=== PATIENT | female | born 2000 | race Caucasian/White ===

== ENCOUNTER 2024-02-08 11:50 | Emergency (ER) | payer OTHER, SELFPAY ==
[2024-02-08 12:23] VITALS: BP 127/82; PULSE 96; TEMP 36.9; O2SAT 100; BMI 22.0
[2024-02-08 12:58] LABS: Bilirubin Urine NEGATIVE (NEGATIVE); Blood Urine LARGE (NEGATIVE); Clarity Urine CLEAR (CLEAR); Color Urine LT. YELLOW (YELLOW); Glucose Urine UA NEGATIVE (NEGATIVE); Ketones Urine NEGATIVE (NEGATIVE); Leukocyte Esterase Urine TRACE (NEGATIVE); Nitrite Urine NEGATIVE (NEGATIVE); Protein Urine NEGATIVE (NEG/TRACE); Specific Gravity Urine <=1.005 (1.005-1.025); Urine Microscopic Indicated YES; Urobilinogen Urine 0.2 EU/dL (0.2-1.0)
[2024-02-08 12:59] LABS: HCG Qualitative Urine* NEGATIVE (NEGATIVE); Internal Control Within Normal Limits
[2024-02-08 13:09] LABS: Bacteria Urine TRACE #/HPF (NONE SEEN); Cast Seen? NONE SEEN #/LPF (NONE SEEN); Crystals Seen? None Seen #/HPF (None Seen); Mucus Urine TRACE (NONE SEEN); Squamous Epithelial Cell Urine MODERATE #/LPF (NONE/RARE); Urine Culture Indicated NO
--- NOTE | 2024-02-08 15:06 | ED_ITS ---
HPI HPI - General Adult General Chief complaint: Abdominal Pain Stated complaint: ABDOMINAL PAIN Time Seen by Provider: 02/08/24 14:26 Source: patient Mode of arrival: ambulance Limitations: no limitations History of Present Illness HPI narrative: Patient is a 24-year-old female who presents to the emergency department for the evaluation of pelvic cramping, heavy vaginal bleeding and nausea. She states her vaginal bleeding began yesterday, it got significantly heavier with passage of clots today. She has saturated 3 pads. She denies fevers, vomiting. She is not concerned for . No medications taken prior to arrival. Patient's mother is at bedside and states that the patient cannot receive opiates for pain Related Data Previous Rx's ?Medication ?Instructions ?Recorded ketorolac 10 mg tablet 10 mg PO TID PRN pain #10 tabs 02/08/24 ondansetron 4 mg disintegrating 4 mg PO Q6H PRN nausea and 02/08/24 tablet vomiting #12 tabs Allergies Allergy/AdvReac Type Severity Reaction Status Date / Time No Known Drug Allergies Allergy Verified 02/08/24 12:23 Opioid HPI Opioid Management Most Recent Opioid Data: Last ED Pain Assessment 02/08/24 15:20 Review of Systems ROS Constitutional Denies: fever or chills Ears, nose, mouth, and throat Denies: throat pain or nasal congestion Cardiovascular Denies: chest pain Respiratory Denies: shortness of breath or cough Gastrointestinal Reports: abdominal pain and nausea; Denies: vomiting or diarrhea Genitourinary Reports: pelvic pain and vaginal bleeding Musculoskeletal Denies: back pain Integumentary/Breast Denies: rash Neurological Denies: headache Hematologic/Lymphatic Denies: easy bruising or easy bleeding Exam Narrative Exam Narrative: Gen.: Awake, alert, in no distress Head: Normocephalic, atraumatic ENT: Moist mucous membranes Respiratory: No respiratory distress Gastrointestinal: Abdomen is soft, nondistended and Mildly tender to palpation in the pelvis with no guarding or rebound Extremities: Moves extremities equally Psych: Normal mood and affect Neuro: No focal neuro deficit Skin: Warm, dry, intact Constitutional Vital Signs, click to edit/add: Last Vital Signs Temp 98.4 F 02/08/24 12:23 Pulse 96 H 02/08/24 12:23 Resp 16 02/08/24 12:23 BP 127/82 02/08/24 12:23 Pulse Ox 100 06/09/24 12:23 O2 Del Method Room Air 02/08/24 12:23 Course Vital Signs Vital signs: Vital Signs Temperature 98.4 F 02/08/24 12:23 Pulse Rate 96 H 02/08/24 12:23 Respiratory Rate 16 02/08/24 12:23 Blood Pressure 127/82 02/08/24 12:23 Pulse Oximetry 100 02/08/24 12:23 Oxygen Delivery Method Room Air 02/08/24 12:23 Temperature 98.4 F 02/08/24 12:23 Pulse Rate 96 H 02/08/24 12:23 Respiratory Rate 16 02/08/24 12:23 Blood Pressure 127/82 02/08/24 12:23 Pulse Oximetry 100 02/08/24 12:23 Oxygen Delivery Method Room Air 02/08/24 12:23 Medical Decision Making MDM Narrative Medical decision making narrative: Patient was stable vital signs, hemoglobin 15.1. She is not and has no evidence of UTI. Patient treated for dysfunctional uterine bleeding with NSAIDs and Zofran for home, she was given an order for an ultrasound that can be done tomorrow with results to her technical photographer. She was strongly encouraged to follow-up with gynecology and return to the ER if symptoms change or worsen. Medical Records Medical records reviewed: Yes I reviewed the patient's medical records Lab Data Lab results reviewed: Yes I reviewed the patient's lab results Labs: Lab Results 02/08/24 02/08/24 Range/Units 12:40 14:57 WBC 8.3 (4.0-11.0) 10^3/uL RBC 5.01 (4.20-5.40) 10^6/uL Hgb 15.1 (12.0-16.0) g/dL Hct 44.6 (36.0-48.0) % MCV 89.0 (81.0-99.0) fL MCH 30.1 (26.7-34.0) pg MCHC 33.9 (29.9-35.2) g/dL RDW 13.1 (11.0-15.0) % Plt Count 318 (150-450) 10^3/uL MPV 11.2 (9.5-13.5) fL Neut % (Auto) 65.7 (43.0-75.0) % Lymph % (Auto) 27.2 (20.5-60.0) % Haywood % (Auto) 5.1 (1.7-12.0) % Eos % (Auto) 1.2 (0.9-7.0) % Baso % (Auto) 0.6 (0.2-2.0) % Neut # (Auto) 5.4 (1.4-6.5) 10^3/uL Lymph # (Auto) 2.3 (1.2-3.8) 10^3/uL Haywood # (Auto) 0.4 (0.3-0.8) 10^3/uL Eos # (Auto) 0.1 (0.0-0.7) 10^3/uL Baso # (Auto) 0.1 (0.0-0.1) 10^3/uL Abs Immat Gran (auto) 0.02 (0.00-0.03) 10^3/uL Imm/Tot Granulo (auto) 0.2 (0.0-0.5) % PT 10.3 (9.0-11.6) sec INR 0.97 Sodium 139 (136-145) mmol/L Potassium 4.2 (3.5-5.1) mmol/L Chloride 103 (98-107) mmol/L Carbon Dioxide 26.2 (21.0-32.0) mmol/L Anion Gap 14.0 BUN 21.0 H (7.0-18.0) mg/dL Creatinine 0.91 (0.55-1.02) mg/dL Est GFR ( Amer) >60 (>=60) Est GFR (Non-Af Amer) >60 (>=60) BUN/Creatinine Ratio 23.1 Glucose 100 (74-106) mg/dL Calcium 9.8 (8.5-10.1) mg/dL Urine Color Lt. yellow (YELLOW) Urine Clarity Clear (CLEAR) Urine pH 6.0 (5.0-9.0) Ur Specific Gillett <=1.005 A (1.005-1.025) Urine Protein Negative (NEG/TRACE) mg/dL Urine Glucose (UA) Negative (NEGATIVE) mg/dL Urine Ketones Negative (NEGATIVE) mg/dL Urine Occult Blood Large A (NEGATIVE) Urine Nitrite Negative (NEGATIVE) Urine Bilirubin Negative (NEGATIVE) Urine Urobilinogen 0.2 (0.2-1.0) EU/dL Ur Leukocyte Esterase Trace A (NEGATIVE) Urine RBC 2-5 A (0-2) #/HPF Urine WBC 2-5 A (NONE SEEN) #/HPF Ur Squamous Epith Cells Moderate A (NONE/RARE) #/LPF Urine Crystals None seen (None Seen) #/HPF Urine Bacteria Trace A (NONE SEEN) #/HPF Urine Casts None seen (NONE SEEN) #/LPF Urine Mucus Trace A (NONE SEEN) Ur Culture Indicated? No Urine HCG, Qual Negative (NEGATIVE) Discharge Plan Discharge Stand Alone Forms: Portal Instructions Chief Complaint: Abdominal Pain Clinical Impression: DUB (dysfunctional uterine bleeding) Patient Disposition: Home, Self-Care Time of Disposition Decision: 15:47 Condition: Good Prescriptions / Home Meds: New ketorolac 10 mg tablet 10 mg PO TID PRN (Reason: pain) Qty: 10 0RF ondansetron 4 mg tablet,disintegrating 4 mg PO Q6H PRN (Reason: nausea and vomiting) Qty: 12 0RF Print Language: Wolof Instructions: Abnormal (Dysfunctional) Uterine Bleeding (ED) Additional Instructions: Call Centralized scheduling tomorrow at [phone] ext [phone] or ext [phone] to schedule your ultrasound tomorrow Referrals: Mike Mendoza DO [Physician] - As soon as possible Kuldeep Mederos MD [Primary Care Provider] - 1 week
[2024-02-08 15:31] LABS: Basophils Absolute Auto 0.1 10^3/uL (0.0-0.1); Basophils Percent Auto 0.6 % (0.2-2.0); Eosinophils Absolute Auto 0.1 10^3/uL (0.0-0.7); Eosinophils Percent Auto 1.2 % (0.9-7.0); Hematocrit 44.6 % (36.0-48.0); Hemoglobin 15.1 g/dL (12.0-16.0); Immature Granulocytes Abs Auto 0.02 10^3/uL (0.00-0.03); Immature Granulocytes Pct Auto 0.2 % (0.0-0.5); Lymphocytes Absolute Auto 2.3 10^3/uL (1.2-3.8); Lymphocytes Percent Auto 27.2 % (20.5-60.0); Mean Corpuscular HGB Conc 33.9 g/dL (29.9-35.2); Mean Corpuscular Hemoglobin 30.1 pg (26.7-34.0); Mean Platelet Volume 11.2 fL (9.5-13.5); Monocytes Absolute Auto 0.4 10^3/uL (0.3-0.8); Monocytes Percent Auto 5.1 % (1.7-12.0); Neutrophils Absolute Auto 5.4 10^3/uL (1.4-6.5); Neutrophils Percent Auto 65.7 % (43.0-75.0); Platelet Count 318 10^3/uL (150-450); Red Blood Count 5.01 10^6/uL (4.20-5.40); Red Cell Distribution Width 13.1 % (11.0-15.0); White Blood Count 8.3 10^3/uL (4.0-11.0)
[2024-02-08] MEDS: ONDANSETRON 4 MG RAPDIS TABLET SL (15:35)
[2024-02-08] MEDS: KETOROLAC TROMETHAMINE 60 MG/2 ML VIAL IM (15:35)
[2024-02-08 15:36] LABS: BUN Creatinine Ratio 23.1; Calcium 9.8 mg/dL (8.5-10.1); Carbon Dioxide 26.2 mmol/L (21.0-32.0); Chloride 103 mmol/L (98-107); Estimated GFR (African America >60 (>=60); Estimated GFR (Non-African Ame >60 (>=60); Glucose 100 mg/dL (74-106); Potassium 4.2 mmol/L (3.5-5.1); Sodium 139 mmol/L (136-145)
[2024-02-08 15:41] LABS: INR 0.97; Prothrombin Time 10.3 sec (9.0-11.6)
[2024-02-08 15:50] LABS: HCG Qualitative NEGATIVE (NEGATIVE)
[2024-02-08 16:03] VITALS: BP 119/74; PULSE 84; O2SAT 99
== END 2024-02-08 16:08 | disposition home or self-care (01) ==
PROVIDERS: Physician Assistant; Emergency Provider Emergency Medicine; PCP Family Medicine
DX: N93.8 Other specified abnormal uterine and vaginal bleeding (principal)
CPT/HCPCS: 36415; 80048; 81001; 84703; 85025; 85610; 96372; 99284

== ENCOUNTER 2024-07-09 09:07 | Outpatient (OUT) | payer OTHER, SELFPAY ==
--- NOTE | 2024-07-09 | US_ITS ---
[address] [address] Patient Name: ALFREDO APPLE MRN: [id number] date: 2000 Sex: F Assigned Patient Location: [facility] Current Patient Location: [facility] Accession/Order Number: [id number] Exam Date: 07/09/2024 09:08 Report Date: 07/09/2024 10:31 At the request of: AB DYER Procedure: US OB transvaginal EXAMINATION: US OB transvaginal HISTORY: MISSED MENSES COMPARISON: No relevant comparison available. FINDINGS: GESTATIONAL SAC: Present and normal appearing. YOLK SAC: Present and normal appearing. POLE: Present and normal appearing. CARDIAC: Present. UTERUS: Normal size and appearance. OVARIES: Right: Normal. Left: Normal. CERVIX: 4.7 cm in length and closed. CUL-DE-SAC: Normal. OTHER: None. AGE BY LMP: 9 weeks 2 days [place] BY LMP: 02/09/2025 AGE BY US CRL: 9 weeks 0 days [place] BY US CRL: 02/11/2025 US/US OB transvaginal IMPRESSION: 1. Single live intrauterine . Electronically authenticated by: CORNELL BONDS Date: 07/09/2024 10:31
--- OUTSIDE RECORDS SUMMARY | 2024-07-09 09:29 | XMS_ITS | CCD ---
Author Organization [facility] Care Team Providers Care Infrastructure Design Engineer Name Role Phone YAHAIRA ., DR AVILA Consulting Unavailabl e NADERECarola, DR LUCRETIA Schmitz Primary Care Unavailable GOMEZ ., DR BERGER Attending Unavailable GOMEZ ., DR BERGER Admitting Unavailable GOMEZ ., DR BERGER Consulting Unavailable KARASIK ., DR AVILA Procedure Practitioner Jenna vailable GOMEZ ., DR BERGER Consulting Unavailable NADERER, DR LUCRETIA Schmitz Primary Care Unavailable GOMEZ ., DR BERGER Attending Unavailable GOMEZ ., DR BERGER Admitting Unavailable ZIEBER, DR CORNELL Srivastava Consulting Unavailable REQUEST, DR NONE LISTED Primary Care Unavaila ble GOMEZ ., DR BERGER Attending Unavailable GOMEZ ., DR BERGER Admitting Unavailable KARASIK ., DR AVILA Consulting Unavailabl e NADERER, DR LUCRETIA Schmitz Primary Care Unavailable KARASIK ., DR AVILA Attending Unavailabl e KARASIK ., DR AVILA Admitting Unavailabl e ZIKRISSY, DR CORNELL Srivastava Consulting Unavailable KARASIK ., DR AVILA Consulting Unavailabl e NADERECarola, DR LUCRETIA Schmitz Primary Care Unavailable KARASIK ., DR AVILA Attending Unavailabl e KARASIK ., DR AVILA Admitting Unavailabl e KARASIK ., DR AVILA Consulting Unavailabl e NADERECarola, DR LUCRETIA Schmitz Primary Care Unavailable KARASIK ., DR AVILA Attending Unavailabl e KARASIK ., DR AVILA Admitting Unavailabl e ZIEBYASMANY, DR CORNELL Srivastava Consulting Unavailable REQUEST, DR NONE LISTED Consulting Unavaila ble KARASIK ., DR AVILA Consulting Unavailabl e SONDRAERECarola, DR LUCRETIA Schmitz Primary Care Unavailable KARASIK ., DR AVILA Attending Unavailabl e KARASIK ., DR AVILA Admitting Unavailabl e WEST, DR TANYA Clarke Consulting Unavailable REQUEST, DR FERRIS LISTED Primary Care Unavaila ble GOMEZ ., DR BERGER Attending Unavailable GOMEZ ., DR BERGER Admitting Unavailable GOMEZ ., DR BERGER Consulting Unavailable KARASIK ., DR AVILA Consulting Unavailabl e LINDA, DR FERRIS LISTED Primary Care Unavaila ble KARASIK ., DR AVILA Attending Unavailabl e KARASIK ., DR AVILA Admitting Unavailabl e KARASIK ., DR AVILA Consulting Unavailabl e NADAMARILYS, DR ULCRETIA Schmitz Primary Care Unavailable KARASIK ., DR AVILA Attending Unavailabl e KARASIK ., DR AVILA Admitting Unavailabl e Sandra, Monica Unavailable AB DYER Attending Unavailable Allergies Allergy Classification Reported Allergen(s) Allergy Type Date of Onset Reaction(s) Facility (1 source) Adhesive bandage Drug allergy (disorder) 3 [facility] Rep[facility] (1 source) Amoxicillin Drug Allergy diarrhea, vomiting [employer] Other Medications Current Medications Medication Drug Class(es) Dates Sig (Normalized) Sig (Original) escitalopram 5 mg oral tablet (1 source) Serotonin Reuptake Inhibitor take 1 tablet by mouth once daily Escitalopram Oxalate 5 MG TAKE 1 TABLET BY MOUTH EVERY DAY Oral for 30 Days Active methylPREDNISolone 4 mg oral tablet (1 source) Corticosteroid Start: 05-30-2023 Medrol 4 MG as directed Orally As Directed for 6 days May, Active naltrexone 380 mg injection (2 sources) Opioid Antagonist Vivitrol 380 M G Intramuscular for 28 Days Active take 1 tablet by mouth once roya y Naltrexone HCl 50 MG TAKE 1 TABLET BY MOUTH EVERY DAY Oral for 30 Days Active norethindrone 0.35 mg oral tablet (1 source) Incassia 0.35 MG Oral for 28 Days Active pramipexole dihydrochloride 0.5 mg oral tablet (1 source) Nonergot Dopamine Agonist take 1-3 tablets by mouth at bedtime as needed Pramipexole Dihydrochloride 0.5 MG TAKE 1 TO 3 TABLETS AT BEDTIME NEEDED Oral for 7 Days Active QUEtiapine 25 mg oral tablet (1 source) Atypical Antipsychotic take 1-2 tablets by mouth at bedtime as needed for sleep QUEtiapine Fumarate 25 MG TAKE 1 TO 2 TABLETS AT BEDTIME NEEDED FOR SLEEP Oral for 10 Days Active tiZANidine 4 mg oral tablet (1 source) Central alpha-2 Adrenergic Agonist tiZANidine HCl 4 MG Oral for 7 Days Active Problems Active Problems Problem Classification Problem Date Documented Date Episodic/Chronic Asthma (1 source) Unspecified asthma with (acute) exacerbation Chronic Immunizations and screening for infectious disease (1 source) Encounter for screening for human papillomavirus (HPV); Translations: [ENC SCREENING HUMAN PAPILLOMAVIRUS] Onset: 11-06-2022 Episodic Mycoses (1 source) Tinea unguium Episodic Other screening for suspected conditions (not mental disorders or infectious disease) (8 sources) Encounter for screening for malignant neoplasm of cervix; Translations: [Encounter for screening for Streptococcus B] Onset: 01-23-2022 Episodic Other upper respiratory infections (2 sources) Acute pharyngitis, unspecified Episodic Substance-related disorders (1 source) Nicotine dependence, cigarettes, uncomplicated; Translations: [NICOTINE DEPEND CIGARETTES UNCOMP] Onset: 02-28-2022 Chronic Unclassified (1 source) CONTACT W/AND (SUSP) EXPOS COVID-19; Translations: [CONTACT W/AND (SUSP) EXPOS COVID-19] Onset: 02-28-2022 Viral infection (1 source) Herpesviral infection of urogenital system, unspecified; Translations: [HERPESVIRAL INF UROGENITAL SYS UNS] Onset: 02-28-2022 Chronic Past or Other Problems Problem Classification Problem Date Documented Date Episodic/Chronic Abdominal pain (1 source) Unspecified abdominal pain; Translations: [UNSPECIFIED ABDOMINAL PAIN] Onset: 01-23-2022 Episodic Diabetes mellitus without complication (4 sources) Other abnormal glucose; Translations: [OTHER ABNORMAL GLUCOSE] Onset: 12-07-2021 Episodic Other complications of ; puerperium affecting management of mother (3 sources) Streptococcus B carrier state complicating childbirth; Translations: [STREP B HAYES STATE COMP CHILDBIRTH] Onset: 02-17-2022 Episodic Other complications of ; puerperium affecting management of mother (1 source) Other infections with a predominantly sexual mode of transmission complicating childbirth; Translations: [OTH INF SEXL TRNSMS COMP CHILDBIRTH] Onset: 02-28-2022 Episodic Other complications of ; puerperium affecting management of mother (1 source) Smoking (tobacco) complicating childbirth; Translations: [SMOKING TOBACCO COMP CHILDBIRTH] Onset: 02-28-2022 Episodic Other complications of ; puerperium affecting management of mother (1 source) Diseases of the respiratory system complicating childbirth; Translations: [DISEASES RESP SYS COMP CHILDBIRTH] Onset: 02-28-2022 Episodic Other complications of ; puerperium affecting management of mother (4 sources) Maternal care for other (suspected) abnormality and damage, not applicable or unspecified; Translations: [MAT CARE OTH ABN DAMGE NA/UNS] Onset: 01-09-2022 Episodic Other complications of (3 sources) Supervision of high risk , unspecified, unspecified trimester; Translations: [SUP HIGH RISK UNS UNS TRI] Onset: 02-06-2022 Episodic Other complications of (1 source) Supervision of high risk , unspecified, third trimester; Translations: [SUP HIGH RISK UNS 3RD TRI] Onset: 02-09-2022 Episodic Other complications of (4 sources) Other specified related conditions, third trimester; Translations: [OTH SPEC PREG RELATED COND 3RD TRI] Onset: 01-17-2022 Episodic Other complications of (4 sources) Supervision of with other poor reproductive or obstetric history, third trimester; Translations: [SUP PG OTH POOR REPROD/OB HX 3RD TM] Onset: 12-17-2021 Episodic Other and delivery including normal (9 sources) Encounter for routine follow-up; Translations: [Single live ] Onset: 11-26-2021 Episodic Residual codes; unclassified (1 source) 39 weeks gestation of ; Translations: [39 WEEKS GESTATION OF ] Onset: 02-28-2022 Episodic Residual codes; unclassified (1 source) Personal history of other specified conditions; Translations: [PERSONAL HISTORY OTH SPEC CONDITION] Onset: 02-28-2022 Episodic Residual codes; unclassified (1 source) 35 weeks gestation of ; Translations: [35 WEEKS GESTATION OF ] Onset: 02-09-2022 Episodic Residual codes; unclassified (1 source) 34 weeks gestation of ; Translations: [34 WEEKS GESTATION OF ] Onset: 2022 Episodic Residual codes; unclassified (1 source) 30 weeks gestation of ; Translations: [30 WEEKS GESTATION OF ] Onset: 04-20-2022 Episodic Residual codes; unclassified (1 source) 24 weeks gestation of ; Translations: [24 WEEKS GESTATION OF ] Onset: 11-29-2021 Episodic Substance-related disorders (2 sources) Drug use complicating childbirth; Translations: [Cannabis use, unspecified, uncomplicated] Onset: 02-28-2022 Episodic Results Test Name Value Interpretation Reference Range Facility Quick Strepon 05-30-2023 S. pyogenes Org specific cx Ql (Throat) Negative [facility] Other Quick Strep [facility] Other PAP ACOG PANEL 2: 21 to 29on 11-08-2022 . . Normal [facility] Comment on above: Result Comment: Perf ormed at: [facility] Performed By: #### [id number] #### [facility] [address] [place] [address] Dr. Meryl Damon Age Gdln ACOG Testing [facility] Comment on above: Performed By: #### [id number] #### [facility] [address] [place] [address] Dr. Meryl Damon DIAGNOSIS: Comment [facility] Comment on above: Result Comment: NEGA TIVE FOR INTRAEPITHELIAL LESION OR MALIGNANCY. Performed at: [facility] Performed By: #### [id number] #### [facility] [address] [place] [address] Dr. Meryl Damon Methodology: Comment [facility] Comment on above: Result Comment: This liquid based ThinPrep(R) pap test was screened with the use of an image guided system. Performed at: [facility] Performed By: #### [id number] #### [facility] [address] [place] [address] Dr. Meryl Damon Note: Comment [facility] Comment on above: Result Comment: The Pap smear is a screening test designed to aid in the detection of premalignant and malignant conditions of the uterine cervix. It is not a diagnostic procedure and should not be used as the sole means of detecting cervical cancer. Both false-positive and false-negative reports do occur. . Performed at: [facility] Performed By: #### [id number] #### [facility] [address] [place] [address] Dr. Meryl Damon Performed by: Comment Normal [facility] Comment on above: Result Comment: Luz Valverde [employer] Maker (ASCP) Performed at: [facility] Performed By: #### [id number] #### [facility] [address] [place] [address] Dr. Meryl Damon Reflex Criteria: Comment Normal [facility] Comment on above: Result Comment: The HPV DNA reflex criteria were not met with this specimen result therefore, no HPV testing was performed. . Performed at: [facility] Performed By: #### [id number] #### [facility] [address] [place] [address] Dr. Meryl Damon Specimen adequacy: Comment Normal [facility] Comment on above: Result Comment: Sati sfactory for evaluation. Endocervical and/or squamous metaplastic cells (endocervical component) are present. Areas of partially obscuring inflammatory exudate are present. Performed at: [facility] Performed By: #### [id number] #### [facility] [address] [place] [address] Dr. Meryl Damon CBC AUTO DIFFon 02-19-2022 BASO # 0.1 103/ul Normal 0.0-0.1 [facility] Comment on above: Performed By: #### C BC #### [facility] [address] [place] [address] Dr. Meryl Damon Basophils/100 WBC (Bld) 0.3 % Normal 0.2-2.0 [facility] Comment on above: Performed By: #### C BC #### [facility] [address] [place] [address] Dr. Meryl Damon EO # 0.1 103/ul Normal 0.0-0.7 [facility] Comment on above: Performed By: #### C BC #### [facility] [address] [place] [address] Dr. Meryl Damon Eosinophils/100 WBC (Bld) 0.7 % Critically low 0.9-7.0 [facility] Comment on above: Performed By: #### C BC #### [facility] [address] [place] [address] Dr. Meryl Damon Erythrocyte distribution width (RBC) [Ratio] 14.1 % Normal 11.0-15.0 [facility] Comment on above: Performed By: #### C BC #### [facility] [address] [place] [address] Dr. Meryl Damon Hematocrit (Bld) [Volume fraction] 31.1 % Critically low 36.0-48.0 [facility] Comment on above: Performed By: #### C BC #### [facility] [address] [place] [address] Dr. Meryl Damon Hemoglobin (Bld) [Mass/Vol] 10.1 g/dL Critically low 12.0-16.0 [facility] Comment on above: Performed By: #### C BC #### [facility] [address] [place] [address] Dr. Meryl Damon IG # 0.09 10e3/ul Critically high 0.00-0.03 [facility] Comment on above: Performed By: #### C BC #### [facility] [address] [place] [address] Dr. Meryl Damon IG % 0.5 % Normal 0.0-0.5 [facility] Comment on above: Performed By: #### C BC #### [facility] [address] [place] [address] Dr. Meryl Damon LYMPH # 1.9 103/ul Normal 1.2-3.8 [facility] Comment on above: Performed By: #### C BC #### [facility] [address] [place] [address] Dr. Meryl Damon Lymphocytes/100 WBC (Bld) 11.5 % Critically low 20.5-60.0 [facility] Comment on above: Performed By: #### C BC #### [facility] [address] [place] [address] Dr. Meryl Damon MANUAL DIFF REQ NO Normal [facility] Comment on above: Performed By: #### C BC #### [facility] [address] [place] [address] Dr. Meryl Damon MCH (RBC) [Entitic mass] 28.8 pg Normal 26.7-34.0 [facility] Comment on above: Performed By: #### C BC #### [facility] [address] [address] [address] Meryl Damon MCHC (RBC) [Mass/Vol] 32.5 g/dL Normal 29.9-35.2 [facility] Comment on above: Performed By: #### C BC #### [facility] [address] [place] [address] Dr. Meryl Damon MCV (RBC) [Entitic vol] 88.6 fL Normal 81.0-99.0 [facility] Comment on above: Performed By: #### C BC #### [facility] [address] [place] [address] Dr. Meryl Damon MONO # 1.8 103/ul Critically high 0.3-0.[address] [facility] Comment on above: Performed By: #### C BC #### [facility] [address] [place] [address] Dr. Meryl Damon Monocytes/100 WBC (Bld) 11.2 % Normal 1.7-12.0 [facility] Comment on above: Performed By: #### C BC #### [facility] [address] [place] [address] Dr. Meryl Damon NEUT # 12.4 103/ul Critically high 1.4-6.5 [facility] Comment on above: Performed By: #### C BC #### [facility] [address] [place] [address] Dr. Meryl Damon Neutrophils/100 WBC (Bld) 75.8 % Critically high 43.0-75.0 [facility] Comment on above: Performed By: #### C BC #### [facility] [address] [place] [address] Dr. Meryl Damon Platelet mean volume (Bld) [Entitic vol] 11.5 fL Normal 9.5-13.5 [facility] Comment on above: Performed By: #### C BC #### [facility] [address] [place] [address] Dr. Meryl Damon PLT 186 103/ul Normal 150-450 [facility] Comment on above: Performed By: #### C BC #### [facility] [address] [place] [address] Dr. Meryl Damon RBC 3.51 106/ul Critically low 4.20-5.[address] [facility] Comment on above: Performed By: #### C BC #### [facility] [address] [address] [address] Meryl Damon WBC 16.4 103/ul Critically high 4.0-11.0 [facility] Comment on above: Performed By: #### C BC #### [facility] [address] [place] [address] Dr. Meryl Damon CBC AUTO DIFFon 02-17-2022 BASO # 0.0 103/ul Normal 0.0-0.1 [facility] Comment on above: Performed By: #### C BC #### [facility] [address] [place] [address] Dr. Meryl Damon Basophils/100 WBC (Bld) 0.1 % Critically low 0.2-2.0 [facility] Comment on above: Performed By: #### C BC #### [facility] [address] [place] [address] Dr. Meryl Dmaon EO # 0.1 103/ul Normal 0.0-0.7 [facility] Comment on above: Performed By: #### C BC #### [facility] [address] [place] [address] Dr. Meryl Damon Eosinophils/100 WBC (Bld) 0.6 % Critically low 0.9-7.0 [facility] Comment on above: Performed By: #### C BC #### [facility] [address] [place] [address] Dr. Meryl Damon Erythrocyte distribution width (RBC) [Ratio] 13.9 % Normal 11.0-15.0 [facility] Comment on above: Performed By: #### C BC #### [facility] [address] [place] [address] Dr. Meryl Damon Hematocrit (Bld) [Volume fraction] 35.2 % Critically low 36.0-48.0 [facility] Comment on above: Performed By: #### C BC #### [facility] [address] [place] [address] Dr. Meryl Damon Hemoglobin (Bld) [Mass/Vol] 11.8 g/dL Critically low 12.0-16.0 [facility] Comment on above: Performed By: #### C BC #### [facility] [address] [place] [address] Dr. Meryl Damon IG # 0.08 10e3/ul Critically high 0.00-0.03 [facility] Comment on above: Performed By: #### C BC #### [facility] [address] [place] [address] Dr. Meryl Damon IG % 0.6 % Critically high 0.0-0.[address] [facility] Comment on above: Performed By: #### C BC #### [facility] [address] [place] [address] Dr. Meryl Damon LYMPH # 1.7 103/ul Normal 1.2-3.8 [facility] Comment on above: Performed By: #### C BC #### [facility] [address] [place] [address] Dr. Meryl Damon Lymphocytes/100 WBC (Bld) 12.8 % Critically low 20.5-60.0 [facility] Comment on above: Performed By: #### C BC #### [facility] [address] [place] [address] Dr. Meryl Damon MANUAL DIFF REQ NO Normal [facility] Comment on above: Performed By: #### C BC #### [facility] [address] [place] [address] Dr. Meryl Damon MCH (RBC) [Entitic mass] 29.4 pg Normal 26.7-34.0 [facility] Comment on above: Performed By: #### C BC #### [facility] [address] [place] [address] Dr. Meryl Damon MCHC (RBC) [Mass/Vol] 33.5 g/dL Normal 29.9-35.2 [facility] Comment on above: Performed By: #### C BC #### [facility] [address] [place] [address] Dr. Meryl Damon MCV (RBC) [Entitic vol] 87.6 fL Normal 81.0-99.0 [facility] Comment on above: Performed By: #### C BC #### [facility] [address] [address] [address] Meryl Damon MONO # 1.1 103/ul Critically high 0.3-0.[address] [facility] Comment on above: Performed By: #### C BC #### [facility] [address] [place] [address] Dr. Meryl Damon Monocytes/100 WBC (Bld) 7.8 % Normal 1.7-12.0 [facility] Comment on above: Performed By: #### C BC #### [facility] [address] [place] [address] Dr. Meryl Damon NEUT # 10.4 103/ul Critically high 1.4-6.5 [facility] Comment on above: Performed By: #### C BC #### [facility] [address] [place] [address] Dr. Meryl Damon Neutrophils/100 WBC (Bld) 78.1 % Critically high 43.0-75.0 [facility] Comment on above: Performed By: #### C BC #### [facility] [address] [place] [address] Dr. Meryl Damon Platelet mean volume (Bld) [Entitic vol] 11.5 fL Normal 9.5-13.5 [facility] Comment on above: Performed By: #### C BC #### [facility] [address] [place] [address] Dr. Meryl Damon PLT 265 103/ul Normal 150-450 [facility] Comment on above: Performed By: #### C BC #### [facility] [address] [place] [address] Dr. Meryl Damon RBC 4.02 106/ul Critically low 4.20-5.[address] [facility] Comment on above: Performed By: #### C BC #### [facility] [address] [place] [address] Dr. Meryl Damon WBC 13.4 103/ul Critically high 4.0-11.0 [facility] Comment on above: Performed By: #### C BC #### [facility] [address] [place] [address] Dr. Meryl Damon Covid-19 PCR ([facility])on 01-30 SARS-CoV-2 (COVID-19) RNA [place]+probe Ql (Unsp spec) Not detected Normal NOT DETECTED [facility] Comment on above: Result Comment: When diagnostic testing is negative, the possibility of a false negative should be considered in the context of a patient's recent exposures and the presence of clinical signs and symptoms consistent with SARS-CoV-2. This test is not yet approved or cleared by the [place] FDA. When there are no FDA-approved or cleared tests available, and other criteria are met, FDA can make tests available under an emergency access mechanism called an Emergency Use Authorization (EUA). The EUA for this test is supported by the [employer] of Health and Human Service's declaration that circumstances exist to justify the emergency use of in vitro diagnostics for the detection and/or diagnosis of the virus that causes COVID-19. This EUA will remain in effect for the duration of the COVID-19 declaration justifying emergency of IVDs, unless it is terminated or revoked by the FDA (after which the test may no longer be used). Performed By: #### C VDTBH #### [facility] [address] [place] [address] Dr. Meryl Damon DRUG SCREEN RAPID (URINE)on 02-17-2022 AMP Negative Normal NEGATIVE [facility] Comment on above: Performed By: #### D RUGRPD #### [facility] [address] [place] [address] Dr. Meryl Damon BAR Negative Normal NEGATIVE [facility] Comment on above: Performed By: #### D RUGRPD #### [facility] [address] [place] [address] Dr. Meryl Damon BUP Negative Normal NEGATIVE [facility] Comment on above: Performed By: #### D RUGRPD #### [facility] [address] [place] [address] Dr. Meryl Damon BZO Negative Normal NEGATIVE [facility] Comment on above: Performed By: #### D RUGRPD #### [facility] [address] [place] [address] Dr. Meryl Damon EDGAR Negative Normal NEGATIVE [facility] Comment on above: Performed By: #### D RUGRPD #### [facility] [address] [address] [place] [address] Dr. Meryl Damon CUT-OFFS SEE BELOW Normal [facility] Comment on above: Result Comment: AMP (Amphetamine): 500ng/mL, BAR (Barbituates): 200 ng/mL, BZO (Benzodiazepines): 150 ng/mL, BUP (Buprenorphine): 10 ng/mL, EDGAR (Cocaine): 150 ng/mL, mAMP (Methamphetamine): 500 ng/mL, MTD (Methadone): 200 ng/mL, OPI (Opiates): 100 ng/mL, OXY (Oxycodone): 100 ng/mL, PCP (Phencyclidine): 25 ng/mL, PPX (Propoxyphene): 300 ng/mL, THC (Cannabinoids): 50 ng/mL, TCA (Trycyclic Antidepressants): 300 ng/mL Performed By: #### D RUGRPD #### [facility] [address] [place] [address] Dr. Meryl Damon DRUG CUT HEADER DRUG CLASS TEST SYSTEM CUT-OFF CONCENTRATIONS ARE FOLLOWS: Normal [facility] Comment on above: Performed By: #### D RUGRPD #### [facility] [address] [place] [address] Dr. Meryl Damon mAMP Negative Normal NEGATIVE [facility] Comment on above: Performed By: #### D RUGRPD #### [facility] [address] [place] [address] Dr. Meryl Damon MTD Negative Normal NEGATIVE [facility] Comment on above: Performed By: #### D RUGRPD #### [facility] [address] [place] [address] Dr. Meryl Damon OPI Negative Normal NEGATIVE [facility] Comment on above: Performed By: #### D RUGRPD #### [facility] [address] [address] [address] Meryl Damon OXY Negative Normal NEGATIVE [facility] Comment on above: Performed By: #### D RUGRPD #### [facility] [address] [place] [address] Dr. Meryl Damon PCP Negative Normal NEGATIVE [facility] Comment on above: Performed By: #### D RUGRPD #### [facility] [address] [place] [address] Dr. Meryl Damon PPX Negative Normal NEGATIVE [facility] Comment on above: Performed By: #### D RUGRPD #### [facility] [address] [place] [address] Dr. Meryl Damon TCA Negative Normal NEGATIVE [facility] Comment on above: Performed By: #### D RUGRPD #### [facility] [address] [place] [address] Dr. Meryl Damon THC Positive Abnormal NEGATIVE [facility] Comment on above: Performed By: #### D RUGRPD #### [facility] [address] [place] [address] Dr. Meryl Damon TYPE AND SCREENon 02-17-2022 TYPE AND SCREEN Negative Normal [facility] Comment on above: Performed By: #### G LU1HR #### [facility] [address] [place] [address] Dr. Meryl Damon US PREG GROWTHon 02-06-2022 US PREG GROWTH EXAMINATION: US PREG GROWTH HISTORY: High risk COMPARISON: No relevant comparison available. FINDINGS: Heart Rate: 144.0 bpm Amniotic Fluid Volume: 16.5 cm Number: 1.0 Position: CEPHALIC Maximum Vertical Pocket: 2.9 cm cm 5.0 cm cm 4.6 cm cm 4.0 cm cm BIOMETRY: BPD: 8.8 cm cm; 35 weeks 4 days; 12% HC: 31.9 cmcm; 35 weeks 6 days less than 3% AC: 32.3 cm cm; 36 weeks 1 days, 19% FL: 6.9 cm cm; 35 weeks 4 days; 5.6 % % EFW: 2802.7 grams, 6 lbs. 3 oz., 50% FL/AC: 21.5 FL/BPD: 78.8 HC/AC: 1.0 GESTATIONAL AGE: Age by EDC: 38 weeks 0 days YUDELKA by EDC: 02/20/2022 Age by US: 35 weeks 6 days YUDELKA by US: 03/07/2022 IMPRESSION: Head circumference less than the 3rd percentile, otherwise normal interval growth Electronically authenticated by: TANYA SHEIKH Date: 2022-02-06 16:11 Normal [facility] GROUP B STREP CULTUREon 12-31 S. agalactiae Ag Ql (Unsp spec) Culture Observations: unable to isolate beta- possible Group B Normal [facility] Comment on above: Performed By: #### G LU1HR #### [facility] [address] [place] [address] Dr. Meryl Damon CULTURE URINEon 01-17-2022 CULTURE URINE Culture Observations : MODERATE GROWTH OF MIXED GENITAL SENA. NO POTENTIAL PATHOGENS SEEN. Normal [facility] Comment on above: Performed By: #### G LU1HR #### [facility] [address] [place] [address] Dr. Meryl Damon UA (CLEAN/CATCH) RESTAURANT HOST/HOSTESS/MICRO I F IND.on 01-17-2022 Bilirubin Ql (U) Negative Normal NEGATIVE [facility] Comment on above: Performed By: #### U MICRO, UACSIND #### [facility] [address] [place] [address] Dr. Meryl Damon Clarity (U) CLEAR Normal CLEAR [facility] Comment on above: Performed By: #### U MICRO, UACSIND #### [facility] [address] [place] [address] Dr. Meryl Damon Color (U) LT. YELLOW Normal YELLOW [facility] Comment on above: Performed By: #### U MICRO, UACSIND #### [facility] [address] [place] [address] Dr. Meryl Damon Glucose Ql (U) Negative Normal NEGATIVE [facility] Comment on above: Performed By: #### U MICRO, UACSIND #### [facility] [address] [address] [address] Meryl Damon Hemoglobin Ql (U) SMALL Abnormal NEGATIVE [facility] Comment on above: Performed By: #### U MICRO, UACSIND #### [facility] [address] [address] [address] Meryl Damon Ketones Ql (U) Negative Normal NEGATIVE [facility] Comment on above: Performed By: #### U MICRO, UACSIND #### [facility] [address] [address] [address] Meryl Damon LEUKOCYTES LARGE Abnormal NEGATIVE [facility] Comment on above: Performed By: #### U MICRO, UACSIND #### [facility] [address] [address] [address] Meryl Damon Nitrite Ql (U) Negative Normal NEGATIVE [facility] Comment on above: Performed By: #### U MICRO, UACSIND #### [facility] [address] [address] [address] Meryl Damon pH (U) 8.0 [pH] Normal 5-9 [facility] Comment on above: Performed By: #### U MICRO, UACSIND #### [facility] [address] [address] [address] Meryl Damon SPEC GRAVITY 1.010 Normal 1.005-<=1.[address] [facility] Comment on above: Performed By: #### U MICRO, UACSIND #### [facility] [address] [address] [address] Meryl Damon UA PROTEIN Negative Normal NEGATIVE/ TRACE [facility] Comment on above: Performed By: #### U MICRO, UACSIND #### [facility] [address] [address] [address] Meryl Damon UR MICRO IND INDICATED Normal [facility] Comment on above: Performed By: #### U MICRO, UACSIND #### [facility] [address] [address] [address] Meryl Damon Urobilinogen Qn (U) 0.2 {Yovanny'U}/dL Normal 0.2 - 1.0 [facility] Comment on above: Performed By: #### U MICRO, UACSIND #### [facility] [address] [address] [address] Meryl Damon URINE MICROSCOPIC ONLYon BACTERIA TRACE Abnormal NONE SEEN [facility] Comment on above: Performed By: #### U MICRO, UACSIND #### [facility] [address] [address] [address] Meryl Damon Bacteria identified Cx Nom (U) INDICATED Normal [facility] Comment on above: Performed By: #### U MICRO, UACSIND #### [facility] [address] [place] [address] Dr. Meryl Damon CAST NONE SEEN Normal NONE SEEN [facility] Comment on above: Performed By: #### U MICRO, UACSIND #### [facility] [address] [place] [address] Dr. Meryl Damon Crystals LM Nom (Urine sed) NONE SEEN Normal NONE SEEN [facility] Comment on above: Performed By: #### U MICRO, UACSIND #### [facility] [address] [place] [address] Dr. Meryl Damon Epithelial cells LM Ql (Urine sed) MANY Abnormal NONE SEEN /RARE [facility] Comment on above: Performed By: #### U MICRO, UACSIND #### [facility] [address] [place] [address] Dr. Meryl Damon MUCOUS TRACE Abnormal NONE SEEN [facility] Comment on above: Performed By: #### U MICRO, UACSIND #### [facility] [address] [place] [address] Dr. Meryl Damon RBC 5-10 Abnormal 0-2 [facility] Comment on above: Performed By: #### U MICRO, UACSIND #### [facility] [address] [place] [address] Dr. Meryl Damon WBC 20-50 Abnormal NONE SEEN [facility] Comment on above: Performed By: #### U MICRO, UACSIND #### [facility] [address] [address] [address] Meryl Damon US KIDNEYSon 01-17-2022 US KIDNEYS EXAMINATION: US KIDNEYS HISTORY: Abdominal pain in , left flank pain, 35 weeks COMPARISON: No relevant comparison available. TECHNIQUE: Ultrasound examination was performed of the kidneys and urinary bladder. FINDINGS: RIGHT KIDNEY: Hydronephrosis with dilated renal pelvis, 3.0 cm in width. Kidney: 12.3 x 5.8 x 3.6 cm LEFT KIDNEY: Mild pelvocaliectasis without significant dilation of renal pelvis. Kidney: 12.7 x 6.0 x 7.4 cm BLADDER: No visible wall thickening, mass, or calculi. URETERAL JETS: Not seen, but limited evaluation due to artifact from position of the head. IMPRESSION: 1. Moderate marked right hydronephrosis; secondary to versus ureteral obstruction. 2. Mild left hydronephrosis. Electronically authenticated by: CORNELL BONDS Date: 2022-01-17 14:20 Normal [facility] US PREG REEVAL ABNon 022 US PREG REEVAL ABN EXAMINATION: US PREG REEVAL ABN HISTORY: condition affecting obstetrical care of mother ; echogenic focus of heart COMPARISON: Ultrasound growth 1422, ultrasound. See anatomy to 722 FINDINGS: Presentation: Cephalic Heart rate: 149 bpm Anatomy: Echogenic focus within the left ventricle of heart. Gestational age: 34 weeks, 0 days YUDELKA: 02/20/2022 IMPRESSION: 1. Single live intrauterine . 2. Persistent echogenic focus within the left ventricle of the heart. Electronically authenticated by: CORNELL BONDS Date: 2022-01-09 09:14 Normal [facility] US PREG GROWTHon 12-17-2021 US PREG GROWTH EXAMINATION: US PREG GROWTH HISTORY: High risk COMPARISON: Ultrasound anatomy to 722 FINDINGS: Heart Rate: 145.9 bpm Number: 1.0 Position: CEPHALIC Amniotic Fluid Volume: 14.5 cm Maximum Vertical Pocket: 4.9 cm BIOMETRY: BPD: 7.6 cm cm; 30 weeks 4 days; 33% HC: 28.6 cmcm; 31 weeks 3 days; 34% AC: 26.5 cm cm; 30 weeks 4 days; 42% FL: 5.4 cm cm; 28 weeks 5 days; <3% EFW: 1504.4 grams; 19% FL/AC: 20.5 FL/BPD: 71.1 HC/AC: 1.1 GESTATIONAL AGE: Age by EDC: 30 weeks 5 days YUDELKA by EDC: 02/20/2022 Age by US: 30 weeks, 2 days YUDELKA by US: 02/23/2022 IMPRESSION: 1. Single live intrauterine with growth detailed above. 2. Femur length is less than 3rd percentile. Electronically authenticated by: CORNELL BONDS Date: 2021-12-17 10:10 Normal [facility] GTT 3 HR PREGon 12-07-2021 Glucose [Mass/Vol] 85 mg/dL Normal 74-106 [facility] Comment on above: Performed By: #### G TT3P #### [facility] [address] [place] [address] Dr. Meryl Damon Glucose [Mass/Vol] 123 mg/dL Normal [facility] Comment on above: Performed By: #### G TT3P #### [facility] [address] [place] [address] Dr. Meryl Damon Glucose [Mass/Vol] 84 mg/dL Normal [facility] Comment on above: Performed By: #### G TT3P #### [facility] [address] [place] [address] Dr. Meryl Damon GLUCOSE - 1HRon 11-26-2021 Glucose [Mass/Vol] 146 mg/dL Critically high 74-106 [facility] Comment on above: Performed By: #### G LU1HR #### [facility] [address] [place] [address] Dr. Meryl Damon HEMOGRAM AND PLATELon 2021 Hematocrit (Bld) [Volume fraction] 38.3 % Normal 36.0-48.0 [facility] Comment on above: Performed By: #### G LU1HR #### [facility] [address] [place] [address] Dr. Meryl Damon Hemoglobin (Bld) [Mass/Vol] 12.6 g/dL Normal 12.0-16.0 [facility] Comment on above: Performed By: #### G LU1HR #### [facility] [address] [address] [address] Meryl Damon MCH (RBC) [Entitic mass] 30.9 pg Normal 26.7-34.0 [facility] Comment on above: Performed By: #### G LU1HR #### [facility] [address] [address] [address] Meryl Damon MCHC (RBC) [Mass/Vol] 32.9 g/dL Normal 29.9-35.2 [facility] Comment on above: Performed By: #### G LU1HR #### [facility] [address] [address] [address] Meryl Damon MCV (RBC) [Entitic vol] 93.9 fL Normal 81.0-99.0 [facility] Comment on above: Performed By: #### G LU1HR #### [facility] [address] [place] [address] Dr. Meryl Damon PLT 225 103/ul Normal 150-450 [facility] Comment on above: Performed By: #### G LU1HR #### [facility] [address] [address] [address] Meryl Damon RBC 4.08 106/ul Critically low 4.20-5.[address] [facility] Comment on above: Performed By: #### G LU1HR #### [facility] [address] [place] [address] Dr. Meryl Damon WBC 8.5 103/ul Normal 4.0-11.0 [facility] Comment on above: Performed By: #### G LU1HR #### [facility] [address] [place] [address] Dr. Meryl Damon Vital Signs Date Time Vital Sign Value Performing Clinician Facility 05-30-2023 15:30-0400 Body height 170.18 cm Monica Flores Other [facility] Other 05-30-2023 15:30-0400 Body mass index (BMI) [Ratio] 21.3 kg/m2 Monica Flores Other [facility] Other 05-30-2023 15:30-0400 Body temperature 98.9 [degF] Monica Owensmond Other [facility] Other 05-30-2023 15:30-0400 Body weight 61.69 kg Monica Sandra Other [facility] Other 05-30-2023 15:30-0400 Diastolic blood pressure 63 mm[Hg] Monica Sandra Other [facility] Other 05-30-2023 15:30-0400 Respiratory rate 18 /min Monica Sandra Other [facility] Other 05-30-2023 15:30-0400 SaO2% (BldA) [Mass fraction] 97 % Monica Sandra Other [facility] Other 05-30-2023 15:30-0400 Systolic blood pressure 118 mm[Hg] Monica Sandra Other [facility] Other Encounters Encounter Date Encounter Type Care Provider Facility Start: 02-04-2024 End: 02-04-2024 ambulatory AB DYER Not Available Start: 05-30-2023 End: 05-30-2023 ambulatory Monica Flores Other [facility] Other Start: 05-30-2023 Office outpatient ne w 20 minutes Monica Flores [facility] Start: 11-05-2022 End: 11-05-[address] MARGARITA SYED . Facility: Start: 02-22-2022 End: 02-22-[address] FERRIS LISTED REQUEST Facility:[facility] Start: 02-17-2022 End: 02-20-2022 Evaluation and management of inpatient DR MARGARITA SYED . Facility:[facility] Start: 02-06-2022 End: 02-07-[address] TANYA SHEIKH Facility:[facility] Start: 01-23-2022 End: 01-23-[address] MARGARITA SYED . Facility:[facility] Start: 01-17-2022 End: 01-17-[address] AB DYER . Facility:[facility] Start: 01-09-2022 End: 01-10-[address] MARGARITA SYED . Facility:[facility] Start: 12-17-2021 End: 12-18-[address] MARGARITA SYED . Facility:[facility] Start: 12-07-2021 End: 12-08-[address] MARGARITA SYED . Facility:[facility] Start: 11-26-2021 End: 11-27-[address] MARGARITA SYED . Facility:[facility] Procedures Date Procedure Procedure Detail Performing Clinician Start: 02-18-2022 Delivery of Products of Conception, External Approach DR MARGARITA SYED . Start: 02-18-2022 Drainage of Amniotic Fluid, Therapeutic from Products of Conception, Via Natural or Artificial Opening DR MARGARITA SYED . Start: 02-17-2022 Introduction of Othe r Hormone into Peripheral Vein, Percutaneous Approach DR MARGARITA SYED . Payers Date Payer Category Payer Unknown [id number] 2.16.84 [id number] 2000 Unknown [id number] 2.16.84 [id number] 2000 Unknown [id number] 2.16.84 [id number] 2000 Unknown [id number] 2.16.84 [id number] 2000 Unknown [id number] 2.16.84 [id number] 2000 Unknown [id number] 2.16.84 [id number] 2000 Unknown [id number] 2.16.84 [id number] 2000 Unknown [id number] 2.16.84 [id number] 2000 Unknown [id number] 2.16.84 [id number] 2000 Unknown [id number] 2.16.84 [id number] 2000 Unknown [id number] 2.16.84 [id number] 1959 Unknown [id number] 1959 Unknown [id number] Social History Date Type Detail Facility Unknown if ever smoked [facility] Other Sex Assigned At Sex Assigned At Bir th [facility] Other Evaluation note 05-30-2023 Note Date & Type Note Facility 05-30-2023 Evaluation note Encounter Date Diagnosis Assessment Notes May, Sore throat (ICD-10 - J02.9) May, Viral pharyngitis (ICD-10 - J02.9) May, Mild asthma with exacerbation, unspecified whether persistent (ICD-10 - J45.901) Drink plenty fluids, get plenty of rest. Take the Medrol Dosepak as prescribed until gone for wheezing and sore throat. Use your albuterol inhaler as prescribed as needed for cough, shortness of breath, wheezing. Take Tylenol or Motrin as needed for aches pains or fevers. Use Lotrimin cream to your nails twice a day until you can contact your doctor for stronger fungal medication for your nails. Try to keep your nails dry. May, Nail fungal infection (ICD-10 - B35.1) Onychomycosis home care material was printed [facility] Other History general Narrative - Reported Note Date & Type Note Facility History general Narrative - Reported Type Medical History Drug abuse Medical History Depression Medical History Anxiety Surgical History tonsillectomy Surgical History PE tubes [facility] Other Summary Purpose Family History No Family History Records FoundNo Family History Records Found Advance Directives No Advanced Directives Records FoundNo Advanced Directives Records Found Additional Source Comments INFORMATION SOURCE (unrecogn ized section and content) DATE CREATED AUTHOR 11/11/2022 [facility] DATE CREATED AUTHOR AUTHOR'S MARITA STOREY 02/05/[address] [facility] EPIC REASON FOR VISIT (unrecogniz ed section and content) sore throat, bilat ear pain FOR RECORDS PERTAINING TO PATIENTS WHO ARE OR HAVE BEEN ENROLLED IN A CHEMICAL DEPENDENCY/SUBSTANCEABUSE PROGRAM, SOME INFORMATION MAY BE OMITTED. This clinical summary was aggregated from multiple sources. Caution should be exercised in using it in the provision of clinical care. This summary normalizes information from multiple sources, and as a consequence, information in this document may materially change the coding, format and clinical context of patient data. In addition, data may be omitted in some cases. CLINICAL DECISIONS SHOULD BE BASED ON THE PRIMARY CLINICAL RECORDS. [facility]. provides no warranty or guarantee of the accuracy or completeness of information in this document.
== END 2024-07-09 09:08 | disposition home or self-care (01) ==
LOC: NOMS 09:07
PROVIDERS: PCP Family Medicine; Visit Provider Obstetrics & Gynecology
DX: Z34.91 Encounter for supervision of normal pregnancy, unspecified, first trimester (principal); Z3A.09 9 weeks gestation of pregnancy; N92.6 Irregular menstruation, unspecified
CPT/HCPCS: 76817

== ENCOUNTER 2024-07-27 11:49 | Outpatient (OUT) | payer OTHER, SELFPAY ==
[2024-07-27 12:26] LABS: Estimated Average Glucose 100 mg/dL; Glycohemoglobin A1C 5.1 % (4.5-6.2)
[2024-07-27 12:29] LABS: Basophils Absolute Auto 0.1 10^3/uL (0.0-0.1); Basophils Percent Auto 0.6 % (0.2-2.0); Eosinophils Absolute Auto 0.3 10^3/uL (0.0-0.7); Eosinophils Percent Auto 2.7 % (0.9-7.0); Hematocrit 38.4 % (36.0-48.0); Hemoglobin 13.4 g/dL (12.0-16.0); Immature Granulocytes Abs Auto 0.04 10^3/uL (0.00-0.03); Immature Granulocytes Pct Auto 0.4 % (0.0-0.5); Lymphocytes Absolute Auto 2.2 10^3/uL (1.2-3.8); Lymphocytes Percent Auto 19.4 % (20.5-60.0); Mean Corpuscular HGB Conc 34.9 g/dL (29.9-35.2); Mean Corpuscular Hemoglobin 30.7 pg (26.7-34.0); Mean Corpuscular Volume 88.1 fL (81.0-99.0); Mean Platelet Volume 10.6 fL (9.5-13.5); Monocytes Absolute Auto 0.7 10^3/uL (0.3-0.8); Monocytes Percent Auto 6.3 % (1.7-12.0); Neutrophils Percent Auto 70.6 % (43.0-75.0); Platelet Count 313 10^3/uL (150-450); Red Blood Count 4.36 10^6/uL (4.20-5.40); Red Cell Distribution Width 12.3 % (11.0-15.0); White Blood Count 11.3 10^3/uL (4.0-11.0)
[2024-07-27 12:40] LABS: Cannabinoid Screen Urine POSITIVE (NEGATIVE); Cocaine Screen Urine NEGATIVE (NEGATIVE); Methamphetamines Screen Urine NEGATIVE (NEGATIVE); Opiate Screen Urine NEGATIVE (NEGATIVE); Phencyclidine Screen Urine NEGATIVE (NEGATIVE)
[2024-07-27 12:41] LABS: Amphetamine Screen Urine NEGATIVE (NEGATIVE); Barbiturates Screen Urine NEGATIVE (NEGATIVE); Benzodiazepines Screen Urine NEGATIVE (NEGATIVE); Buprenorphine Screen Urine NEGATIVE (NEGATIVE); Methadone Screen Urine NEGATIVE (NEGATIVE); Oxycodone Screen Urine NEGATIVE (NEGATIVE); Tricyclic Antidepressant Urine NEGATIVE (NEGATIVE)
[2024-07-27 12:55] LABS: BOX Test Reference Lab UNITY; BOX Test Sent Out Y
[2024-07-28 06:10] LABS: HBsAg Screen Negative (Negative)
[2024-07-28 08:13] LABS: HCV Ab Non Reactive (Non Reactive); HIV Ab/p24 Ag Screen Non Reactive (Non Reactive); Rubella Antibodies, IgG 3.54 index (Immune >0.99)
[2024-07-28 13:11] LABS: Rapid Plasma Reagin, Quant Non Reactive titer (NonRea<1:1)
[2024-07-30 22:06] LABS: Cannabinoid Positive (.); Carboxy THC Conf, MS, UR >750 ng/mL (Cutoff=10)
== END 2024-07-27 11:50 | disposition home or self-care (01) ==
LOC: LAB 11:50
PROVIDERS: PCP Family Medicine; Visit Provider Obstetrics & Gynecology
DX: Z34.01 Encounter for supervision of normal first pregnancy, first trimester (principal); Z36.0 Encounter for antenatal screening for chromosomal anomalies; N92.6 Irregular menstruation, unspecified
CPT/HCPCS: 36415; 80307; 80349; 83036; 85025; 86592; 86762; 86803; 86850; 86900; 86901; 87086; 87340; 87389

== ENCOUNTER 2024-08-30 18:36 | Outpatient (REF) | payer OTHER, SELFPAY ==
--- OUTSIDE RECORDS SUMMARY | 2024-08-30 18:48 | XMS_ITS | CCD ---
Author Organization [facility] Care Team Providers Care Box Sorter Name Role Phone KAYK ., DR AVILA Consulting Unavailabl e NADERER, DR LUCRETIA Schmitz Primary Care Unavailable REJI ., DR BERGER Attending Unavailable REJI ., DR BERGER Admitting Unavailable REJI ., DR BERGER Consulting Unavailable KARASIK ., DR AVILA Procedure Practitioner Jenna vailable REJI ., DR BERGER Consulting Unavailable NADERER, DR LUCRETIA Schmitz Primary Care Unavailable REJI ., DR BERGER Attending Unavailable REJI ., DR BERGER Admitting Unavailable ZIEBER, DR CORNELL Srivastava Consulting Unavailable REQUEST, DR NONE LISTED Primary Care Unavaila ble REJI ., DR BERGER Attending Unavailable REJI ., DR BERGER Admitting Unavailable KARASIK ., DR AVILA Consulting Unavailabl e NADERER, DR LUCRETIA Schmitz Primary Care Unavailable KARASIK ., DR AVILA Attending Unavailabl e KARASIK ., DR AVILA Admitting Unavailabl e ZIEBER, DR CORNELL Srivastava Consulting Unavailable KARASIK ., DR AVILA Consulting Unavailabl e NADERECarola, DR LUCRETIA Schmitz Primary Care Unavailable KARASIK ., DR AVILA Attending Unavailabl e KARASIK ., DR AVILA Admitting Unavailabl e KARASIK ., DR AVILA Consulting Unavailabl e NADERECarola, DR LUCRETIA Schmitz Primary Care Unavailable KARASIK ., DR AVILA Attending Unavailabl e KARASIK ., DR AVILA Admitting Unavailabl e ZIEBER, DR CORNELL Srivastava Consulting Unavailable REQUEST, DR NONE LISTED Consulting Unavaila ble KARASIK ., DR AVILA Consulting Unavailabl e NADERECarola, DR LUCRETIA Schmitz Primary Care Unavailable KARASIK ., DR AVILA Attending Unavailabl e KARASIK ., DR AVILA Admitting Unavailabl e WEST, DR TANYA Clarke Consulting Unavailable REQUEST, DR FERRIS LISTED Primary Care Unavaila ble REJI ., DR BERGER Attending Unavailable REJI ., DR BERGER Admitting Unavailable REJI ., DR BERGER Consulting Unavailable KARASIK ., DR AVILA Consulting Unavailvicente MCKEON, DR FERRIS LISTED Primary Care Unavaila ble KARASIK ., DR AVILA Attending Unavailabl e KARASIK ., DR AVILA Admitting Unavailabl e KARASIK ., DR AVILA Consulting Unavailabl e NADERER, DR LUCRETIA Schmitz Primary Care Unavailable KARASIK ., DR AVILA Attending Unavailabl e KARASIK ., DR AVILA Admitting Unavailabl e Sandra, Monica Unavailable Gatito LLANOS, Kuldeep Hernandez Primary Care Provider [phone] AB MENDOZA Attending Unavailable AB MENDOZA Attending Unavailable Allergies Allergy Classification Reported Allergen(s) Allergy Type Date of Onset Reaction(s) Facility (1 source) Adhesive bandage Drug allergy (disorder) 3 [facility] (1 source) Amoxicillin Drug Allergy diarrhea, vomiting [employer] Other Medications Current Medications Medication Drug Class(es) Dates Sig (Normalized) Sig (Original) [id number] 200 actuat albuterol 0.09 mg/actuat metered dose inhaler (5 sources) beta2-Adrenergic Agonist take 2 puff(s) by inhalation every six hours albuterol HFA 90 mcg/act inhaler Inhale 2 puffs every 6 (six) hours if needed Active escitalopram 5 mg oral tablet (6 sources) Serotonin Reuptake Inhibitor Start: 10-22-2023 take 1 tablet by mouth once daily escitalopram (Lexapro) 5 MG tablet Take 5 mg by mouth Daily 10/22/2023 Active take 1 tablet by mouth once roya y Escitalopram Oxalate 5 MG TAKE 1 TABLET BY MOUTH EVERY DAY Oral for 30 Days Active ferrous sulfate (5 sources) Ferrous Sulfate (IRON PO) Take by mouth Active methylPREDNISolone 4 mg oral tablet (1 [...] EVERY DAY Oral for 30 Days Active ondansetron 4 mg disintegrating oral tablet (7 sources) Serotonin-3 Receptor Antagonist Start: 07-09-2024 End: 08-27-2024 take 1 tablet by mouth every six hours for nausea ondansetron ODT (Zofran-ODT) 4 MG disintegrating tablet Indications: Nausea and vomiting in Take 1 tablet (4 mg) by mouth every 6 (six) hours if needed for nausea or vomiting 30 tablet 2 07/28/2024 08/27/2024 Active pramipexole dihydrochloride 0.5 mg oral tablet [...] 4 MG Oral for 7 Days Active Completed/Discontinued Medications Medication Drug Class(es) Dates Sig (Normalized) Sig (Original) Ethinyl Estradiol / Ferrous fumarate / Norethindrone (5 sources) Estrogen Start: 02-04-2024 End: 07-28-2024 norethindrone-ethiny l estradiol (09/20) 1-20 MG-MCG tablet Indications: General counseling and advice on contraceptive management Take 1 tablet by mouth Daily 28 tablet 02/04/2024 07/28/2024 Discontinued (Ineffective) Start: 02-04-2024 End: 02-03-2025 norethindrone-ethinyl estrad iol (09/20) 1-20 MG-MCG tablet Indications: General counseling and advice on contraceptive management Take 1 tablet by mouth Daily 28 tablet 02/04/2024 02/03/2025 Active norethindrone 0.35 mg oral tablet (6 sources) End: 07-28-2024 take 1 tablet by mouth once daily Incassia 0.35 MG tablet Take 1 tablet by mouth Daily 07/28/2024 Discontinued (Ineffective) Problems Active Problems Problem Classification Problem Date Documented Date Episodic/Chronic Asthma (1 source) Unspecified asthma with (acute) exacerbation Chronic Immunizations and screening for infectious disease (3 sources) Encounter for screening for human papillomavirus (HPV); Translations: [Exposure to sexually transmissible disorder] Onset: 11-06-2022 08-30-2024 Episodic Menstrual disorders (1 source) Missed period; Translations: [Irregular menstruation, unspecified] 07-09-2024 Chronic Mycoses (1 source) Tinea unguium Episodic Other complications of (3 sources) Vomiting of , unspecified; Translations: [Unspecified vomiting of , unspecified as to episode of care or not applicable] 07-09-2024 Episodic Other and delivery including normal (15 sources) Encounter for routine follow-up; Translations: [Single live ] Onset: 11-26-2021 Episodic Other screening for suspected conditions (not mental disorders or infectious disease) (12 sources) Encounter for screening for malignant neoplasm of cervix; Translations: [Encounter for screening for Streptococcus B] Onset: 01-23-2022 Episodic Other upper respiratory infections (2 sources) Acute pharyngitis, unspecified Episodic Residual codes; unclassified (2 sources) Gestation period, 12 weeks; Translations: [12 weeks gestation of ] 07-28-2024 Episodic Residual codes; unclassified (2 sources) Gestation period, 16 weeks; Translations: [16 weeks gestation of ] 08-30-2024 Episodic Substance-related disorders (1 source) Nicotine dependence, [...] REPROD/OB HX 3RD TM] Onset: 12-17-2021 Episodic Residual codes; unclassified (1 source) 39 [...] Translations: [30 WEEKS GESTATION OF ] Onset: 12-19-2021 Episodic Residual codes; unclassified (1 source) 24 weeks gestation of ; Translations: [24 WEEKS GESTATION OF ] Onset: 11-29-2021 Episodic Substance-related disorders (2 sources) Drug use complicating childbirth; Translations: [Cannabis use, unspecified, uncomplicated] Onset: 02-28-2022 Episodic Results Test Name Value Interpretation Reference Range Facility Urinalysis macro (dipstick) panel (U)on 08-30-2024 Bilirubin, UA Negative Negative - 4(70) +++ mg/dL [facility] Blood, UA Negative Negative - 50 Eric/mcL [facility] Clarity, UA Clear [facility] re Color, UA Yellow [facility] Glucose, UA Negative Negative - 1999(110) ++++ mg/dL [facility] Interpretation and review of laboratory results Abnormal [facility] Ketones, UA Negative Negative - 160(16) ++++ mg/dL [facility] Leukocytes, UA Moderate Negative - 500+++ Miley/mcL [facility] Nitrite, UA Negative Negative - Positive [facility] pH, UA 7 5 - 9 [facility] e Protein, UA Negative Negative - 1999(20) ++++ mg/dL [facility] Spec Grav, UA 1.02 1 - 1.03 [facility] Urobilinogen, UA 0.2 0.2 - 12 mg/dL [facility] Urinalysis macro (dipstick) panel (U)on 07-28-2024 Bilirubin, UA Negative Negative - 4(70) +++ mg/dL [facility] Blood, UA Negative Negative - 50 Eric/mcL [facility] Clarity, UA Cloudy [facility] Color, UA Yellow [facility] Glucose, UA Negative Negative - 1999(110) ++++ mg/dL [facility] Interpretation and review of laboratory results Abnormal [facility] Ketones, UA Negative Negative - 160(16) ++++ mg/dL [facility] Leukocytes, UA Positive Negative - 500+++ Miley/mcL [facility] Comment on above: small Nitrite, UA Negative Negative - Positive [facility] pH, UA 7 5 - 9 [facility] Health[facility] e Protein, UA Positive Negative - 2000(20) ++++ mg/dL [facility] Comment on above: 30 mg Spec Grav, UA 1.025 1 - 1.03 [facility] Urobilinogen, UA 1.0 0.2 - 12 mg/dL [facility] ALL CBC WITH AUTO DIFFon BASOPHILS ABSOLUTE AUTO 0.1 [facility] Basophils/100 WBC (Bld) 0.6 % 0.2 - 2.0 % [facility] Eosinophils/100 WBC (Bld) 2.7 % 0.9 - 7.0 % [facility] Erythrocyte distribution width (RBC) [Ratio] 12.3 % 11.0 - 15.0 % [facility] Hematocrit (Bld) [Volume fraction] 38.4 % 36.0 - 48.0 % [facility] Hem[facility] (Bld) [Mass/Vol] 13.4 g/dL 12.0 - 16.0 g/dL [facility] IMMATURE GRANULOCYTES ABS AUTO 0.04 High [facility] Immature granulocytes/100 WBC (Bld) 0.4 % 0.0 - 0.5 % [facility] Interpretation and review of laboratory results Abnormal [facility] LYMPHOCYTES ABSOLUTE AUTO 2.2 [facility] Lymphocytes/100 WBC (Bld) 19.4 % Low 20.5 - 60.0 % [facility] MCH (RBC) [Entitic mass] 30.7 pg 26.7 - 34.0 pg [facility] MCHC (RBC) [Mass/Vol] 34.9 g/dL 29.9 - 35.2 g/dL [facility] MCV (RBC) [Entitic vol] 88.1 fL 81.0 - 99.0 fL [facility] MONOCYTES ABSOLUTE AUTO 0.7 [facility] Monocytes/100 WBC (Bld) 6.3 % 1.7 - 12.0 % [facility] NEUTROPHILS ABSOLUTE AUTO 8 High [facility] Neutrophils/100 WBC (Bld) 70.6 % 43.0 - 75.0 % [facility] Platelet mean volume (Bld) [Entitic vol] 10.6 fL 9.5 - 13.5 fL [facility] EO # 0.3 [facility] PLT 313 [facility] RBC 4.36 [facility] WBC 11.3 High [facility] ALL TYPE AND SCREENon 2023 ABO and Rh group Nom (Bld) Blood group A Rh(D) positive [facility] BOX TESTon 07-27-2024 BOX TEST SENT OUT Y [facility] BOX1 [facility]ITY [facility] BOX2 07/27/24 [facility] MLR HEMOGLOBIN A1Con 024 Glucose [Mass/Vol] 100 mg/dL [facility] HbA1c (Bld) [Mass fraction] 5.1 % 4.5 - 6.2 % [facility] Comment on above: ADA RECOMMENDED LIMI T 4.0 - 6.0 ADA THERAPEUTIC TARGET < 7.0 ACTION SUGGESTED > 7.0 [facility] DRUG SCREEN RAPID (URINE )on 07-27-2024 AMPHETAMINE SCREEN URINE Negative NEGATIVE [facility] Healthcare BARBITURATES SCREEN URINE Negative NEGATIVE [facility] BENZODIAZEPINES SCREEN URINE Negative NEGATIVE [facility] BUPRENORPHINE SCREEN URINE Negative NEGATIVE [facility] Comment on above: DRUG CLASS TEST SYST EM CUT-OFF CONCENTRATIONS ARE FOLLOWS: AMP (Amphetamine): 500 ng/mL BAR (Barbiturates): 200 ng/mL BZO (Benzodiazepines): 150 ng/mL BUP (Buprenorphine): 10 ng/mL EDGAR (Cocaine): 150 ng/mL mAMP (Methamphetamine): 500 ng/mL MTD (Methadone): 200 ng/mL OPI (Opiates): 100 ng/mL OXY (Oxycodone): 100 ng/mL PCP (Phencyclidine): 25 ng/mL THC (Cannabinoids): 50 ng/mL TCA (Trycyclic Antidepressants): 300 ng/mL CANNABINOID SCREEN URINE Positive Abnormal NEGATIVE [facility] COCAINE SCREEN URINE Negative NEGATIVE [facility] Interpretation and review of laboratory results Abnormal [facility] METHADONE SCREEN URINE Negative NEGATIVE [facility] METHAMPHETAMINES SCREEN URINE Negative NEGATIVE [facility] OPIATE SCREEN URINE Negative NEGATIVE [facility] OXYCODONE SCREEN URINE Negative NEGATIVE [facility] PHENCYCLIDINE SCREEN URINE Negative NEGATIVE [facility] TRICYCLIC ANTIDEPRESSANT URINE Negative NEGATIVE [facility] HCG ( test) Ql (U)o n 07-09-2024 Interpretation and review of laboratory results Abnormal [facility] Preg Test, Ur Positive Negative [facility] Urinalysis macro (dipstick) panel (U)on 07-09-2024 Bilirubin, UA Negative Negative - 4(70) +++ mg/dL [facility] Blood, UA Negative Negative - 50 Eric/mcL [facility] Clarity, UA Clear [facility] re Color, UA Yellow [facility] e Glucose, UA Negative Negative - 1999(110) ++++ mg/dL [facility] Interpretation and review of laboratory results Normal [facility] Ketones, UA Negative Negative - 160(16) ++++ mg/dL [facility] Leukocytes, UA Negative Negative - 500+++ Miley/mcL [facility] Nitrite, UA Negative Negative - Positive [facility] pH, UA 5.5 5 - 9 [facility] e Protein, UA Negative Negative - 1999(20) ++++ mg/dL [facility] Spec Grav, UA 1.02 1 - 1.03 [facility] Urobilinogen, UA 1.0 0.2 - 12 mg/dL [facility] Strepon 05-30-2023 S. pyogenes Org specific cx Ql (Throat) Negative [employer] Other Quick Strep [facility] Other PAP ACOG PANEL 2: 21 to on 11-08-2022 . . Normal [facility] Comment on above: Result Comment: Perf ormed at: [facility] Performed By: #### [id number] #### [facility] [address] [place] [address] Dr. Meryl Damon Age Gdln ACOG Testing Normal [facility] Comment on above: Performed By: #### [id number] #### [facility] [address] [address] [address] Meryl Damon DIAGNOSIS: Comment [facility] Comment on above: Result Comment: NEGA TIVE FOR INTRAEPITHELIAL LESION OR MALIGNANCY. Performed at: [facility] Performed By: #### [id number] #### [facility] [address] [place] [address] Dr. Meryl Damon Methodology: Comment Normal [facility] Comment on above: Result Comment: This liquid based ThinPrep(R) pap test was screened with the use of an image guided system. Performed at: [facility] Performed By: #### [id number] #### [facility] [address] [place] [address] Dr. Meryl Damon Note: Comment Normal [facility] Comment on above: Result Comment: The Pap smear is a screening test designed to aid in the detection of premalignant and malignant conditions of the uterine cervix. It is not a diagnostic procedure and should not be used as the sole means of detecting cervical cancer. Both false-positive and false-negative reports do occur. . Performed at: [facility] Performed By: #### [id number] #### [facility] [address] [place] [address] Dr. Meryl Damon Performed by: Comment Normal [facility] Comment on above: Result Comment: Luz Valverde Pasting Inspector (ASCP) Performed at: [facility] Performed By: #### [id number] #### [facility] [address] [place] [address] Dr. Meryl Damon Reflex Criteria: Comment Normal [facility] Comment on above: Result Comment: The HPV DNA reflex criteria were not met with this specimen result therefore, no HPV testing was performed. . Performed at: [facility] Performed By: #### [id number] #### [facility] [address] [address] [address] Meryl Damon Specimen adequacy: Comment Normal [facility] Comment on above: Result Comment: Sati sfactory for evaluation. Endocervical and/or squamous metaplastic cells (endocervical component) are present. Areas of partially obscuring inflammatory exudate are present. Performed at: [facility] Performed By: #### [id number] #### [facility] [address] [address] [address] Meryl Damon CBC AUTO DIFFon 02-19-2022 BASO # 0.1 103/ul Normal 0.0-0.1 [facility] Comment on above: Performed By: #### C BC #### [facility] [address] [address] [address] Meryl Damon Basophils/100 WBC (Bld) 0.3 % Normal 0.2-2.0 [facility] Comment on above: Performed By: #### C BC #### [facility] [address] [address] [address] Meryl Damon EO # 0.1 103/ul Normal 0.0-0.7 [facility] Comment on above: Performed By: #### C BC #### [facility] [address] [place] [address] Dr. Meryl Damon Eosinophils/100 WBC (Bld) 0.7 % Critically low 0.9-7.0 [facility] Comment on above: Performed By: #### C BC #### [facility] [address] [place] [address] Dr. Meryl aDmon Erythrocyte distribution width (RBC) [Ratio] 14.1 % Normal 11.0-15.0 [facility] Comment on above: Performed By: #### C BC #### [facility] [address] [place] [address] Dr. Meryl Damon Hematocrit (Bld) [Volume fraction] 31.1 % Critically low 36.0-48.0 [facility] Comment on above: Performed By: #### C BC #### [facility] [address] [place] [address] Dr. Meryl Damon Hemoglobin (Bld) [Mass/Vol] 10.1 g/dL Critically low 12.0-16.0 [facility] Comment on above: Performed By: #### C BC #### [facility] [address] [place] [address] Dr. Meryl Damon IG # 0.09 10e3/ul Critically high 0.00-0.03 [facility] Comment on above: Performed By: #### C BC #### [facility] [address] [place] [address] Dr. Meryl Damon IG % 0.5 % Normal 0.0-0.5 [facility] Comment on above: Performed By: #### C BC #### [facility] [address] [place] [address] Dr. Meryl Damon LYMPH # 1.9 103/ul Normal 1.2-3.8 [facility] Comment on above: Performed By: #### C BC #### [facility] [address] [place] [address] Dr. Meryl Damon Lymphocytes/100 WBC (Bld) 11.5 % Critically low 20.5-60.0 [facility] Comment on above: Performed By: #### C BC #### [facility] [address] [place] [address] Dr. Meryl Damon MANUAL DIFF REQ NO Normal [facility] Comment on above: Performed By: #### C BC #### [facility] [address] [place] [address] Dr. Meryl Damon MCH (RBC) [Entitic mass] 28.8 pg Normal 26.7-34.0 [facility] Comment on above: Performed By: #### C BC #### [facility] [address] [place] [address] Dr. Meryl Damon MCHC (RBC) [Mass/Vol] 32.5 g/dL Normal 29.9-35.2 [facility] Comment on above: Performed By: #### C BC #### [facility] [address] [place] [address] Dr. Meryl Damon MCV (RBC) [Entitic vol] 88.6 fL Normal 81.0-99.0 [facility] Comment on above: Performed By: #### C BC #### [facility] [address] [place] [address] Dr. Meryl Damon MONO # 1.8 103/ul Critically high 0.3-0.8 [facility] Comment on above: Performed By: #### C BC #### [facility] [address] [place] [address] Dr. Meryl Damon Monocytes/100 WBC (Bld) 11.2 % Normal 1.7-12.0 [facility] Comment on above: Performed By: #### C BC #### [facility] [address] [place] [address] Dr. Meryl Damon NEUT # 12.4 103/ul Critically high 1.4-6.5 [facility] Comment on above: Performed By: #### C BC #### [facility] [address] [place] [address] Dr. Meryl Damon Neutrophils/100 WBC (Bld) 75.8 % Critically high 43.0-75.0 [facility] Comment on above: Performed By: #### C BC #### [facility] [address] [place] [address] Dr. Meryl Damon Platelet mean volume (Bld) [Entitic vol] 11.5 fL Normal 9.5-13.5 [facility] Comment on above: Performed By: #### C BC #### [facility] [address] [place] [address] Dr. Meryl Damon PLT 186 103/ul Normal 150-450 [facility] Comment on above: Performed By: #### C BC #### [facility] [address] [place] [address] Dr. Meryl Damon RBC 3.51 106/ul Critically low 4.20-5.40 [facility] Comment on above: Performed By: #### C BC #### [facility] [address] [place] [address] Dr. Meryl Damon WBC 16.4 103/ul Critically high 4.0-11.0 [facility] Comment on above: Performed By: #### C BC #### [facility] [address] [place] [address] Dr. Meryl Damon CBC AUTO DIFFon 02-17-2022 BASO # 0.0 103/ul Normal 0.0-0.1 [facility] Comment on above: Performed By: #### C BC #### [facility] [address] [place] [address] Dr. Meryl Damon Basophils/100 WBC (Bld) 0.1 % Critically low 0.2-2.0 [facility] Comment on above: Performed By: #### C BC #### [facility] [address] [place] [address] Dr. Meryl Damon EO # 0.1 103/ul Normal 0.0-0.7 [facility] Comment on above: Performed By: #### C BC #### [facility] [address] [place] [address] Dr. Meryl Damon Eosinophils/100 WBC (Bld) 0.6 % Critically low 0.9-7.0 [facility] Comment on above: Performed By: #### C BC #### [facility] [address] [place] [address] Dr. Meryl Damon Erythrocyte distribution width (RBC) [Ratio] 13.9 % Normal 11.0-15.0 [facility] Comment on above: Performed By: #### C BC #### [facility] [address] [place] [address] Dr. Meryl Damon Hematocrit (Bld) [Volume fraction] 35.2 % Critically low 36.0-48.0 [facility] Comment on above: Performed By: #### C BC #### [facility] [address] [place] [address] Dr. Meryl Damon Hemoglobin (Bld) [Mass/Vol] 11.8 g/dL Critically low 12.0-16.0 [facility] Comment on above: Performed By: #### C BC #### [facility] [address] [place] [address] Dr. Meryl Damon IG # 0.08 10e3/ul Critically high 0.00-0.03 [facility] Comment on above: Performed By: #### C BC #### [facility] [address] [place] [address] Dr. Meryl Damon IG % 0.6 % Critically high 0.0-0.5 [facility] Comment on above: Performed By: #### C BC #### [facility] [address] [place] [address] Dr. Meryl Damon LYMPH # 1.7 103/ul Normal 1.2-3.8 [facility] Comment on above: Performed By: #### C BC #### [facility] [address] [place] [address] Dr. Meryl Damon Lymphocytes/100 WBC (Bld) 12.8 % Critically low 20.5-60.0 [facility] Comment on above: Performed By: #### C BC #### [facility] [facility] [address] [place] [address] Dr. Meryl Damon MANUAL DIFF REQ NO Normal [facility] Comment on above: Performed By: #### C BC #### [facility] [address] [place] [address] Dr. Meryl Damon MCH (RBC) [Entitic mass] 29.4 pg Normal 26.7-34.0 [facility] Comment on above: Performed By: #### C BC #### [facility] [address] [place] [address] Dr. Meryl Damon MCHC (RBC) [Mass/Vol] 33.5 g/dL Normal 29.9-35.2 [facility] Comment on above: Performed By: #### C BC #### [facility] [address] [place] [address] Dr. Meryl Damon MCV (RBC) [Entitic vol] 87.6 fL Normal 81.0-99.0 [facility] Comment on above: Performed By: #### C BC #### [facility] [address] [place] [address] Dr. Meryl Damon MONO # 1.1 103/ul Critically high 0.3-0.8 [facility] Comment on above: Performed By: #### C BC #### [facility] [address] [place] [address] Dr. Meryl Damon Monocytes/100 WBC (Bld) 7.8 % Normal 1.7-12.0 [facility] Comment on above: Performed By: #### C BC #### [facility] [address] [place] [address] Dr. Meryl Damon NEUT # 10.4 103/ul Critically high 1.4-6.5 [facility] Comment on above: Performed By: #### C BC #### [facility] [address] [place] [address] Dr. Meryl Damon Neutrophils/100 WBC (Bld) 78.1 % Critically high 43.0-75.0 [facility] Comment on above: Performed By: #### C BC #### [facility] [address] [place] [address] Dr. Meryl Damon Platelet mean volume (Bld) [Entitic vol] 11.5 fL Normal 9.5-13.5 [facility] Comment on above: Performed By: #### C BC #### [facility] [address] [place] [address] Dr. Meryl Damon PLT 265 103/ul Normal 150-450 [facility] Comment on above: Performed By: #### C BC #### [facility] [address] [place] [address] Dr. Meryl Damon RBC 4.02 106/ul Critically low 4.20-5.40 [facility] Comment on above: Performed By: #### C BC #### [facility] [address] [place] [address] Dr. Meryl Damon WBC 13.4 103/ul Critically high 4.0-11.0 [facility] Comment on above: Performed By: #### C BC #### [facility] [address] [place] [address] Dr. Meryl Damon Covid-19 PCR ([facility]on 01-30 SARS-CoV-2 (COVID-19) RNA MADISON+probe Ql (Unsp spec) Not detected Normal NOT DETECTED [facility] Comment on above: Result Comment: When [...] for this test is supported by the Workers Compensation Claims Specialist of Health and Human Service's declaration that [...] used). Performed By: #### C VDTBH #### [facility] [address] [place] [address] Dr. Meryl Damon DRUG SCREEN RAPID (URINE)on 02-17-2022 AMP Negative Normal NEGATIVE [facility] Comment on above: Performed By: #### D RUGRPD #### [facility] [address] [place] [address] Dr. Meryl Damon BAR Negative Normal NEGATIVE [facility] Comment on above: Performed By: #### D RUGRPD #### [facility] [address] [place] [address] Dr. Meryl Damon BUP Negative Normal NEGATIVE [facility] Comment on above: Performed By: #### D RUGRPD #### [facility] [address] [place] [address] Dr. Meryl Damon BZO Negative Normal NEGATIVE [facility] Comment on above: Performed By: #### D RUGRPD #### [facility] [address] [place] [address] Dr. Meryl Damon EDGAR Negative Normal NEGATIVE [facility] Comment on above: Performed By: #### D RUGRPD #### [facility] [address] [place] [address] Dr. Meryl Damon CUT-OFFS SEE BELOW Normal [facility] Comment on above: Result Comment: AMP (Amphetamine): 500ng/mL, BAR (Barbituates): 200 ng/mL, BZO (Benzodiazepines): 150 ng/mL, BUP (Buprenorphine): 10 ng/mL, EDGAR (Cocaine): 150 ng/mL, mAMP (Methamphetamine): 500 ng/mL, MTD (Methadone): 200 ng/mL, OPI (Opiates): 100 ng/mL, OXY (Oxycodone): 100 ng/mL, PCP (Phencyclidine): 25 ng/mL, PPX (Propoxyphene): 300 ng/mL, THC (Cannabinoids): 50 ng/mL, TCA (Trycyclic Antidepressants): 300 ng/mL Performed By: #### D RUGRPD #### [facility] [address] [place] [address] Dr. Meryl Damon DRUG CUT HEADER DRUG CLASS TEST SYSTEM CUT-OFF CONCENTRATIONS ARE FOLLOWS: Normal [facility] Comment on above: Performed By: #### D RUGRPD #### [facility] [address] [place] [address] Dr. Meryl Damon mAMP Negative Normal NEGATIVE [facility] Comment on above: Performed By: #### D RUGRPD #### [facility] [address] [place] [address] Dr. Meryl Damon MTD Negative Normal NEGATIVE [facility] Comment on above: Performed By: #### D RUGRPD #### [facility] [address] [place] [address] Dr. Meryl Damon OPI Negative Normal NEGATIVE [facility] Comment on above: Performed By: #### D RUGRPD #### [facility] [address] [place] [address] Dr. Meryl Damon OXY Negative Normal NEGATIVE [facility] Comment on above: Performed By: #### D RUGRPD #### [facility] [address] [place] [address] Dr. Meryl Damon PCP Negative Normal NEGATIVE [facility] Comment on above: Performed By: #### D RUGRPD #### [facility] [address] [place] [address] Dr. Meryl Damon PPX Negative Normal NEGATIVE [facility] Comment on above: Performed By: #### D RUGRPD #### [facility] [address] [place] [address] Dr. Meryl Damon TCA Negative Normal NEGATIVE [facility] Comment on above: Performed By: #### D RUGRPD #### [facility] [address] [place] [address] Dr. Meryl Damon THC Positive Abnormal NEGATIVE [facility] Comment on above: Performed By: #### D RUGRPD #### [facility] [address] [place] [address] Dr. Meryl Damon TYPE AND SCREENon 02-17-2022 TYPE AND SCREEN Negative Normal [facility] Comment on above: Performed By: #### G LU1HR #### [facility] [address] [place] [address] Dr. Meryl Damon US PREG GROWTHon 02-06-2022 [...] TANYA SHEIKH Date: 2022-02-06 16:11 Normal [facility] GROUP B STREP CULTUREon 12-31 S. agalactiae Ag Ql (Unsp spec) Culture Observations: unable to isolate beta- possible Group B Normal [facility] Comment on above: Performed By: #### G LU1HR #### [facility] [address] [place] [address] Dr. Meryl Damon CULTURE URINEon 01-17-2022 CULTURE URINE Culture Observations: MODERATE GROWTH OF MIXED GENITAL SENA. NO POTENTIAL PATHOGENS SEEN. Normal [facility] Comment on above: Performed By: #### G LU1HR #### [facility] [address] [address] [address] Meryl Damon UA (CLEAN/CATCH) PERFORATOR/MICRO I F IND.on 01-17-2022 Bilirubin Ql (U) Negative Normal NEGATIVE [facility] Comment on above: Performed By: #### U MICRO, UACSIND #### [facility] [address] [address] [address] Meryl Damon Clarity (U) CLEAR Normal CLEAR [facility] Comment on above: Performed By: #### U MICRO, UACSIND #### [facility] [address] [address] [address] Meryl Damon Color (U) LT. YELLOW Normal YELLOW [facility] Comment on above: Performed By: #### U MICRO, UACSIND #### [facility] [address] [place] [address] Dr. Meryl Damon Glucose Ql (U) Negative Normal NEGATIVE [facility] Comment on above: Performed By: #### U MICRO, UACSIND #### [facility] [address] [place] [address] Dr. Meryl Damon Hemoglobin Ql (U) SMALL Abnormal NEGATIVE [facility] Comment on above: Performed By: #### U MICRO, UACSIND #### [facility] [address] [place] [address] Dr. Meryl Damon Ketones Ql (U) Negative Normal NEGATIVE [facility] Comment on above: Performed By: #### U MICRO, UACSIND #### [facility] [address] [place] [address] Dr. Meryl Damon LEUKOCYTES LARGE Abnormal NEGATIVE [facility] Comment on above: Performed By: #### U MICRO, UACSIND #### [facility] [address] [place] [address] Dr. Meryl Damon Nitrite Ql (U) Negative Normal NEGATIVE [facility] Comment on above: Performed By: #### U MICRO, UACSIND #### [facility] [address] [place] [address] Dr. Meryl Damon pH (U) 8.0 [pH] Normal 5-9 [facility] Comment on above: Performed By: #### U MICRO, UACSIND #### [facility] [address] [place] [address] Dr. Meryl Damon SPEC GRAVITY 1.010 Normal 1.005-<=1.025 [facility] Comment on above: Performed By: #### U MICRO, UACSIND #### [facility] [address] [place] [address] Dr. Meryl Damon UA PROTEIN Negative Normal NEGATIVE/ TRACE [facility] Comment on above: Performed By: #### U MICRO, UACSIND #### [facility] [address] [place] [address] Dr. Meryl Damon UR MICRO IND INDICATED Normal [facility] Comment on above: Performed By: #### U MICRO, UACSIND #### [facility] [address] [place] [address] Dr. Meryl Damon Urobilinogen Qn (U) 0.2 {Yovanny'U}/dL Normal 0.2 - 1. 0 [facility] Comment on above: Performed By: #### U MICRO, UACSIND #### [facility] [address] [place] [address] Dr. Meryl Damon URINE MICROSCOPIC ONLYon BACTERIA TRACE Abnormal NONE SEEN [facility] Comment on above: Performed By: #### U MICRO, UACSIND #### [facility] [address] [place] [address] Dr. Meryl Damon Bacteria identified Cx Nom (U) INDICATED Normal [facility] Comment on above: Performed By: #### U MICRO, UACSIND #### [facility] [address] [place] [address] Dr. Meryl Damon CAST NONE SEEN Normal NONE SEEN [facility] Comment on above: Performed By: #### U MICRO, UACSIND #### [facility] [address] [place] [address] Dr. Meryl Damon Crystals LM Nom (Urine sed) NONE SEEN Normal NONE SEEN [facility] Comment on above: Performed By: #### U MICRO, UACSIND #### [facility] [address] [address] [address] Meryl Damon Epithelial cells LM Ql (Urine sed) MANY Abnormal NONE SEEN /RARE [facility] Comment on above: Performed By: #### U MICRO, UACSIND #### [facility] [address] [address] [address] Meryl Damon MUCOUS TRACE Abnormal NONE SEEN [facility] Comment on above: Performed By: #### U MICRO, UACSIND #### [facility] [address] [address] [address] Meryl Damon RBC 5-10 Abnormal 0-2 [facility] Comment on above: Performed By: #### U MICRO, UACSIND #### [facility] [address] [address] [address] Meryl Damon WBC 20-50 Abnormal NONE SEEN [facility] Comment on above: Performed By: #### U MICRO, UACSIND #### [facility] [address] [address] [address] Meryl Damon US KIDNEYSon 01-17-2022 US [...] CORNELL BONDS Date: 2022-01-17 14:20 Normal [facility] US PREG REEVAL ABNon 022 US PREG REEVAL ABN EXAMINATION: US PREG REEVAL ABN HISTORY: condition affecting obstetrical care of mother ; echogenic focus of heart COMPARISON: Ultrasound growth 1422, ultrasound. See anatomy to 72 FINDINGS: Presentation: Cephalic Heart rate: 149 bpm Anatomy: Echogenic focus within the left ventricle of heart. Gestational age: 34 weeks, 0 days YUDELKA: 02/20/2022 IMPRESSION: 1. Single live intrauterine . 2. Persistent echogenic focus within the left ventricle of the heart. Electronically authenticated by: CORNELL BONDS Date: 2022-01-09 09:14 Normal [facility] US PREG GROWTHon 12-17-2021 US PREG GROWTH EXAMINATION: US PREG GROWTH HISTORY: High risk COMPARISON: Ultrasound anatomy to 72 FINDINGS: Heart Rate: 145.9 bpm Number: 1.0 [...] CORNELL BONDS Date: 2021-12-17 10:10 Normal [facility] GTT 3 HR PREGon 12-07-2021 Glucose [Mass/Vol] 85 mg/dL Normal 74-106 [facility] Comment on above: Performed By: #### G TT3P #### [facility] [address] [address] [address] Meryl Damon Glucose [Mass/Vol] 123 mg/dL Normal [facility] Comment on above: Performed By: #### G TT3P #### [facility] [address] [address] [address] Meryl Damon Glucose [Mass/Vol] 84 mg/dL Normal [facility] Comment on above: Performed By: #### G TT3P #### [facility] [address] [place] [address] Dr. Meryl Damon GLUCOSE - 1HRon 11-26-2021 Glucose [Mass/Vol] 146 mg/dL Critically high 74-106 [facility] Comment on above: Performed By: #### G LU1HR #### [facility] [address] [place] [address] Dr. Meryl Damon HEMOGRAM AND PLATELon 2021 Hematocrit (Bld) [Volume fraction] 38.3 % Normal 36.0-48.0 [facility] Comment on above: Performed By: #### G LU1HR #### [facility] [address] [place] [address] Dr. Meryl Damon Hemoglobin (Bld) [Mass/Vol] 12.6 g/dL Normal 12.0-16.0 [facility] Comment on above: Performed By: #### G LU1HR #### [facility] [address] [place] [address] Dr. Meryl Damon MCH (RBC) [Entitic mass] 30.9 pg Normal 26.7-34.0 [facility] Comment on above: Performed By: #### G LU1HR #### [facility] [address] [place] [address] Dr. Meryl Damon MCHC (RBC) [Mass/Vol] 32.9 g/dL Normal 29.9-35.2 [facility] Comment on above: Performed By: #### G LU1HR #### [facility] [address] [place] [address] Dr. Meryl Damon MCV (RBC) [Entitic vol] 93.9 fL Normal 81.0-99.0 [facility] Comment on above: Performed By: #### G LU1HR #### [facility] [address] [place] [address] Dr. Meryl Damon PLT 225 103/ul Normal 150-450 [facility] Comment on above: Performed By: #### G LU1HR #### [facility] [address] [place], [place] [address] Dr. Meryl Damon RBC 4.08 106/ul Critically low 4.20-5.40 [facility] Comment on above: Performed By: #### G LU1HR #### [facility] [address] [place], [place] [address] Dr. Meryl Damon WBC 8.5 103/ul Normal 4.0-11.0 [facility] Comment on above: Performed By: #### G LU1HR #### [facility] [address] [place], [place] [address] Dr. Meryl Damon Vital Signs Date Time Vital Sign Value Performing Clinician Facility 08-30-2024 12:17-0500 Body mass index (BMI) [Ratio] 23.72 kg/m2 Mariya WHIPPLE Work Phone: [facility] 08-30-2024 12:17-0500 Body weight 70.76 kg Mariya WHIPPLE Work Phone: [facility] 08-30-2024 12:17-0500 Diastolic blood pressure 62 mm[Hg] Mariya WHIPPLE Work Phone: [facility] 08-30-2024 12:17-0500 Systolic blood pressure 108 mm[Hg] Mariya WHIPPLE Work Phone: [facility] 07-28-2024 14:35-0500 Body mass index (BMI) [Ratio] 23.11 kg/m2 Ab Reji DO Work Phone: [facility] 07-28-2024 14:35-0500 Body weight 68.95 kg Ab Reji DO Work Phone: [facility] 07-28-2024 14:35-0500 Diastolic blood pressure 70 mm[Hg] Ab Reji DO Work Phone: [facility] 07-28-2024 14:35-0500 Systolic blood pressure 116 mm[Hg] Ab Reji DO Work Phone: [facility] 05-30-2023 15:30-0400 Body height 170.18 cm Monica Flores Other [employer] Other 05-30-2023 15:30-0400 Body mass index (BMI) [Ratio] 21.3 kg/m2 Monica Flores Other [employer] Other 05-30-2023 15:30-0400 Body temperature 98.9 [degF] Monica Flores Other [employer] Other 05-30-2023 15:30-0400 Body weight 61.69 kg Monica Flores Other [employer] Other 05-30-2023 15:30-0400 Diastolic blood pressure 63 mm[Hg] Monica Flores Other [employer] Other 05-30-2023 15:30-0400 Respiratory rate 18 /min Monica Flores Other [employer] Other 05-30-2023 15:30-0400 SaO2% (BldA) [Mass fraction] 97 % Monica Flores Other [employer] Other 05-30-2023 15:30-0400 Systolic blood pressure 118 mm[Hg] Monica Owensmond Other [employer] Other Encounters Encounter Date Encounter Type Care Provider Facility Start: 08-30-2024 End: 08-30-2024 Bamboo flowsheet Mariya WHIPPLE Work Phone: [facility] Start: 08-30-2024 End: 08-30-2024 Bamboo flowsheet Mariya WHIPPLE Work Phone: [facility] Start: 08-30-2024 End: 08-30-2024 Patient encounter procedure Mariya WHIPPLE Work Phone: [facility] Start: 08-30-2024 End: 08-30-2024 Periodic preventive med est patient 18-39 yrs Mariya Sy PA Work Phone: [facility] Comment on above: Well woman exam with routine gynecological exam; Second trimester ; 16 weeks gestation of ; Exposure to STD; Need for maternal serum alpha-protein (MSAFP) screening; Screening, , for anatomic survey Start: 07-28-2024 End: 07-28-2024 Office outpatient visit 15 minutes Ab Reji DO Work Phone: [facility] Comment on above: First trimester preg janiya; 12 weeks gestation of ; Nausea and vomiting in Start: 07-28-2024 End: 07-28-2024 ambulatory AB REJI Not Available Start: 07-28-2024 End: 07-28-2024 Bamboo flowsheet Ba Reji DO Work Phone: [facility] Start: 07-28-2024 End: 07-28-2024 Bamboo flowsheet Ab Reji DO Work Phone: [facility] Start: 07-27-2024 End: 07-27-2024 Clinisync Result Encounter Ab Reji DO Work Phone: [facility] External Department Unsolicited Start: 07-27-2024 End: 07-27-2024 Clinisync Result Encounter Ab Reji DO Work Phone: [facility] External Department Unsolicited Start: 07-09-2024 End: 07-09-2024 ambulatory AB REJI Not Available Start: 07-09-2024 End: 07-09-2024 Office outpatient visit 5 minutes [facility] Reji Nurse [facility] Comment on above: GA: 9w2d Start: 02-04-2024 End: 02-04-2024 ambulatory AB REJI Not Available Start: 05-30-2023 End: 05-30-2023 ambulatory Monica Flores Other [employer] Other Start: 05-30-2023 Office outpatient ne w 20 minutes Monica Flores [facility] Start: 11-05-2022 End: 11-05-[address] MARGARITA SYED . Facility:[facility] Start: 02-22-2022 End: 02-22-[address] FERRIS LISTED REQUEST Facility:[facility] Start: 02-17-2022 End: 02-20-2022 Evaluation and management of inpatient DR MARGARITA SYED . Facility:[facility] Start: 02-06-2022 End: 02-07-[address] TANYA SHEIKH Facility:[facility] Start: 01-23-2022 End: 01-23-[address] MARGARITA SYED . Facility:[facility] Start: 01-17-2022 End: 01-17-[address] AB MENDOZA . Facility:[facility] Start: 01-09-2022 End: 01-10-[address] MARGARITA SYED . Facility:[facility] Start: 12-17-2021 End: 12-18-[address] MARGARITA SYED . Facility:[facility] Start: 12-07-2021 End: 12-08-[address] MARGARITA SYED . Facility:[facility] Start: 11-26-2021 End: 11-27-[address] MARGARITA SYED . Facility: Procedures Date Procedure Procedure Detail Performing Clinician Start: 08-30-2024 Urnls dip stick/tabl et rgnt non-auto w/o micrscp Mariya WHIPPLE Work Phone: Start: 07-28-2024 Urnls dip stick/tabl et rgnt non-auto w/o micrscp Ab Reji DO Work Phone: Start: 07-27-2024 Antibody screen Ab F azio DO Work Phone: Start: 07-27-2024 ALL CBC WITH AUTO DIFF Ab Reji DO Work Phone: Start: 07-27-2024 ALL TYPE AND SCREEN Cor ey Reji DO Work Phone: Start: 07-27-2024 BOX TEST Ab Fazi o DO Work Phone: Start: 07-27-2024 MLR HEMOGLOBIN A1C Core y Reji DO Work Phone: Start: 07-27-2024 [facility] DRUG SCREEN RAPI D (URINE) Ab Mendoza DO Work Phone: Start: 07-09-2024 End: 07-09-2024 Urnls dip stick/tablet rgnt non-auto w/o micrscp Ab Mendoza DO Work Phone: Start: 02-18-2022 Delivery of Products of Conception, External Approach DR MARGARITA SYED . Start: 02-18-2022 Drainage of Amniotic Fluid, Therapeutic from Products of Conception, Via Natural or Artificial Opening DR MARGARITA SYED . Start: 02-17-2022 Introduction of Othe r Hormone into Peripheral Vein, Percutaneous Approach DR MARGARITA SYED . Plan of Treatment Date Care Activity Detail Author Start: 09-27-2024 End: 09-27-2024 Patient encounter procedure 09/27/2024 2:00 PM EST Routine [facility] [address] [facility] [facility] [place] [id number] Ab Mendoza, DO [address], [place] [id number] [facility] Start: 09-27-2024 End: 09-27-2024 Professional / ancillary services management 09/27/2024 1:00 PM EST Ancillary Procedure [facility] [address] [place] [phone] [facility] Start: 08-30-2024 End: 09-30-2024 Alpha fetoprotein, maternal Alpha fetoprotein, maternal Lab Routine Need for maternal serum alpha-protein (MSAFP) screening Expected: 08/30/2024 (Approximate), Expires: 09/30/2024 [facility] Comment on above: Expected: 08/30/2024 (Approximate), Expires: 09/30/2024 Start: 08-30-2024 End: 08-30-2025 US for US OB ANATOMY SINGLE W US OB CERVICAL LENGTH Imaging Routine Screening, , for anatomic survey Expected: 08/30/2024 (Approximate), Expires: 08/30/2025 [facility] Comment on above: Expected: 08/30/2024 (Approximate), Expires: 08/30/2025 Start: 08-30-2024 End: 08-30-2024 Patient encounter procedure 08/30/2024 11:20 AM EST Routine [facility] [address] [place] [id number] Mariya Sy PA [address] [place] [address] [facility] Start: 07-28-2024 End: 07-28-2024 Patient encounter procedure [facility] Comment on above: Arrived Start: 07-09-2024 End: 07-09-2025 ABO/Rh ABO/Rh Lab Routine Missed menses , unspecified gestational age Expected: 07/09/2024 (Approximate), Expires: 07/09/2025 [facility] Comment on above: Expected: 07/09/2024 (Approximate), Expires: 07/09/2025 Start: 07-09-2024 End: 07-09-2025 Blood type and Indirect antibody screen panel - Blood Type and screen Lab Routine Missed menses , unspecified gestational age Expected: 07/09/2024 (Approximate), Expires: 07/09/2025 [facility] Work Phone: Comment on above: Expected: 07/09/2024 (Approximate), Expires: 07/09/2025 Start: 07-09-2024 End: 07-09-2025 Drugs of abuse panel - Urine by Screen method Rapid drug screen, urine Lab Routine , unspecified gestational age Encounter for supervision of normal first in first trimester Expected: 07/09/2024 (Approximate), Expires: 07/09/2025 [facility] Comment on above: Expected: 07/09/2024 (Approximate), Expires: 07/09/2025 Start: 07-09-2024 End: 07-09-2025 US Pelvis transvaginal US OB transvaginal Imaging Routine Missed menses Expected: 07/09/2024 (Approximate), Expires: 07/09/2025 [facility] Comment on above: Expected: 07/09/2024 (Approximate), Expires: 07/09/2025 Bacteria identified in Urine by Culture Urine culture Microbiology Routine Missed menses Ordered: 07/09/2024 [facility] Comment on above: Ordered: 07/09/2024 CBC W Auto Different ial panel - Blood CBC and differential Lab Routine Missed menses , unspecified gestational age Ordered: 07/09/2024 [facility] Comment on above: Ordered: 07/09/2024 CHLAMYDIA TRACHOMATI S (GENITO/STI) CHLAMYDIA TRACHOMATIS (GENITO/STI) Lab Routine Exposure to STD Ordered: 08/30/2024 [facility] Comment on above: Ordered: 08/30/2024 Cytology Cervical or vaginal smear or scraping study Pap Smear Pathology and Cytology Routine Well woman exam with routine gynecological exam Ordered: 08/30/2024 [facility] Comment on above: Ordered: 08/30/2024 Hemoglobin A1c/Hemoglobin.total in Blood Hemoglobin A1c Lab Routine Missed menses , unspecified gestational age Ordered: 07/09/2024 [facility] Comment on above: Ordered: 07/09/2024 Hepatitis B virus surface Ag [Presence] in Serum or Plasma by Immunoassay Hepatitis B surface antigen Lab Routine Missed menses , unspecified gestational age Ordered: 07/09/2024 [facility] Comment on above: Ordered: 07/09/2024 Hepatitis C virus Ab [Presence] in Serum or Plasma by Immunoassay Hepatitis C antibody Lab Routine Missed menses , unspecified gestational age Ordered: 07/09/2024 [facility] Comment on above: Ordered: 07/09/2024 HIV-1/HIV-2 antigen/antibody combination immunoassay HIV-1 and HIV-2 antibodies Lab Routine Missed menses , unspecified gestational age Ordered: 07/09/2024 [facility] Comment on above: Ordered: 07/09/2024 Neisseria gonorrhoea e DNA [Presence] in Unspecified specimen by MADISON with probe detection Neisseria gonorrhea DNA probe, direct Lab Routine Exposure to STD Ordered: 08/30/2024 [facility] Comment on above: Ordered: 08/30/2024 Reagin Ab [Presence] in Serum by RPR RPR Lab Routine Missed menses , unspecified gestational age Ordered: 07/09/2024 [facility] Comment on above: Ordered: 07/09/2024 Rubella antibody, IgG Rubella an tibody, IgG Lab Routine Missed menses , unspecified gestational age Ordered: 07/09/2024 [facility] Comment on above: Ordered: 07/09/2024 SURESWAB(R) ADVANCED VAGINITIS PLUS, TMA SURESWAB(R) ADVANCED VAGINITIS PLUS, TMA Pathology and Cytology Routine Exposure to STD Ordered: 08/30/2024 [facility] Work Phone: Comment on above: Ordered: 08/30/2024 Payers Date Payer Category Payer Private Health Insurance [facility]ICA[facility] [id number] 2000 Unknown [id number]. 59 2000 Unknown [id number] [id number]. 593 2000 Unknown [id number] 2.16.840.1.240490.3.579.2. 59 2000 Unknown [id number] 2.16.840.1.889103.3.579.2. 59 2000 Unknown [id number] 2.16.840.1.076319.3.579.2. 59 2000 Unknown [id number] 2.16.840.1.379210.3.579.2. 593 2000 Unknown [id number] 2.16.840.1.792677.3.579.2. 59 2000 Unknown [id number] 2.16.840.1.462868.3.579.2. 593 2000 Unknown [id number] 2.16.840.1.740059.3.579.2. 593 2000 Unknown [id number] 2.16.840.1.666447.3.579.2. 593 2000 Unknown [id number] 2.16.840.1.351936.3.579.2. 1259 2000 Unknown [id number] 2.16.840.1.654434.3.579.2. 9 2000 Unknown [id number] 2.16.840.1.612615.3.579.2. 1259 1959 Unknown [id number] 1959 Unknown [id number] Social History Date Type Detail Facility Unknown if ever smoked [facility] Other Start: 02-04-2024 Sex Assigned At N [facility] Other Start: 02-04-2024 Tobacco smoking stat [facility] Smokes tobacco daily [facility] History of tobacco use Cigarette Smoker [facility] Start: 02-04-2024 Cigarettes smoked current (pack per day) - Reported 1.5 [facility] Start: 05-19-2024 [facility] Start: 2000 Sex assigned at Not on file [facility] History of Present illness Narrative 08-30-2024 SARABJIT Toussaint - 08/30/2024 11:20 AM EST Note Date & Type Note Facility 08-30-2024 History of Presen t illness Narrative Reason for Appointment: Patient ID: Elida Prakash is a 24 y.o. female who presents for Routine Visit Patient presents today for Annual Exam., STD Check., and Return OB appointment. MEDICATIONS Current Outpatient Medications Medication Instructions albuterol HFA 90 mcg/act inhaler 2 puffs, Inhalation, Every 6 hours PRN escitalopram (LEXAPRO) 5 mg, Daily Ferrous Sulfate (IRON PO) Oral ALLERGIES No Known Allergies PROBLEMS Active Ambulatory Problems Diagnosis Date Noted No Active Ambulatory Problems Resolved Ambulatory Problems Diagnosis Date Noted No Resolved Ambulatory Problems Past Medical History: Diagnosis Date Asthma ([facility]) 2005 HISTORY PAST MEDICAL HISTORY SOCIAL HISTORY Past Medical History: Diagnosis Date Asthma ([facility]) 2004 Social History Tobacco Use Smoking status: Every Day Current packs/day: 1.50 Average packs/day: 1.5 packs/day for 10.0 years (15.0 ttl pk-yrs) Types: Cigarettes Smokeless tobacco: Not on file Substance Use Topics Alcohol use: Not on file Drug use: Not on file FAMILY HISTORY No family history on file. SURGICAL HISTORY No past surgical history on file. REVIEW OF SYSTEMS Review of Systems: Review of Systems Constitutional: Negative. HENT: Negative. Eyes: Negative. Respiratory: Negative. Cardiovascular: Negative. Gastrointestinal: Negative. Genitourinary: Negative. Musculoskeletal: Negative. Skin: Negative. Neurological: Negative. All other systems reviewed and are negative. Hematological: Negative. Endocrine: Negative. Allergic/Immunologic: Negative. OBJECTIVE Objective: Physical Exam Constitutional: Appearance: Normal appearance. She is well-developed. Genitourinary: Vulva normal. Right Adnexa: not tender and no mass present. Left Adnexa: not tender and no mass present. No cervical discharge. Breasts: Breasts are soft. Right: Normal. Left: Normal. HENT: Head: Normocephalic. Nose: Nose normal. Mouth/Throat: Mouth: Mucous membranes are moist. Cardiovascular: Rate and Rhythm: Normal rate and regular rhythm. Pulmonary: Effort: Pulmonary effort is normal. Breath sounds: Normal breath sounds. Abdominal: General: Bowel sounds are normal. There is no distension. Palpations: Abdomen is soft. Tenderness: There is no abdominal tenderness. There is no guarding or rebound. Musculoskeletal: General: No swelling. Normal range of motion. Cervical back: Normal range of motion. Right lower leg: No edema. Left lower leg: No edema. Neurological: General: No focal deficit present. Mental Status: She is alert and oriented to person, place, and time. Skin: General: Skin is warm and dry. Psychiatric: Mood and Affect: Mood normal. Behavior: Behavior normal. Vitals and nursing note reviewed. Exam conducted with a refrigeration engine operator present. Vitals: Estimated body mass index is 23.11 kg/m as calculated from the following: Height as of 02/04/24: 5' 8 . Weight as of 07/28/24: 152 lb. BP: Patient's last menstrual period was 05/05/2024. ASSESSMENT & PLAN ICD-10-CM 1. Well woman exam with routine gynecological exam Z01.419 Pap Smear 2. Second trimester Z34.92 POCT urinalysis dipstick manually resulted 3. 16 weeks gestation of Z3A.16 4. Exposure to STD Z20.2 SURESWAB(R) ADVANCED VAGINITIS PLUS, TMA CHLAMYDIA TRACHOMATIS (GENITO/STI) Neisseria gonorrhea DNA probe, direct 5. Need for maternal serum alpha-protein (MSAFP) screening Z36.1 Alpha fetoprotein, maternal Alpha fetoprotein, maternal 6. Screening, , for anatomic survey Z36.89 US OB ANATOMY SINGLE W US OB CERVICAL LENGTH Return OB/Annual Exam: Patient presents today for a annual exam/routine obstetrics appointment. Patient is currently 16w5d . Patient states she is doing well but has complaints of nausea in the morning. Pap and cultures was obtained without difficulty and patient was given orders for anatomy scan and msAFP to be obtained. Orders Placed This Encounter Procedures US OB ANATOMY SINGLE W US OB CERVICAL LENGTH CHLAMYDIA TRACHOMATIS (GENITO/STI) Neisseria gonorrhea DNA probe, direct Alpha fetoprotein, maternal POCT urinalysis dipstick manually resulted Follow Up: Patient is to schedule annual exam for next year and return to office in 4 weeks for OB appointment. Documented by Perla Bundy MA on behalf of: SARABJIT Toussaint documented in this encounter [facility] History of Present illness Narrative 07-28-2024 Margaret Ho LPN - 07/28/2024 2:20 PM EST Note Date & Type Note Facility 07-28-2024 History of Presen t illness Narrative Reason for Appointment: Patient ID: Elida Prakash is a 24 y.o. female who presents for Routine Visit Patient presents today for Return OB appointment.. MEDICATIONS Current Outpatient Medications Medication Instructions albuterol HFA 90 mcg/act inhaler 2 puffs, Inhalation, Every 6 hours PRN escitalopram (LEXAPRO) 5 mg, Daily Ferrous Sulfate (IRON PO) Oral ondansetron ODT (ZOFRAN-ODT) 4 mg, Oral, Every 6 hours PRN ALLERGIES No Known Allergies PROBLEMS Active Ambulatory Problems Diagnosis Date Noted No Active Ambulatory Problems Resolved Ambulatory Problems Diagnosis Date Noted No Resolved Ambulatory Problems Past Medical History: Diagnosis Date Asthma ([facility]) 2004 HISTORY PAST MEDICAL HISTORY SOCIAL HISTORY Past Medical History: Diagnosis Date Asthma ([facility]) 2004 Social History Tobacco Use Smoking status: Every Day Current packs/day: 1.50 Average packs/day: 1.5 packs/day for 10.0 years (15.0 ttl pk-yrs) Types: Cigarettes Smokeless tobacco: Not on file Substance Use Topics Alcohol use: Not on file Drug use: Not on file FAMILY HISTORY No family history on file. SURGICAL HISTORY History reviewed. No pertinent surgical history. REVIEW OF SYSTEMS Review of Systems: Review of Systems Constitutional: Negative. HENT: Negative. Eyes: Negative. Respiratory: Negative. Cardiovascular: Negative. Gastrointestinal: Negative. Genitourinary: Negative. Musculoskeletal: Negative. Skin: Negative. Neurological: Negative. All other systems reviewed and are negative. Hematological: Negative. Endocrine: Negative. Allergic/Immunologic: Negative. OBJECTIVE Objective: Physical Exam Constitutional: Appearance: Normal appearance. She is well-developed. Cardiovascular: Rate and Rhythm: Normal rate and regular rhythm. Pulmonary: Effort: Pulmonary effort is normal. Breath sounds: Normal breath sounds. Abdominal: General: Bowel sounds are normal. There is no distension. Palpations: Abdomen is soft. Tenderness: There is no abdominal tenderness. There is no guarding or rebound. Musculoskeletal: General: No swelling. Normal range of motion. Right lower leg: No edema. Left lower leg: No edema. Neurological: Mental Status: She is alert and oriented to person, place, and time. Skin: General: Skin is warm and dry. Psychiatric: Mood and Affect: Mood normal. Behavior: Behavior normal. Vitals and nursing note reviewed. Exam conducted with a refrigeration engine operator present. Vitals: Estimated body mass index is 23.11 kg/m as calculated from the following: Height as of 02/04/24: 5' 8 . Weight as of this encounter: 152 lb. BP: 116/70 Patient's last menstrual period was 05/05/2024. ASSESSMENT & PLAN ICD-10-CM 1. First trimester Z34.91 POCT urinalysis dipstick manually resulted 2. 12 weeks gestation of Z3A.12 New OB: Patient presents today for 1st time obstetrics appointment with provider. Patient is currently 12w0d . Patients history has been reviewed in great detail including any potential risks. Patient stated she currently has no complaints. Expectations throughout regarding labs, ultrasounds, and appointments have been discussed with the patient in detail. It was reiterated that the patient is to drink 6-8 glasses of water a day, eat 6 small meals a day, do not consume raw or undercooked meat, and [facility]. Patient has been consulted regarding any further do's and don'ts of . Patient voiced understanding and all questions and concerns were answered. Pt has nausea all day- refill for zofran faxed to pharmacy. Orders Placed This Encounter Procedures POCT urinalysis dipstick manually resulted Follow Up: Patient is to return in 4 weeks for routine OB appointment. Documented by Margaret Ho LPN on behalf of: Ab Mendoza DO documented in this encounter [facility] History of Present illness Narrative 07-09-2024 Radha Hernandez LPN - 07/09/2024 9:30 AM EST Note Date & Type Note Facility 07-09-2024 History of Presen t illness Narrative Reason for Appointment: Patient ID: Elida Prakash is a 24 y.o. female who presents for Routine Visit Patient presents today for a Nurse OB Intake appointment. Patient is 9w2d with a Estimated Date of Delivery: 02/09/25 OB History Para Term AB Living 1 SAB IAB Ectopic Multiple Live Births # Outcome Date GA Lbr Jigar/2nd Weight Sex Type Anes PTL Lv 1 Current Current Medications: has a current medication list which includes the following prescription(s): incassia, norethindrone-ethinyl estradiol, and ondansetron odt. Medical History: Active Ambulatory Problems Diagnosis Date Noted No Active Ambulatory Problems Resolved Ambulatory Problems Diagnosis Date Noted No Resolved Ambulatory Problems Past Medical History: Diagnosis Date Asthma ([facility]) 2004 No family history on file. Social History Tobacco Use Smoking status: Every Day Current packs/day: 1.50 Average packs/day: 1.5 packs/day for 10.0 years (15.0 ttl pk-yrs) Types: Cigarettes Smokeless tobacco: Not on file Substance Use Topics Alcohol use: Not on file Drug use: Not on file History reviewed. No pertinent surgical history. No Known Allergies Vitals: Estimated body mass index is 22.05 kg/m as calculated from the following: Height as of 02/04/24: 5' 8 . Weight as of 02/04/24: 145 lb. BP: Patient's last menstrual period was 05/05/2024. Assessment/Plan Diagnoses and all orders for this visit: Missed menses - Type and screen; Future - ABO/Rh; Future - CBC and differential - Hemoglobin A1c - RPR - Rubella antibody, IgG - Hepatitis B surface antigen - Hepatitis C antibody - HIV-1 and HIV-2 antibodies - Urine culture - US OB transvaginal; Future - POCT , urine manually resulted - POCT urinalysis dipstick manually resulted , unspecified gestational age - Type and screen; Future - ABO/Rh; Future - CBC and differential - Hemoglobin A1c - RPR - Rubella antibody, IgG - Hepatitis B surface antigen - Hepatitis C antibody - HIV-1 and HIV-2 antibodies - Rapid drug screen, urine; Future Encounter for supervision of normal first in first trimester - Rapid drug screen, urine; Future Nausea and vomiting in - ondansetron ODT (Zofran-ODT) 4 MG disintegrating tablet; Take 1 tablet (4 mg) by mouth every 6 (six) hours if needed for nausea or vomiting Nurse Note: OB Intake: Patient presents today for first OB visit. Patients history has been reviewed in great detail including any potential risks. Patient signed consent forms and patient desires testing in both trimesters. Patient currently has no complaints and has been advised to drink 6-8 glasses of water a day, eat no raw or undercooked meat, and [facility]. Patient has also been advised to not change litter boxes and eat 6 small meals a day. Patient has been consulted regarding the do's and don'ts of . Patient was given labs and all questions and concerns were answered. Follow Up: Patient is to return in 4 weeks for routine OB appointment. Follow Up: Patient is to have labs drawn at directed and return to office for initial OB appointment with provider. Patient may call office as needed with any concerns or questions. Nurse Visit Completed by: Radha Hernandez LPN documented in this encounter [facility] Evaluation note 05-30-2023 Note Date & Type [...] B35.1) Onychomycosis home care material was printed [employer] Other Evaluation note Note Date & Type Note Facility Evaluation note Diagnosis Missed menses , unspecified gestational age Encounter for supervision of normal first in first trimester Nausea and vomiting in Unspecified vomiting of , unspecified as to episode of care documented in this encounter [facility] Evaluation note Note Date & Type Note Facility Evaluation note Diagnosis First trimester state, incidental 12 weeks gestation of Nausea and vomiting in Unspecified vomiting of , unspecified as to episode of care documented in this encounter [facility] Evaluation note Note Date & Type Note Facility Evaluation note Diagnosis Well woman exam with routine gynecological exam Routine gynecological examination Second trimester state, incidental 16 weeks gestation of Exposure to STD Need for maternal serum alpha-protein (MSAFP) screening Screening, , for anatomic survey Encounter for anatomic survey documented in this encounter [facility] History general Narrative - Reported Note Date & Type Note Facility History general Narrative - Reported Type Medical History Drug abuse Medical History Depression Medical History Anxiety Surgical History tonsillectomy Surgical History PE tubes [employer] Other Summary Purpose Family History No Family History Records FoundNo Family History Records Found Advance Directives No Advanced Directives Records FoundNo Advanced Directives Records Found Additional Source Comments INFORMATION SOURCE (unrecogn ized section and content) DATE CREATED AUTHOR 11/11/2022 [facility] DATE CREATED AUTHOR AUTHOR'S ORGANIZ ATION 07/31/2024 [facility] EPIC REASON FOR VISIT (unrecogniz ed section and content) Reason Comments Routine Visit Care Teams (unrecognized sec tion and content) Box Sorter Relationship Specialty Start Date End Date Kuldeep Mederos MD [address] [place] [address] PCP - General Family Medicine 02/04/24 Box Sorter Relationship Specialty Start Date End Date Kuldeep Mederos MD [address] [place] [address] PCP - General Family Medicine 02/04/24 Box Sorter Relationship Specialty Start Date End Date Kuldeep Mederos MD [address] [place] [address] PCP - General Family Medicine 02/04/24 Box Sorter Relationship Specialty Start Date End Date Kuldeep Mederos MD [address] [place] [address] PCP - General Family Medicine 02/04/24 Box Sorter Relationship Specialty Start Date End Date Kuldeep Mederos MD [address] [place] [address] PCP - General Family Medicine 02/04/24 Box Sorter Relationship Specialty Start Date End Date Kuldeep Mederos MD [address] [place] [id number] PCP - General Family Medicine 02/04/24 FOR RECORDS PERTAINING TO PATIENTS WHO ARE [...] BE BASED ON THE PRIMARY CLINICAL RECORDS. [facility] provides no warranty or guarantee of the accuracy or completeness of information in this document.
[2024-09-03 11:07] LABS: Age Gdln ACOG Testing Note (.); IGP, rfx Aptima HPV ASCU Note (.)
== END 2024-08-30 18:37 | disposition home or self-care (01) ==
LOC: LAB 18:36
PROVIDERS: PCP Family Medicine; Visit Provider Physician Assistant
DX: Z01.419 Encounter for gynecological examination (general) (routine) without abnormal findings (principal)
CPT/HCPCS: 88175

== ENCOUNTER 2024-09-21 14:50 | Observation (INO) | payer OTHER, SELFPAY ==
--- OUTSIDE RECORDS SUMMARY | 2024-09-21 14:56 | XMS_ITS | CCD ---
Author Organization [facility] Care Team Providers Care Billet Heater Name Role Phone KAYK ., DR AVILA [...] Gatito LLANOS, Kuldeep Hernandez Primary Care Provider [phone] AB MENDOZA Attending Unavailable AB MENDOZA Attending Unavailable MARIYA REZA Attending Unavailable Allergies Allergy Classification Reported Allergen(s) Allergy Type Date of Onset Reaction(s) Facility (1 source) Adhesive bandage Drug allergy (disorder) 3 [facility] Repository (1 source) Amoxicillin Drug Allergy diarrhea, vomiting Top100.cn Other Medications Current Medications Medication Drug Class(es) Dates Sig (Normalized) Sig (Original) [id number] 200 actuat albuterol 0.09 mg/actuat metered dose inhaler (7 sources) beta2-Adrenergic Agonist take 2 puff(s) by inhalation every six hours albuterol HFA 90 mcg/act inhaler Inhale 2 puffs every 6 (six) hours if needed Active escitalopram 5 mg oral tablet (8 sources) Serotonin Reuptake Inhibitor Start: 10-22-2023 take 1 tablet by mouth once daily escitalopram (Lexapro) 5 MG tablet Take 5 mg by mouth Daily 10/22/2023 Active take 1 tablet by mouth once roya y Escitalopram Oxalate 5 MG TAKE 1 TABLET BY MOUTH EVERY DAY Oral for 30 Days Active ferrous sulfate (7 sources) Ferrous Sulfate (IRON PO) Take by [...] Test Name Value Interpretation Reference Range Facility IGP,APTIMA HPV,AGE GDLNon AGE GDLN ACOG TESTING Note . [facility] Comment on above: TESTS RESULT FLAG UN ITS REF RANGE LAB Clinician Provided Cytology Information Source.............Cervix No. of containers..01 ThinPrep Vial Age Algo ACOG Jo Ann... FLAG LEGEND: L-Low Normal,H-High Normal,LL-Alert Low,HH-Alert High <-Panic Low,>-Panic High,A-Abnormal,AA-Critical Abnormal Performed at: 01 =G [facility] [address] [place] [address] Riddhi Goodman MD, IGP, RFX APTIMA HPV ASCU Note . [facility] Comment on above: TESTS RESULT FLAG UN ITS REF RANGE LAB DIAGNOSIS: 02 NEGATIVE FOR INTRAEPITHELIAL LESION OR MALIGNANCY. Specimen adequacy: 02 Satisfactory for evaluation. Endocervical and/or squamous metaplastic cells (endocervical component) are present. Performed by: 02 Krystal Canada, Nut Threader ([facility]) . 02 Note: Note 02 The Pap smear is a screening test designed to aid in the detection of premalignant and malignant conditions of the uterine cervix. It is not a diagnostic procedure and should not be used as the sole means of detecting cervical cancer. Both false-positive and false-negative reports do occur. Test Methodology: Note 02 This liquid based ThinPrep(R) pap test was screened with the use of an image guided system. . 02 The HPV DNA reflex criteria were not met with this specimen result therefore, no HPV testing was performed. FLAG LEGEND: L-Low Normal,H-High Normal,LL-Alert Low,HH-Alert High <-Panic Low,>-Panic High,A-Abnormal,AA-Critical Abnormal Performed at: 02 WB [facility] [address] [place] [address] Riddhi Goodman MD, Performed at: =G - [address] [id number] Patent Searcher: Riddhi Goodman MD, Phone: [phone] [facility]formed at: [facility] [id number] Patent Searcher: Riddhi Goodman MD, Phone: [phone] SPATULA-ALONE CERVIX [facility] RECURRENT VAGINITIS (HTRX)on 09-01-2024 ATOPOBIUM VAGINAE 20.876 Abnormal [facility] ATOPOBIUM VAGINAE Detected Abnormal [facility]thcare BVAB 2,3 (BACTERIAL VAGINOSIS ASSOCIATED BACTERIA 2, 3); MOBILUNCUS SPP 24.4 Abnormal [facility] Healthcare BVAB 2,3 (BACTERIAL VAGINOSIS ASSOCIATED BACTERIA 2, 3); MOBILUNCUS SPP Detected Abnormal [facility] ANGELA ALBICANS, PARAPSILOSIS, TROPICALIS 0 [facility] ANGELA ALBICANS, PARAPSILOSIS, TROPICALIS Not detected [facility] ANGELA GLABRATA 0 [facility] Hea lthcare ANGELA GLABRATA Not detected [facility] ANGELA KRUSEI 0 [facility] hcare ANGELA KRUSEI Not detected [facility] CHLAMYDIA TRACHOMATIS 0 [facility] CHLAMYDIA TRACHOMATIS Not detected [facility] ERMB, C; MEFA 16.624 Abnormal [facility] care ERMB, C; MEFA Detected Abnormal [facility] care GARDNERELLA VAGINALIS 22.69 Abnormal [facility] GARDNERELLA VAGINALIS Detected Abnormal [facility] Interpretation and review of laboratory results Abnormal [facility] MEGASPHAERA (TYPES 1, 2) 0 [facility] MEGASPHAERA (TYPES 1, 2) Not detected [facility] MYCOPLASMA GENITALIUM 0 [facility] MYCOPLASMA GENITALIUM Not detected [facility] NEISSERIA GONORRHOEAE 0 [facility] NEISSERIA GONORRHOEAE Not detected [facility] TET B, TET M 15.188 Abnormal [facility] Healthc are TET B, TET M Detected Abnormal [facility] Healthc are TRICHOMONAS VAGINALIS 0 [facility] TRICHOMONAS VAGINALIS Not detected [facility] Urinalysis macro (dipstick) panel (U)on 08-30-2024 Bilirubin, UA Negative Negative - 4(70) +++ mg/dL [facility] Blood, UA Negative Negative - 50 Eric/mcL [facility] Clarity, UA Clear [facility] Healthca re Color, UA Yellow [facility] Healthcar e Glucose, UA Negative Negative - 1999(110) ++++ mg/dL [facility] Interpretation and review of laboratory results Abnormal [facility] Ketones, UA Negative Negative - 160(16) ++++ mg/dL [facility] Leukocytes, UA Moderate Negative - 500+++ Miley/mcL [facility] Nitrite, UA Negative Negative - Positive [facility] pH, UA 7 5 - 9 [facility] Healthcar e Protein, UA Negative Negative - 1999(20) ++++ mg/dL [facility] Spec Grav, UA 1.02 1 - 1.03 [facility] Urobilinogen, UA 0.2 0.2 - 12 mg/dL [facility] Health[facility] e Urinalysis macro (dipstick) panel (U)on 07-28-2024 Bilirubin, UA Negative Negative - (70) +++ mg/dL [facility] Blood, UA Negative Negative - 50 Eric/mcL [facility] Clarity, UA Cloudy [facility] Healthut re Color, UA Yellow [facility] Healthcar e Glucose, UA Negative Negative - 1999(110) ++++ mg/dL [facility] Interpretation and review of laboratory results Abnormal [facility] Ketones, UA Negative Negative - 160(16) ++++ mg/dL [facility] Leukocytes, UA Positive Negative - 500+++ Miley/mcL [facility] Comment on above: small Nitrite, UA Negative Negative - Positive [facility] pH, UA 7 5 - 9 [facility] Healthcar e Protein, UA Positive Negative - 1999(20) ++++ mg/dL [facility] Comment on above: 30 mg Spec Grav, UA 1.025 1 - 1.03 [facility] Urobilinogen, UA 1.0 0.2 - 12 mg/dL [facility] Health[facility] e ALL CBC WITH AUTO DIFFon BASOPHILS ABSOLUTE AUTO 0.1 [facility] Basophils/100 WBC (Bld) 0.6 % 0.2 - 2.0 % [facility] Eosinophils/100 WBC (Bld) 2.7 % 0.9 - 7.0 % [facility] Erythrocyte distribution width (RBC) [Ratio] 12.3 % 11.0 - 15.0 % [facility] Hematocrit (Bld) [Volume fraction] 38.4 % 36.0 - 48.0 % [facility] Healthcar e Hemoglobin (Bld) [Mass/Vol] 13.4 g/dL 12.0 - 16.0 g/dL [facility] IMMATURE GRANULOCYTES ABS AUTO 0.04 High [facility] Immature granulocytes/100 WBC (Bld) 0.4 % 0.0 - 0.5 % [facility] Interpretation and review of laboratory results [facility] LYMPHOC[facility]TES ABSOLUTE AUTO 2.2 [facility] Lymphocytes/100 WBC (Bld) 19.4 % Low 20.5 - 60.0 % [facility] MCH (RBC) [Entitic mass] 30.7 pg 26.7 - 34.0 pg [facility] MCHC (RBC) [Mass/Vol] 34.9 g/dL 29.9 - 35.2 g/dL [facility] MCV (RBC) [Entitic vol] 88.1 fL 81.0 - 99.0 fL [facility] MONOCYTES ABSOLUTE AUTO 0.7 [facility] Monocytes/100 WBC (Bld) 6.3 % 1.7 - 12.0 % [facility] NEUTROPHILS ABSOLUTE AUTO 8 High [facility] Neutrophils/100 WBC (Bld) 70.6 % 43.0 - 75.0 % [facility] Platelet mean volume (Bld) [Entitic vol] 10.6 fL 9.5 - 13.5 fL [facility] EO # 0.3 [facility] TBH PLT 313 [facility] TB RBC 4.36 [facility] TB WBC 11.3 High [facility] Healthcar e [facility] Healthcar e ALL TYPE AND SCREENon 2023 ABO and Rh group Nom (Bld) Blood group A Rh(D) positive [facility] , [facility] Healthcar e BOX TESTon 07-27-2024 BOX TEST SENT OUT Y [facility] BOX1 UNITY [facility] BOX2 07/27/24 NOM [facility] UNITY BOX [facility] MLR HEMOGLOBIN A1Con 024 Glucose [Mass/Vol] 100 mg/dL [facility] HbA1c (Bld) [Mass fraction] 5.1 % 4.5 - 6.2 % [facility] Comment on above: ADA RECOMMENDED LIMI T 4.0 - 6.0 ADA THERAPEUTIC TARGET < 7.0 ACTION SUGGESTED > 7.0 [facility] TBH DRUG SCREEN RAPID (URINE )on 07-27-2024 AMPHETAMINE SCREEN URINE Negative NEGATIVE [facility] BARBITURATES SCREEN URINE Negative NEGATIVE [facility] BENZODIAZEPINES SCREEN URINE Negative NEGATIVE [facility] BUPRENORPHINE SCREEN URINE Negative NEGATIVE [facility] Comment on above: DRUG CLASS TEST SYST [...] ng/mL CANNABINOID SCREEN URINE Positive Abnormal NEGATIVE [facility] COCAINE SCREEN URINE Negative NEGATIVE [facility] Interpretation and review of laboratory results Abnormal [facility] METHADONE SCREEN URINE Negative NEGATIVE [facility] METHAMPHETAMINES SCREEN URINE Negative NEGATIVE [facility] OPIATE SCREEN URINE Negative NEGATIVE [facility] OXYCODONE SCREEN URINE Negative NEGATIVE [facility] PHENCYCLIDINE SCREEN URINE Negative NEGATIVE [facility] TRICYCLIC ANTIDEPRESSANT URINE Negative NEGATIVE [facility] HCG ( test) Ql (U)o n 07-09-2024 Interpretation and review of laboratory results Abnormal [facility] Preg Test, Ur Positive Negative [facility] Health[facility] e Urinalysis macro (dipstick) panel (U)on 07-09-2024 Bilirubin, UA Negative Negative - 4(70) +++ mg/dL [facility] Blood, UA Negative Negative - 50 Eric/mcL [facility] Clarity, UA Clear [facility] re Color, UA Yellow [facility] e Glucose, UA Negative Negative - 2000(110) ++++ mg/dL [facility] Interpretation and review of laboratory results Normal [facility] Ketones, UA Negative Negative - 160(16) ++++ mg/dL [facility] Leukocytes, UA Negative Negative - 500+++ Miley/mcL [facility] Nitrite, UA Negative Negative - Positive [facility] pH, UA 5.5 5 - 9 [facility] Protein, UA Negative Negative - 1999(20) ++++ mg/dL [facility] Spec Grav, UA 1.02 1 - 1.03 [facility] Urobilinogen, UA 1.0 0.2 - 12 mg/dL [facility] Quick Strepon 05-30-2023 S. pyogenes Org specific cx Ql (Throat) Negative [facility] [employer] Other Quick Strep Telesocial [facility] [employer] Other PAP ACOG PANEL 2: 21 to 29on 11-08-2022 . . Normal [facility] Comment on above: Result Comment: Perf ormed at: [facility] Performed By: #### [id number] #### [facility] [address] [place] [address] Dr. Meryl Damon Age Gdln ACOG Testing [facility] Comment on above: Performed By: #### [id number] #### [facility] [address] [place] [address] Dr. Meryl Damon DIAGNOSIS: Comment [facility] Comment on above: Result Comment: NEGA TIVE FOR INTRAEPITHELIAL LESION OR MALIGNANCY. Performed at: [facility] Performed By: #### [id number] #### [facility] [address] [place] [address] Dr. Meryl Damon Methodology: Comment [facility] Comment on above: Result Comment: This liquid based ThinPrep(R) pap test was screened with the use of an image guided system. Performed at: [facility] Performed By: #### [id number] #### [facility] [address] [place] [address] Dr. Meryl Damon Note: Comment [facility] Comment on above: Result Comment: The Pap smear is a screening test designed to aid in the detection of premalignant and malignant conditions of the uterine cervix. It is not a diagnostic procedure and should not be used as the sole means of detecting cervical cancer. Both false-positive and false-negative reports do occur. . Performed at: [facility] Performed By: #### [id number] #### [facility] [address] [place] [address] Dr. Meryl Damon Performed by: Comment Normal [facility] Comment on above: Result Comment: Luz Valverde Nut Threader (ASCP) Performed at: [facility] Performed By: #### [id number] #### [facility] [address] [address] [address] Meryl Damon Reflex Criteria: Comment Normal [facility] Comment on above: Result Comment: The HPV DNA reflex criteria were not met with this specimen result therefore, no HPV testing was performed. . Performed at: [facility] Performed By: #### [id number] #### [facility] [address] [address] [address] Meryl Damon Specimen adequacy: Comment Normal [facility] Comment on above: Result Comment: Sati sfactory for evaluation. Endocervical and/or squamous metaplastic cells (endocervical component) are present. Areas of partially obscuring inflammatory exudate are present. Performed at: [facility] Performed By: #### [id number] #### [facility] [address] [address] [address] Meryl Damon CBC AUTO DIFFon 02-19-2022 BASO # 0.1 103/ul Normal 0.0-0.1 [facility] Comment on above: Performed By: #### C BC #### [facility] [address] [place] [address] Dr. Meryl Damon Basophils/100 WBC (Bld) 0.3 % Normal 0.2-2.0 [facility] Comment on above: Performed By: #### C BC #### [facility] [address] [address] [address] Meryl Damon EO # 0.1 103/ul Normal 0.0-0.7 [facility] Comment on above: Performed By: #### C BC #### [facility] [address] [address] [address] Meryl Damon Eosinophils/100 WBC (Bld) 0.7 % Critically low 0.9-7.0 [facility] Comment on above: Performed By: #### C BC #### [facility] [address] [place] [address] Dr. Meryl Damon Erythrocyte distribution width (RBC) [Ratio] 14.1 % Normal 11.0-15.0 [facility] Comment on above: Performed By: #### C BC #### [facility] [address] [place] [address] Dr. Meryl Damon Hematocrit (Bld) [Volume fraction] 31.1 % Critically low 36.0-48.0 [facility] Comment on above: Performed By: #### C BC #### [facility] [address] [place] [address] Dr. Meryl Damon Hemoglobin (Bld) [Mass/Vol] 10.1 g/dL Critically low 12.0-16.0 [facility] Comment on above: Performed By: #### C BC #### [facility] [address] [place] [address] Dr. Meryl Damon IG # 0.09 10e3/ul Critically high 0.00-0.03 [facility] Comment on above: Performed By: #### C BC #### [facility] [address] [place] [address] Dr. Meryl Damon IG % 0.5 % Normal 0.0-0.5 [facility] Comment on above: Performed By: #### C BC #### [facility] [address] [place] [address] Dr. Meryl Damon LYMPH # 1.9 103/ul Normal 1.2-3.8 [facility] Comment on above: Performed By: #### C BC #### [facility] [address] [place] [address] Dr. Meryl Damon Lymphocytes/100 WBC (Bld) 11.5 % Critically low 20.5-60.0 [facility] Comment on above: Performed By: #### C BC #### [facility] [address] [place] [address] Dr. Meryl Damon MANUAL DIFF REQ NO Normal [facility] Comment on above: Performed By: #### C BC #### [facility] [address] [place] [address] Dr. Meryl Damon MCH (RBC) [Entitic mass] 28.8 pg Normal 26.7-34.0 [facility] Comment on above: Performed By: #### C BC #### [facility] [address] [address] [address] Meryl Damon MCHC (RBC) [Mass/Vol] 32.5 g/dL Normal 29.9-35.2 [facility] Comment on above: Performed By: #### C BC #### [facility] [address] [address] [address] Meryl Damon MCV (RBC) [Entitic vol] 88.6 fL Normal 81.0-99.0 [facility] Comment on above: Performed By: #### C BC #### [facility] [address] [place] [address] Dr. Meryl Damon MONO # 1.8 103/ul Critically high 0.3-0.8 [facility] Comment on above: Performed By: #### C BC #### [facility] [address] [place] [address] Dr. Meryl Damon Monocytes/100 WBC (Bld) 11.2 % Normal 1.7-12.0 [facility] Comment on above: Performed By: #### C BC #### [facility] [address] [place] [address] Dr. Meryl Damon NEUT # 12.4 103/ul Critically high 1.4-6.[address] [facility] Comment on above: Performed By: #### C BC #### [facility] [address] [place] [address] Dr. Meryl Damon Neutrophils/100 WBC (Bld) 75.8 % Critically high 43.0-75.0 [facility] Comment on above: Performed By: #### C BC #### [facility] [address] [place] [address] Dr. Meryl Damon Platelet mean volume (Bld) [Entitic vol] 11.5 fL Normal 9.5-13.5 [facility] Comment on above: Performed By: #### C BC #### [facility] [address] [place] [address] Dr. Meryl Damon PLT 186 103/ul Normal 150-450 [facility] Comment on above: Performed By: #### C BC #### [facility] [address] [place] [address] Dr. Meryl Damon RBC 3.51 106/ul Critically low 4.20-5.40 [facility] Comment on above: Performed By: #### C BC #### [facility] [address] [place] [address] Dr. Meryl Damon WBC 16.4 103/ul Critically high 4.0-11.0 [facility] Comment on above: Performed By: #### C BC #### [facility] [address] [place] [address] Dr. Meryl Damon CBC AUTO DIFFon 02-17-2022 BASO # 0.0 103/ul Normal 0.0-0.1 [facility] Comment on above: Performed By: #### C BC #### [facility] [address] [place] [address] Dr. Meryl Damon Basophils/100 WBC (Bld) 0.1 % Critically low 0.2-2.0 [facility] Comment on above: Performed By: #### C BC #### [facility] [address] [place] [address] Dr. Meryl Damon EO # 0.1 103/ul Normal 0.0-0.7 [facility] Comment on above: Performed By: #### C BC #### [facility] [address] [place] [address] Dr. Meryl Damon Eosinophils/100 WBC (Bld) 0.6 % Critically low 0.9-7.0 [facility] Comment on above: Performed By: #### C BC #### [facility] [address] [place] [address] Dr. Meryl Damon Erythrocyte distribution width (RBC) [Ratio] 13.9 % Normal 11.0-15.0 [facility] Comment on above: Performed By: #### C BC #### [facility] [address] [place] [address] Dr. Meryl Damon Hematocrit (Bld) [Volume fraction] 35.2 % Critically low 36.0-48.0 [facility] Comment on above: Performed By: #### C BC #### [facility] [address] [place] [address] Dr. Meryl Damon Hemoglobin (Bld) [Mass/Vol] 11.8 g/dL Critically low 12.0-16.0 [facility] Comment on above: Performed By: #### C BC #### [facility] [address] [place] [address] Dr. Meryl Damon IG # 0.08 10e3/ul Critically high 0.00-0.03 [facility] Comment on above: Performed By: #### C BC #### [facility] [address] [place] [address] Dr. Meryl Damon IG % 0.6 % Critically high 0.0-0.5 [facility] Comment on above: Performed By: #### C BC #### [facility] [address] [place] [address] Dr. Meryl Damon LYMPH # 1.7 103/ul Normal 1.2-3.8 [facility] Comment on above: Performed By: #### C BC #### [facility] [address] [place] [address] Dr. Meryl Damon Lymphocytes/100 WBC (Bld) 12.8 % Critically low 20.5-60.0 [facility] Comment on above: Performed By: #### C BC #### [facility] [address] [place] [address] Dr. Meryl Damon MANUAL DIFF REQ NO Normal [facility] Comment on above: Performed By: #### C BC #### [facility] [address] [place] [address] Dr. Meryl Damon MCH (RBC) [Entitic mass] 29.4 pg Normal 26.7-34.0 [facility] Comment on above: Performed By: #### C BC #### [facility] [address] [place] [address] Dr. Meryl Damon MCHC (RBC) [Mass/Vol] 33.5 g/dL Normal 29.9-35.2 [facility] Comment on above: Performed By: #### C BC #### [facility] [address] [address] [address] Meryl Damon MCV (RBC) [Entitic vol] 87.6 fL Normal 81.0-99.0 [facility] Comment on above: Performed By: #### C BC #### [facility] [address] [address] [address] Meryl Damon MONO # 1.1 103/ul Critically high 0.3-0.8 [facility] Comment on above: Performed By: #### C BC #### [facility] [address] [place] [address] Dr. Meryl Damon Monocytes/100 WBC (Bld) 7.8 % Normal 1.7-12.0 [facility] Comment on above: Performed By: #### C BC #### [facility] [address] [place] [address] Dr. Meryl Damon NEUT # 10.4 103/ul Critically high 1.4-6.5 [facility] Comment on above: Performed By: #### C BC #### [facility] [address] [place] [address] Dr. Meryl Damon Neutrophils/100 WBC (Bld) 78.1 % Critically high 43.0-75.0 [facility] Comment on above: Performed By: #### C BC #### [facility] [address] [address] [address] Meryl Damon Platelet mean volume (Bld) [Entitic vol] 11.5 fL Normal 9.5-13.5 [facility] Comment on above: Performed By: #### C BC #### [facility] [address] [place] [address] Dr. Meryl Damon PLT 265 103/ul Normal 150-450 [facility] Comment on above: Performed By: #### C BC #### [facility] [address] [place] [address] Dr. Meryl Damon RBC 4.02 106/ul Critically low 4.20-5.40 [facility] Comment on above: Performed By: #### C BC #### [facility] [address] [place] [address] Dr. Meryl Damon WBC 13.4 103/ul Critically high 4.0-11.0 [facility] Comment on above: Performed By: #### C BC #### [facility] [address] [place] [address] Dr. Meryl Damon Covid-19 PCR (CVDTB)on 01-30 SARS-CoV-2 (COVID-19) RNA [place]+probe Ql (Unsp spec) Not detected Normal NOT DETECTED [facility] Comment on above: Result Comment: [...] for this test is supported by the [place] of Health and Human Service's declaration that [...] used). Performed By: #### C VDTBH #### [facility] [address] [place] [address] Dr. Meryl Damon DRUG SCREEN RAPID (URINE)on 02-17-2022 AMP Negative Normal NEGATIVE [facility] Comment on above: Performed By: #### D RUGRPD #### [facility] [address] [place] [address] Dr. Meryl Damon BAR Negative Normal NEGATIVE [facility] Comment on above: Performed By: #### D RUGRPD #### [facility] [address] [place] [address] Dr. Meryl Damon BUP Negative Normal NEGATIVE [facility] Comment on above: Performed By: #### D RUGRPD #### [facility] [address] [place] [address] Dr. Meryl Damon BZO Negative Normal NEGATIVE [facility] Comment on above: Performed By: #### D RUGRPD #### [facility] [address] [place] [address] Dr. Meryl Damon EDGAR Negative Normal NEGATIVE [facility] Comment on above: Performed By: #### D RUGRPD #### [facility] [address] [place] [address] Dr. Meryl Damon CUT-OFFS SEE BELOW Normal [facility] Comment on above: Result Comment: [...] ng/mL Performed By: #### D RUGRPD #### [facility] [address] [place] [address] Dr. Meryl Damon DRUG CUT HEADER DRUG CLASS TEST SYSTEM CUT-OFF CONCENTRATIONS ARE FOLLOWS: Normal [facility] Comment on above: Performed By: #### D RUGRPD #### [facility] [address] [place] [address] Dr. Meryl Damon mAMP Negative Normal NEGATIVE [facility] Comment on above: Performed By: #### D RUGRPD #### [facility] [address] [place] [address] Dr. Meryl Damon MTD Negative Normal NEGATIVE [facility] Comment on above: Performed By: #### D RUGRPD #### [facility] [address] [address] [address] Meryl Damon OPI Negative Normal NEGATIVE [facility] Comment on above: Performed By: #### D RUGRPD #### [facility] [address] [place] [address] Dr. Meryl Damon OXY Negative Normal NEGATIVE [facility] Comment on above: Performed By: #### D RUGRPD #### [facility] [address] [address] [address] Meryl Damon PCP Negative Normal NEGATIVE [facility] Comment on above: Performed By: #### D RUGRPD #### [facility] [address] [place] [address] Dr. Meryl Damon PPX Negative Normal NEGATIVE [facility] Comment on above: Performed By: #### D RUGRPD #### [facility] [address] [place] [address] Dr. Meryl Damon TCA Negative Normal NEGATIVE [facility] Comment on above: Performed By: #### D RUGRPD #### [facility] [address] [place] [address] Dr. Meryl Damon THC Positive Abnormal NEGATIVE [facility] Comment on above: Performed By: #### D RUGRPD #### [facility] [address] [place] [address] Dr. Meryl Damon TYPE AND SCREENon 02-17-2022 TYPE AND SCREEN Negative Normal [facility] Comment on above: Performed By: #### G LU1HR #### [facility] [address] [place] [address] Dr. Meryl Damon US PREG GROWTHon 02-06-2022 [...] TANYA SHEIKH Date: 2022-02-06 16:11 Normal [facility] GROUP B STREP CULTUREon 12-31 S. agalactiae Ag Ql (Unsp spec) Culture Observations: unable to isolate beta- possible Group B Normal [facility] Comment on above: Performed By: #### G LU1HR #### [facility] [address] [place] [address] Dr. Meryl Damon CULTURE URINEon 01-17-2022 CULTURE URINE Culture Observations: MODERATE GROWTH OF MIXED GENITAL SENA. NO POTENTIAL PATHOGENS SEEN. Normal [facility] Comment on above: Performed By: #### G LU1HR #### [facility] [address] [place] [address] Dr. Meryl Damon UA (CLEAN/CATCH) SR. OPERATIONS MANAGER/MICRO I F IND.on 01-17-2022 Bilirubin Ql (U) Negative Normal NEGATIVE [facility] Comment on above: Performed By: #### U MICRO, UACSIND #### [facility] [address] [place] [address] Dr. Meryl Damon Clarity (U) CLEAR Normal CLEAR [facility] Comment on above: Performed By: #### U MICRO, UACSIND #### [facility] [address] [place] [address] Dr. Meryl Damon Color (U) LT. YELLOW Normal YELLOW [facility] Comment on above: Performed By: #### U MICRO, UACSIND #### [facility] [address] [place] [address] Dr. Meryl Damon Glucose Ql (U) Negative Normal NEGATIVE [facility] Comment on above: Performed By: #### U MICRO, UACSIND #### [facility] [address] [address] [address] Meryl Damon Hemoglobin Ql (U) SMALL Abnormal NEGATIVE [facility] Comment on above: Performed By: #### U MICRO, UACSIND #### [facility] [address] [address] [address] Meryl Damon Ketones Ql (U) Negative Normal NEGATIVE [facility] Comment on above: Performed By: #### U MICRO, UACSIND #### [facility] [address] [address] [address] Meryl Damon LEUKOCYTES LARGE Abnormal NEGATIVE [facility] Comment on above: Performed By: #### U MICRO, UACSIND #### [facility] [address] [place] [address] Dr. Meryl Damon Nitrite Ql (U) Negative Normal NEGATIVE [facility] Comment on above: Performed By: #### U MICRO, UACSIND #### [facility] [address] [place] [address] Dr. Meryl Damon pH (U) 8.0 [pH] Normal 5-9 [facility] Comment on above: Performed By: #### U MICRO, UACSIND #### [facility] [address] [place] [address] Dr. Meryl Damon SPEC GRAVITY 1.010 Normal 1.005-<=1.025 [facility] Comment on above: Performed By: #### U MICRO, UACSIND #### [facility] [address] [address] [address] Meryl Damon UA PROTEIN Negative Normal NEGATIVE/ TRACE [facility] Comment on above: Performed By: #### U MICRO, UACSIND #### [facility] [address] [place] [address] Dr. Meryl Damon UR MICRO IND INDICATED Normal [facility] Comment on above: Performed By: #### U MICRO, UACSIND #### [facility] [address] [place] [address] Dr. Meryl Damon Urobilinogen Qn (U) 0.2 {Yovanny'U}/dL Normal 0.2 - 1. 0 [facility] Comment on above: Performed By: #### U MICRO, UACSIND #### [facility] [address] [address] [address] Meryl Damon URINE MICROSCOPIC ONLYon BACTERIA TRACE Abnormal NONE SEEN [facility] Comment on above: Performed By: #### U MICRO, UACSIND #### [facility] [address] [address] [address] Meryl Damon Bacteria identified Cx Nom (U) INDICATED Normal [facility] Comment on above: Performed By: #### U MICRO, UACSIND #### [facility] [address] [place] [address] Dr. Meryl Damon CAST NONE SEEN Normal NONE SEEN [facility] Comment on above: Performed By: #### U MICRO, UACSIND #### [facility] [address] [place] [address] Dr. Meryl Damon Crystals LM Nom (Urine sed) NONE SEEN Normal NONE SEEN [facility] Comment on above: Performed By: #### U MICRO, UACSIND #### [facility] [address] [place] [address] Dr. Meryl Damon Epithelial cells LM Ql (Urine sed) MANY Abnormal NONE SEEN /RARE [facility] Comment on above: Performed By: #### U MICRO, UACSIND #### [facility] [address] [place] [address] Dr. Meryl Damon MUCOUS TRACE Abnormal NONE SEEN [facility] Comment on above: Performed By: #### U MICRO, UACSIND #### [facility] [address] [place] [address] Dr. Meryl Damon RBC 5-10 Abnormal 0-2 [facility] Comment on above: Performed By: #### U MICRO, UACSIND #### [facility] [address] [place] [address] Dr. Meryl Damon WBC 20-50 Abnormal NONE SEEN [facility] Comment on above: Performed By: #### U MICRO, UACSIND #### [facility] [address] [place], [place] [id number] Dr. Meryl Damon US KIDNEYSon 01-17-2022 US [...] by: CORNELL BONDS Date: 2022-01-17 14:20 Normal [facility] US PREG REEVAL ABNon US PREG REEVAL ABN EXAMINATION: US PREG [...] by: CORNELL BONDS Date: 2022-01-09 09:14 Normal [facility] US PREG GROWTHon 12-17-2021 US PREG GROWTH [...] by: CORNELL BONDS Date: 2021-12-17 10:10 Normal [facility] GTT 3 HR PREGon 12-07-2021 Glucose [Mass/Vol] 85 mg/dL Normal 74-106 [facility] Comment on above: Performed By: #### G TT3P #### [facility] [address] [place] [address] Dr. Meryl Damon Glucose [Mass/Vol] 123 mg/dL Normal [facility] Comment on above: Performed By: #### G TT3P #### [facility] [address] [place] [address] Dr. Meryl Damon Glucose [Mass/Vol] 84 mg/dL Normal [facility] Comment on above: Performed By: #### G TT3P #### [facility] [address] [place] [address] Dr. Meryl Damon GLUCOSE - 1HRon 11-26-2021 Glucose [Mass/Vol] 146 mg/dL Critically high 74-106 [facility] Comment on above: Performed By: #### G LU1HR #### [facility] [address] [place] [address] Dr. Meryl Damon HEMOGRAM AND PLATELon 2021 Hematocrit (Bld) [Volume fraction] 38.3 % Normal 36.0-48.0 [facility] Comment on above: Performed By: #### G LU1HR #### [facility] [address] [place] [address] Dr. Meryl Damon Hemoglobin (Bld) [Mass/Vol] 12.6 g/dL Normal 12.0-16.0 [facility] Comment on above: Performed By: #### G LU1HR #### [facility] [address] [address] [address] Meryl Damon MCH (RBC) [Entitic mass] 30.9 pg Normal 26.7-34.0 [facility] Comment on above: Performed By: #### G LU1HR #### [facility] [address] [address] [address] Meryl Damon MCHC (RBC) [Mass/Vol] 32.9 g/dL Normal 29.9-35.2 [facility] Comment on above: Performed By: #### G LU1HR #### [facility] [address] [address] [address] Meryl Damon MCV (RBC) [Entitic vol] 93.9 fL Normal 81.0-99.0 [facility] Comment on above: Performed By: #### G LU1HR #### [facility] [address] [place] [address] Dr. Meryl Damon PLT 225 103/ul Normal 150-450 [facility] Comment on above: Performed By: #### G LU1HR #### [facility] [address] [address] [address] Meryl Damon RBC 4.08 106/ul Critically low 4.20-5.40 [facility] Comment on above: Performed By: #### G LU1HR #### [facility] [address] [place] [address] Dr. Meryl Damon WBC 8.5 103/ul Normal 4.0-11.0 [facility] Comment on above: Performed By: #### G LU1HR #### [facility] [address] [place] [address] Dr. Meryl Damon Vital Signs Date Time Vital Sign Value Performing Clinician Facility 08-30-2024 12:-050 Body mass index (BMI) [Ratio] 23.72 kg/m2 Mariya WHIPPLE Work Phone: [facility] 08-30-2024 12:17-050 Body weight 70.76 kg Mariya WHIPPLE Work Phone: [facility] 08-30-2024 12:17-0500 Diastolic blood pressure 62 mm[Hg] Mariya WHIPPLE Work Phone: [facility] 08-30-2024 12:17-0500 Systolic blood pressure 108 mm[Hg] Mariya WHIPPLE Work Phone: [facility] 07-28-2024 14:35-0500 Body mass index (BMI) [Ratio] 23.11 kg/m2 Ab Reji DO Work Phone: [facility] 07-28-2024 14:35-0500 Body weight 68.95 kg Ab Reji DO Work Phone: [facility] 07-28-2024 14:35-0500 Diastolic blood pressure 70 mm[Hg] Ab Reji DO Work Phone: [facility] 07-28-2024 14:35-0500 Systolic blood pressure 116 mm[Hg] Ab Reji DO Work Phone: [facility] 05-30-2023 15:30-0400 Body height 170.18 cm Monica Flores Other [email or web address] Other 05-30-2023 15:30-0400 Body mass index (BMI) [Ratio] 21.3 kg/m2 Monica Flores Other [email or web address] Other 05-30-2023 15:30-0400 Body temperature 98.9 [degF] Monica Flores Other [email or web address] Other 05-30-2023 15:30-0400 Body weight 61.69 kg Monica Flores Other [email or web address] Other 05-30-2023 15:30-0400 Diastolic blood pressure 63 mm[Hg] Monica Flores Other [email or web address] Other 05-30-2023 15:30-0400 Respiratory rate 18 /min Monica Flores Other [email or web address] Other 05-30-2023 15:30-0400 SaO2% (BldA) [Mass fraction] 97 % Monica Flores Other [email or web address] Other 05-30-2023 15:30-0400 Systolic blood pressure 118 mm[Hg] Monica Owensmond Other [email or web address] Other Encounters Encounter Date Encounter Type Care Provider Facility Start: 08-30-2024 End: 08-30-2024 Bamboo flowsheet Mariya WHIPPLE Work Phone: [facility] Start: 08-30-2024 End: 09-03-2024 Bamboo flowsheet Mariya WHIPPLE Work Phone: [facility] Start: 08-30-2024 End: 09-03-2024 Clinisync Result Encounter Mariya WHIPPLE Work Phone: [facility] Unsolicited Start: 08-30-2024 End: 09-01-2024 External Result Encounter Mariya WHIPPLE Work Phone: [facility]solicited Start: 08-30-2024 End: 08-30-2024 ambulatory MARIYA REZA Not Available Start: 08-30-2024 End: 08-30-2024 Patient encounter procedure Mariya WHIPPLE Work Phone: [facility] Start: 08-30-2024 End: 08-30-2024 Periodic preventive med est patient 18-39 yrs Mariya WHIPPLE Work Phone: [facility] Comment on above: Well woman exam with routine gynecological exam; Second trimester ; 16 weeks gestation of ; Exposure to STD; Need for maternal serum alpha-protein (MSAFP) screening; Screening, , for anatomic survey Start: 07-28-2024 End: 07-28-2024 Office outpatient visit 15 minutes Ab Mendoza DO Work Phone: [facility] Comment on above: First trimester preg janiya; 12 weeks gestation of ; Nausea and vomiting in Start: 07-28-2024 End: 07-28-2024 ambulatory AB REJI Not Available Start: 07-28-2024 End: 07-28-2024 Bamboo flowsheet Ab Reji DO Work Phone: [facility] Start: 07-28-2024 End: 07-28-2024 Bamboo flowsheet Ab Reji DO Work Phone: [facility] Start: 07-27-2024 End: 07-27-2024 Clinisync Result Encounter Ab Reji DO Work Phone: [facility] Unsolicited Start: 07-27-2024 End: 07-27-2024 Clinisync Result Encounter Ab Reji DO Work Phone: [facility] Unsolicited Start: 07-09-2024 End: 07-09-2024 ambulatory AB REJI Not Available Start: 07-09-2024 End: 07-09-2024 Office outpatient visit 5 minutes [facility] Reji Nurse [facility] Comment on above: GA: 9w2d Start: 02-04-2024 End: 02-04-2024 ambulatory AB REJI Not Available Start: 05-30-2023 End: 05-30-2023 ambulatory Monica Flores Other [email or web address] Other Start: 05-30-2023 Office outpatient ne w 20 minutes Monica Flores [facility] Start: 11-05-2022 End: 11-05-[address] MARGARITA SYED . Facility:[facility] Start: 02-22-2022 End: 02-22-2022 ambulatory NONE LISTED REQUEST Facility:[facility] Start: 02-17-2022 End: 02-20-2022 [...] Procedure Procedure Detail Performing Clinician Start: 08-30-2024 RECURRENT VAGINITIS (HTRX) Mariya WHIPPLE Work Phone: Start: 08-30-2024 Urnls dip stick/tabl et rgnt non-auto w/o micrscp Mariya WHIPPLE Work Phone: Start: 08-30-2024 IGP,APTIMA HPV,AGE GDLN Mariya WHIPPLE Work Phone: Start: 07-28-2024 Urnls [...] [facility] DRUG SCREEN RAPI D (URINE) Ab Reji DO Work Phone: Start: 07-09-2024 End: 11-08-2024 Urnls dip stick/tablet rgnt non-auto w/o micrscp Ab Reji DO Work Phone: Start: 02-18-2022 Delivery of [...] procedure 09/27/2024 2:00 PM EST Routine [facility] [address] [place] [id number] Ab Mendoza, DO [facility] [place] [address] [facility] Start: 09-27-2024 End: 09-27-2024 Professional / ancillary services management 09/27/2024 1:00 PM EST Ancillary Procedure [facility] [address] [place] [id number] [facility] Start: 08-30-2024 End: 09-30-2024 Alpha fetoprotein, maternal Alpha fetoprotein, maternal Lab Routine Need for maternal serum alpha-protein (MSAFP) screening Expected: 08/30/2024 (Approximate), Expires: 09/30/2024 [facility] Comment on above: Expected: 08/30/2024 (Approximate), Expires: 09/30/2024 Start: 08-30-2024 End: 08-30-2025 US for US OB ANATOMY SINGLE W US OB CERVICAL LENGTH Imaging Routine Screening, , for anatomic survey Expected: 08/30/2024 (Approximate), Expires: 08/30/2025 [facility] Comment on above: Expected: 08/30/2024 (Approximate), Expires: 08/30/2025 Start: 08-30-2024 End: 08-30-2024 Patient encounter procedure 08/30/2024 11:20 AM EST Routine [facility] [address] [address] Mariya Reza PA [address] [place] [address] [facility] Start: 07-28-2024 End: 07-28-2024 Patient encounter procedure [facility] Comment on above: Arrived Start: 07-09-2024 End: 07-09-2025 ABO/Rh ABO/Rh Lab Routine Missed menses , unspecified gestational age Expected: 07/09/2024 (Approximate), Expires: 07/09/2025 [facility] Comment on above: Expected: 07/09/2024 (Approximate), Expires: 07/09/2025 Start: 07-09-2024 End: 07-09-2025 Blood type and Indirect antibody screen panel - Blood Type and screen Lab Routine Missed menses , unspecified gestational age Expected: 07/09/2024 (Approximate), Expires: 07/09/2025 [facility] Work Phone: Comment on above: Expected: 07/09/2024 (Approximate), Expires: 07/09/2025 Start: 07-09-2024 End: 07-09-2025 Drugs of abuse panel - Urine by Screen method Rapid drug screen, urine Lab Routine , unspecified gestational age Encounter for supervision of normal first in first trimester Expected: 07/09/2024 (Approximate), Expires: 07/09/2025 [facility] Comment on above: Expected: 07/09/2024 (Approximate), Expires: 07/09/2025 Start: 07-09-2024 End: 07-09-2025 US Pelvis transvaginal US OB transvaginal Imaging Routine Missed menses Expected: 07/09/2024 (Approximate), Expires: 07/09/2025 [facility] Comment on above: Expected: 07/09/2024 (Approximate), Expires: 07/09/2025 Bacteria identified in Urine by Culture Urine culture Microbiology Routine Missed menses Ordered: 07/09/2024 [facility] Comment on above: Ordered: 07/09/2024 CBC W Auto Different ial panel - Blood CBC and differential Lab Routine Missed menses , unspecified gestational age Ordered: 07/09/2024 [facility] Comment on above: Ordered: 07/09/2024 CHLAMYDIA TRACHOMATI S (GENITO/STI) CHLAMYDIA TRACHOMATIS (GENITO/STI) Lab Routine Exposure to STD Ordered: 08/30/2024 [facility] Comment on above: Ordered: 08/30/2024 Cytology Cervical or vaginal smear or scraping study Pap Smear Pathology and Cytology Routine Well woman exam with routine gynecological exam Ordered: 08/30/2024 [facility] Comment on above: Ordered: 08/30/2024 Hemoglobin A1c/Hemoglobin.total in Blood Hemoglobin A1c Lab Routine Missed menses , unspecified gestational age Ordered: 07/09/2024 [facility] Comment on above: Ordered: 07/09/2024 Hepatitis B virus surface Ag [Presence] in Serum or Plasma by Immunoassay Hepatitis B surface antigen Lab Routine Missed menses , unspecified gestational age Ordered: 07/09/2024 [facility] Comment on above: Ordered: 07/09/2024 Hepatitis C virus Ab [Presence] in Serum or Plasma by Immunoassay Hepatitis C antibody Lab Routine Missed menses , unspecified gestational age Ordered: 07/09/2024 [facility] Comment on above: Ordered: 07/09/2024 HIV-1/HIV-2 antigen/antibody combination immunoassay HIV-1 and HIV-2 antibodies Lab Routine Missed menses , unspecified gestational age Ordered: 07/09/2024 [facility] Comment on above: Ordered: 07/09/2024 Neisseria gonorrhoea e DNA [Presence] in Unspecified specimen by MADISON with probe detection Neisseria gonorrhea DNA probe, direct Lab Routine Exposure to STD Ordered: 08/30/2024 [facility] Comment on above: Ordered: 08/30/2024 Reagin Ab [Presence] in Serum by RPR RPR Lab Routine Missed menses , unspecified gestational age Ordered: 07/09/2024 [facility] Comment on above: Ordered: 07/09/2024 Rubella antibody, IgG Rubella an tibody, IgG Lab Routine Missed menses , unspecified gestational age Ordered: 07/09/2024 [facility] Comment on above: Ordered: 07/09/2024 SURESWAB(R) ADVANCED VAGINITIS PLUS, TMA SURESWAB(R) ADVANCED VAGINITIS PLUS, TMA Pathology and Cytology Routine Exposure to STD Ordered: 08/30/2024 [facility] Work Phone: Comment on above: Ordered: 08/30/2024 Payers Date Payer Category Payer Private Health Insurance [facility] MEDICA[facility] [id number] 2000 Unknown [id number]. 59 2000 Unknown [id number] 2.16.840.1.576492.3.579.2. 593 2000 Unknown [id number] 2.16.840.1.779964.3.579.2. 59 2000 Unknown [id number] 2.16.840.1.767262.3.579.2. 593 2000 Unknown [id number] 2.16.840.1.304929.3.579.2. 593 2000 Unknown [id number] 2.16.840.1.702390.3.579.2. 593 2000 Unknown [id number] 2.16.840.1.333991.3.579.2. 59 2000 Unknown [id number] 2.16.840.1.976294.3.579.2. 59 2000 Unknown [id number] 2.16.840.1.174908.3.579.2. 593 2000 Unknown [id number] 2.16.840.1.835390.3.579.2. 593 2000 Unknown [id number] 2.16.840.1.752793.3.579.2. 1259 2000 Unknown [id number] 2.16.840.1.345348.3.579.2. 1259 2000 Unknown [id number] 2.16.840.1.458506.3.579.2. 1259 2000 Unknown [id number] 2.16.840.1.250428.3.579.2. 1259 1959 Unknown [id number] 1959 Unknown [id number] Social History Date Type Detail Facility Unknown if ever smoked [facility] Other Start: 02-04-2024 Sex Assigned At N [facility] Other Start: 02-04-2024 Tobacco smoking stat [facility] Smokes tobacco daily [facility] History of tobacco use [facility]igarette Smoker [facility] Start: 02-04-2024 Cigarettes smoked current (pack per day) - Reported 1.5 [facility] Start: 05-19-2024 [facility] Start: 2000 Sex assigned at Not on file [place] [facility] History of Present illness Narrative 08-30-2024 [...] Problems Past Medical History: Diagnosis Date Asthma ([facility]) 2004 HISTORY PAST MEDICAL HISTORY SOCIAL HISTORY Past Medical History: Diagnosis Date Asthma ([facility]) 2004 Social History Tobacco Use Smoking [...] nursing note reviewed. Exam conducted with a line dancer present. Vitals: Estimated body mass index is [...] History of Present illness Narrative 07-28-2024 Margaret FawnJOSE ALFREDO farley - 07/28/2024 2:20 PM EST Note Date [...] Problems Past Medical History: Diagnosis Date Asthma ([facility]) 2005 HISTORY PAST MEDICAL HISTORY SOCIAL HISTORY Past Medical History: Diagnosis Date Asthma ([facility]) 2004 Social History Tobacco Use Smoking [...] nursing note reviewed. Exam conducted with a line dancer present. Vitals: Estimated body mass index is [...] or undercooked meat, and stay away from [facility]. Patient has been consulted regarding any further [...] Problems Past Medical History: Diagnosis Date Asthma (CMS/[facility]) 2004 No family history on file. Social [...] or undercooked meat, and [facility] Patient has also been advised to not [...] Radha Hernandez LPN documented in this encounter [facility] Healthcare Evaluation note 05-30-2023 Note Date & [...] B35.1) Onychomycosis home care material was printed [email or web address] Other Evaluation note Note Date & Type Note Facility Evaluation note Diagnosis Missed menses , unspecified gestational age Encounter for supervision of normal first in first trimester Nausea and vomiting in Unspecified vomiting of , unspecified as to episode of care documented in this encounter [facility] Healthcare Evaluation note Note Date & Type Note Facility Evaluation note Diagnosis First trimester state, incidental 12 weeks gestation of Nausea and vomiting in Unspecified vomiting of , unspecified as to episode of care documented in this encounter [facility] Healthcare Evaluation note Note Date & Type Note Facility Evaluation note Diagnosis Well woman exam with routine gynecological exam Routine gynecological examination Second trimester state, incidental 16 weeks gestation of Exposure to STD Need for maternal serum alpha-protein (MSAFP) screening Screening, , for anatomic survey Encounter for anatomic survey documented in this encounter [facility] Healthcare History general Narrative - Reported Note Date & Type Note Facility History general Narrative - Reported Type Medical History Drug abuse Medical History Depression Medical History Anxiety Surgical History tonsillectomy Surgical History PE tubes [email or web address] Other Summary Purpose Family History No Family History Records FoundNo Family History Records Found Advance Directives No Advanced Directives Records FoundNo Advanced Directives Records Found Additional Source Comments INFORMATION SOURCE (unrecogn ized section and content) DATE CREATED AUTHOR 11/11/2022 [facility] DATE CREATED AUTHOR AUTHOR'S ORGANIZ ATION 08/31/2024 [facility] EPIC REASON FOR VISIT (unrecogniz ed section and content) Reason Comments Routine Visit Care Teams (unrecognized sec tion and content) [employer] Relationship Specialty Start Date End Date Kuldeep Mederos MD [address] [place] [address] PCP - General Family Medicine 02/04/24 [employer] Relationship Specialty Start Date End Date Kuldeep Mederos MD [address] [place] [address] PCP - General Family Medicine 02/04/24 [employer] Relationship Specialty Start Date End Date Kuldeep Mederos MD [address] [place] [address] PCP - General Family Medicine 02/04/24 [employer] Relationship Specialty Start Date End Date Kuldeep Mederos MD [address] [place] [address] PCP - General Family Medicine 02/04/24 [employer] Relationship Specialty Start Date End Date Kuldeep Mederos MD [address] [place] [address] PCP - General Family Medicine 02/04/24 [employer] Relationship Specialty Start Date End Date Kuldeep Mederos MD [address] [place] [address] PCP - General Family Medicine 02/04/24 [employer] Relationship Specialty Start Date End Date Kuldeep Mederos MD [address] [place] [address] PCP - General Family Medicine 02/04/24 FOR [...] BE BASED ON THE PRIMARY CLINICAL RECORDS. [employer] [facility]. provides no warranty or guarantee of the accuracy or completeness of information in this document.
--- NOTE | 2024-09-21 15:03 | US_ITS ---
[address] [address] Patient Name: ALFREDO APPLE MRN: [id number] date: 2000 Sex: F Assigned Patient Location: [facility] Current Patient Location: [facility] Accession/Order Number: [id number] Exam Date: 09/21/2024 15:08 Report Date: 09/21/2024 15:42 At the request of: AB DYER Procedure: US OB amniotic fluid vol EXAMINATION: US OB placenta, US OB amniotic fluid vol HISTORY: fall and decreased movement COMPARISON: Ultrasound OB transvaginal 07/09/2024 FINDINGS: PLACENTA: Anterior, grade 0. No subchorionic hematoma or abruption. HEART RATE: 153 bpm AMNIOTIC FLUID:: 12.4 cm; normal range. GA: 20 weeks 0 days YUDEL[place]: 02/08/2025 US/US OB amniotic fluid vol IMPRESSION: 1. Single live intrauterine . 2. No placental abruption or subchorionic hematoma. 3. Normal amniotic fluid volume. Electronically authenticated by: CORNELL BONDS Date: 09/21/2024 15:42
--- NOTE | 2024-09-21 15:03 | US_ITS ---
[address] [address] Patient Name: ALFREDO APPLE MRN: [id number] date: 2000 Sex: F Assigned Patient Location: [facility] Current Patient Location: [facility] Accession/Order Number: [id number] Exam Date: 09/21/2024 15:08 Report Date: 09/21/2024 15:42 At the request of: AB DYER Procedure: US OB placenta EXAMINATION: US OB placenta, US OB amniotic fluid vol HISTORY: fall and decreased movement COMPARISON: Ultrasound OB transvaginal 07/09/2024 FINDINGS: PLACENTA: Anterior, grade 0. No subchorionic hematoma or abruption. HEART RATE: 153 bpm AMNIOTIC FLUID:: 12.4 cm; normal range. GA: 20 weeks 0 days YU[place]: 02/08/2025 US/US OB placenta IMPRESSION: 1. Single live intrauterine . 2. No placental abruption or subchorionic hematoma. 3. Normal amniotic fluid volume. Electronically authenticated by: CORNELL BONDS Date: 09/21/2024 15:42
--- NOTE | 2024-09-21 15:14 | PC.NURSE ---
1514: US at bedside for TIA and placental US as ordered per Dr. Mendoza. Patient noted fetqal movement this morning, but not much since then. Dr Mendoza called at office and report given and orders received. Patient and family updated on plan of care.
--- NOTE | 2024-09-21 15:29 | PC.NURSE ---
1529: TC to Dr. Mendoza's office for results of orders. To return call.
--- NOTE | 2024-09-21 15:40 | PC.NURSE ---
1540: Report given to Angelica Sy NP in office. Order received for discharge.
[2024-09-21 15:44] VITALS: BP 121/59; PULSE 87
--- NOTE | 2024-09-21 15:55 | PC.NURSE ---
1545: Denies leaking or vaginal discharge. Denies headache or injury from fall last night. Discharge orders reviewed and patient discharged home with mother and grandmother undelivered.
== END 2024-09-21 15:58 | disposition home or self-care (01) ==
LOC: FBCO 14:51 → FBC 14:54
PROVIDERS: Admitting Provider Obstetrics & Gynecology; PCP Family Medicine; Visit Provider Obstetrics & Gynecology
DX: O36.8120 Decreased fetal movements, second trimester, not applicable or unspecified (principal); Z3A.19 19 weeks gestation of pregnancy; Z91.81 History of falling
CPT/HCPCS: 76815

== ENCOUNTER 2024-10-10 10:56 | Observation (INO) | payer OTHER, SELFPAY ==
--- OUTSIDE RECORDS SUMMARY | 2024-10-10 10:59 | XMS_ITS | CCD ---
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 Name Role Phone KARLORINK ., DR AVILA Consulting Unavailabl e NADERER, [...] WEST, DR TANYA Clarke Consulting Unavailable REQUEST, NONE LISTED Primary Care Unavaila ble REJI [...] Gatito LLANOS, Kuldeep Hernandez Primary Care Provider [phone] AB MENDOZA Attending Unavailable AB MENDOZA Attending Unavailable AB MENDOZA Attending Unavailable MARIYA REZA Attending Unavailable Allergies Allergy Classification Reported Allergen(s) Allergy Type Date of Onset Reaction(s) Facility (1 source) Adhesive bandage Drug allergy (disorder) 3 [facility] Repository (1 source) Amoxicillin Drug Allergy diarrhea, vomiting [employer] Other Medications Current Medications Medication Drug Class(es) Dates Sig (Normalized) Sig (Original) [id number] 200 actuat albuterol 0.09 mg/actuat metered dose inhaler (9 sources) beta2-Adrenergic Agonist take 2 puff(s) by inhalation every six hours albuterol HFA 90 mcg/act inhaler Inhale 2 puffs every 6 (six) hours if needed Active escitalopram 5 mg oral tablet (10 sources) Serotonin Reuptake Inhibitor Start: 10-22-2023 take 1 tablet by mouth once daily escitalopram (Lexapro) 5 MG tablet Take 5 mg by mouth Daily 10/22/2023 Active take 1 tablet by mouth once roya y Escitalopram Oxalate 5 MG TAKE 1 TABLET BY MOUTH EVERY DAY Oral for 30 Days Active ferrous sulfate (9 sources) Ferrous Sulfate (IRON PO) Take by [...] 07-09-2024 Episodic Other and delivery including normal (17 sources) Encounter for routine follow-up; Translations: [Single [...] [16 weeks gestation of ] 08-30-2024 Episodic Residual codes; unclassified (2 sources) Gestation period, 20 weeks; Translations: [20 weeks gestation of ] 09-27-2024 Episodic Substance-related disorders (1 source) Nicotine dependence, [...] Test Name Value Interpretation Reference Range Facility US OB 14+ WEEKS ANATOMY SCAN on 09-27-2024 OB 14+ WEEKS ANATOMY SCAN TITLE OF EXAM: OB Ultrasound: REASON FOR EXAM: Anatomy. COMPARISON: None. TECHNIQUE: Grayscale and M-mode Doppler imaging is performed. FINDINGS: heart rate: 158 bpm BPD: 4.8 cm HC: 17.8 cm AC: 15.1 cm FL: 3.3 cm CER: 0.3 cm GA for sonogram: 20.1 wk (18.7-21.5) Hadlock Cervix length: 5.4 cm YUDELKA: 02/09/2025 Weight Estimate: Weight: 346 gm / 0 lbs, 12 oz (295-396 gm) Hadlock Normal: 380 gm (315-444 gm) Hadlock Wt%: 26% for 20.7 wks Presentation: Cephalic Lie: Longitudinal Amniotic Fluid: Subjectively normal Placental Location: Anterior, low lying Distance from Placenta edge to Cervical os: 2.8 cm Cervical Length: 5.4 cm Closed Heart Rate: 158 bpm Anatomy Observed: Lateral Ventricles: Visualized Cerebellum: Visualized Posterior Fossa: Visualized Nose Lips: Visualized Orbits: Visualized 4 Chamber heart: Visualized RVOT/LVOT: Visualized Diaphragm: Visualized Stomach: Visualized Kidneys: Visualized Abd Cord Insert: Visualized Bladder: Visualized Umbilical Arteries: Visualized 3 Vessel Cord: Visualized Spine: Visualized Extremities: Visualized There is a single living intrauterine gestation. Cephalic presentation. Amniotic fluid subjectively normal. Placental location: Anterior and low lying. No placenta previa. cardiac activity 158 bpm. Cervical length: 5.4 cm. Os closed. Anatomy survey demonstrates lateral ventricles, cerebellum, posterior fossa, nose, lips, orbits to be without gross abnormality. Four-chamber heart and ventricular outflow tracts without gross abnormality. Diaphragm, stomach, kidneys, bladder without gross abnormality. Cord insertion, umbilical arteries without definite abnormality. Three-vessel cord. Bladder normal. Spine and extremities without abnormality. IMPRESSION: Single living intrauterine gestation in cephalic presentation. Gestational age is 26 weeks 5 days based on LMP. 26 weeks 3 days based on today's ultrasound. Size equals dates. Established due date February 09, 2025 based on LMP. No significant abnormalities. Normal growth. *This report is generated using voice recognition reporting ([employer]). On occasion [employer] erroneously drops words from the report or replaces the spoken word with similar sounding words. Please call with any questions/concerns regarding this report.* Dictated and transcribed 09/27/24/dpd This report has been electronically signed and approved by the interpreting radiologist. Normal Not Available Comment on above: Order Comment: US OB ANATOMY SINGLE W US OB CERVICAL LENGTH Estimated Date of Delivery: 02/09/25 Gestational Age as of 08/30/2024: 20w5d Urinalysis macro (dipstick) panel (U)on 09-27-2024 Bilirubin, UA Negative Negative - 4(70) +++ mg/dL [facility] Blood, UA Negative Negative - 50 Eric/mcL [facility] Clarity, UA Clear [facility] Color, UA Yellow [facility] Glucose, UA Negative Negative - 1999(110) ++++ mg/dL [facility] Interpretation and review of laboratory results Abnormal [facility] Ketones, UA Negative Negative - 160(16) ++++ mg/dL [facility] Leukocytes, UA Trace Negative - 500+++ Miley/mcL [facility] Nitrite, UA Negative Negative - Positive [facility] pH, UA 7 5 - 9 [facility] Protein, UA Negative Negative - 1999(20) ++++ mg/dL [facility] Spec Grav, UA 1.02 1 - 1.03 [facility] Urobilinogen, UA 0.2 0.2 - 12 mg/dL [facility] e IGP,APTIMA HPV,AGE GDLNon AGE GDLN ACOG TESTING Note . [facility] Comment on above: TESTS RESULT FLAG UN ITS REF RANGE LAB Clinician Provided Cytology Information Source.............Cervix No. of containers..01 ThinPrep Vial Age Algo ACOG Jo Ann... FLAG LEGEND: L-Low Normal,H-High Normal,LL-Alert Low,HH-Alert High <-Panic Low,>-Panic High,A-Abnormal,AA-Critical Abnormal Performed at: 01 =G [facility] [id number] Riddhi Goodman MD, IGP, RFX APTIMA HPV ASCU Note . [facility] Comment on above: TESTS RESULT FLAG UN ITS REF RANGE LAB DIAGNOSIS: 02 NEGATIVE FOR INTRAEPITHELIAL LESION OR MALIGNANCY. Specimen adequacy: 02 Satisfactory for evaluation. Endocervical and/or squamous metaplastic cells (endocervical component) are present. Performed by: 02 Krystal Canada, Aquatic Performer (ASCP) . 02 Note: Note 02 The Pap [...] <-Panic Low,>-Panic High,A-Abnormal,AA-Critical Abnormal Performed at: [address] [id number] Riddhi Goodman MD, Performed at: = - [facility] [id number] Spooling Supervisor: Riddhi Goodman MD, Phone: [phone] Performed at: [address] [id number] Spooling Supervisor: Riddhi Goodman MD, Phone: [phone] SPATULA-ALONE CERVIX [facility] RECURRENT VAGINITIS (HTRX)on 09-01-2024 ATOPOBIUM VAGINAE 20.876 Abnormal [facility] ATOPOBIUM VAGINAE Detected Abnormal [facility] BVAB 2,3 (BACTERIAL VAGINOSIS ASSOCIATED BACTERIA 2, 3); MOBILUNCUS SPP 24.4 Abnormal [facility] BVAB 2,3 (BACTERIAL VAGINOSIS ASSOCIATED BACTERIA 2, 3); MOBILUNCUS SPP Detected Abnormal [facility] ANGELA ALBICANS, PARAPSILOSIS, TROPICALIS 0 [facility] ANGELA ALBICANS, PARAPSILOSIS, TROPICALIS Not detected [facility] ANGELA GLABRATA 0 [facility] Hea lthcare ANGELA GLABRATA Not detected [facility] ealthcare ANGELA KRUSEI 0 [facility] Healt hcare ANGELA KRUSEI Not detected [facility] Hea lthcare CHLAMYDIA TRACHOMATIS 0 [facility] CHLAMYDIA TRACHOMATIS Not detected [facility] Healthcare ERMB, C; MEFA 16.624 Abnormal [facility] care ERMB, C; MEFA Detected Abnormal [facility] care GARDNERELLA VAGINALIS 22.69 Abnormal [facility] GARDNERELLA VAGINALIS Detected Abnormal [facility] Interpretation and review of laboratory results Abnormal [facility] MEGASPHAERA (TYPES 1, 2) 0 [facility] MEGASPHAERA (TYPES 1, 2) Not detected [facility] MYCOPLASMA GENITALIUM 0 [facility] MYCOPLASMA GENITALIUM Not detected [facility] NEISSERIA GONORRHOEAE 0 [facility] NEISSERIA GONORRHOEAE Not detected [facility] TET B, TET M 15.188 Abnormal [facility] Healthc are TET B, TET M Detected Abnormal [facility] are TRICHOMONAS VAGINALIS 0 [facility] TRICHOMONAS VAGINALIS Not detected [facility] Urinalysis macro (dipstick) panel (U)on 08-30-2024 Bilirubin, UA Negative Negative - (70) +++ mg/dL [facility] Blood, UA Negative Negative - 50 Eric/mcL [facility] Clarity, UA Clear [facility] re Color, UA Yellow [facility] Healthcar e Glucose, UA Negative Negative - [...] Hospital pH, UA 7 5 - 9 [facility] Health[facility] e Protein, UA Negative Negative - 1999(20) ++++ mg/dL [facility] Spec Grav, UA 1.02 1 - 1.03 [facility] Urobilinogen, UA 0.2 0.2 - 12 mg/dL [facility] Urinalysis macro (dipstick) panel (U)on 07-28-2024 Bilirubin, UA Negative Negative - 4(70) +++ mg/dL [facility] Blood, UA Negative Negative - 50 Eric/mcL [facility] Clarity, UA Cloudy [facility] re Color, UA Yellow [facility] e Glucose, UA Negative Negative - 1999(110) [...] Hospital pH, UA 7 5 - 9 [facility] e Protein, UA Positive Negative - 1999(20) ++++ mg/dL [facility] Comment on above: 30 mg Spec Grav, UA 1.025 1 - 1.03 [facility] Urobilinogen, UA 1.0 0.2 - 12 mg/dL [facility] e ALL CBC WITH AUTO DIFFon BASOPHILS [...] fraction] 38.4 % 36.0 - 48.0 % [facility] e Hemoglobin (Bld) [Mass/Vol] 13.4 g/dL 12.0 [...] [Mass/Vol] 34.9 g/dL 29.9 - 35.2 g/dL [facility] MCV (RBC) [Entitic vol] 88.1 fL 81.0 - 99.0 fL [facility] MONOCYTES ABSOLUTE AUTO 0.7 [facility] Monocytes/100 WBC (Bld) 6.3 % 1.7 - 12.0 % [facility] NEUTROPHILS ABSOLUTE AUTO 8 High [facility] Neutrophils/100 WBC (Bld) 70.6 % 43.0 - 75.0 % [facility] Platelet mean volume (Bld) [Entitic vol] 10.6 fL 9.5 - 13.5 fL [facility] are TBH EO # 0.3 [facility] TBH PLT 313 [facility] TB RBC 4.36 [facility] TB WBC 11.3 High [facility] Healthcar e [facility] Healthcar e ALL TYPE AND SCREENon 2023 ABO and Rh group Nom (Bld) Blood group A Rh(D) positive [facility] BOX TESTon 07-27-2024 BOX TEST SENT OUT Y [facility] BOX1 [facility] Healthcar e BOX2 07/27/24 [facility] UN[facility] BOX [facility] MLR HEMOGLOBIN A1Con 024 Glucose [Mass/Vol] 100 mg/dL [facility] HbA1c (Bld) [Mass fraction] 5.1 % 4.5 - 6.2 % [facility] Comment on above: ADA RECOMMENDED LIMI T 4.0 - 6.0 ADA THERAPEUTIC TARGET < 7.0 ACTION SUGGESTED > 7.0 [facility] TBH DRUG SCREEN RAPID (URINE )on 07-27-2024 AMPHETAMINE SCREEN URINE Negative NEGATIVE [facility] BARBITURATES SCREEN URINE Negative NEGATIVE [facility] BENZODIAZEPINES SCREEN URINE Negative NEGATIVE [facility] BUPRENORPHINE SCREEN URINE Negative NEGATIVE [facility] Comment on above: DRUG CLASS TEST SYST [...] ng/mL CANNABINOID SCREEN URINE Positive Abnormal NEGATIVE [facility] COCAINE SCREEN URINE Negative NEGATIVE [facility] Interpretation and review of laboratory results Abnormal [facility] METHADONE SCREEN URINE Negative NEGATIVE [facility] METHAMPHETAMINES SCREEN URINE Negative NEGATIVE [facility] OPIATE SCREEN URINE Negative NEGATIVE [facility] OXYCODONE SCREEN URINE Negative NEGATIVE [facility] PHENCYCLIDINE SCREEN URINE Negative NEGATIVE [facility] TRICYCLIC ANTIDEPRESSANT URINE Negative NEGATIVE [facility] Healthcar e HCG ( test) Ql (U)o n 07-09-2024 Interpretation and review of laboratory results Abnormal [facility] Preg Test, Ur Positive Negative [facility] Urinalysis macro (dipstick) panel (U)on 07-09-2024 Bilirubin, UA Negative Negative - 4(70) +++ mg/dL [facility] Blood, UA Negative Negative - 50 Eric/mcL [facility] Clarity, UA Clear [facility] re Color, UA Yellow [facility] e Glucose, UA Negative Negative - 1999(110) ++++ mg/dL [facility] Interpretation and review of laboratory results Normal [facility] Ketones, UA Negative Negative - 160(16) ++++ mg/dL [facility] Leukocytes, UA Negative Negative - 500+++ Miley/mcL [facility] Nitrite, UA Negative Negative - Positive [facility] pH, UA 5.5 5 - 9 [facility] Healthcar e Protein, UA Negative Negative - 1999(20) ++++ mg/dL [facility] Spec Grav, UA 1.02 1 - 1.03 [facility] Urobilinogen, UA 1.0 0.2 - 12 mg/dL [facility] Quick Strepon 05-30-2023 S. pyogenes Org specific cx Ql (Throat) Negative [employer] Other Quick Strep [employer] Other PAP ACOG PANEL 2: 21 to 29on 11-08-2022 . . Normal [facility] Comment on above: Result Comment: Perf ormed at: [facility] Performed By: #### [id number] #### [facility] [address] [place] [address] Dr. Meryl Damon Age Gdln ACOG Testing 21-29 [facility] Comment on above: Performed By: #### [id number] #### [facility] [address] [place] [address] Dr. Meryl Damon DIAGNOSIS: Comment [facility] Comment on above: Result Comment: NEGA TIVE FOR INTRAEPITHELIAL LESION OR MALIGNANCY. Performed at: [facility] Performed By: #### [id number] #### [facility] [address] [place] [address] Dr. Meryl Damon Methodology: Comment [facility] Comment on above: Result Comment: This liquid based ThinPrep(R) pap test was screened with the use of an image guided system. Performed at: [facility] Performed By: #### [id number] #### [facility] [address] [place] [address] Dr. Meryl Damon Note: Comment [facility] Comment on above: Result Comment: The Pap smear is a screening test designed to aid in the detection of premalignant and malignant conditions of the uterine cervix. It is not a diagnostic procedure and should not be used as the sole means of detecting cervical cancer. Both false-positive and false-negative reports do occur. . Performed at: [facility] Performed By: #### [id number] #### [facility] [address] [place] [address] Dr. Meryl Damon Performed by: Comment [facility] Comment on above: Result Comment: Luz Valverde Aquatic Performer (ASCP) Performed at: [facility] Performed By: #### [id number] #### [facility] [address] [place] [address] Dr. Meryl Damon Reflex Criteria: Comment [facility] Comment on above: Result Comment: The HPV DNA reflex criteria were not met with this specimen result therefore, no HPV testing was performed. . Performed at: [facility] Performed By: #### [id number] #### [facility] [address] [place] [address] Dr. Meryl Damon Specimen adequacy: Comment Normal [facility] Comment on above: Result Comment: Sati sfactory for evaluation. Endocervical and/or squamous metaplastic cells (endocervical component) are present. Areas of partially obscuring inflammatory exudate are present. Performed at: [facility] Performed By: #### [id number] #### [facility] [address] [place] [address] Dr. Meryl Damon CBC AUTO DIFFon 02-19-2022 BASO # 0.1 103/ul Normal 0.0-0.1 [facility] Comment on above: Performed By: #### C BC #### [facility] [address] [place] [address] Dr. Meryl Damon Basophils/100 WBC (Bld) 0.3 % Normal 0.2-2.0 [facility] Comment on above: Performed By: #### C BC #### [facility] [address] [place] [address] Dr. Meryl Damon EO # 0.1 103/ul Normal 0.0-0.7 [facility] Comment on above: Performed By: #### C BC #### [facility] [address] [place] [address] Dr. Meryl Damon Eosinophils/100 WBC (Bld) 0.7 % Critically low 0.9-7.0 [facility] Comment on above: Performed By: #### C BC #### [facility] [address] [place] [address] Dr. Meryl Damon Erythrocyte distribution width (RBC) [Ratio] 14.1 % Normal 11.0-15.0 [facility] Comment on above: Performed By: #### C BC #### [facility] [address] [place] [address] Dr. Meryl Damon Hematocrit (Bld) [Volume fraction] 31.1 % Critically low 36.0-48.0 [facility] Comment on above: Performed By: #### C BC #### [facility] [address] [place] [address] Dr. Meryl Damon Hemoglobin (Bld) [Mass/Vol] 10.1 g/dL Critically low 12.0-16.0 [facility] Comment on above: Performed By: #### C BC #### [facility] [address] [place] [address] Dr. Meryl Damon IG # 0.09 10e3/ul Critically high 0.00-0.03 [facility] Comment on above: Performed By: #### C BC #### [facility] [address] [place] [address] Dr. Meryl Damon IG % 0.5 % Normal 0.0-0.5 [facility] Comment on above: Performed By: #### C BC #### [facility] [address] [place] [address] Dr. Meryl Damon LYMPH # 1.9 103/ul Normal 1.2-3.8 [facility] Comment on above: Performed By: #### C BC #### [facility] [address] [place] [address] Dr. Meryl Damon Lymphocytes/100 WBC (Bld) 11.5 % Critically low 20.5-60.0 [facility] Comment on above: Performed By: #### C BC #### [facility] [address] [place] [address] Dr. Meryl Damon MANUAL DIFF REQ NO Normal [facility] Comment on above: Performed By: #### C BC #### [facility] [address] [place] [address] Dr. Meryl Damon MCH (RBC) [Entitic mass] 28.8 pg Normal 26.7-34.0 [facility] Comment on above: Performed By: #### C BC #### [facility] [address] [place] [address] Dr. Meryl Damon MCHC (RBC) [Mass/Vol] 32.5 g/dL Normal 29.9-35.2 [facility] Comment on above: Performed By: #### C BC #### [facility] [address] [place] [address] Dr. Meryl Damon MCV (RBC) [Entitic vol] 88.6 fL Normal 81.0-99.0 [facility] Comment on above: Performed By: #### C BC #### [facility] [address] [address] [address] Meryl Damon MONO # 1.8 103/ul Critically high 0.3-0.8 [facility] Comment on above: Performed By: #### C BC #### [facility] [address] [address] [address] Meryl Damon Monocytes/100 WBC (Bld) 11.2 % Normal 1.7-12.0 [facility] Comment on above: Performed By: #### C BC #### [facility] [address] [address] [address] Meryl Damon NEUT # 12.4 103/ul Critically high 1.4-6.5 [facility] Comment on above: Performed By: #### C BC #### [facility] [address] [place] [address] Dr. Meryl Damon Neutrophils/100 WBC (Bld) 75.8 % Critically high 43.0-75.0 [facility] Comment on above: Performed By: #### C BC #### [facility] [address] [address] [address] Meryl Damon Platelet mean volume (Bld) [Entitic vol] 11.5 fL Normal 9.5-13.5 [facility] Comment on above: Performed By: #### C BC #### [facility] [address] [address] [address] Meryl Damon PLT 186 103/ul Normal 150-450 [facility] Comment on above: Performed By: #### C BC #### [facility] [address] [address] [address] Meryl Damon RBC 3.51 106/ul Critically low 4.20-5.40 [facility] Comment on above: Performed By: #### C BC #### [facility] [address] [address] [address] Meryl Damon WBC 16.4 103/ul Critically high 4.0-11.0 [facility] Comment on above: Performed By: #### C BC #### [facility] [address] [place] [address] Dr. Meryl Damon CBC AUTO DIFFon 02-17-2022 BASO # 0.0 103/ul Normal 0.0-0.1 [facility] Comment on above: Performed By: #### C BC #### [facility] [address] [place] [address] Dr. Meryl Damon Basophils/100 WBC (Bld) 0.1 % Critically low 0.2-2.0 [facility] Comment on above: Performed By: #### C BC #### [facility] [address] [place] [address] Dr. Meryl Damon EO # 0.1 103/ul Normal 0.0-0.7 [facility] Comment on above: Performed By: #### C BC #### [facility] [address] [place] [address] Dr. Meryl Damon Eosinophils/100 WBC (Bld) 0.6 % Critically low 0.9-7.0 [facility] Comment on above: Performed By: #### C BC #### [facility] [address] [place] [address] Dr. Meryl Damon Erythrocyte distribution width (RBC) [Ratio] 13.9 % Normal 11.0-15.0 [facility] Comment on above: Performed By: #### C BC #### [facility] [address] [place] [address] Dr. Meryl Damon Hematocrit (Bld) [Volume fraction] 35.2 % Critically low 36.0-48.0 [facility] Comment on above: Performed By: #### C BC #### [facility] [facility] [address] [place] [address] Dr. Meryl Damon Hemoglobin (Bld) [Mass/Vol] 11.8 g/dL Critically low 12.0-16.0 [facility] Comment on above: Performed By: #### C BC #### [facility] [address] [place] [address] Dr. Meryl Damon IG # 0.08 10e3/ul Critically high 0.00-0.03 [facility] Comment on above: Performed By: #### C BC #### [facility] [address] [address] [address] Meryl Damon IG % 0.6 % Critically high 0.0-0.5 [facility] Comment on above: Performed By: #### C BC #### [facility] [address] [place] [address] Dr. Meryl Damon LYMPH # 1.7 103/ul Normal 1.2-3.8 [facility] Comment on above: Performed By: #### C BC #### [facility] [address] [place] [address] Dr. Meryl Damon Lymphocytes/100 WBC (Bld) 12.8 % Critically low 20.5-60.0 [facility] Comment on above: Performed By: #### C BC #### [facility] [address] [place] [address] Dr. Meryl Damon MANUAL DIFF REQ NO Normal [facility] Comment on above: Performed By: #### C BC #### [facility] [address] [place] [address] Dr. Meryl Damon MCH (RBC) [Entitic mass] 29.4 pg Normal 26.7-34.0 [facility] Comment on above: Performed By: #### C BC #### [facility] [address] [place] [address] Dr. Meryl Damon MCHC (RBC) [Mass/Vol] 33.5 g/dL Normal 29.9-35.2 [facility] Comment on above: Performed By: #### C BC #### [facility] [address] [place] [address] Dr. Meryl Damon MCV (RBC) [Entitic vol] 87.6 fL Normal 81.0-99.0 [facility] Comment on above: Performed By: #### C BC #### [facility] [address] [place] [address] Dr. Meryl Damon MONO # 1.1 103/ul Critically high 0.3-0.8 [facility] Comment on above: Performed By: #### C BC #### [facility] [address] [address] [address] Meryl Damon Monocytes/100 WBC (Bld) 7.8 % Normal 1.7-12.0 [facility] Comment on above: Performed By: #### C BC #### [facility] [address] [address] [address] Meryl Damon NEUT # 10.4 103/ul Critically high 1.4-6.5 [facility] Comment on above: Performed By: #### C BC #### [facility] [address] [place] [address] Dr. Meryl Damon Neutrophils/100 WBC (Bld) 78.1 % Critically high 43.0-75.0 [facility] Comment on above: Performed By: #### C BC #### [facility] [address] [place] [address] Dr. Meryl Damon Platelet mean volume (Bld) [Entitic vol] 11.5 fL Normal 9.5-13.5 [facility] Comment on above: Performed By: #### C BC #### [facility] [address] [place] [address] Dr. Meryl Damon PLT 265 103/ul Normal 150-450 [facility] Comment on above: Performed By: #### C BC #### [facility] [address] [place] [address] Dr. Meryl Damon RBC 4.02 106/ul Critically low 4.20-5.40 [facility] Comment on above: Performed By: #### C BC #### [facility] [address] [place] [address] Dr. Meryl Damon WBC 13.4 103/ul Critically high 4.0-11.0 [facility] Comment on above: Performed By: #### C BC #### [facility] [address] [place] [address] Dr. Meryl Damon Covid-19 PCR (CVDTB)on 01-30 SARS-CoV-2 (COVID-19) RNA MADISON+probe Ql (Unsp spec) Not detected Normal NOT DETECTED [facility] Comment on above: Result Comment: When diagnostic [...] for this test is supported by the [place] of Health and Human Service's declaration that [...] used). Performed By: #### C VDTBH #### [facility] [address] [place] [address] Dr. Meryl Damon DRUG SCREEN RAPID (URINE)on 02-17-2022 AMP Negative Normal NEGATIVE [facility] Comment on above: Performed By: #### D RUGRPD #### [facility] [address] [place] [address] Dr. Meryl Damon BAR Negative Normal NEGATIVE [facility] Comment on above: Performed By: #### D RUGRPD #### [facility] [address] [place] [address] Dr. Meryl Damon BUP Negative Normal NEGATIVE [facility] Comment on above: Performed By: #### D RUGRPD #### [facility] [address] [place] [address] Dr. Meryl Damon BZO Negative Normal NEGATIVE [facility] Comment on above: Performed By: #### D RUGRPD #### [facility] [address] [place] [address] Dr. Meryl Damon EDGAR Negative Normal NEGATIVE [facility] Comment on above: Performed By: #### D RUGRPD #### [facility] [address] [place] [address] Dr. Meryl Damon CUT-OFFS SEE BELOW Normal [facility] Comment on above: Result Comment: [...] ng/mL Performed By: #### D RUGRPD #### [facility] [address] [place] [address] Dr. Meryl Damon DRUG CUT HEADER DRUG CLASS TEST SYSTEM CUT-OFF CONCENTRATIONS ARE FOLLOWS: Normal [facility] Comment on above: Performed By: #### D RUGRPD #### [facility] [address] [place] [address] Dr. Meryl Damon mAMP Negative Normal NEGATIVE [facility] Comment on above: Performed By: #### D RUGRPD #### [facility] [address] [place] [address] Dr. Meryl Damon MTD Negative Normal NEGATIVE [facility] Comment on above: Performed By: #### D RUGRPD #### [facility] [address] [place] [address] Dr. Meryl Damon OPI Negative Normal NEGATIVE [facility] Comment on above: Performed By: #### D RUGRPD #### [facility] [address] [place] [address] Dr. Meryl Damon OXY Negative Normal NEGATIVE [facility] Comment on above: Performed By: #### D RUGRPD #### [facility] [address] [place] [address] Dr. Meryl Damon PCP Negative Normal NEGATIVE [facility] Comment on above: Performed By: #### D RUGRPD #### [facility] [address] [place] [address] Dr. Meryl Damon PPX Negative Normal NEGATIVE [facility] Comment on above: Performed By: #### D RUGRPD #### [facility] [address] [address] [address] Meryl Damon TCA Negative Normal NEGATIVE [facility] Comment on above: Performed By: #### D RUGRPD #### [facility] [address] [place] [address] Dr. Meryl Damon THC Positive Abnormal NEGATIVE [facility] Comment on above: Performed By: #### D RUGRPD #### [facility] [address] [place] [address] Dr. Meryl Damon TYPE AND SCREENon 02-17-2022 TYPE AND SCREEN Negative Normal [facility] Comment on above: Performed By: #### G LU1HR #### [facility] [address] [place] [address] Dr. Meryl Damon US PREG GROWTHon 02-06-2022 [...] TANYA SHEIKH Date: 2022-02-06 16:11 Normal [facility] GROUP B STREP CULTUREon 12-31 S. agalactiae Ag Ql (Unsp spec) Culture Observations: unable to isolate beta- possible Group B Normal [facility] Comment on above: Performed By: #### G LU1HR #### [facility] [address] [place] [address] Dr. Meryl Damon CULTURE URINEon 01-17-2022 CULTURE URINE Culture Observations: MODERATE GROWTH OF MIXED GENITAL SENA. NO POTENTIAL PATHOGENS SEEN. Normal [facility] Comment on above: Performed By: #### G LU1HR #### [facility] [address] [place] [address] Dr. Meryl Damon UA (CLEAN/CATCH) STUNT DOUBLE/MICRO I F IND.on 01-17-2022 Bilirubin Ql (U) Negative Normal NEGATIVE [facility] Comment on above: Performed By: #### U MICRO, UACSIND #### [facility] [address] [place] [address] Dr. Meryl Damon Clarity (U) CLEAR Normal CLEAR [facility] Comment on above: Performed By: #### U MICRO, UACSIND #### [facility] [address] [place] [address] Dr. Meryl Damon Color (U) LT. YELLOW Normal YELLOW [facility] Comment on above: Performed By: #### U MICRO, UACSIND #### [facility] [address] [place] [address] Dr. Meryl Damon Glucose Ql (U) Negative Normal NEGATIVE [facility] Comment on above: Performed By: #### U MICRO, UACSIND #### [facility] [address] [place] [address] Dr. Meryl Damon Hemoglobin Ql (U) SMALL Abnormal NEGATIVE [facility] Comment on above: Performed By: #### U MICRO, UACSIND #### [facility] [address] [place] [address] Dr. Meryl Damon Ketones Ql (U) Negative Normal NEGATIVE [facility] Comment on above: Performed By: #### U MICRO, UACSIND #### [facility] [address] [place] [address] Dr. Meryl Damon LEUKOCYTES LARGE Abnormal NEGATIVE [facility] Comment on above: Performed By: #### U MICRO, UACSIND #### [facility] [address] [address] [address] Meryl Damon Nitrite Ql (U) Negative Normal NEGATIVE [facility] Comment on above: Performed By: #### U MICRO, UACSIND #### [facility] [address] [address] [address] Meryl Damon pH (U) 8.0 [pH] Normal 5-9 [facility] Comment on above: Performed By: #### U MICRO, UACSIND #### [facility] [address] [address] [address] Meryl Damon SPEC GRAVITY 1.010 Normal 1.005-<=1.025 [facility] Comment on above: Performed By: #### U MICRO, UACSIND #### [facility] [address] [place] [address] Dr. Meryl Damon UA PROTEIN Negative Normal NEGATIVE/ TRACE [facility] Comment on above: Performed By: #### U MICRO, UACSIND #### [facility] [address] [address] [address] Meryl Damon UR MICRO IND INDICATED Normal [facility] Comment on above: Performed By: #### U MICRO, UACSIND #### [facility] [address] [place] [address] Dr. Meryl Damon Urobilinogen Qn (U) 0.2 {Yovanny'U}/dL Normal 0.2 - 1. 0 [facility] Comment on above: Performed By: #### U MICRO, UACSIND #### [facility] [address] [address] [address] Meryl Damon URINE MICROSCOPIC ONLYon BACTERIA TRACE Abnormal NONE SEEN [facility] Comment on above: Performed By: #### U MICRO, UACSIND #### [facility] [address] [place] [address] Dr. Meryl Damon Bacteria identified Cx Nom (U) INDICATED Normal [facility] Comment on above: Performed By: #### U MICRO, UACSIND #### [facility] [address] [address] [address] Meryl Damon CAST NONE SEEN Normal NONE SEEN [facility] Comment on above: Performed By: #### U MICRO, UACSIND #### [facility] [address] [address] [address] Meryl Damon Crystals LM Nom (Urine sed) NONE SEEN Normal NONE SEEN [facility] Comment on above: Performed By: #### U MICRO, UACSIND #### [facility] [address] [place] [address] Dr. Meryl Damon Epithelial cells LM Ql (Urine sed) MANY Abnormal NONE SEEN /RARE [facility] Comment on above: Performed By: #### U MICRO, UACSIND #### [facility] [address] [place] [address] Dr. Meryl Damon MUCOUS TRACE Abnormal NONE SEEN [facility] Comment on above: Performed By: #### U MICRO, UACSIND #### [facility] [address] [place] [address] Dr. Meryl Damon RBC 5-10 Abnormal 0-2 [facility] Comment on above: Performed By: #### U MICRO, UACSIND #### [facility] [address] [place] [address] Dr. Meryl Damon WBC 20-50 Abnormal NONE SEEN [facility] Comment on above: Performed By: #### U MICRO, UACSIND #### [facility] [address] [place] [address] Dr. Meryl Damon US KIDNEYSon 01-17-2022 US [...] CORNELL BONDS Date: 2022-01-17 14:20 Normal [facility] US PREG REEVAL ABNon US PREG REEVAL [...] CORNELL BONDS Date: 2022-01-09 09:14 Normal [facility] US PREG GROWTHon 12-17-2021 US PREG GROWTH [...] by: CORNELL BONDS Date: 2021-12-17 10:10 Normal [facility] GTT 3 HR PREGon 12-07-2021 Glucose [Mass/Vol] 85 mg/dL Normal 74-106 [facility] Comment on above: Performed By: #### G TT3P #### [facility] [address] [address] [address] Meryl Damon Glucose [Mass/Vol] 123 mg/dL Normal [facility] Comment on above: Performed By: #### G TT3P #### [facility] [address] [place] [address] Dr. Meryl Damon Glucose [Mass/Vol] 84 mg/dL Normal [facility] Comment on above: Performed By: #### G TT3P #### [facility] [address] [place] [address] Dr. Meryl Damon GLUCOSE - 1HRon 11-26-2021 Glucose [Mass/Vol] 146 mg/dL Critically high 74-106 [facility] Comment on above: Performed By: #### G LU1HR #### [facility] [address] [place] [address] Dr. Meryl Damon HEMOGRAM AND PLATELon 2021 Hematocrit (Bld) [Volume fraction] 38.3 % Normal 36.0-48.0 [facility] Comment on above: Performed By: #### G LU1HR #### [facility] [address] [place] [address] Dr. Meryl Damon Hemoglobin (Bld) [Mass/Vol] 12.6 g/dL Normal 12.0-16.0 [facility] Comment on above: Performed By: #### G LU1HR #### [facility] [address] [place] [address] Dr. Meryl Damon MCH (RBC) [Entitic mass] 30.9 pg Normal 26.7-34.0 [facility] Comment on above: Performed By: #### G LU1HR #### [facility] [address] [place] [address] Dr. Meryl Damon MCHC (RBC) [Mass/Vol] 32.9 g/dL Normal 29.9-35.2 [facility] Comment on above: Performed By: #### G LU1HR #### [facility] [address] [place] [address] Dr. Meryl Damon MCV (RBC) [Entitic vol] 93.9 fL Normal 81.0-99.0 [facility] Comment on above: Performed By: #### G LU1HR #### [facility] [address] [address] [address] Meryl Damon PLT 225 103/ul Normal 150-450 [facility] Comment on above: Performed By: #### G LU1HR #### [facility] [address] [address] [address] Meryl Damon RBC 4.08 106/ul Critically low 4.20-5.40 [facility] Comment on above: Performed By: #### G LU1HR #### [facility] [address] [address] [address] Meryl Damon WBC 8.5 103/ul Normal 4.0-11.0 [facility] Comment on above: Performed By: #### G LU1HR #### [facility] [address] [address] [address] Meryl Damon Vital Signs Date Time Vital Sign Value Performing Clinician Facility 09-27-2024 14:07-0500 Body mass index (BMI) [Ratio] 24.18 kg/m2 [employer] Work Phone: [facility] 09-27-2024 14:07-0500 Body weight 72.12 kg Ab [employer] Work Phone: [facility] 09-27-2024 14:07-0500 Diastolic blood pressure 60 mm[Hg] Ab Reji DO Work Phone: [facility] 09-27-2024 14:07-0500 Systolic blood pressure 116 mm[Hg] [employer] Work Phone: [facility] 08-30-2024 12:17-0500 Body mass index (BMI) [Ratio] [...] Body height 170.18 cm Monica Flores Other [employer] Other 05-30-2023 15:30-0400 Body mass index (BMI) [Ratio] 21.3 kg/m2 Monica Flores Other [employer] Other 05-30-2023 15:30-0400 Body temperature 98.9 [degF] Monica Flores Other [employer] Other 05-30-2023 15:30-0400 Body weight 61.69 kg Monica Flores Other [employer] Other 05-30-2023 15:30-0400 Diastolic blood pressure 63 mm[Hg] Monica Flores Other [employer] Other 05-30-2023 15:30-0400 Respiratory rate 18 /min Monica Flores Other [employer] Other 05-30-2023 15:30-0400 SaO2% (BldA) [Mass fraction] 97 % Monica Flores Other [employer] Other 05-30-2023 15:30-0400 Systolic blood pressure 118 mm[Hg] Monica Flores Other [employer] Other Encounters Encounter Date Encounter Type Care Provider Facility Start: 09-27-2024 End: 09-27-2024 Office outpatient visit 15 minutes Ab Mendoza DO Work Phone: [facility] Comment on above: Second trimester pre gnancy; 20 weeks gestation of Start: 09-27-2024 End: 09-27-2024 ambulatory AB MENDOZA Not Available Start: 08-30-2024 End: 08-30-2024 Bamboo flowsheet Mariya [...] 15 minutes Ab Reji DO Work Phone: [facility] Comment [...] 05-30-2023 End: 05-30-2023 ambulatory Monica Flores Other [employer] Other Start: 05-30-2023 Office outpatient ne w 20 minutes Monica Flores [facility] Start: 11-05-2022 End: 11-05-[address] MARGARITA SYED . Facility: Start: 02-22-2022 End: 02-22-2022 ambulatory NONE LISTED [...] Date Procedure Procedure Detail Performing Clinician Start: 09-27-2024 Urnls dip stick/tabl et rgnt non-auto w/o micrscp Ab Reji DO Work Phone: Start: 08-30-2024 RECURRENT VAGINITIS (HTRX) Mraiya WHIPPLE Work Phone: Start: 08-30-2024 Urnls dip [...] Work Phone: Start: 07-27-2024 BOX TEST Ab hernandez DO Work Phone: Start: 07-27-2024 MLR HEMOGLOBIN A1C Ignacio Mendoza DO Work Phone: Start: 07-27-2024 [facility] [...] Treatment Date Care Activity Detail Author Start: 10-25-2024 End: 10-25-2024 Patient encounter procedure 10/25/2024 11:20 AM EST Routine [facility] [address] [place] [id number] Mariya Reza PA [address] [place] [address] [facility] Start: 09-27-2024 End: 09-27-2024 Patient encounter procedure 09/27/2024 2:00 PM EST Routine [facility] [address] [place] [address] Ab Mendoza, DO [address] [place] [address] [facility] Start: 09-27-2024 End: 09-27-2024 Professional / ancillary services management 09/27/2024 1:00 PM EST Ancillary Procedure [facility] [address] [place] [address] [facility] Start: 08-30-2024 End: 09-30-2024 Alpha fetoprotein, maternal Alpha fetoprotein, maternal Lab Routine Need for maternal serum alpha-protein (MSAFP) screening Expected: 08/30/2024 (Approximate), Expires: 09/30/2024 [facility] Comment on above: Expected: 08/30/2024 (Approximate), Expires: 09/30/2024 Start: 08-30-2024 End: 08-30-2025 US for US OB ANATOMY SINGLE W US OB CERVICAL LENGTH Imaging Routine Screening, , for anatomic survey Expected: 08/30/2024 (Approximate), Expires: 08/30/2025 [facility] Comment on above: Expected: 08/30/2024 (Approximate), Expires: 08/30/2025 Start: 08-30-2024 End: 08-30-2024 Patient encounter procedure 08/30/2024 11:20 AM EST Routine [facility] [address] [place] [address] Mariya Reza PA [address] [place] [address] [facility] Start: 07-28-2024 End: 07-28-2024 Patient encounter procedure [facility] Comment on above: Arrived Start: 07-09-2024 End: 07-09-2025 ABO/Rh ABO/Rh Lab Routine Missed menses , unspecified gestational age Expected: 07/09/2024 (Approximate), Expires: 07/09/2025 [facility] Comment on above: Expected: 07/09/2024 (Approximate), Expires: 07/09/2025 Start: 07-09-2024 End: 07-09-2025 Blood type and Indirect antibody screen panel - Blood Type and screen Lab Routine Missed menses , unspecified gestational age Expected: 07/09/2024 (Approximate), Expires: 07/09/2025 [facility] Work Phone: Comment on above: Expected: 07/09/2024 (Approximate), Expires: 07/09/2025 Start: 07-09-2024 End: 07-09-2025 Drugs of abuse panel - Urine by Screen method Rapid drug screen, urine Lab Routine , unspecified gestational age Encounter for supervision of normal first in first trimester Expected: 07/09/2024 (Approximate), Expires: 07/09/2025 [facility] Comment on above: Ordered: 07/09/2024 SURESWAB(R) ADVANCED VAGINITIS PLUS, TMA SURESWAB(R) ADVANCED VAGINITIS PLUS, TMA Pathology and Cytology Routine Exposure to STD Ordered: 08/30/2024 [facility] Work Phone: Comment on above: Ordered: 08/30/2024 Payers Date Payer Category Payer Private Health Insurance [facility] [place] [employer]ICA[employer] [id number] 2000 Unknown [id number] 2000 Unknown [id number] [id number] 2000 Unknown [id number] 593 2000 Unknown [id number] 593 2000 Unknown [id number] 593 2000 Unknown [id number] 593 2000 Unknown [id number] 593 2000 Unknown [id number] 593 2000 Unknown [id number] [id number]. 593 2000 Unknown [id number] 2.16.840.1.993111.3.579.2. 593 2000 Unknown [id number] 2.16.840.1.970804.3.579.2. 1259 2000 Unknown [id number] 2.16.840.1.521153.3.579.2. 9 2000 Unknown [id number] 2.16.840.1.106876.3.579.2. 9 2000 Unknown [id number] 2.16.840.1.784622.3.579.2. 9 2000 Unknown [id number] 2.16.840.1.623897.3.579.2. 9 2000 Unknown [id number] 2.16.840.1.567559.3.579.2. 1259 1959 Unknown [id number] 1959 Unknown [id number] Social History Date Type Detail Facility Unknown if ever smoked [facility] [employer] Other Start: 02-04-2024 Sex Assigned At N [employer] Other Start: 02-04-2024 [facility] History of tobacco use [facility]igarette [facility]oker [facility] Start: 02-04-2024 Cigarettes smoked current (pack per day) - Reported 1.5 [facility] Start: 05-19-2024 [facility] Start: 2000 Sex assigned at Not on file N [facility] History of Present illness Narrative 09-27-2024 Brittany Rose LPN - 09/27/2024 2:00 PM EST Note Date & Type Note Facility 09-27-2024 History of Presen t illness Narrative Reason for Appointment: Patient ID: Elida Prakash is a 24 y.o. female who presents for Routine Visit Patient presents today for Return OB appointment. MEDICATIONS Current Outpatient Medications Medication Instructions albuterol HFA 90 mcg/act inhaler 2 puffs, Inhalation, Every 6 hours PRN escitalopram (LEXAPRO) 5 mg, Daily Ferrous Sulfate (IRON PO) Oral ALLERGIES No Known Allergies PROBLEMS Active Ambulatory Problems Diagnosis Date Noted No Active Ambulatory Problems Resolved Ambulatory Problems Diagnosis Date Noted No Resolved Ambulatory Problems Past Medical History: Diagnosis Date Asthma ([facility]) 2004 HISTORY PAST MEDICAL HISTORY SOCIAL HISTORY Past Medical History: Diagnosis Date Asthma ([facility]) 2004 Social History Tobacco Use Smoking status: [...] SYSTEMS Review of Systems: Review of Systems All other systems reviewed and are negative. OBJECTIVE Objective: Physical Exam Constitutional: Appearance: Normal [...] nursing note reviewed. Exam conducted with a water gas operator present. Vitals: Estimated body mass index is 24.18 kg/m as calculated from the following: Height as of 02/04/24: 5' 8 . Weight as of this encounter: 159 lb. BP: 116/60 Patient's last menstrual period was 05/05/2024. ASSESSMENT & PLAN ICD-10-CM 1. Second trimester Z34.92 POCT urinalysis dipstick manually resulted 2. 20 weeks gestation of Z3A.20 POCT urinalysis dipstick manually resulted Patient presents today for a routine obstetrics appointment. Patient is currently 20w5d with a Estimated Date of Delivery: 02/09/25. Patient to return to clinic in 4 weeks. Documented by Brittany Rose LPN on behalf of: Mariya Reza PA-C documented in this encounter [facility] History of Present illness Narrative 08-30-2024 ASRABJIT Toussaint - 08/30/2024 11:20 AM EST Note [...] Problems Past Medical History: Diagnosis Date Asthma ([facility]) 2004 HISTORY PAST MEDICAL HISTORY SOCIAL HISTORY Past Medical History: Diagnosis Date Asthma ([facility]) 2004 Social History Tobacco Use Smoking status: [...] nursing note reviewed. Exam conducted with a water gas operator present. Vitals: Estimated body mass index [...] Problems Past Medical History: Diagnosis Date Asthma ([facility]) 2004 HISTORY PAST MEDICAL HISTORY SOCIAL HISTORY Past Medical History: Diagnosis Date Asthma ([facility]) 2004 Social History Tobacco Use Smoking status: [...] nursing note reviewed. Exam conducted with a water gas operator present. Vitals: Estimated body mass index [...] or undercooked meat, and stay away from [facility]. Patient has been consulted regarding any further [...] Problems Past Medical History: Diagnosis Date Asthma ([facility]) 2004 No family history on file. Social [...] or undercooked meat, and stay away from [facility]. Patient has also been advised to not [...] Radha Hernandez LPN documented in this encounter [facility] Evaluation note 05-30-2023 Note Date [...] B35.1) Onychomycosis home care material was printed [employer] Other Evaluation note Note Date & Type Note Facility Evaluation note Diagnosis Missed menses , unspecified gestational age Encounter for supervision of normal first in first trimester Nausea and vomiting in Unspecified vomiting of , unspecified as to episode of care documented in this encounter [facility] Evaluation note Note Date & Type Note Facility Evaluation note Diagnosis First trimester state, incidental 12 weeks gestation of Nausea and vomiting in Unspecified vomiting of , unspecified as to episode of care documented in this encounter [facility] Evaluation note Note Date & Type Note Facility Evaluation note Diagnosis Well woman exam with routine gynecological exam Routine gynecological examination Second trimester state, incidental 16 weeks gestation of Exposure to STD Need for maternal serum alpha-protein (MSAFP) screening Screening, , for anatomic survey Encounter for anatomic survey documented in this encounter [facility] Evaluation note Note Date & Type Note Facility Evaluation note Diagnosis Second trimester state, incidental 20 weeks gestation of documented in this encounter [facility] History general Narrative - Reported Note Date & Type Note Facility History general Narrative - Reported Type Medical History Drug abuse Medical History Depression Medical History Anxiety Surgical History tonsillectomy Surgical History PE tubes [employer] Other Summary Purpose Family History No Family History Records FoundNo Family History Records Found Advance Directives No Advanced Directives Records FoundNo Advanced Directives Records Found Additional Source Comments INFORMATION SOURCE (unrecogn ized section and content) DATE CREATED AUTHOR 11/11/2022 [facility] DATE CREATED AUTHOR AUTHOR'S ORGANIZ ATION 09/28/2024 [facility] EPIC REASON FOR VISIT (unrecogniz ed section and content) Reason Comments Routine Visit Care Teams (unrecognized sec tion and content) Steel 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 Relationship Specialty Start Date End Date Kuldeep Mederos MD [address] [place] [address] PCP - General Family Medicine 02/04/24 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 Relationship Specialty Start Date End Date Kuldeep Mederos MD [address] [place] [address] PCP - General Family Medicine 02/04/24 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 Relationship Specialty Start Date End Date Kuldeep Mederos MD [address] [place] [address] PCP - General Family Medicine 02/04/24 [employer] 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 Relationship Specialty Start Date End Date Kuldeep Mederos MD [address] [place] [address] PCP - General Family Medicine 02/04/24 Steel 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 Relationship Specialty Start Date End Date Kuldeep Mederos MD [address] [place] [address] PCP - General Family Medicine 02/04/24 [employer] 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 Relationship Specialty Start Date End Date Kuldeep Mederos MD [address] [place] [address] PCP - General Family Medicine 02/04/24 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 Relationship Specialty Start Date End Date Kuldeep Mederos MD [address] [place] [address] PCP - General Family Medicine 02/04/24 [employer] 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 Relationship Specialty Start Date End Date Kuldeep Mederos MD [address] [place] [address] PCP - General Family Medicine 02/04/24 FOR [...] BE BASED ON THE PRIMARY CLINICAL RECORDS. [facility] [employer] [facility]. provides no warranty or guarantee of the accuracy or completeness of information in this document.
[2024-10-10 11:09] VITALS: BP 104/57; PULSE 81; TEMP 36.3
[2024-10-10 11:46] LABS: Bilirubin Urine NEGATIVE (NEGATIVE); Blood Urine MODERATE (NEGATIVE); Clarity Urine CLEAR (CLEAR); Color Urine LT. YELLOW (YELLOW); Glucose Urine UA NEGATIVE (NEGATIVE); Ketones Urine NEGATIVE (NEGATIVE); Leukocyte Esterase Urine TRACE (NEGATIVE); Nitrite Urine NEGATIVE (NEGATIVE); Protein Urine NEGATIVE (NEG/TRACE); Urobilinogen Urine 0.2 EU/dL (0.2-1.0)
[2024-10-10 11:50] LABS: Urine Microscopic Indicated YES
[2024-10-10 11:56] LABS: Bacteria Urine SMALL #/HPF (NONE SEEN); Cast Seen? NONE SEEN #/LPF (NONE SEEN); Crystals Seen? None Seen #/HPF (None Seen); Mucus Urine TRACE (NONE SEEN); Squamous Epithelial Cell Urine MODERATE #/LPF (NONE/RARE); Urine Culture Indicated YES; WBC Urine 0-2 #/HPF (NONE SEEN)
== END 2024-10-10 12:20 | disposition home or self-care (01) ==
PROVIDERS: Admitting Provider Obstetrics & Gynecology; PCP Family Medicine; Visit Provider Obstetrics & Gynecology
DX: O99.891 Other specified diseases and conditions complicating pregnancy (principal); R10.9 Unspecified abdominal pain; Z3A.22 22 weeks gestation of pregnancy
CPT/HCPCS: 59025; 81001; 87086; G0378; G0379

== ENCOUNTER 2024-11-18 00:07 | Observation (INO) | payer OTHER, SELFPAY ==
--- OUTSIDE RECORDS SUMMARY | 2024-11-18 00:11 | XMS_ITS | CCD ---
Author Organization [facility] Care Team Providers Care Family Member Caretaker Name Role Phone KAYK ., DR AVILA [...] Gatito LLANOS, Kuldeep Hernandez Primary Care Provider [phone] AB MENDOZA Attending MARIYA Echevarria Attending Unavailable AB MENDOZA Attending Unavailable AB MENDOZA Attending Unavailable MARIYA REZA Attending Unavailable Allergies Allergy Classification Reported Allergen(s) Allergy Type Date of Onset Reaction(s) Facility (1 source) Adhesive bandage Drug allergy (disorder) 3 [facility] Repository (1 source) Amoxicillin Drug Allergy diarrhea, vomiting [employer] Other Medications Current Medications Medication Drug Class(es) Dates Sig (Normalized) Sig (Original) [id number] 200 actuat albuterol 0.09 mg/actuat metered dose inhaler (12 sources) beta2-Adrenergic Agonist take 2 puff(s) by inhalation every six hours albuterol HFA 90 mcg/act inhaler Inhale 2 puffs every 6 (six) hours if needed Active escitalopram 5 mg oral tablet (13 sources) Serotonin Reuptake Inhibitor Start: 10-22-2023 take 1 tablet by mouth once daily escitalopram (Lexapro) 5 MG tablet Take 5 mg by mouth Daily 10/22/2023 Active take 1 tablet by mouth once roya y Escitalopram Oxalate 5 MG TAKE 1 TABLET BY MOUTH EVERY DAY Oral for 30 Days Active ferrous sulfate (12 sources) Ferrous Sulfate (IRON PO) Take by [...] 07-09-2024 Episodic Other and delivery including normal (19 sources) Encounter for routine follow-up; Translations: [Single live ] Onset: 11-26-2021 Episodic Other screening for suspected conditions (not mental disorders or infectious disease) (14 sources) Encounter for screening for malignant neoplasm [...] [20 weeks gestation of ] 09-27-2024 Episodic Residual codes; unclassified (2 sources) Gestation period, 24 weeks; Translations: [24 weeks gestation of ] 10-25-2024 Episodic Substance-related disorders (1 source) Nicotine dependence, [...] Range Facility Urinalysis macro (dipstick) panel (U)on 10-25-2024 Bilirubin, UA Negative Negative - 4(70) +++ mg/dL [facility] Blood, UA Negative Negative - 50 Eric/mcL [facility] Clarity, UA Clear [facility] re Color, UA Yellow [facility] Healthcar e Glucose, UA Negative Negative - 1999(110) ++++ mg/dL [facility] Interpretation and review of laboratory results Abnormal [facility] Ketones, UA Negative Negative - 160(16) ++++ mg/dL [facility] Leukocytes, UA Trace Negative - 500+++ Miley/mcL [facility] Nitrite, UA Negative Negative - Positive [facility] pH, UA 6 5 - 9 [facility] Healthcar e Protein, UA Negative Negative - 1999(20) ++++ mg/dL [facility] Spec Grav, UA 1.02 1 - 1.03 [facility] Urobilinogen, UA 1.0 0.2 - 12 mg/dL [facility] OB 14+ WEEKS ANATOMY SCAN on 09-27-2024 US OB 14+ WEEKS ANATOMY SCAN TITLE OF [...] report is generated using voice recognition reporting ([employer]). On occasion PASSNFLYe erroneously drops words from the report or [...] UA Negative Negative - 4(70) +++ mg/dL [facility] Blood, UA Negative Negative - 50 Eric/mcL [facility] Clarity, UA Clear [facility] re Color, UA Yellow [facility] [employer] Glucose, UA Negative Negative - 1999(110) ++++ mg/dL [facility] Interpretation and review of laboratory results Abnormal [facility] Ketones, UA Negative Negative - 160(16) ++++ mg/dL [facility] Leukocytes, UA Trace Negative - 500+++ Miley/mcL [facility] Nitrite, UA Negative Negative - Positive [facility] pH, UA 7 5 - 9 [facility] [employer] e Protein, UA Negative Negative - 1999(20) ++++ mg/dL [facility] Spec Grav, UA 1.02 1 - 1.03 [facility] Urobilinogen, UA 0.2 0.2 - 12 mg/dL [facility] IGP,APTIMA HPV,AGE GDLNon AGE GDLN ACOG TESTING Note . [facility] Comment on above: TESTS RESULT FLAG UN ITS REF RANGE LAB Clinician Provided Cytology Information Source.............Cervix No. of containers..01 ThinPrep Vial Age Algo ACOG Jo Ann... FLAG LEGEND: L-Low Normal,H-High Normal,LL-Alert Low,HH-Alert High <-Panic Low,>-Panic High,A-Abnormal,AA-Critical Abnormal Performed at: 01 =G [facility] [id number] Riddhi Goodman MD, IGP, RFX APTIMA HPV ASCU Note . [facility] Comment on above: TESTS RESULT FLAG UN ITS REF RANGE LAB DIAGNOSIS: 02 NEGATIVE FOR INTRAEPITHELIAL LESION OR MALIGNANCY. Specimen adequacy: 02 Satisfactory for evaluation. Endocervical and/or squamous metaplastic cells (endocervical component) are present. Performed by: 02 Krystal Canada, Grinder Outside [employer] ([facility]) . 02 Note: Note 02 The Pap [...] <-Panic Low,>-Panic High,A-Abnormal,AA-Critical Abnormal Performed at: [address] [id number] Riddhi Goodman MD, Performed at: = - [address] [id number] Contact Lens Assistant: Riddhi Goodman MD, Phone: [phone] Performed at: [facility] [address] [id number] Contact Lens Assistant: Riddhi Goodman MD, Phone: [phone] SPATULA-ALONE CERVIX [facility] Healthcar e RECURRENT VAGINITIS (HTRX)on 09-01-2024 ATOPOBIUM VAGINAE 20.876 Abnormal [facility] ATOPOBIUM VAGINAE Detected Abnormal [facility] BVAB 2,3 (BACTERIAL VAGINOSIS ASSOCIATED BACTERIA 2, 3); MOBILUNCUS SPP 24.4 Abnormal [facility] BVAB 2,3 (BACTERIAL VAGINOSIS ASSOCIATED BACTERIA 2, 3); MOBILUNCUS SPP Detected Abnormal [facility] ANGELA ALBICANS, PARAPSILOSIS, TROPICALIS 0 [facility] ANGELA ALBICANS, PARAPSILOSIS, TROPICALIS Not detected [facility] ANGELA GLABRATA 0 [facility] ANGELA GLABRATA Not detected [facility] ealthcare ANGELA KRUSEI 0 [facility] ANGELA KRUSEI Not detected [facility] CHLAMYDIA TRACHOMATIS 0 [facility] CHLAMYDIA TRACHOMATIS Not detected [facility] ERMB, C; MEFA 16.624 Abnormal [facility] Health care ERMB, C; MEFA Detected Abnormal [facility] GARDNERELLA VAGINALIS 22.69 Abnormal [facility] GARDNERELLA VAGINALIS Detected Abnormal [facility] Interpretation and review of laboratory results Abnormal [facility] MEGASPHAERA (TYPES 1, 2) 0 [facility] MEGASPHAERA (TYPES 1, 2) Not detected [facility] MYCOPLASMA GENITALIUM 0 [facility] MYCOPLASMA GENITALIUM Not detected [facility] NEISSERIA GONORRHOEAE 0 [facility] NEISSERIA GONORRHOEAE Not detected [facility] TET B, TET M 15.188 Abnormal [facility] are TET B, TET M Detected Abnormal [facility] are TRICHOMONAS VAGINALIS 0 [facility] TRICHOMONAS VAGINALIS Not detected [facility] Urinalysis macro (dipstick) panel (U)on 08-30-2024 Bilirubin, UA Negative Negative - 4(70) +++ mg/dL [facility] Blood, UA Negative Negative - 50 Eric/mcL [facility] Healthcare Clarity, UA Clear [facility] re Color, UA Yellow [facility] Healthcar e Glucose, UA Negative Negative - 1999(110) ++++ mg/dL [facility] Interpretation and review of laboratory results Abnormal [facility] Ketones, UA Negative Negative - 160(16) ++++ mg/dL [facility] Leukocytes, UA Moderate Negative - 500+++ Miley/mcL [facility] Nitrite, UA Negative Negative - Positive [facility] pH, UA 7 5 - 9 [facility] Healthcar e Protein, UA Negative Negative - 1999(20) ++++ mg/dL [facility] Spec Grav, UA 1.02 1 - 1.03 [facility] Urobilinogen, UA 0.2 0.2 - 12 mg/dL [facility] Urinalysis macro (dipstick) panel (U)on 07-28-2024 Bilirubin, UA Negative Negative - 4(70) +++ mg/dL [facility] Blood, UA Negative Negative - 50 Eric/mcL [facility] Healthcare Clarity, UA Cloudy [facility] Color, UA Yellow [facility] Healthcar e Glucose, UA Negative Negative - 1999(110) ++++ mg/dL [facility] Interpretation and review of laboratory results Abnormal [facility] Ketones, UA Negative Negative - 160(16) ++++ mg/dL [facility] Leukocytes, UA Positive Negative - 500+++ Miley/mcL [facility] Healthcare Comment on above: small Nitrite, UA Negative Negative - Positive [facility] pH, UA 7 5 - 9 [facility] Healthcar e Protein, UA Positive Negative - 1999(20) ++++ mg/dL [facility] Comment on above: 30 mg Spec Grav, UA 1.025 1 - 1.03 [facility] Urobilinogen, UA 1.0 0.2 - 12 mg/dL [facility] ALL CBC WITH AUTO DIFFon BASOPHILS ABSOLUTE AUTO 0.1 [facility] Basophils/100 WBC (Bld) 0.6 % 0.2 - 2.0 % [facility] Eosinophils/100 WBC (Bld) 2.7 % 0.9 - 7.0 % [facility] Erythrocyte distribution width (RBC) [Ratio] 12.3 % 11.0 - 15.0 % [facility] Hematocrit (Bld) [Volume fraction] 38.4 % 36.0 - 48.0 % [facility] Health[facility] e Hemoglobin (Bld) [Mass/Vol] 13.4 g/dL 12.0 - 16.0 g/dL [facility] IMMATURE GRANULOCYTES ABS AUTO 0.04 High [facility] Immature granulocytes/100 WBC (Bld) 0.4 % 0.0 - 0.5 % [facility] Interpretation and review of laboratory results Abnormal [facility] LYMPHOCYTES ABSOLUTE AUTO 2.2 [facility] Lymphocytes/100 WBC (Bld) 19.4 % Low 20.5 - 60.0 % [facility] MCH (RBC) [Entitic mass] 30.7 pg 26.7 - 34.0 pg [facility] MCHC (RBC) [Mass/Vol] 34.9 g/dL 29.9 - 35.2 g/dL [facility] MCV (RBC) [Entitic vol] 88.1 fL 81.0 - 99.0 fL [facility] MONOCYTES ABSOLUTE AUTO 0.7 [facility] Monocytes/100 WBC (Bld) 6.3 % 1.7 - 12.0 % [facility] NEUTROPHILS ABSOLUTE AUTO 8 High [facility] Neutrophils/100 WBC (Bld) 70.6 % 43.0 - 75.0 % [facility] Platelet mean volume (Bld) [Entitic vol] 10.6 fL 9.5 - 13.5 fL [facility] Healthc are TBH EO # 0.3 [facility] TBH PLT 313 [facility] TB RBC 4.36 [facility] TBH WBC 11.3 High [facility] ALL TYPE AND SCREENon 2023 ABO and Rh group Nom (Bld) Blood group A Rh(D) positive [facility] , [facility] BOX TESTon 07-27-2024 BOX TEST SENT OUT Y [facility] BOX1 [facility] e BOX2 07/27/24 [facility] e UNITY BOX [facility] e MLR HEMOGLOBIN A1Con 024 Glucose [Mass/Vol] 100 mg/dL [facility] HbA1c (Bld) [Mass fraction] 5.1 % 4.5 - 6.2 % [facility] Comment on above: ADA RECOMMENDED LIMI T 4.0 - 6.0 ADA THERAPEUTIC TARGET < 7.0 ACTION SUGGESTED > 7.0 [facility] DRUG SCREEN RAPID (URINE )on 07-27-2024 AMPHETAMINE SCREEN URINE Negative NEGATIVE [facility] BARBITURATES SCREEN URINE Negative NEGATIVE [facility] BENZODIAZEPINES SCREEN URINE Negative NEGATIVE [facility] BUPRENORPHINE SCREEN URINE Negative NEGATIVE [facility] Comment on above: DRUG CLASS TEST [...] ng/mL CANNABINOID SCREEN URINE Positive Abnormal NEGATIVE [facility] COCAINE SCREEN URINE Negative NEGATIVE [facility] Interpretation and review of laboratory results Abnormal [facility] METHADONE SCREEN URINE Negative NEGATIVE [facility] METHAMPHETAMINES SCREEN URINE Negative NEGATIVE [facility] OPIATE SCREEN URINE Negative NEGATIVE [facility] OXYCODONE SCREEN URINE Negative NEGATIVE [facility] PHENCYCLIDINE SCREEN URINE Negative NEGATIVE [facility] TRICYCLIC ANTIDEPRESSANT URINE Negative NEGATIVE [facility] HCG ( test) Ql (U)o n 07-09-2024 Interpretation and review of laboratory results Abnormal [facility] Preg Test, Ur Positive Negative [facility] e Urinalysis macro (dipstick) panel (U)on 07-09-2024 Bilirubin, UA Negative Negative - 4(70) +++ mg/dL [facility] Blood, UA Negative Negative - 50 Eric/mcL [facility] Clarity, UA Clear [facility] re Color, UA Yellow [facility] Health[facility] e Glucose, UA Negative Negative - 1999(110) ++++ mg/dL [facility] Interpretation and review of laboratory results Normal [facility] Ketones, UA Negative Negative - 160(16) ++++ mg/dL [facility] Leukocytes, UA Negative Negative - 500+++ Miley/mcL [facility] Nitrite, UA Negative Negative - Positive [facility] pH, UA 5.5 5 - 9 [facility] Healthcar e Protein, UA Negative Negative - 1999(20) ++++ mg/dL [facility] Spec Grav, UA 1.02 1 - 1.03 [facility] Urobilinogen, UA 1.0 0.2 - 12 mg/dL [facility] Quick Strepon 05-30-2023 S. pyogenes Org specific cx Ql (Throat) Negative [employer] Other Quick Strep sli.do [facility] [employer] Other PAP ACOG PANEL 2: 21 to 29on 11-08-2022 . . Normal [facility] Comment on above: Result Comment: Perf ormed at: [facility] Performed By: #### [id number] #### [facility] [address] [place] [address] Dr. Meryl Damon Age Gdln ACOG Testing [facility] Comment on above: Performed By: #### [id number] #### [facility] [address] [address] [address] Meryl Damon DIAGNOSIS: Comment [facility] Comment on above: Result Comment: NEGA TIVE FOR INTRAEPITHELIAL LESION OR MALIGNANCY. Performed at: [facility] Performed By: #### [id number] #### [facility] [address] [address] [address] Meryl Damon Methodology: Comment [facility] Comment on above: Result Comment: This liquid based ThinPrep(R) pap test was screened with the use of an image guided system. Performed at: [facility] Performed By: #### [id number] #### [facility] [address] [address] [address] Meryl Damon Note: Comment [facility] Comment on above: Result Comment: The Pap smear is a screening test designed to aid in the detection of premalignant and malignant conditions of the uterine cervix. It is not a diagnostic procedure and should not be used as the sole means of detecting cervical cancer. Both false-positive and false-negative reports do occur. . Performed at: [facility] Performed By: #### [id number] #### [facility] [address] [place] [address] Dr. Meryl Damon Performed by: Comment Normal [facility] Comment on above: Result Comment: Luz Valverde [employer] (ASCP) Performed at: [facility] Performed By: #### [id number] #### [facility] [address] [place] [address] Dr. Meryl Damon Reflex Criteria: Comment Normal [facility] Comment on above: Result Comment: The HPV DNA reflex criteria were not met with this specimen result therefore, no HPV testing was performed. . Performed at: [facility] Performed By: #### [id number] #### [facility] [address] [place] [address] Dr. Meryl Damon Specimen adequacy: Comment Normal [facility] Comment on above: Result Comment: Sati sfactory for evaluation. Endocervical and/or squamous metaplastic cells (endocervical component) are present. Areas of partially obscuring inflammatory exudate are present. Performed at: [facility] Performed By: #### [id number] #### [facility] [address] [place] [address] Dr. Meryl Damon CBC AUTO DIFFon 02-19-2022 BASO # 0.1 103/ul Normal 0.0-0.1 [facility] Comment on above: Performed By: #### C BC #### [facility] [address] [place] [address] Dr. Meryl Damon Basophils/100 WBC (Bld) 0.3 % Normal 0.2-2.0 [facility] Comment on above: Performed By: #### C BC #### [facility] [address] [place] [address] Dr. Meryl Damon EO # 0.1 103/ul Normal 0.0-0.7 [facility] Comment on above: Performed By: #### C BC #### [facility] [address] [place] [address] Dr. Meryl Damon Eosinophils/100 WBC (Bld) 0.7 % Critically low 0.9-7.0 [facility] Comment on above: Performed By: #### C BC #### [facility] [address] [place] [address] Dr. Meryl Damon Erythrocyte distribution width (RBC) [Ratio] 14.1 % Normal 11.0-15.0 [facility] Comment on above: Performed By: #### C BC #### [facility] [address] [place] [address] Dr. Meryl Damon Hematocrit (Bld) [Volume fraction] 31.1 % Critically low 36.0-48.0 [facility] Comment on above: Performed By: #### C BC #### [facility] [address] [place] [address] Dr. Meryl Damon Hemoglobin (Bld) [Mass/Vol] 10.1 g/dL Critically low 12.0-16.0 [facility] Comment on above: Performed By: #### C BC #### [facility] [address] [place] [address] Dr. Meryl Damon IG # 0.09 10e3/ul Critically high 0.00-0.03 [facility] Comment on above: Performed By: #### C BC #### [facility] [address] [place] [address] Dr. Meryl Damon IG % 0.5 % Normal 0.0-0.5 [facility] Comment on above: Performed By: #### C BC #### [facility] [address] [place] [address] Dr. Meryl Damon LYMPH # 1.9 103/ul Normal 1.2-3.8 [facility] Comment on above: Performed By: #### C BC #### [facility] [address] [place] [address] Dr. Meryl Damon Lymphocytes/100 WBC (Bld) 11.5 % Critically low 20.5-60.0 [facility] Comment on above: Performed By: #### C BC #### [facility] [address] [place] [address] Dr. Meryl Damon MANUAL DIFF REQ NO Normal [facility] Comment on above: Performed By: #### C BC #### [facility] [address] [place] [address] Dr. Meryl Damon MCH (RBC) [Entitic mass] 28.8 pg Normal 26.7-34.0 [facility] Comment on above: Performed By: #### C BC #### [facility] [address] [place] [address] Dr. Meryl Damon MCHC (RBC) [Mass/Vol] 32.5 g/dL Normal 29.9-35.2 [facility] Comment on above: Performed By: #### C BC #### [facility] [address] [place] [address] Dr. Meryl Damon MCV (RBC) [Entitic vol] 88.6 fL Normal 81.0-99.0 [facility] Comment on above: Performed By: #### C BC #### [facility] [address] [place] [address] Dr. Meryl Damon MONO # 1.8 103/ul Critically high 0.3-0.8 [facility] Comment on above: Performed By: #### C BC #### [facility] [address] [place] [address] Dr. Meryl Damon Monocytes/100 WBC (Bld) 11.2 % Normal 1.7-12.0 [facility] Comment on above: Performed By: #### C BC #### [facility] [address] [place] [address] Dr. Meryl Damon NEUT # 12.4 103/ul Critically high 1.4-6.5 [facility] Comment on above: Performed By: #### C BC #### [facility] [address] [place] [address] Dr. Meryl Damon Neutrophils/100 WBC (Bld) 75.8 % Critically high 43.0-75.0 [facility] Comment on above: Performed By: #### C BC #### [facility] [address] [address] [address] Meryl Damon Platelet mean volume (Bld) [Entitic vol] 11.5 fL Normal 9.5-13.5 [facility] Comment on above: Performed By: #### C BC #### [facility] [address] [address] [address] Meryl Damon PLT 186 103/ul Normal 150-450 [facility] Comment on above: Performed By: #### C BC #### [facility] [address] [address] [address] Meryl Damon RBC 3.51 106/ul Critically low 4.20-5.40 [facility] Comment on above: Performed By: #### C BC #### [facility] [address] [place] [address] Dr. Meryl Damon WBC 16.4 103/ul Critically high 4.0-11.0 [facility] Comment on above: Performed By: #### C BC #### [facility] [address] [place] [address] Dr. Meryl Damon CBC AUTO DIFFon 02-17-2022 BASO # 0.0 103/ul Normal 0.0-0.1 [facility] Comment on above: Performed By: #### C BC #### [facility] [address] [place] [address] Dr. Meryl Damon Basophils/100 WBC (Bld) 0.1 % Critically low 0.2-2.0 [facility] Comment on above: Performed By: #### C BC #### [facility] [address] [place] [address] Dr. Meryl Damon EO # 0.1 103/ul Normal 0.0-0.7 [facility] Comment on above: Performed By: #### C BC #### [facility] [address] [place] [address] Dr. Meryl Damon Eosinophils/100 WBC (Bld) 0.6 % Critically low 0.9-7.0 [facility] Comment on above: Performed By: #### C BC #### [facility] [address] [place] [address] Dr. Meryl Damon Erythrocyte distribution width (RBC) [Ratio] 13.9 % Normal 11.0-15.0 [facility] Comment on above: Performed By: #### C BC #### [facility] [address] [place] [address] Dr. Meryl Damon Hematocrit (Bld) [Volume fraction] 35.2 % Critically low 36.0-48.0 [facility] Comment on above: Performed By: #### C BC #### [facility] [address] [place] [address] Dr. Meryl Damon Hemoglobin (Bld) [Mass/Vol] 11.8 g/dL Critically low 12.0-16.0 [facility] Comment on above: Performed By: #### C BC #### [facility] [address] [place] [address] Dr. Meryl Damon IG # 0.08 10e3/ul Critically high 0.00-0.03 [facility] Comment on above: Performed By: #### C BC #### [facility] [address] [place] [address] Dr. Meryl Damon IG % 0.6 % Critically high 0.0-0.5 [facility] Comment on above: Performed By: #### C BC #### [facility] [address] [place] [address] Dr. Meryl Damon LYMPH # 1.7 103/ul Normal 1.2-3.8 [facility] Comment on above: Performed By: #### C BC #### [facility] [address] [place] [address] Dr. Meryl Damon Lymphocytes/100 WBC (Bld) 12.8 % Critically low 20.5-60.0 [facility] Comment on above: Performed By: #### C BC #### [facility] [address] [place] [address] Dr. Meryl Damon MANUAL DIFF REQ NO Normal [facility] Comment on above: Performed By: #### C BC #### [facility] [address] [address] [address] Meryl Damon MCH (RBC) [Entitic mass] 29.4 pg Normal 26.7-34.0 [facility] Comment on above: Performed By: #### C BC #### [facility] [address] [address] [address] Meryl Damon MCHC (RBC) [Mass/Vol] 33.5 g/dL Normal 29.9-35.2 [facility] Comment on above: Performed By: #### C BC #### [facility] [address] [address] [address] Meryl Damon MCV (RBC) [Entitic vol] 87.6 fL Normal 81.0-99.0 [facility] Comment on above: Performed By: #### C BC #### [facility] [address] [place] [address] Dr. Meryl Damon MONO # 1.1 103/ul Critically high 0.3-0.8 [facility] Comment on above: Performed By: #### C BC #### [facility] [address] [place] [address] Dr. Meryl Damon Monocytes/100 WBC (Bld) 7.8 % Normal 1.7-12.0 [facility] Comment on above: Performed By: #### C BC #### [facility] [address] [place] [address] Dr. Meryl Damon NEUT # 10.4 103/ul Critically high 1.4-6.5 [facility] Comment on above: Performed By: #### C BC #### [facility] [address] [place] [address] Dr. Meryl Damon Neutrophils/100 WBC (Bld) 78.1 % Critically high 43.0-75.0 [facility] Comment on above: Performed By: #### C BC #### [facility] [address] [place] [address] Dr. Meryl Damon Platelet mean volume (Bld) [Entitic vol] 11.5 fL Normal 9.5-13.5 [facility] Comment on above: Performed By: #### C BC #### [facility] [address] [address] [address] Meryl Damon PLT 265 103/ul Normal 150-450 [facility] Comment on above: Performed By: #### C BC #### [facility] [address] [address] [address] Meryl Damon RBC 4.02 106/ul Critically low 4.20-5.40 [facility] Comment on above: Performed By: #### C BC #### [facility] [address] [address] [address] Meryl Damon WBC 13.4 103/ul Critically high 4.0-11.0 [facility] Comment on above: Performed By: #### C BC #### [facility] [address] [address] [address] Meryl Damon Covid-19 PCR (CVDTBH)on 01-30 SARS-CoV-2 (COVID-19) RNA [place]ISON+probe Ql (Unsp spec) Not detected Normal NOT DETECTED [facility] Comment on above: Result Comment: When [...] for this test is supported by the Traveling Inventory Associate of Health and Human Service's declaration that [...] used). Performed By: #### C VDTBH #### [facility] [address] [address] [address] Meryl Damon DRUG SCREEN RAPID (URINE)on 02-17-2022 AMP Negative Normal NEGATIVE [facility] Comment on above: Performed By: #### D RUGRPD #### [facility] [address] [place] [address] Dr. Meryl Damon BAR Negative Normal NEGATIVE [facility] Comment on above: Performed By: #### D RUGRPD #### [facility] [address] [place] [address] Dr. Meryl Damon BUP Negative Normal NEGATIVE [facility] Comment on above: Performed By: #### D RUGRPD #### [facility] [address] [place] [address] Dr. Meryl Damon BZO Negative Normal NEGATIVE [facility] Comment on above: Performed By: #### D RUGRPD #### [facility] [address] [place] [address] Dr. Meryl Damon EDGAR Negative Normal NEGATIVE [facility] Comment on above: Performed By: #### D RUGRPD #### [facility] [address] [place] [address] Dr. Meryl Damon CUT-OFFS SEE BELOW Normal [facility] Comment on above: Result Comment: AMP [...] ng/mL Performed By: #### D RUGRPD #### [facility] [address] [place] [address] Dr. Meryl Damon DRUG CUT HEADER DRUG CLASS TEST SYSTEM CUT-OFF CONCENTRATIONS ARE FOLLOWS: Normal [facility] Comment on above: Performed By: #### D RUGRPD #### [facility] [address] [address] [address] Meryl Damon mAMP Negative Normal NEGATIVE [facility] Comment on above: Performed By: #### D RUGRPD #### [facility] [address] [address] [address] Meryl Damon MTD Negative Normal NEGATIVE [facility] Comment on above: Performed By: #### D RUGRPD #### [facility] [address] [address] [address] Meryl Damon OPI Negative Normal NEGATIVE [facility] Comment on above: Performed By: #### D RUGRPD #### [facility] [address] [address] [address] Meryl Damon OXY Negative Normal NEGATIVE [facility] Comment on above: Performed By: #### D RUGRPD #### [facility] [address] [place] [address] Dr. Meryl Damon PCP Negative Normal NEGATIVE [facility] Comment on above: Performed By: #### D RUGRPD #### [facility] [address] [place] [address] Dr. Meryl Damon PPX Negative Normal NEGATIVE [facility] Comment on above: Performed By: #### D RUGRPD #### [facility] [address] [place] [address] Dr. Meryl Damon TCA Negative Normal NEGATIVE [facility] Comment on above: Performed By: #### D RUGRPD #### [facility] [address] [place] [address] Dr. Meryl Damon THC Positive Abnormal NEGATIVE [facility] Comment on above: Performed By: #### D RUGRPD #### [facility] [address] [place] [address] Dr. Meryl Damon TYPE AND SCREENon 02-17-2022 TYPE AND SCREEN Negative Normal [facility] Comment on above: Performed By: #### G LU1HR #### [facility] [address] [place] [address] Dr. Meryl Damon US PREG GROWTHon 02-06-2022 [...] TANYA SHEIKH Date: 2022-02-06 16:11 Normal [facility] GROUP B STREP CULTUREon 12-31 S. agalactiae Ag Ql (Unsp spec) Culture Observations: unable to isolate beta- possible Group B Normal [facility] Comment on above: Performed By: #### G LU1HR #### [facility] [address] [place] [address] Dr. Meryl Damon CULTURE URINEon 01-17-2022 CULTURE URINE Culture Observations: MODERATE GROWTH OF MIXED GENITAL SENA. NO POTENTIAL PATHOGENS SEEN. Normal [facility] Comment on above: Performed By: #### G LU1HR #### [facility] [address] [place] [address] Dr. Meryl Damon UA (CLEAN/CATCH) HOME HEALTH MANAGER/MICRO I F IND.on 01-17-2022 Bilirubin Ql (U) Negative Normal NEGATIVE [facility] Comment on above: Performed By: #### U MICRO, UACSIND #### [facility] [address] [place] [address] Dr. Meryl Damon Clarity (U) CLEAR Normal CLEAR [facility] Comment on above: Performed By: #### U MICRO, UACSIND #### [facility] [address] [address] [address] Meryl Damon Color (U) LT. YELLOW Normal YELLOW [facility] Comment on above: Performed By: #### U MICRO, UACSIND #### [facility] [address] [address] [address] Meryl Damon Glucose Ql (U) Negative Normal NEGATIVE [facility] Comment on above: Performed By: #### U MICRO, UACSIND #### [facility] [address] [address] [address] Meryl Damon Hemoglobin Ql (U) SMALL Abnormal NEGATIVE [facility] Comment on above: Performed By: #### U MICRO, UACSIND #### [facility] [address] [address] [address] Meryl Damon Ketones Ql (U) Negative Normal NEGATIVE [facility] Comment on above: Performed By: #### U MICRO, UACSIND #### [facility] [address] [address] [address] Meryl Damon LEUKOCYTES LARGE Abnormal NEGATIVE [facility] Comment on above: Performed By: #### U MICRO, UACSIND #### [facility] [address] [address] [address] Meryl Damon Nitrite Ql (U) Negative Normal NEGATIVE [facility] Comment on above: Performed By: #### U MICRO, UACSIND #### [facility] [address] [address] [address] Meryl Damon pH (U) 8.0 [pH] Normal 5-9 [facility] Comment on above: Performed By: #### U MICRO, UACSIND #### [facility] [address] [address] [address] Meryl Damon SPEC GRAVITY 1.010 Normal 1.005-<=1.025 [facility] Comment on above: Performed By: #### U MICRO, UACSIND #### [facility] [address] [address] [address] Meryl Damon UA PROTEIN Negative Normal NEGATIVE/ TRACE [facility] Comment on above: Performed By: #### U MICRO, UACSIND #### [facility] [address] [address] [address] Meryl Damon UR MICRO IND INDICATED Normal [facility] Comment on above: Performed By: #### U MICRO, UACSIND #### [facility] [address] [address] [address] Meryl Damon Urobilinogen Qn (U) 0.2 {Yovanny'U}/dL Normal 0.2 - 1. 0 [facility] Comment on above: Performed By: #### U MICRO, UACSIND #### [facility] [address] [address] [address] Meryl Damon URINE MICROSCOPIC ONLYon BACTERIA TRACE Abnormal NONE SEEN [facility] Comment on above: Performed By: #### U MICRO, UACSIND #### [facility] [address] [place] [address] Dr. Meryl Damon Bacteria identified Cx Nom (U) INDICATED Normal [facility] Comment on above: Performed By: #### U MICRO, UACSIND #### [facility] [address] [place] [address] Dr. Meryl Damon CAST NONE SEEN Normal NONE SEEN [facility] Comment on above: Performed By: #### U MICRO, UACSIND #### [facility] [address] [place] [address] Dr. Meryl Damon Crystals LM Nom (Urine sed) NONE SEEN Normal NONE SEEN [facility] Comment on above: Performed By: #### U MICRO, UACSIND #### [facility] [address] [address] [address] Meryl Damon Epithelial cells LM Ql (Urine sed) MANY Abnormal NONE SEEN /RARE [facility] Comment on above: Performed By: #### U MICRO, UACSIND #### [facility] [address] [place] [address] Dr. Meryl Damon MUCOUS TRACE Abnormal NONE SEEN [facility] Comment on above: Performed By: #### U MICRO, UACSIND #### [facility] [address] [place] [address] Dr. Meryl Damon RBC 5-10 Abnormal 0-2 [facility] Comment on above: Performed By: #### U MICRO, UACSIND #### [facility] [address], [place] [address] Dr. Meryl Damon WBC 20-50 Abnormal NONE SEEN [facility] Comment on above: Performed By: #### U MICRO, UACSIND #### [facility] [address], [place] [address] Dr. Meryl Damon US KIDNEYSon 01-17-2022 US [...] CORNELL BONDS Date: 2022-01-17 14:20 Normal [facility] US PREG REEVAL ABNon 022 US [...] by: CORNELL BONDS Date: 2022-01-09 09:14 Normal [facility] US PREG GROWTHon 12-17-2021 US PREG [...] by: CORNELL BONDS Date: 2021-12-17 10:10 Normal [facility] GTT 3 HR PREGon 12-07-2021 Glucose [Mass/Vol] 85 mg/dL Normal 74-106 [facility] Comment on above: Performed By: #### G TT3P #### [facility] [address] [address] [address] Meryl Damon Glucose [Mass/Vol] 123 mg/dL Normal [facility] Comment on above: Performed By: #### G TT3P #### [facility] [address] [address] [address] Meryl Damon Glucose [Mass/Vol] 84 mg/dL Normal [facility] Comment on above: Performed By: #### G TT3P #### [facility] [address] [address] [address] Meryl Damon GLUCOSE - 1HRon 11-26-2021 Glucose [Mass/Vol] 146 mg/dL Critically high 74-106 [facility] Comment on above: Performed By: #### G LU1HR #### [facility] [address] [address] [address] Meryl Damon HEMOGRAM AND PLATELon 2021 Hematocrit (Bld) [Volume fraction] 38.3 % Normal 36.0-48.0 [facility] Comment on above: Performed By: #### G LU1HR #### [facility] [address] [place] [address] Dr. Meryl Damon Hemoglobin (Bld) [Mass/Vol] 12.6 g/dL Normal 12.0-16.0 [facility] Comment on above: Performed By: #### G LU1HR #### [facility] [address] [place] [address] Dr. Meryl Damon MCH (RBC) [Entitic mass] 30.9 pg Normal 26.7-34.0 [facility] Comment on above: Performed By: #### G LU1HR #### [facility] [address] [place] [address] Dr. Meryl Damon MCHC (RBC) [Mass/Vol] 32.9 g/dL Normal 29.9-35.2 [facility] Comment on above: Performed By: #### G LU1HR #### [facility] [address] [place] [address] Dr. Meryl Damon MCV (RBC) [Entitic vol] 93.9 fL Normal 81.0-99.0 [facility] Comment on above: Performed By: #### G LU1HR #### [facility] [address] [place] [address] Dr. Meryl Damon PLT 225 103/ul Normal 150-450 [facility] Comment on above: Performed By: #### G LU1HR #### [facility] [address] [place] [address] Dr. Meryl Damon RBC 4.08 106/ul Critically low 4.20-5.40 [facility] Comment on above: Performed By: #### G LU1HR #### [facility] [address] [place] [address] Dr. Meryl Damon WBC 8.5 103/ul Normal 4.0-11.0 [facility] Comment on above: Performed By: #### G LU1HR #### [facility] [address] [place] [address] Dr. Meryl Damon Vital Signs Date Time Vital Sign Value Performing Clinician Facility 10-25-2024 11:25-0500 Body mass index (BMI) [Ratio] 24.91 kg/m2 Mariya WHIPPLE Work Phone: [facility] 10-25-2024 11:25-0500 Body weight 74.3 kg Mariya Reza PA Work Phone: [facility] 10-25-2024 11:25-0500 Diastolic blood pressure 68 mm[Hg] Mariya Reza PA Work Phone: [facility] 10-25-2024 11:25-0500 Systolic blood pressure 108 mm[Hg] Mariya Reza PA Work Phone: [facility] 09-27-2024 14:07-0500 Body mass index (BMI) [Ratio] 24.18 kg/m2 Ab Reji DO Work Phone: [facility] 09-27-2024 14:07-0500 Body weight 72.12 kg Ab Reji DO Work Phone: [facility] 09-27-2024 14:07-0500 Diastolic blood pressure 60 mm[Hg] Ab Reji DO Work Phone: [facility] 09-27-2024 14:07-0500 Systolic blood pressure 116 mm[Hg] Ab Reji DO Work Phone: [facility] 08-30-2024 12:17-0500 Body mass index (BMI) [Ratio] 23.72 kg/m2 Mariya WHIPPLE Work Phone: [facility] 08-30-2024 12:17-0500 Body weight 70.76 kg Mariya Reza PA Work Phone: [facility] 08-30-2024 12:17-0500 Diastolic blood pressure 62 mm[Hg] Mariya Reza PA Work Phone: [facility] 08-30-2024 12:17-0500 Systolic blood pressure 108 mm[Hg] Mariya Reza PA Work Phone: [facility] 07-28-2024 14:35-0500 Body mass index (BMI) [Ratio] 23.11 kg/m2 Ab Reji DO Work Phone: [facility] 07-28-2024 14:35-0500 Body weight 68.95 kg Ab Reji DO Work Phone: [facility] 07-28-2024 14:35-0500 Diastolic blood pressure 70 mm[Hg] Ab Reji DO Work Phone: [facility] 07-28-2024 14:35-0500 Systolic blood pressure 116 mm[Hg] Ab Reji DO Work Phone: [facility] 05-30-2023 15:30-0400 Body height 170.18 cm Monica Flores Other [facility] [employer] Other 05-30-2023 15:30-0400 Body mass index (BMI) [Ratio] 21.3 kg/m2 Monica Flores Other [facility] Other 05-30-2023 15:30-0400 Body temperature 98.9 [degF] Monica Sandra Other [facility] Other 05-30-2023 15:30-0400 Body weight 61.69 kg Monica Sandra Other [facility] Other 05-30-2023 15:30-0400 Diastolic blood pressure 63 mm[Hg] Monica Flores Other [facility] Other 05-30-2023 15:30-0400 Respiratory rate 18 /min Monica Flores Other [facility] Other 05-30-2023 15:30-0400 SaO2% (BldA) [Mass fraction] 97 % Monica Flores Other [facility] Other 05-30-2023 15:30-0400 Systolic blood pressure 118 mm[Hg] Monica Flores Other [facility] Other Encounters Encounter Date Encounter Type Care Provider Facility Start: 10-25-2024 End: 10-25-2024 Bamboo flowsheet Mariya WHIPPLE Work Phone: [facility] Start: 10-25-2024 End: 10-25-2024 Bamboo flowsheet Mariya WHIPPLE Work Phone: [facility] Start: 10-25-2024 End: 10-25-2024 Office outpatient visit 15 minutes Mariya WHIPPLE Work Phone: [facility] Comment on above: Second trimester pre gnancy; 24 weeks gestation of ; Diabetes mellitus screening Start: 10-25-2024 End: 10-25-2024 ambulatory MARIYA REZA Not Available Start: 09-27-2024 End: 09-27-2024 Office outpatient visit 15 minutes Ab Reji DO Work Phone: [facility] Comment on above: Second trimester pre gnancy; 20 weeks gestation of Start: 09-27-2024 End: 09-27-2024 ambulatory AB REJI Not Available Start: 08-30-2024 End: 08-30-2024 Bamboo [...] Patient encounter procedure Mariya WHIPPLE Work Phone: [facility] Start: 08-30-2024 End: 08-30-2024 Periodic preventive med est patient 18-39 yrs Mariya WHIPPLE Work Phone: [facility] Comment on above: Well [...] Bamboo flowsheet Ab Reji DO Work Phone: [facility] Start: 07-28-2024 End: 07-28-2024 Bamboo flowsheet Ab Reji DO Work Phone: [facility] Start: 07-27-2024 End: 07-27-2024 Clinisync Result Encounter Ab Reji DO Work Phone: [facility] External Department Unsolicited Start: 07-27-2024 End: 07-27-2024 Clinisync Result Encounter Ab Reji DO Work Phone: [facility] External Department Unsolicited Start: 07-09-2024 End: 07-09-2024 ambulatory AB REJI Not Available Start: 07-09-2024 End: 07-09-2024 Office outpatient visit 5 minutes [facility] Reji Nurse [facility] Comment on above: GA: 9w2d Start: 02-04-2024 End: 02-04-2024 ambulatory AB REJI Not Available Start: 05-30-2023 End: 05-30-2023 ambulatory Monica Flores Other [facility] Other Start: 05-30-2023 Office outpatient ne w 20 minutes Monica Sandra [facility] Start: 11-05-2022 [...] Facility:[facility] Start: 12-07-2021 End: 12-08-[address] MARGARIAT SYED . Facility:[facility] Start: 11-26-2021 End: 11-27-[address] MARGARITA SYED . Facility: Procedures Date Procedure Procedure Detail Performing Clinician Start: 10-25-2024 Urnls dip stick/tabl et rgnt non-auto w/o micrscp Mariya WHIPPLE Work Phone: Start: 09-27-2024 Urnls dip stick/tabl et rgnt non-auto w/o micrscp Ab Mendoza DO Work Phone: Start: 08-30-2024 RECURRENT VAGINITIS (HTRX) Mariya WHIPPLE Work Phone: Start: 08-30-2024 Urnls dip stick/tabl et rgnt non-auto w/o micrscp Mariya WHIPPLE Work Phone: Start: 08-30-2024 IGP,APTIMA HPV,AGE GDLN Mariya Peru PA Work Phone: Start: 07-28-2024 Urnls dip stick/tabl et rgnt non-auto w/o micrscp Ab Noriegao DO Work Phone: Start: 07-27-2024 Antibody screen Ab vaz DO Work Phone: Start: 07-27-2024 ALL CBC WITH AUTO DIFF Ab Reji DO Work Phone: Start: 07-27-2024 ALL TYPE AND SCREEN Cor ey Reji DO Work Phone: Start: 07-27-2024 BOX TEST Ab Faconcetta o DO Work Phone: Start: 07-27-2024 MLR HEMOGLOBIN A1C Core y Reji DO Work Phone: Start: 07-27-2024 [facility] DRUG SCREEN RAPI D (URINE) Ab Noriegao DO Work Phone: Start: 07-09-2024 End: 07-09-2024 Urnls dip stick/tablet rgnt non-auto w/o micrscp bA Mendoza DO Work Phone: Start: 02-18-2022 Delivery of Products of Conception, External Approach DR MARGARITA SYED . Start: 02-18-2022 Drainage of Amniotic Fluid, Therapeutic from Products of Conception, Via Natural or Artificial Opening DR MARGARITA SYED . Start: 02-17-2022 Introduction of Othe r Hormone into Peripheral Vein, Percutaneous Approach DR MARGARITA SYED . Plan of Treatment Date Care Activity Detail Author Start: 11-22-2024 End: 11-22-2024 Patient encounter procedure 11/22/2024 10:20 AM EDT Routine [facility] [address] [place] [address] Ab Mendoza, DO [address] [place] [address] [facility] Start: 10-25-2024 End: 10-25-2025 CBC panel - Blood by Automated count CBC Lab Routine Diabetes mellitus screening Expected: 10/25/2024 (Approximate), Expires: 10/25/2025 [facility] Work Phone: Comment on above: Expected: 10/25/2024 (Approximate), Expires: 10/25/2025 Start: 10-25-2024 End: 10-25-2025 Measurement of glucose 1 hour after glucose challenge for glucose tolerance test Glucose tolerance, 1 hour Lab Routine Diabetes mellitus screening Expected: 10/25/2024 (Approximate), Expires: 10/25/2025 [facility] Comment on above: Expected: 10/25/2024 (Approximate), Expires: 10/25/2025 Start: 10-25-2024 End: 10-25-2024 Patient encounter procedure [facility] Comment on above: Arrived Start: 09-27-2024 End: 09-27-2024 Patient encounter procedure 09/27/2024 2:00 PM EST Routine [facility] [address] [place] [address] Ab Mendoza, [address] [place] [address] [facility] Start: 09-27-2024 End: 09-27-2024 Professional / ancillary services management 09/27/2024 1:00 PM EST Ancillary Procedure [facility] [address] [address] [facility] Start: 08-30-2024 End: 09-30-2024 Alpha fetoprotein, maternal Alpha fetoprotein, maternal Lab Routine Need for maternal serum alpha-protein (MSAFP) screening Expected: 08/30/2024 (Approximate), Expires: 09/30/2024 [facility] Comment on above: Expected: 08/30/2024 (Approximate), Expires: 09/30/2024 Start: 08-30-2024 End: 08-30-2025 US for US OB ANATOMY SINGLE W US OB CERVICAL LENGTH Imaging Routine Screening, , for anatomic survey Expected: 08/30/2024 (Approximate), Expires: 08/30/2025 [facility] Comment on above: Expected: 08/30/2024 (Approximate), Expires: 08/30/2025 Start: 08-30-2024 End: 08-30-2024 Patient encounter procedure 08/30/2024 11:20 AM EST Routine [facility] [address] [place] [id number] Mariya Reza PA [address] [facility] [place] [address] [facility] Start: 07-28-2024 End: 07-28-2024 Patient encounter procedure [facility] Comment on above: Arrived Start: 07-09-2024 End: 07-09-2025 ABO/Rh ABO/Rh Lab Routine Missed menses , unspecified gestational age Expected: 07/09/2024 (Approximate), Expires: 07/09/2025 [facility] Comment on above: Expected: 07/09/2024 (Approximate), Expires: 07/09/2025 Start: 07-09-2024 End: 07-09-2025 Blood type and Indirect antibody screen panel - Blood Type and screen Lab Routine Missed menses , unspecified gestational age Expected: 07/09/2024 (Approximate), Expires: 07/09/2025 [facility] Work Phone: Comment on above: Expected: 07/09/2024 (Approximate), Expires: 07/09/2025 Start: 07-09-2024 End: 07-09-2025 Drugs of abuse panel - Urine by Screen method Rapid drug screen, urine Lab Routine , unspecified gestational age Encounter for supervision of normal first in first trimester Expected: 07/09/2024 (Approximate), Expires: 07/09/2025 [facility] Comment on above: Expected: 07/09/2024 (Approximate), Expires: 07/09/2025 Start: 07-09-2024 End: 07-09-2025 US Pelvis transvaginal US OB transvaginal Imaging Routine Missed menses Expected: 07/09/2024 (Approximate), Expires: 07/09/2025 [facility] Comment on above: Expected: 07/09/2024 (Approximate), Expires: 07/09/2025 Start: 05-02-2024 Influenza vaccination Influenza Vacc ine (#1) [facility] Bacteria identified in Urine by Culture Urine culture Microbiology Routine Missed menses Ordered: 07/09/2024 [facility] Comment on above: Ordered: 07/09/2024 CBC W Auto Different ial panel - Blood CBC and differential Lab Routine Missed menses , unspecified gestational age Ordered: 07/09/2024 [facility] Comment on above: Ordered: 07/09/2024 CHLAMYDIA TRACHOMATI S (GENITO/STI) CHLAMYDIA TRACHOMATIS (GENITO/STI) Lab Routine Exposure to STD Ordered: 08/30/2024 [facility] Comment on above: Ordered: 08/30/2024 Cytology Cervical or vaginal smear or scraping study Pap Smear Pathology and Cytology Routine Well woman exam with routine gynecological exam Ordered: 08/30/2024 [facility] Comment on above: Ordered: 08/30/2024 Hemoglobin A1c/Hemoglobin.total in Blood Hemoglobin A1c Lab Routine Missed menses , unspecified gestational age Ordered: 07/09/2024 [facility] Comment on above: Ordered: 07/09/2024 Hepatitis B virus surface Ag [Presence] in Serum or Plasma by Immunoassay Hepatitis B surface antigen Lab Routine Missed menses , unspecified gestational age Ordered: 07/09/2024 [facility] Comment on above: Ordered: 07/09/2024 Hepatitis C virus Ab [Presence] in Serum or Plasma by Immunoassay Hepatitis C antibody Lab Routine Missed menses , unspecified gestational age Ordered: 07/09/2024 [facility] Comment on above: Ordered: 07/09/2024 HIV-1/HIV-2 antigen/antibody combination immunoassay HIV-1 and HIV-2 antibodies Lab Routine Missed menses , unspecified gestational age Ordered: 07/09/2024 [facility] Comment on above: Ordered: 07/09/2024 Neisseria gonorrhoea e DNA [Presence] in Unspecified specimen by MADISON with probe detection Neisseria gonorrhea DNA probe, direct Lab Routine Exposure to STD Ordered: 08/30/2024 [facility] Comment on above: Ordered: 08/30/2024 Reagin Ab [Presence] in Serum by RPR RPR Lab Routine Missed menses , unspecified gestational age Ordered: 07/09/2024 [facility] Comment on above: Ordered: 07/09/2024 Rubella antibody, IgG Rubella an tibody, IgG Lab Routine Missed menses , unspecified gestational age Ordered: 07/09/2024 [facility] Comment on above: Ordered: 07/09/2024 SURESWAB(R) ADVANCED VAGINITIS PLUS, TMA SURESWAB(R) ADVANCED VAGINITIS PLUS, TMA Pathology and Cytology Routine Exposure to STD Ordered: 08/30/2024 [facility] Work Phone: Comment on above: Ordered: 08/30/2024 Immunizations Immunization Date Immunization Notes Care Provider Gilmar rea 07-21-2013 influenza virus vacc ine, unspecified formulation Mariya WHIPPLE Work Phone: [facility] Payers Date Payer Category Payer Private Health Insurance [facility] [id number] 2000 Unknown [id number] [id number] 59 2000 Unknown [id number] 2.16.840.1.178605.3.579.2. 59 2000 Unknown [id number] 2.16.840.1.478805.3.579.2 59 2000 Unknown [id number] 2.16.840.1.419105.3.579.2. 59 2000 Unknown [id number] 2.16.840.1.151630.3.579.2. 59 2000 Unknown [id number] 2.16.840.1.823098.3.579.2. 593 2000 Unknown [id number] 2.16.840.1.285724.3.579.2. 593 2000 Unknown [id number] 2.16.840.1.374524.3.579.2. 593 2000 Unknown [id number] 2.16.840.1.105095.3.579.2. 593 2000 Unknown [id number] 2.16.840.1.082267.3.579.2. 593 2000 Unknown [id number] 2.16.840.1.496988.3.579.2. 1259 2000 Unknown [id number] 2.16.840.1.313959.3.579.2. 1259 2000 Unknown [id number] 2.16.840.1.162578.3.579.2. 1259 2000 Unknown [id number] 2.16.840.1.667920.3.579.2. 1259 2000 Unknown [id number] 2.16.840.1.102929.3.579.2. 9 2000 Unknown [id number] 2.16.840.1.484659.3.579.2. 9 2000 Unknown [id number] 2.16.840.1.043520.3.579.2. 1259 1959 Unknown [id number] 1959 Unknown [id number] Social History Date Type Detail Facility Unknown if ever smoked [facility] [employer] Other Start: 02-04-2024 Sex Assigned At N [facility] Other Start: [facility]04-[facility] History of tobacco use Cigarette Smoker [facility] Start: 02-04-2024 Cigarettes smoked current (pack per day) - Reported 1.5 [facility] Start: 05-19-2024 [facility] Start: 2000 Sex assigned at Not on file N [facility] Clinical Notes 05-30-2023 to 10-25-2024 SARABJIT Toussaint - 10/25/2024 11:20 AM Chaka Rose, KITCHEN LEAD - 09/27/2024 2:00 PM SARABJIT Carrillo - 08/30/2024 11:20 AM SHANDAMargaret Ho, JOSE ALFREDO - 07/28/2024 2:20 PM EST Note Date & Type Note Facility 10-25-2024 History of Presen t illness Narrative Reason for Appointment: Patient ID: Elida Prakash is a 24 y.o. female who presents for Routine Visit Patient presents today for Return OB appointment. MEDICATIONS Current Outpatient Medications Medication Instructions albuterol HFA 90 mcg/act inhaler 2 puffs, Inhalation, Every 6 hours PRN escitalopram (LEXAPRO) 5 mg, Daily Ferrous Sulfate (IRON PO) Oral ALLERGIES Allergies Allergen Reactions Wound Dressing Adhesive Other Reaction(s): Unknown PROBLEMS Active Ambulatory Problems Diagnosis Date Noted No Active Ambulatory Problems Resolved Ambulatory Problems Diagnosis Date Noted No Resolved Ambulatory Problems Past Medical History: Diagnosis Date Asthma ([facility]) 2004 HISTORY PAST MEDICAL HISTORY SOCIAL HISTORY Past Medical History: Diagnosis Date Asthma ([facility]) 2004 Social History Tobacco Use Smoking [...] Exam Constitutional: Appearance: Normal appearance. She is normal weight. HENT: Head: Normocephalic. Cardiovascular: Rate and Rhythm: Normal rate. Pulses: Normal pulses. Pulmonary: Effort: Pulmonary effort is normal. Breath sounds: Normal breath sounds. Abdominal: Palpations: Abdomen is soft. Musculoskeletal: General: Normal range of motion. Neurological: General: No focal deficit present. Mental Status: She is alert and oriented to person, place, and time. Psychiatric: Mood and Affect: Mood normal. Behavior: Behavior normal. Thought Content: Thought content normal. Judgment: Judgment normal. Vitals and nursing note reviewed. Vitals: Estimated body mass index is 24.91 kg/m as calculated from the following: Height as of 02/04/24: 5' 8 . Weight as of this encounter: 163 lb 12.8 oz. BP: 108/68 Patient's last menstrual period was 05/05/2024. ASSESSMENT & PLAN ICD-10-CM 1. Second trimester Z34.92 POCT urinalysis dipstick manually resulted 2. 24 weeks gestation of Z3A.24 POCT urinalysis dipstick manually resulted 3. Diabetes mellitus screening Z13.1 CBC Glucose tolerance, 1 hour CBC Glucose tolerance, 1 hour Return OB: Patient presents today for a routine obstetrics appointment. Patient is currently 24w5d . Patient states she is doing well but has complaints of being tired due to current . Patient has verbalizes frequent movement. Orders Placed This Encounter Procedures CBC Glucose tolerance, 1 hour POCT urinalysis dipstick manually resulted Follow Up: Patient is to return to office in 4 week for routine OB appointment. Documented by SARABJIT Toussaint on behalf of: SARABJIT Toussaint documented in this encounter [facility] 09-27-2024 History of Presen t illness Narrative [...] Problems Past Medical History: Diagnosis Date Asthma ([facility]) 2004 HISTORY PAST MEDICAL HISTORY SOCIAL HISTORY Past Medical History: Diagnosis Date Asthma ([facility]) 2004 Social History Tobacco Use Smoking [...] nursing note reviewed. Exam conducted with a res counselor present. Vitals: Estimated body mass index is [...] Mariya Reza PA-C documented in this encounter [facility] 08-30-2024 History of Presen t illness Narrative [...] Problems Past Medical History: Diagnosis Date Asthma ([facility]) 2005 HISTORY PAST MEDICAL HISTORY SOCIAL HISTORY Past Medical History: Diagnosis Date Asthma ([facility]) 2004 Social History Tobacco Use Smoking [...] nursing note reviewed. Exam conducted with a res counselor present. Vitals: Estimated body mass index is [...] of: SARABJIT Toussaint documented in this encounter [facility] 07-28-2024 History of Presen t illness Narrative [...] Problems Past Medical History: Diagnosis Date Asthma ([facility]) 2005 HISTORY PAST MEDICAL HISTORY SOCIAL HISTORY Past Medical History: Diagnosis Date Asthma ([facility]) 2004 Social History Tobacco Use Smoking [...] nursing note reviewed. Exam conducted with a res counselor present. Vitals: Estimated body mass index is [...] or undercooked meat, and stay away from [facility]. Patient has been consulted regarding any further [...] Ab Mendoza DO documented in this encounter [facility] 07-09-2024 History of Presen t illness Narrative [...] Problems Past Medical History: Diagnosis Date Asthma ([facility]) 2004 No family history on file. [...] or undercooked meat, and stay away from [facility]. Patient has also been advised to not [...] Radha Hernandez LPN documented in this encounter [facility] 05-30-2023 Evaluation note Encounter Date Diagnosis Assessment [...] B35.1) Onychomycosis home care material was printed [employer] Other Evaluation note* Diagnosis Missed menses , unspecified gestational age Encounter for supervision of normal first in first trimester Nausea and vomiting in Unspecified vomiting of , unspecified as to episode of care documented in this encounter [facility]* Diagnosis First trimester state, incidental 12 weeks gestation of Nausea and vomiting in Unspecified vomiting of , unspecified as to episode of care documented in this encounter [facility]* Diagnosis Well woman exam with routine gynecological exam Routine gynecological examination Second trimester state, incidental 16 weeks gestation of Exposure to STD Need for maternal serum alpha-protein (MSAFP) screening Screening, , for anatomic survey Encounter for anatomic survey documented in this encounter [facility]* Diagnosis Second trimester state, incidental 20 weeks gestation of documented in this encounter [facility]* Diagnosis Second trimester state, incidental 24 weeks gestation of Diabetes mellitus screening Screening for diabetes mellitus documented [facility] N[facility]ative - Reported* Type Description Date Medical History Drug abuse Medical History Depression Medical History Anxiety Surgical History tonsillectomy Surgical History PE tubes [employer] Other Summary Purpose Family History No Family History Records FoundNo Family History Records Found Advance Directives No Advanced Directives Records FoundNo Advanced Directives Records Found Additional Source Comments INFORMATION SOURCE (unrecogn ized section and content) DATE CREATED AUTHOR 11/11/2022 [facility] DATE CREATED AUTHOR AUTHOR'S ORGANIZ ATION 10/26/2024 [facility] EPIC REASON FOR VISIT (unrecogniz ed section and content) Reason Comments Routine Visit Care Teams (unrecognized sec tion and content) Family Member Caretaker Relationship Specialty Start Date End Date Kuldeep Mederos MD [address] [place] [address] PCP - General Family Medicine 02/04/24 Family Member Caretaker Relationship Specialty Start Date End Date Kuldeep Mederos MD [address] [place] [address] PCP - General Family Medicine 02/04/24 Family Member Caretaker Relationship Specialty Start Date End Date Kuldeep Mederos MD [address] [place] [address] PCP - General Family Medicine 02/04/24 Family Member Caretaker Relationship Specialty Start Date End Date Kuldeep Mederos MD [address] [place] [address] PCP - General Family Medicine 02/04/24 Family Member Caretaker Relationship Specialty Start Date End Date Kuldeep Mederos MD [address] [place] [address] PCP - General Family Medicine 02/04/24 Family Member Caretaker Relationship Specialty Start Date End Date Kuldeep Mederos MD [address] [place] [facility] [address] PCP - General Family Medicine 02/04/24 Family Member Caretaker Relationship Specialty Start Date End Date Kuldeep Mederos MD [address] [place] [facility] [place] [address] PCP - General Family Medicine 02/04/24 Family Member Caretaker Relationship Specialty Start Date End Date Kuldeep Mederos MD [address] [place] [facility] [address] PCP - General Family Medicine 02/04/24 Family Member Caretaker Relationship Specialty Start Date End Date Kuldeep Mederos MD [address] [place] [facility] [address] PCP - General Family Medicine 02/04/24 FOR [...] BE BASED ON THE PRIMARY CLINICAL RECORDS. [facility] [employer] [facility]. provides no warranty or guarantee of the accuracy or completeness of information in this document.
[2024-11-18 00:18] VITALS: BP 122/65; PULSE 88
[2024-11-18 00:28] LABS: Bilirubin Urine NEGATIVE (NEGATIVE); Blood Urine NEGATIVE (NEGATIVE); Clarity Urine CLEAR (CLEAR); Color Urine LT. YELLOW (YELLOW); Glucose Urine UA NEGATIVE (NEGATIVE); Ketones Urine TRACE mg/dL (NEGATIVE); Leukocyte Esterase Urine SMALL (NEGATIVE); Nitrite Urine NEGATIVE (NEGATIVE); Protein Urine TRACE mg/dL (NEG/TRACE); Specific Gravity Urine 1.025 (1.005-1.025); Urobilinogen Urine 0.2 EU/dL (0.2-1.0); pH Urine 6.5 (5.0-9.0)
[2024-11-18 00:33] LABS: Urine Microscopic Indicated YES
[2024-11-18 00:34] LABS: Bacteria Urine MODERATE #/HPF (NONE SEEN); Crystals Seen? None Seen #/HPF (None Seen); Mucus Urine NONE SEEN (NONE SEEN); RBC Urine 0-2 #/HPF (0-2); Squamous Epithelial Cell Urine MODERATE #/LPF (NONE/RARE)
[2024-11-18 00:35] LABS: Cast Seen? NONE SEEN #/LPF (NONE SEEN); Urine Culture Indicated YES-LC
== END 2024-11-18 01:10 | disposition home or self-care (01) ==
LOC: FBC 00:09
PROVIDERS: Admitting Provider Obstetrics & Gynecology; PCP Family Medicine; Visit Provider Obstetrics & Gynecology
DX: O36.8130 Decreased fetal movements, third trimester, not applicable or unspecified (principal); O26.853 Spotting complicating pregnancy, third trimester; Z3A.28 28 weeks gestation of pregnancy; Z13.1 Encounter for screening for diabetes mellitus
CPT/HCPCS: 36415; 81001; 82950; 85025; 87086; G0378; G0379

== ENCOUNTER 2024-11-18 08:56 | Outpatient (OUT) | payer OTHER, SELFPAY ==
--- OUTSIDE RECORDS SUMMARY | 2024-11-18 09:17 | XMS_ITS | CCD ---
Author Organization [facility] Care Team Providers Care Director [employer] Name Role Phone KAYK ., DR AVILA [...] Gatito LLANOS, Kuldeep Hernandez Primary Care Provider [phone] AB MENDOZA Attending MARIYA Echevarria Attending Unavailable AB MENDOZA Attending Unavailable AB MENDOZA Attending Unavailable MARIYA REZA Attending Unavailable Allergies Allergy Classification Reported Allergen(s) Allergy Type Date of Onset Reaction(s) Facility (1 source) Adhesive bandage Drug allergy (disorder) 3 [facility] Repository (1 source) Amoxicillin Drug Allergy diarrhea, vomiting [facility] Other Medications Current Medications Medication Drug Class(es) Dates Sig (Normalized) Sig (Original) [id number] 200 actuat albuterol 0.09 mg/actuat metered dose [...] UA Negative Negative - 4(70) +++ mg/dL [facility] Blood, UA Negative Negative - 50 Eric/mcL [facility] Clarity, UA Clear [facility] re Color, UA Yellow [facility] Healthcar e Glucose, UA Negative Negative - 1999(110) ++++ mg/dL [facility] Interpretation and review of laboratory results Abnormal [facility] Ketones, UA Negative Negative - 160(16) ++++ mg/dL [facility] Leukocytes, UA Trace Negative - 500+++ Miley/mcL [facility] Nitrite, UA Negative Negative - Positive [facility] pH, UA 6 5 - 9 [facility] Healthcar e Protein, UA Negative Negative - 1999(20) ++++ mg/dL [facility] Spec Grav, UA 1.02 1 - 1.03 [facility] care Urobilinogen, UA 1.0 0.2 - 12 mg/dL [facility] US OB 14+ WEEKS ANATOMY [...] report is generated using voice recognition reporting (ViajaNet). On occasion AppLearne erroneously drops words from the report or [...] UA Negative Negative - 4(70) +++ mg/dL [facility] Blood, UA Negative Negative - 50 Eric/mcL [facility] Clarity, UA Clear [facility] re Color, UA Yellow [facility] Vert[employer] Systemscar e Glucose, UA Negative Negative - 1999(110) ++++ mg/dL [facility] Interpretation and review of laboratory results Abnormal [facility] Ketones, UA Negative Negative - 160(16) ++++ mg/dL [facility] Leukocytes, UA Trace Negative - 500+++ Miley/mcL [facility] Nitrite, UA Negative Negative - Positive [facility] pH, UA 7 5 - 9 [facility] [employer] e Protein, UA Negative Negative - 1999(20) ++++ mg/dL [facility] Spec Grav, UA 1.02 1 - 1.03 [facility] care Urobilinogen, UA 0.2 0.2 - 12 mg/dL [facility] IGP,APTIMA HPV,AGE GDLNon AGE GDLN ACOG TESTING Note . [facility] Comment on above: TESTS RESULT FLAG UN ITS REF RANGE LAB Clinician Provided Cytology Information Source.............Cervix No. of containers..01 ThinPrep Vial Age Algo ACOG Jo Ann... FLAG LEGEND: L-Low Normal,H-High Normal,LL-Alert Low,HH-Alert High <-Panic Low,>-Panic High,A-Abnormal,AA-Critical Abnormal Performed at: 01 =G [facility] [id number] Riddhi Goodman MD, IGP, RFX APTIMA HPV ASCU Note . [facility] Comment on above: TESTS RESULT FLAG UN ITS REF RANGE LAB DIAGNOSIS: 02 NEGATIVE FOR INTRAEPITHELIAL LESION OR MALIGNANCY. Specimen adequacy: 02 Satisfactory for evaluation. Endocervical and/or squamous metaplastic cells (endocervical component) are present. Performed by: 02 Krystal Canada, Light Truck Driver ([facility]) . 02 Note: Note 02 The Pap [...] <-Panic Low,>-Panic High,A-Abnormal,AA-Critical Abnormal Performed at: [address] [id number] Riddhi Goodman MD, Performed at: = - [facility] [id number] [place] Guide: Riddhi Goodman MD, Phone: [phone] Performed at: [facility] [address] [id number] [place] Guide: Riddhi Goodman MD, Phone: [phone] SPATULA-ALONE CERVIX [facility] Healthcar e RECURRENT VAGINITIS (HTRX)on 09-01-2024 ATOPOBIUM VAGINAE 20.876 Abnormal [facility]care ATOPOBIUM VAGINAE Detected Abnormal [facility] BVAB 2,3 (BACTERIAL VAGINOSIS ASSOCIATED BACTERIA 2, 3); MOBILUNCUS SPP 24.4 Abnormal [facility] BVAB 2,3 (BACTERIAL VAGINOSIS ASSOCIATED BACTERIA 2, 3); MOBILUNCUS SPP Detected Abnormal [facility] ANGELA ALBICANS, PARAPSILOSIS, TROPICALIS 0 [facility] ANGELA ALBICANS, PARAPSILOSIS, TROPICALIS Not detected [facility] ANGELA GLAB[facility]ATA [facility]GELA GLABRATA Not detected [facility] ANGELA KRUSEI [facility] ANGELA KRUSEI Not detected [facility] CHLAMYDIA TRACHOMATIS 0 [facility] CHLAMYDIA TRACHOMATIS Not detected [facility] ERMB, C; MEFA 16.624 Abnormal [facility] Health care ERMB, C; MEFA Detected Abnormal [facility] care GARDNERELLA VAGINALIS 22.69 Abnormal [facility] GARDNERELLA VAGINALIS Detected Abnormal [facility] Interpretation and review of laboratory results Abnormal [facility] MEGASPHAERA (TYPES 1, 2) 0 [facility] MEGASPHAERA (TYPES 1, 2) Not detected [facility] MYCOPLASMA GENITALIUM 0 [facility] MYCOPLASMA GENITALIUM Not detected [facility] NEISSERIA GONORRHOEAE 0 [facility] NEISSERIA GONORRHOEAE Not detected [facility] TET B, TET M 15.188 Abnormal [facility] are TET B, TET M Detected Abnormal [facility] are TRICHOMONAS VAGINALIS 0 [facility] TRICHOMONAS VAGINALIS Not detected [facility] Urinalysis macro (dipstick) panel (U)on 08-30-2024 Bilirubin, UA Negative Negative - 4(70) +++ mg/dL [facility] Blood, UA Negative Negative - 50 Eric/mcL [facility] Healthcare Clarity, UA Clear [facility] re Color, UA Yellow [facility] Health[facility] e Glucose, UA Negative Negative - 1999(110) ++++ mg/dL [facility] Interpretation and review of laboratory results Abnormal [facility] Ketones, UA Negative Negative - 160(16) ++++ mg/dL [facility] Leukocytes, UA Moderate Negative - 500+++ Miley/mcL [facility] Nitrite, UA Negative Negative - Positive [facility] pH, UA 7 5 - 9 [facility] Healthcar e Protein, UA Negative Negative - 1999(20) ++++ mg/dL [facility] Spec Grav, UA 1.02 1 - 1.03 [facility] Urobilinogen, UA 0.2 0.2 - 12 mg/dL [facility] Urinalysis macro (dipstick) panel (U)on 07-28-2024 Bilirubin, UA Negative Negative - 4(70) +++ mg/dL [facility] Blood, UA Negative Negative - 50 Eric/mcL [facility] Healthcare Clarity, UA Cloudy [facility] re Color, UA Yellow [facility] Health[facility] Glucose, UA Negative Negative - 1999(110) ++++ mg/dL [facility] Interpretation and review of laboratory results Abnormal [facility] Ketones, UA Negative Negative - 160(16) ++++ mg/dL [facility] Leukocytes, UA Positive Negative - 500+++ Miley/mcL [facility] Healthcare Comment on above: small Nitrite, UA Negative Negative - Positive [facility] pH, UA 7 5 - 9 [facility] Healthcar e Protein, UA Positive Negative - 1999(20) ++++ mg/dL [facility] Comment on above: 30 mg Spec Grav, UA 1.025 1 - 1.03 [facility] Urobilinogen, UA 1.0 0.2 - 12 mg/dL [facility] ALL CBC WITH AUTO DIFFon BASOPHILS ABSOLUTE AUTO 0.1 [facility] Basophils/100 WBC (Bld) 0.6 % 0.2 - 2.0 % [facility] Eosinophils/100 WBC (Bld) 2.7 % 0.9 - 7.0 % [facility] Erythrocyte distribution width (RBC) [Ratio] 12.3 % 11.0 - 15.0 % [facility] Hematocrit (Bld) [Volume fraction] 38.4 % 36.0 - 48.0 % [facility] Healthcar e Hemoglobin (Bld) [Mass/Vol] 13.4 g/dL 12.0 - 16.0 g/dL [facility] IMMATURE GRANULOCYTES ABS AUTO 0.04 High [facility] Immature granulocytes/100 WBC (Bld) 0.4 % 0.0 - 0.5 % [facility] Interpretation and review of laboratory results Abnormal [facility] LYMPHOCYTES ABSOLUTE AUTO 2.2 [facility] Lymphocytes/100 WBC (Bld) 19.4 % Low 20.5 - 60.0 % [facility] MCH (RBC) [Entitic mass] 30.7 pg 26.7 - 34.0 pg [facility] MCHC (RBC) [Mass/Vol] 34.9 g/dL 29.9 - 35.2 g/dL [facility] MCV (RBC) [Entitic vol] 88.1 fL 81.0 - 99.0 fL [facility] MONOCYTES ABSOLUTE AUTO 0.7 [facility] Monocytes/100 WBC (Bld) 6.3 % 1.7 - 12.0 % [facility] NEUTROPHILS ABSOLUTE AUTO 8 High [facility] Neutrophils/100 WBC (Bld) 70.6 % 43.0 - 75.0 % [facility] Platelet mean volume (Bld) [Entitic vol] 10.6 fL 9.5 - 13.5 fL [facility] Healthc are TBH EO # 0.3 [facility] TBH PLT 313 [facility] TB RBC 4.36 [facility] TBH WBC 11.3 High [facility]IN[facility] ALL TYPE AND SCREENon 2023 ABO and Rh group Nom (Bld) Blood group A Rh(D) positive [facility] , [facility] NOM Healthcar e BOX TESTon 07-27-2024 BOX TEST SENT OUT Y [facility]care BOX1 UNITY [facility] e BOX2 07/27/24 [facility] e UNITY BOX [facility] e MLR HEMOGLOBIN A1Con 024 Glucose [Mass/Vol] 100 mg/dL [facility] HbA1c (Bld) [Mass fraction] 5.1 % 4.5 - 6.2 % [facility] Comment on above: ADA RECOMMENDED LIMI T 4.0 - 6.0 ADA THERAPEUTIC TARGET < 7.0 ACTION SUGGESTED > 7.0 [facility] DRUG SCREEN RAPID (URINE )on 07-27-2024 AMPHETAMINE SCREEN URINE Negative NEGATIVE [facility] BARBITURATES SCREEN URINE Negative NEGATIVE [facility] BENZODIAZEPINES SCREEN URINE Negative NEGATIVE [facility] BUPRENORPHINE SCREEN URINE Negative NEGATIVE [facility] Comment on above: DRUG CLASS [...] ng/mL CANNABINOID SCREEN URINE Positive Abnormal NEGATIVE [facility] COCAINE SCREEN URINE Negative NEGATIVE [facility] Interpretation and review of laboratory results Abnormal [facility] METHADONE SCREEN URINE Negative NEGATIVE [facility] METHAMPHETAMINES SCREEN URINE Negative NEGATIVE [facility] OPIATE SCREEN URINE Negative NEGATIVE [facility] OXYCODONE SCREEN URINE Negative NEGATIVE [facility] PHENCYCLIDINE SCREEN URINE Negative NEGATIVE [facility] TRICYCLIC ANTIDEPRESSANT URINE Negative NEGATIVE [facility] ( test) Ql (U)o n 07-09-2024 Interpretation and review of laboratory results Abnormal [facility] Preg Test, Ur Positive Negative [facility] e Urinalysis macro (dipstick) panel (U)on 07-09-2024 Bilirubin, UA Negative Negative - 4(70) +++ mg/dL [facility] Blood, UA Negative Negative - 50 Eric/mcL [facility] Clarity, UA Clear [facility] re Color, UA Yellow [facility] Healthcar e Glucose, UA Negative Negative - 1999(110) ++++ mg/dL [facility] Interpretation and review of laboratory results Normal [facility] Ketones, UA Negative Negative - 160(16) ++++ mg/dL [facility] Leukocytes, UA Negative Negative - 500+++ Miley/mcL [facility] Nitrite, UA Negative Negative - Positive [facility] pH, UA 5.5 5 - 9 [facility] Healthcar e Protein, UA Negative Negative - 1999(20) ++++ mg/dL [facility] Spec Grav, UA 1.02 1 - 1.03 [facility] Urobilinogen, UA 1.0 0.2 - 12 mg/dL [facility] Quick Strepon 05-30-2023 S. pyogenes Org specific cx Ql (Throat) Negative [facility] Other Quick Strep [employer] [facility] [employer] Other PAP ACOG PANEL 2: 21 to 29on 11-08-2022 . . Normal [facility] Comment on above: Result Comment: Perf ormed at: [facility] Performed By: #### [id number] #### [facility] [address] [place] [address] Dr. Meryl Damon Age Gdln ACOG Testing [facility] Comment on above: Performed By: #### [id number] #### [facility] [address] [address] [address] Meryl Damon DIAGNOSIS: Comment [facility] Comment on above: Result Comment: NEGA TIVE FOR INTRAEPITHELIAL LESION OR MALIGNANCY. Performed at: [facility] Performed By: #### [id number] #### [facility] [address] [address] [address] Meryl Damon Methodology: Comment [facility] Comment on above: Result Comment: This liquid based ThinPrep(R) pap test was screened with the use of an image guided system. Performed at: [facility] Performed By: #### [id number] #### [facility] [address] [address] [address] eMryl Damon Note: Comment [facility] Comment on above: Result Comment: The Pap smear is a screening test designed to aid in the detection of premalignant and malignant conditions of the uterine cervix. It is not a diagnostic procedure and should not be used as the sole means of detecting cervical cancer. Both false-positive and false-negative reports do occur. . Performed at: [facility] Performed By: #### [id number] #### [facility] [address] [place] [address] Dr. Meryl Damon Performed by: Comment Normal [facility] Comment on above: Result Comment: Luz Valverde Light Truck Driver (ASCP) Performed at: [facility] Performed By: #### [id number] #### [facility] [address] [place] [address] Dr. Meryl aDmon Reflex Criteria: Comment Normal [facility] Comment on above: Result Comment: The HPV DNA reflex criteria were not met with this specimen result therefore, no HPV testing was performed. . Performed at: [facility] Performed By: #### [id number] #### [facility] [address] [place] [address] Dr. Meryl Damon Specimen adequacy: Comment Normal [facility] Comment on above: Result Comment: Sati sfactory for evaluation. Endocervical and/or squamous metaplastic cells (endocervical component) are present. Areas of partially obscuring inflammatory exudate are present. Performed at: [facility] Performed By: #### [id number] #### [facility] [address] [place] [address] Dr. Meryl Damon CBC AUTO DIFFon 02-19-2022 BASO # 0.1 103/ul Normal 0.0-0.1 [facility] Comment on above: Performed By: #### C BC #### [facility] [address] [place] [address] Dr. Meryl Damon Basophils/100 WBC (Bld) 0.3 % Normal 0.2-2.0 [facility] Comment on above: Performed By: #### C BC #### [facility] [address] [place] [address] Dr. Meryl Damon EO # 0.1 103/ul Normal 0.0-0.7 [facility] Comment on above: Performed By: #### C BC #### [facility] [address] [place] [address] Dr. Meryl Damon Eosinophils/100 WBC (Bld) 0.7 % Critically low 0.9-7.0 [facility] Comment on above: Performed By: #### C BC #### [facility] [address] [place] [address] Dr. Meryl Damon Erythrocyte distribution width (RBC) [Ratio] 14.1 % Normal 11.0-15.0 [facility] Comment on above: Performed By: #### C BC #### [facility] [address] [place] [address] Dr. Meryl Damon Hematocrit (Bld) [Volume fraction] 31.1 % Critically low 36.0-48.0 [facility] Comment on above: Performed By: #### C BC #### [facility] [address] [place] [address] Dr. Meryl Damon Hemoglobin (Bld) [Mass/Vol] 10.1 g/dL Critically low 12.0-16.0 [facility] Comment on above: Performed By: #### C BC #### [facility] [address] [place] [address] Dr. Meryl Damon IG # 0.09 10e3/ul Critically high 0.00-0.03 [facility] Comment on above: Performed By: #### C BC #### [facility] [address] [place] [address] Dr. Meryl Damon IG % 0.5 % Normal 0.0-0.5 [facility] Comment on above: Performed By: #### C BC #### [facility] [address] [place] [address] Dr. Meryl Damon LYMPH # 1.9 103/ul Normal 1.2-3.8 [facility] Comment on above: Performed By: #### C BC #### [facility] [address] [place] [address] Dr. Meryl Damon Lymphocytes/100 WBC (Bld) 11.5 % Critically low 20.5-60.0 [facility] Comment on above: Performed By: #### C BC #### [facility] [address] [place] [address] Dr. Meryl Damon MANUAL DIFF REQ NO Normal [facility] Comment on above: Performed By: #### C BC #### [facility] [address] [place] [address] Dr. Meryl Damon MCH (RBC) [Entitic mass] 28.8 pg Normal 26.7-34.0 [facility] Comment on above: Performed By: #### C BC #### [facility] [address] [place] [address] Dr. Meryl Damon MCHC (RBC) [Mass/Vol] 32.5 g/dL Normal 29.9-35.2 [facility] Comment on above: Performed By: #### C BC #### [facility] [address] [place] [address] Dr. Meryl Damon MCV (RBC) [Entitic vol] 88.6 fL Normal 81.0-99.0 [facility] Comment on above: Performed By: #### C BC #### [facility] [address] [place] [address] Dr. Meryl Damon MONO # 1.8 103/ul Critically high 0.3-0.[address] [facility] Comment on above: Performed By: #### C BC #### [facility] [address] [place] [address] Dr. Meryl Damon Monocytes/100 WBC (Bld) 11.2 % Normal 1.7-12.0 [facility] Comment on above: Performed By: #### C BC #### [facility] [address] [place] [address] Dr. Mreyl Damon NEUT # 12.4 103/ul Critically high 1.4-6.5 [facility] Comment on above: Performed By: #### C BC #### [facility] [address] [place] [address] Dr. Meryl Damon Neutrophils/100 WBC (Bld) 75.8 % Critically high 43.0-75.0 [facility] Comment on above: Performed By: #### C BC #### [facility] [address] [address] [address] Meryl Damon Platelet mean volume (Bld) [Entitic vol] 11.5 fL Normal 9.5-13.5 [facility] Comment on above: Performed By: #### C BC #### [facility] [address] [address] [address] Meryl Damon PLT 186 103/ul Normal 150-450 [facility] Comment on above: Performed By: #### C BC #### [facility] [address] [address] [address] Meryl Damon RBC 3.51 106/ul Critically low 4.20-5.[address] [facility] Comment on above: Performed By: #### C BC #### [facility] [address] [place] [address] Dr. Meryl Damon WBC 16.4 103/ul Critically high 4.0-11.0 [facility] Comment on above: Performed By: #### C BC #### [facility] [address] [place] [address] Dr. Meryl Damon CBC AUTO DIFFon 02-17-2022 BASO # 0.0 103/ul Normal 0.0-0.1 [facility] Comment on above: Performed By: #### C BC #### [facility] [address] [place] [address] Dr. Meryl Damon Basophils/100 WBC (Bld) 0.1 % Critically low 0.2-2.0 [facility] Comment on above: Performed By: #### C BC #### [facility] [address] [place] [address] Dr. Meryl Damon EO # 0.1 103/ul Normal 0.0-0.7 [facility] Comment on above: Performed By: #### C BC #### [facility] [address] [place] [address] Dr. Meryl Damon Eosinophils/100 WBC (Bld) 0.6 % Critically low 0.9-7.0 [facility] Comment on above: Performed By: #### C BC #### [facility] [address] [place] [address] Dr. Meryl Damon Erythrocyte distribution width (RBC) [Ratio] 13.9 % Normal 11.0-15.0 [facility] Comment on above: Performed By: #### C BC #### [facility] [address] [place] [address] Dr. Meryl Damon Hematocrit (Bld) [Volume fraction] 35.2 % Critically low 36.0-48.0 [facility] Comment on above: Performed By: #### C BC #### [facility] [address] [place] [address] Dr. Meryl Damon Hemoglobin (Bld) [Mass/Vol] 11.8 g/dL Critically low 12.0-16.0 [facility] Comment on above: Performed By: #### C BC #### [facility] [address] [place] [address] Dr. Meryl Damon IG # 0.08 10e3/ul Critically high 0.00-0.03 [facility] Comment on above: Performed By: #### C BC #### [facility] [address] [place] [address] Dr. Meryl Damon IG % 0.6 % Critically high 0.0-0.[address] [facility] Comment on above: Performed By: #### C BC #### [facility] [address] [place] [address] Dr. Meryl Damon LYMPH # 1.7 103/ul Normal 1.2-3.8 [facility] Comment on above: Performed By: #### C BC #### [facility] [address] [place] [address] Dr. Meryl Damon Lymphocytes/100 WBC (Bld) 12.8 % Critically low 20.5-60.0 [facility] Comment on above: Performed By: #### C BC #### [facility] [address] [place] [address] Dr. Meryl Damon MANUAL DIFF REQ NO Normal [facility] Comment on above: Performed By: #### C BC #### [facility] [address] [address] [address] Meryl Damon MCH (RBC) [Entitic mass] 29.4 pg Normal 26.7-34.0 [facility] Comment on above: Performed By: #### C BC #### [facility] [address] [address] [address] Meryl Damon MCHC (RBC) [Mass/Vol] 33.5 g/dL Normal 29.9-35.2 [facility] Comment on above: Performed By: #### C BC #### [facility] [address] [address] Dr. Meryl Damon MCV (RBC) [Entitic vol] 87.6 fL Normal 81.0-99.0 [facility] Comment on above: Performed By: #### C BC #### [facility] [address] [place] [address] Dr. Meryl Damon MONO # 1.1 103/ul Critically high 0.3-0.[address] [facility] Comment on above: Performed By: #### C BC #### [facility] [address] [place] [address] Dr. Meryl Damon Monocytes/100 WBC (Bld) 7.8 % Normal 1.7-12.0 [facility] Comment on above: Performed By: #### C BC #### [facility] [address] [place] [address] Dr. Meryl Damon NEUT # 10.4 103/ul Critically high 1.4-6.5 [facility] Comment on above: Performed By: #### C BC #### [facility] [address] [place] [address] Dr. Meryl Damon Neutrophils/100 WBC (Bld) 78.1 % Critically high 43.0-75.0 [facility] Comment on above: Performed By: #### C BC #### [facility] [address] [place] [address] Dr. Meryl Damon Platelet mean volume (Bld) [Entitic vol] 11.5 fL Normal 9.5-13.5 [facility] Comment on above: Performed By: #### C BC #### [facility] [address] [address] [address] Meryl Damon PLT 265 103/ul Normal 150-450 [facility] Comment on above: Performed By: #### C BC #### [facility] [address] [address] [address] Meryl Damon RBC 4.02 106/ul Critically low 4.20-5.40 [facility] Comment on above: Performed By: #### C BC #### [facility] [address] [address] [address] Meryl Damon WBC 13.4 103/ul Critically high 4.0-11.0 [facility] Comment on above: Performed By: #### C BC #### [facility] [address] [address] [address] Meryl Damon Covid-19 PCR (CVDTBH)on 01-30 SARS-CoV-2 (COVID-19) RNA MADISON+probe Ql (Unsp spec) Not detected Normal NOT DETECTED [facility] Comment on above: Result Comment: When [...] for this test is supported by the Water Supervisor of Health and Human Service's declaration that [...] used). Performed By: #### C VDTBH #### [facility] [address] [address] [address] Meryl Damon DRUG SCREEN RAPID (URINE)on 02-17-2022 AMP Negative Normal NEGATIVE [facility] Comment on above: Performed By: #### D RUGRPD #### [facility] [address] [place] [address] Dr. Meryl Damon BAR Negative Normal NEGATIVE [facility] Comment on above: Performed By: #### D RUGRPD #### [facility] [address] [place] [address] Dr. Meryl Damon BUP Negative Normal NEGATIVE [facility] Comment on above: Performed By: #### D RUGRPD #### [facility] [address] [place] [address] Dr. Meryl Damon BZO Negative Normal NEGATIVE [facility] Comment on above: Performed By: #### D RUGRPD #### [facility] [address] [place] [address] Dr. Meryl Damon EDGAR Negative Normal NEGATIVE [facility] Comment on above: Performed By: #### D RUGRPD #### [facility] [address] [place] [address] Dr. Meryl Damon CUT-OFFS SEE BELOW Normal [facility] Comment on above: Result Comment: AMP [...] ng/mL Performed By: #### D RUGRPD #### [facility] [address] [place] [address] Dr. Meryl Damon DRUG CUT HEADER DRUG CLASS TEST SYSTEM CUT-OFF CONCENTRATIONS ARE FOLLOWS: Normal [facility] Comment on above: Performed By: #### D RUGRPD #### [facility] [address] [address] [address] Meryl Damon mAMP Negative Normal NEGATIVE [facility] Comment on above: Performed By: #### D RUGRPD #### [facility] [address] [address] [address] Meryl Damon MTD Negative Normal NEGATIVE [facility] Comment on above: Performed By: #### D RUGRPD #### [facility] [address] [address] [address] Meryl Damon OPI Negative Normal NEGATIVE [facility] Comment on above: Performed By: #### D RUGRPD #### [facility] [address] [address] [address] Meryl Damon OXY Negative Normal NEGATIVE [facility] Comment on above: Performed By: #### D RUGRPD #### [facility] [address] [place] [address] Dr. Meryl Damon PCP Negative Normal NEGATIVE [facility] Comment on above: Performed By: #### D RUGRPD #### [facility] [address] [place] [address] Dr. Meryl Damon PPX Negative Normal NEGATIVE [facility] Comment on above: Performed By: #### D RUGRPD #### [facility] [address] [place] [address] Dr. Meryl Damon TCA Negative Normal NEGATIVE [facility] Comment on above: Performed By: #### D RUGRPD #### [facility] [address] [place] [address] Dr. Meryl Damon THC Positive Abnormal NEGATIVE [facility] Comment on above: Performed By: #### D RUGRPD #### [facility] [address] [place] [address] Dr. Meryl Damon TYPE AND SCREENon 02-17-2022 TYPE AND SCREEN Negative Normal [facility] Comment on above: Performed By: #### G LU1HR #### [facility] [address] [place] [address] Dr. Meryl Damon US PREG GROWTHon 02-06-2022 [...] TANYA SHEIKH Date: 2022-02-06 16:11 Normal [facility] GROUP B STREP CULTUREon 12-31 S. agalactiae Ag Ql (Unsp spec) Culture Observations: unable to isolate beta- possible Group B Normal [facility] Comment on above: Performed By: #### G LU1HR #### [facility] [address] [place] [address] Dr. Meryl Damon CULTURE URINEon 01-17-2022 CULTURE URINE Culture Observations: MODERATE GROWTH OF MIXED GENITAL SENA. NO POTENTIAL PATHOGENS SEEN. Normal [facility] Comment on above: Performed By: #### G LU1HR #### [facility] [address] [place] [address] Dr. Meryl Damon UA (CLEAN/CATCH) EDITING INTERN/MICRO I F IND.on 01-17-2022 Bilirubin Ql (U) Negative Normal NEGATIVE [facility] Comment on above: Performed By: #### U MICRO, UACSIND #### [facility] [address] [place] [address] Dr. Meryl Damon Clarity (U) CLEAR Normal CLEAR [facility] Comment on above: Performed By: #### U MICRO, UACSIND #### [facility] [address] [address] [address] Meryl Damon Color (U) LT. YELLOW Normal YELLOW [facility] Comment on above: Performed By: #### U MICRO, UACSIND #### [facility] [address] [address] [address] Meryl Damon Glucose Ql (U) Negative Normal NEGATIVE [facility] Comment on above: Performed By: #### U MICRO, UACSIND #### [facility] [address] [address] [address] Meryl Damon Hemoglobin Ql (U) SMALL Abnormal NEGATIVE [facility] Comment on above: Performed By: #### U MICRO, UACSIND #### [facility] [address] [address] [address] Meryl Damon Ketones Ql (U) Negative Normal NEGATIVE [facility] Comment on above: Performed By: #### U MICRO, UACSIND #### [facility] [address] [address] [address] Meryl Damon LEUKOCYTES LARGE Abnormal NEGATIVE [facility] Comment on above: Performed By: #### U MICRO, UACSIND #### [facility] [address] [address] [address] Meryl Damon Nitrite Ql (U) Negative Normal NEGATIVE [facility] Comment on above: Performed By: #### U MICRO, UACSIND #### [facility] [address] [address] [address] Meryl Damon pH (U) 8.0 [pH] Normal 5-9 [facility] Comment on above: Performed By: #### U MICRO, UACSIND #### [facility] [address] [address] [address] Meryl Damon SPEC GRAVITY 1.010 Normal 1.005-<=1.025 [facility] Comment on above: Performed By: #### U MICRO, UACSIND #### [facility] [address] [address] [address] Meryl Damon UA PROTEIN Negative Normal NEGATIVE/ TRACE [facility] Comment on above: Performed By: #### U MICRO, UACSIND #### [facility] [address] [address] [address] Meryl Damon UR MICRO IND INDICATED Normal [facility] Comment on above: Performed By: #### U MICRO, UACSIND #### [facility] [address] [address] [address] Meryl Damon Urobilinogen Qn (U) 0.2 {Yovanny'U}/dL Normal 0.2 - 1. 0 [facility] Comment on above: Performed By: #### U MICRO, UACSIND #### [facility] [address] [address] [address] Meryl Damon URINE MICROSCOPIC ONLYon BACTERIA TRACE Abnormal NONE SEEN [facility] Comment on above: Performed By: #### U MICRO, UACSIND #### [facility] [address] [place] [address] Dr. Meryl Damon Bacteria identified Cx Nom (U) INDICATED Normal [facility] Comment on above: Performed By: #### U MICRO, UACSIND #### [facility] [address] [place] [address] Dr. Meryl Damon CAST NONE SEEN Normal NONE SEEN [facility] Comment on above: Performed By: #### U MICRO, UACSIND #### [facility] [address] [place] [address] Dr. Meryl Damon Crystals LM Nom (Urine sed) NONE SEEN Normal NONE SEEN [facility] Comment on above: Performed By: #### U MICRO, UACSIND #### [facility] [address] [address] [address] Meryl Damon Epithelial cells LM Ql (Urine sed) MANY Abnormal NONE SEEN /RARE [facility] Comment on above: Performed By: #### U MICRO, UACSIND #### [facility] [address] [place] [address] Dr. Meryl Damon MUCOUS TRACE Abnormal NONE SEEN [facility] Comment on above: Performed By: #### U MICRO, UACSIND #### [facility] [address] [place] [address] Dr. Meryl Damon RBC 5-10 Abnormal 0-2 [facility] Comment on above: Performed By: #### U MICRO, UACSIND #### [facility] [address] [place], [place] [address] Dr. Meryl Damon WBC 20-50 Abnormal NONE SEEN [facility] Comment on above: Performed By: #### U MICRO, UACSIND #### [facility] [address] [place], [place] [address] Dr. Meryl Damon US KIDNEYSon 01-17-2022 US [...] CORNELL BONDS Date: 2022-01-17 14:20 Normal [facility] US PREG REEVAL ABNon 022 US [...] by: CORNELL BONDS Date: 2022-01-09 09:14 Normal [facility] US PREG GROWTHon 12-17-2021 US PREG [...] by: CORNELL BONDS Date: 2021-12-17 10:10 Normal [facility] GTT 3 HR PREGon 12-07-2021 Glucose [Mass/Vol] 85 mg/dL Normal 74-106 [facility] Comment on above: Performed By: #### G TT3P #### [facility] [address] [address] [address] Meryl Damon Glucose [Mass/Vol] 123 mg/dL Normal [facility] Comment on above: Performed By: #### G TT3P #### [facility] [address] [address] [address] Meryl Damon Glucose [Mass/Vol] 84 mg/dL Normal [facility] Comment on above: Performed By: #### G TT3P #### [facility] [address] [address] [address] Meryl Damon GLUCOSE - 1HRon 11-26-2021 Glucose [Mass/Vol] 146 mg/dL Critically high 74-106 [facility] Comment on above: Performed By: #### G LU1HR #### [facility] [address] [address] [address] Meryl Damon HEMOGRAM AND PLATELon 2021 Hematocrit (Bld) [Volume fraction] 38.3 % Normal 36.0-48.0 [facility] Comment on above: Performed By: #### G LU1HR #### [facility] [address] [place] [address] Dr. Meryl Damon Hemoglobin (Bld) [Mass/Vol] 12.6 g/dL Normal 12.0-16.0 [facility] Comment on above: Performed By: #### G LU1HR #### [facility] [address] [place] [address] Dr. Meryl Damon MCH (RBC) [Entitic mass] 30.9 pg Normal 26.7-34.0 [facility] Comment on above: Performed By: #### G LU1HR #### [facility] [address] [place] [address] Dr. Meryl Damon MCHC (RBC) [Mass/Vol] 32.9 g/dL Normal 29.9-35.2 [facility] Comment on above: Performed By: #### G LU1HR #### [facility] [address] [place] [address] Dr. Meryl Damon MCV (RBC) [Entitic vol] 93.9 fL Normal 81.0-99.0 [facility] Comment on above: Performed By: #### G LU1HR #### [facility] [address] [place] [address] Dr. Meryl Damon PLT 225 103/ul Normal 150-450 [facility] Comment on above: Performed By: #### G LU1HR #### [facility] [address] [place] [address] Dr. Meryl Damon RBC 4.08 106/ul Critically low 4.20-5.40 [facility] Comment on above: Performed By: #### G LU1HR #### [facility] [address] [place] [address] Dr. Meryl Damon WBC 8.5 103/ul Normal 4.0-11.0 [facility] Comment on above: Performed By: #### G LU1HR #### [facility] [address] [place] [address] Dr. Meryl Damon Vital Signs Date Time Vital Sign Value Performing Clinician Facility 10-25-2024 11:25-0500 Body mass index (BMI) [Ratio] 24.91 kg/m2 Mariya WHIPPLE Work Phone: [facility] 10-25-2024 11:25-0500 Body weight 74.3 kg Mariya Reza PA Work Phone: [facility] 10-25-2024 11:25-0500 Diastolic blood pressure 68 mm[Hg] Mariya Reza PA Work Phone: [facility] 10-25-2024 11:25-0500 Systolic blood pressure 108 mm[Hg] Mariya Reza PA Work Phone: [facility] 09-27-2024 14:07-0500 Body mass index (BMI) [Ratio] 24.18 kg/m2 Ab Reji DO Work Phone: [facility] 09-27-2024 14:07-0500 Body weight 72.12 kg Ab Reji DO Work Phone: [facility] 09-27-2024 14:07-0500 Diastolic blood pressure 60 mm[Hg] Ab Reji DO Work Phone: [facility] 09-27-2024 14:07-0500 Systolic blood pressure 116 mm[Hg] Ab Reji DO Work Phone: [facility] 08-30-2024 12:17-0500 Body mass index (BMI) [Ratio] 23.72 kg/m2 Mariya WHIPPLE Work Phone: [facility] 08-30-2024 12:17-0500 Body weight 70.76 kg Mariya Reza PA Work Phone: [facility] 08-30-2024 12:17-0500 Diastolic blood pressure 62 mm[Hg] Mariya Reza PA Work Phone: [facility] 08-30-2024 12:17-0500 Systolic blood pressure 108 mm[Hg] Mariya Reza PA Work Phone: [facility] 07-28-2024 14:35-0500 Body mass index (BMI) [Ratio] 23.11 kg/m2 Ab Reji DO Work Phone: [facility] 07-28-2024 14:35-0500 Body weight 68.95 kg Ab Reji DO Work Phone: [facility] 07-28-2024 14:35-0500 Diastolic blood pressure 70 mm[Hg] Ab Reji DO Work Phone: [facility] 07-28-2024 14:35-0500 Systolic blood pressure 116 mm[Hg] Ab Reji DO Work Phone: [facility] 05-30-2023 15:30-0400 Body height 170.18 cm Monica Flores Other [facility] Other 05-30-2023 15:30-0400 Body mass index (BMI) [Ratio] 21.3 kg/m2 Monica Flores Other [facility] Other 05-30-2023 15:30-0400 Body temperature 98.9 [degF] Monica Sandra Other [facility] Other 05-30-2023 15:30-0400 Body weight 61.69 kg Monica Sandra Other [facility] Other 05-30-2023 15:30-0400 Diastolic blood pressure 63 mm[Hg] Monica Flores Other [facility] Other 05-30-2023 15:30-0400 Respiratory rate 18 /min Monica Flores Other [facility] Other 05-30-2023 15:30-0400 SaO2% (BldA) [Mass fraction] 97 % Monica Flores Other [facility] Other 05-30-2023 15:30-0400 Systolic blood pressure 118 mm[Hg] Monica Flores Other [employer] Other Encounters Encounter Date Encounter Type Care [...] Patient encounter procedure Mariya WHIPPLE Work Phone: [facility] Start: 08-30-2024 End: 08-30-2024 Periodic preventive med est patient 18-39 yrs Mariya WHIPPLE Work Phone: [facility] Comment on above: Well [...] Bamboo flowsheet Ab Reji DO Work Phone: [facility] Start: 07-28-2024 End: 07-28-2024 Bamboo flowsheet Ab Reji DO Work Phone: [facility] Start: 07-27-2024 End: 07-27-2024 Clinisync Result Encounter Ab Reji DO Work Phone: [facility] External Department Unsolicited Start: 07-27-2024 End: 07-27-2024 Clinisync Result Encounter Ab Reji DO Work Phone: [facility] External Department Unsolicited Start: 07-09-2024 End: 07-09-2024 ambulatory AB REJI Not Available Start: 07-09-2024 End: 07-09-2024 Office outpatient visit 5 minutes [facility] Reji Nurse [facility] Comment on above: GA: 9w2d Start: 02-04-2024 End: 02-04-2024 ambulatory AB REJI Not Available Start: 05-30-2023 End: 05-30-2023 ambulatory Monica Flores Other [employer] Other Start: 05-30-2023 Office outpatient ne w 20 minutes Monica Sandra [facility] Start: 11-05-2022 End: [...] Phone: Start: 08-30-2024 IGP,APTIMA HPV,AGE GDLN Mariya [place] PA Work Phone: Start: 07-28-2024 Urnls dip stick/tabl et rgnt non-auto w/o micrscp Ab Nroiegao DO Work Phone: Start: 07-27-2024 Antibody screen [...] AM EDT Routine [facility] [address] [place] [id number] Ab Mendoza, DO [address] [place] [address] [facility] Start: 10-25-2024 End: 10-25-2025 [...] mellitus screening Expected: 10/25/2024 (Approximate), Expires: 10/25/2025 [facility] Comment on above: Expected: 10/25/2024 (Approximate), Expires: 10/25/2025 Start: 10-25-2024 End: 10-25-2024 Patient encounter procedure [facility] Comment on above: Arrived Start: 09-27-2024 End: 09-27-2024 Patient encounter procedure 09/27/2024 2:00 PM EST Routine [facility] [address] [id number] Ab Mendoza, [address] [place] [id number] [facility] Start: 09-27-2024 End: 09-27-2024 Professional / ancillary services management 09/27/2024 1:00 PM EST Ancillary Procedure [facility] [address] [place] [id number] [facility] Start: 08-30-2024 End: 09-30-2024 Alpha fetoprotein, maternal Alpha fetoprotein, maternal Lab Routine Need for maternal serum alpha-protein (MSAFP) screening Expected: 08/30/2024 (Approximate), Expires: 09/30/2024 [facility] Comment on above: Expected: 08/30/2024 (Approximate), Expires: 09/30/2024 Start: 08-30-2024 End: 08-30-2025 US for US OB ANATOMY SINGLE W US OB CERVICAL LENGTH Imaging Routine Screening, , for anatomic survey Expected: 08/30/2024 (Approximate), Expires: 08/30/2025 [facility] Comment on above: Expected: 08/30/2024 (Approximate), Expires: 08/30/2025 Start: 08-30-2024 End: 08-30-2024 Patient encounter procedure 08/30/2024 11:20 AM EST Routine [facility] [address] [id number] Mariya Reza PA [address] [place] [address] [facility] Start: 07-28-2024 End: 07-28-2024 Patient encounter procedure [facility] Comment on above: Arrived Start: 07-09-2024 End: 07-09-2025 ABO/Rh ABO/Rh Lab Routine Missed menses , unspecified gestational age Expected: 07/09/2024 (Approximate), Expires: 07/09/2025 [facility] Comment on above: Expected: 07/09/2024 (Approximate), Expires: 07/09/2025 Start: 07-09-2024 End: 07-09-2025 Blood type and Indirect antibody screen panel - Blood Type and screen Lab Routine Missed menses , unspecified gestational age Expected: 07/09/2024 (Approximate), Expires: 07/09/2025 [facility] Work Phone: Comment on above: Expected: 07/09/2024 (Approximate), Expires: 07/09/2025 Start: 07-09-2024 End: 07-09-2025 Drugs of abuse panel - Urine by Screen method Rapid drug screen, urine Lab Routine , unspecified gestational age Encounter for supervision of normal first in first trimester Expected: 07/09/2024 (Approximate), Expires: 07/09/2025 [facility] Comment on above: Expected: 07/09/2024 (Approximate), Expires: 07/09/2025 Start: 07-09-2024 End: 07-09-2025 US Pelvis transvaginal US OB transvaginal Imaging Routine Missed menses Expected: 07/09/2024 (Approximate), Expires: 07/09/2025 [facility] Comment on above: Expected: 07/09/2024 (Approximate), Expires: 07/09/2025 Start: 05-02-2024 Influenza vaccination Influenza Vacc ine (#1) [facility] Bacteria identified in Urine by Culture Urine culture Microbiology Routine Missed menses Ordered: 07/09/2024 [facility] Comment on above: Ordered: 07/09/2024 CBC W Auto Different ial panel - Blood CBC and differential Lab Routine Missed menses , unspecified gestational age Ordered: 07/09/2024 [facility] Comment on above: Ordered: 07/09/2024 CHLAMYDIA TRACHOMATI S (GENITO/STI) CHLAMYDIA TRACHOMATIS (GENITO/STI) Lab Routine Exposure to STD Ordered: 08/30/2024 [facility] Comment on above: Ordered: 08/30/2024 Cytology Cervical or vaginal smear or scraping study Pap Smear Pathology and Cytology Routine Well woman exam with routine gynecological exam Ordered: 08/30/2024 [facility] Comment on above: Ordered: 08/30/2024 Hemoglobin A1c/Hemoglobin.total in Blood Hemoglobin A1c Lab Routine Missed menses , unspecified gestational age Ordered: 07/09/2024 [facility] Comment on above: Ordered: 07/09/2024 Hepatitis B virus surface Ag [Presence] in Serum or Plasma by Immunoassay Hepatitis B surface antigen Lab Routine Missed menses , unspecified gestational age Ordered: 07/09/2024 [facility] Comment on above: Ordered: 07/09/2024 Hepatitis C virus Ab [Presence] in Serum or Plasma by Immunoassay Hepatitis C antibody Lab Routine Missed menses , unspecified gestational age Ordered: 07/09/2024 [facility] Comment on above: Ordered: 07/09/2024 HIV-1/HIV-2 antigen/antibody combination immunoassay HIV-1 and HIV-2 antibodies Lab Routine Missed menses , unspecified gestational age Ordered: 07/09/2024 [facility] Comment on above: Ordered: 07/09/2024 Neisseria gonorrhoea e DNA [Presence] in Unspecified specimen by MADISON with probe detection Neisseria gonorrhea DNA probe, direct Lab Routine Exposure to STD Ordered: 08/30/2024 [facility] Comment on above: Ordered: 08/30/2024 Reagin Ab [Presence] in Serum by RPR RPR Lab Routine Missed menses , unspecified gestational age Ordered: 07/09/2024 [facility] Comment on above: Ordered: 07/09/2024 Rubella antibody, IgG Rubella an tibody, IgG Lab Routine Missed menses , unspecified gestational age Ordered: 07/09/2024 [facility] Comment on above: Ordered: 07/09/2024 SURESWAB(R) ADVANCED VAGINITIS PLUS, TMA SURESWAB(R) ADVANCED VAGINITIS PLUS, TMA Pathology and Cytology Routine Exposure to STD Ordered: 08/30/2024 [facility] Work Phone: Comment on above: Ordered: 08/30/2024 Immunizations Immunization Date Immunization Notes Care Provider Gilmar rea 07-21-2013 influenza virus vacc ine, unspecified formulation Mariya WHIPPLE Work Phone: [facility] Healthcare Payers Date Payer Category Payer Private Health Insurance [facility] [id number] 2000 Unknown [id number] 2.16.840.1.738562.3.579.2 59 2000 Unknown [id number] 2.16.840.1.496040.3.579.2. 59 2000 Unknown [id number] 2.16.840.1.970526.3.579.2 59 2000 Unknown [id number] 2.16.840.1.845081.3.579.2. 59 2000 Unknown [id number] 2.16.840.1.840123.3.579.2. 59 2000 Unknown [id number] 2.16.840.1.800393.3.579.2. 593 2000 Unknown [id number] 2.16.840.1.713487.3.579.2. 593 2000 Unknown [id number] 2.16.840.1.143914.3.579.2. 593 2000 Unknown [id number] 2.16.840.1.487989.3.579.2. 593 2000 Unknown [id number] 2.16.840.1.219844.3.579.2. 593 2000 Unknown [id number] 2.16.840.1.241887.3.579.2. 1259 2000 Unknown [id number] 2.16.840.1.901759.3.579.2. 1259 2000 Unknown [id number] 2.16.840.1.332779.3.579.2. 1259 2000 Unknown [id number] 2.16.840.1.611929.3.579.2. 1259 2000 Unknown [id number] 2.16.840.1.231865.3.579.2. 9 2000 Unknown [id number] 2.16.840.1.686713.3.579.2. 9 2000 Unknown [id number] 2.16.840.1.937674.3.579.2. 1259 1959 Unknown [id number] 1959 Unknown [id number] Social History Date Type Detail Facility Unknown if ever smoked [facility] [employer] Other Start: 02-04-2024 Sex Assigned At N [facility] [employer] Other Start: 02-04-2024 [facility] History of tobacco use Cigarette Smoker [facility] Start: 02-04-2024 Cigarettes smoked current (pack per day) - Reported 1.5 [facility] Start: 05-19-2024 [facility] Start: 2000 Sex assigned at Not on file N [facility] Clinical Notes 05-30-2023 to 10-25-2024 SARABJIT Toussaint - 10/25/2024 11:20 AM Chaka Rose, CUSTOMER CARE AGENT - 09/27/2024 2:00 PM SARABJIT Carrillo - [...] Problems Past Medical History: Diagnosis Date Asthma ([facility]) 2004 HISTORY PAST MEDICAL HISTORY SOCIAL HISTORY Past Medical History: Diagnosis Date Asthma ([facility]) 2004 Social History [...] of: SARABJIT Toussaint documented in this encounter [facility] 09-27-2024 History of Presen t [...] Problems Past Medical History: Diagnosis Date Asthma ([facility]) 2004 HISTORY PAST MEDICAL HISTORY SOCIAL HISTORY Past Medical History: Diagnosis Date Asthma ([facility]) 2004 Social History [...] nursing note reviewed. Exam conducted with a transfer professor present. Vitals: Estimated body mass index is [...] Mariya Reza PA-C documented in this encounter [facility] 08-30-2024 History of Presen t [...] Problems Past Medical History: Diagnosis Date Asthma ([facility]) 2005 HISTORY PAST MEDICAL HISTORY SOCIAL HISTORY Past Medical History: Diagnosis Date Asthma ([facility]) 2004 Social History [...] nursing note reviewed. Exam conducted with a transfer professor present. Vitals: Estimated body mass index is [...] of: SARABJIT Toussaint documented in this encounter [facility] 07-28-2024 History of Presen t [...] Problems Past Medical History: Diagnosis Date Asthma ([facility]) 2005 HISTORY PAST MEDICAL HISTORY SOCIAL HISTORY Past Medical History: Diagnosis Date Asthma ([facility]) 2004 Social History [...] nursing note reviewed. Exam conducted with a transfer professor present. Vitals: Estimated body mass index is [...] or undercooked meat, and stay away from [facility]. Patient has been consulted regarding any [...] Ab Mendoza DO documented in this encounter [facility] 07-09-2024 History of Presen t [...] Problems Past Medical History: Diagnosis Date Asthma ([facility]) 2004 No family history on file. [...] or undercooked meat, and stay away from [facility]. Patient has also been advised to [...] Radha Hernandez LPN documented in this encounter [facility] 05-30-2023 Evaluation note Encounter Date [...] B35.1) Onychomycosis home care material was printed [facility] Other Evaluation note* Diagnosis Missed menses , unspecified gestational age Encounter for supervision of normal first in first trimester Nausea and vomiting in Unspecified vomiting of , unspecified as to episode of care documented in this encounter [facility] HealthcareEvaluation note* Diagnosis First trimester state, incidental 12 weeks gestation of Nausea and vomiting in Unspecified vomiting of , unspecified as to episode of care documented in this encounter [facility] HealthcareEvaluation note* Diagnosis Well woman exam with routine gynecological exam Routine gynecological examination Second trimester state, incidental 16 weeks gestation of Exposure to STD Need for maternal serum alpha-protein (MSAFP) screening Screening, , for anatomic survey Encounter for anatomic survey documented in this encounter [facility] HealthcareEvaluation note* Diagnosis Second trimester state, incidental 20 weeks gestation of documented in this encounter [facility] HealthcareEvaluation note* Diagnosis Second trimester state, incidental 24 weeks gestation of Diabetes mellitus screening Screening for diabetes mellitus documented in this encounter [facility] Narrative - Reported* Type Description Date Medical History Drug abuse Medical History Depression Medical History Anxiety Surgical History tonsillectomy Surgical History PE tubes [facility] Other Summary Purpose Family History No Family History Records FoundNo Family History Records Found Advance Directives No Advanced Directives Records FoundNo Advanced Directives Records Found Additional Source Comments INFORMATION SOURCE (unrecogn ized section and content) DATE CREATED AUTHOR 11/11/2022 [facility] DATE CREATED AUTHOR AUTHOR'S ORGANIZ ATION 10/26/2024 [facility] EPIC REASON FOR VISIT (unrecogniz ed section and content) Reason Comments Routine Visit Care Teams (unrecognized sec tion and content) Director Talent Acquisition Relationship Specialty Start Date End Date Kuldeep Mederos MD [address] [place] [address] PCP - General Family Medicine 02/04/24 Director Talent Acquisition Relationship Specialty Start Date End Date Kuldeep Mederos MD [address] [place] [address] PCP - General Family Medicine 02/04/24 Director Talent Acquisition Relationship Specialty Start Date End Date Kuldeep Mederos MD [address] [place] [address] PCP - General Family Medicine 02/04/24 Director Talent Acquisition Relationship Specialty Start Date End Date Kuldeep Mederos MD [address] [place] [address] PCP - General Family Medicine 02/04/24 Director Talent Acquisition Relationship Specialty Start Date End Date Kuldeep Mederos MD [address] [place] [address] PCP - General Family Medicine 02/04/24 Director Talent Acquisition Relationship Specialty Start Date End Date Kuldeep Mederos MD [address] [place] [facility] [address] PCP - General Family Medicine 02/04/24 Director Talent Acquisition Relationship Specialty Start Date End Date Kuldeep Mederos MD [address] [place] [facility] [address] PCP - General Family Medicine 02/04/24 Director Talent Acquisition Relationship Specialty Start Date End Date Kuldeep Mederos MD [address] [place] [facility] [address] PCP - General Family Medicine 02/04/24 Director Talent Acquisition Relationship Specialty Start Date End Date Kuldeep Mederos MD [address] [place] [facility] [address] PCP - General Family Medicine 02/04/24 FOR [...] BE BASED ON THE PRIMARY CLINICAL RECORDS. [facility]. provides no warranty or guarantee of the accuracy or completeness of information in this document.
[2024-11-18 10:11] LABS: Basophils Percent Auto 0.3 % (0.2-2.0); Eosinophils Absolute Auto 0.1 10^3/uL (0.0-0.7); Eosinophils Percent Auto 1.4 % (0.9-7.0); Hematocrit 31.6 % (36.0-48.0); Hemoglobin 10.6 g/dL (12.0-16.0); Immature Granulocytes Abs Auto 0.02 10^3/uL (0.00-0.03); Immature Granulocytes Pct Auto 0.2 % (0.0-0.5); Lymphocytes Absolute Auto 2.1 10^3/uL (1.2-3.8); Mean Corpuscular HGB Conc 33.5 g/dL (29.9-35.2); Mean Corpuscular Hemoglobin 29.8 pg (26.7-34.0); Mean Corpuscular Volume 88.8 fL (81.0-99.0); Mean Platelet Volume 11.3 fL (9.5-13.5); Monocytes Absolute Auto 0.8 10^3/uL (0.3-0.8); Monocytes Percent Auto 8.6 % (1.7-12.0); Neutrophils Percent Auto 66.5 % (43.0-75.0); Platelet Count 249 10^3/uL (150-450); Red Blood Count 3.56 10^6/uL (4.20-5.40)
[2024-11-18 11:06] LABS: Glucose 1 Hour 73 mg/dL (<130)
== END 2024-11-18 08:57 | disposition home or self-care (01) ==
LOC: LAB 08:58
PROVIDERS: PCP Family Medicine; Visit Provider Physician Assistant
DX: Z13.1 Encounter for screening for diabetes mellitus (principal)
CPT/HCPCS: 36415; 82950; 85025

== ENCOUNTER 2025-01-02 13:46 | Observation (INO) | payer OTHER, SELFPAY ==
[2025-01-02 14:03] VITALS: BP 131/81; PULSE 116; TEMP 36.3
[2025-01-02 14:29] LABS: Bilirubin Urine NEGATIVE (NEGATIVE); Blood Urine NEGATIVE (NEGATIVE); Clarity Urine CLEAR (CLEAR); Color Urine LT. YELLOW (YELLOW); Glucose Urine UA NEGATIVE (NEGATIVE); Ketones Urine NEGATIVE (NEGATIVE); Leukocyte Esterase Urine LARGE (NEGATIVE); Nitrite Urine NEGATIVE (NEGATIVE); Protein Urine NEGATIVE (NEG/TRACE); Urobilinogen Urine 0.2 EU/dL (0.2-1.0)
[2025-01-02 14:30] LABS: Urine Microscopic Indicated YES
[2025-01-02 14:48] LABS: Bacteria Urine SMALL #/HPF (NONE SEEN); Cast Seen? NONE SEEN #/LPF (NONE SEEN); Crystals Seen? None Seen #/HPF (None Seen); Mucus Urine NONE SEEN (NONE SEEN); RBC Urine 0-2 #/HPF (0-2); Squamous Epithelial Cell Urine FEW #/LPF (NONE/RARE); Urine Culture Indicated YES-LC
== END 2025-01-02 16:27 | disposition home or self-care (01) ==
PROVIDERS: Admitting Provider Obstetrics & Gynecology; PCP Family Medicine; Visit Provider Obstetrics & Gynecology
DX: O47.03 False labor before 37 completed weeks of gestation, third trimester (principal); Z3A.34 34 weeks gestation of pregnancy
CPT/HCPCS: 59025; 81001; 87086; G0378; G0379

== ENCOUNTER 2025-01-04 16:06 | Observation (INO) | payer OTHER, SELFPAY ==
[2025-01-04 16:22] VITALS: BP 114/69; PULSE 121
[2025-01-04 16:45] LABS: Amnisure NEGATIVE (NEGATIVE); Internal Control Within Normal Limits
[2025-01-04] MEDS: FLUCONAZOLE 150 MG TABLET PO (17:10)
== END 2025-01-04 17:25 | disposition home or self-care (01) ==
LOC: FBC 16:08
PROVIDERS: Admitting Provider Obstetrics & Gynecology; PCP Family Medicine; Visit Provider Obstetrics & Gynecology
DX: Z03.71 Encounter for suspected problem with amniotic cavity and membrane ruled out (principal)
CPT/HCPCS: 59025; 84112; G0378; G0379

== ENCOUNTER 2025-01-12 15:36 | Outpatient (REF) | payer OTHER, SELFPAY | END 2025-01-12 15:37 | disposition home or self-care (01) | LOC: LAB 15:36 | PROVIDERS: PCP Family Medicine; Visit Provider Nurse Practitioner Family | DX: Z34.93 Encounter for supervision of normal pregnancy, unspecified, third trimester (principal); Z3A.36 36 weeks gestation of pregnancy | CPT/HCPCS: 87081 ==

== ENCOUNTER 2025-01-30 21:32 | Inpatient (IN) | payer OTHER, SELFPAY ==
--- OUTSIDE RECORDS SUMMARY | 2023-08-18 06:00 | XMS_ITS ---
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 09/01/2012 How often do you smoke cigarettes? every day How many cigarettes a day do you smoke? 5 or les s How soon after you wake up do you smoke your fir st cigarette? after 60 minutes Are you interested in quitting? Not ready to vira t Alcohol Screen (Audit-C) Question Answer Notes Did you have a drink contain ing alcohol in the past year? Yes How often did you have 6 or more drinks on one occasion in the past year? Never (0 point) How many drinks did you have on a typical day when you were drinking in the past year? 1 or 2 drinks (0 point) How often did you have a dri nk containing alcohol in the past year? Less than monthly (1 point) Points 1 Interpretation Negative Problems Problem Type SNOMED Code ICD Code Onset Dates Problem Status W/U Status Risk Notes Problem Mixed anxiety and depressive disorder (881863452) Anxiety and depression (F41.9) Active confirmed Vital Signs Weight 131.6 lbs 08/18/2023 Height 67 in 08/18/2023 Blood pressure systolic 120 mm Hg 08/18/20 23 Blood pressure diastolic 70 mm Hg 023 BMI 20.61 kg/m2 08/18/2023 Encounters Encounter Location Date Provider Diagnosis [facility] [address] [facility] [place] [address] 08/18/2023 MONICA RAND Encounter for control Z30.9 and Anxiety and depression F41.9 Assessments Encounter Date Diagnosis (ICD Code) Assessment Notes Treatment Notes Treatment Clinical Notes Section Notes 08/18/2023 Encounter for control (ICD-10 - Z30.9) felt good on Incassia in past smokes discussed cessation restart first day of period 08/18/2023 Anxiety and depression (ICD-10 - F41.9) feels good on lexapro continue Plan Of Treatment Medication Medication Name Sig Start Date Stop Date Notes Incassia 0.35 MG 1 tablet Orally Once a day for 28 days 08/18/2023 Start on first day of menstrual period Pramipexole Dihydrochloride 0.5 MG TAKE 1 TO 3 TABLETS AT BEDTIME NEEDED Oral Escitalopram Oxalate 5 MG TAKE 1 TABLET BY MOUTH EVERY DAY Oral Once a day for 30 days Treatment Notes Assessment Notes Encounter for control felt good on Incassia in past smokes discussed cessation restart first day of period Anxiety and depression feels good on lexapro continue Next Appt Details Follow Up: 6 Months,prnCristine son: Progress Notes * Umair APPLELamontOB:[birth year] (23 yo F)Acc No.[id number]:08/18/2023 New Patient Patient: Elida Pinto Provider: Rakesh Rand CNP :2000 A ge:23 Y S ex:Female Date:08/18/2023 Address:[address] [place], [place] [id number] Check In:09:55 AM ESTCheck O ut:10:41 AM EST Subjective: * Chief Complaints: * N P- Dr Santizo transfer- wants to restart control * HPI: D epression Screening: PHQ-2 (2015 Edition) L ittle interest or pleasure in doing things? N ot at all, F eeling down, depressed, or hopeless? N ot at all, T otal Score 0 . G eneral: [facility]- wanting to re start control o n period right now l exapro one year rx b uspirone- only takes prn, has a lot right now o juanjose a year since using opiates, in recovery, attends meetings h x anxiety more than depression f eeling good, no concerns s moking cigs. * ROS: G eneral/Constitutional: Fever d enies. H eadache d enies. W eight loss?denies. O phthalmologic: Discharge d enies. E ye Pain d enies. I tching and redness d enies. E NT: Nasal discharge d enies. N mario congestion d enies.?Sore throat d enies. C ardiovascular: Chest tightness/ heavy pressure d enies. R apid heart rate d enies. S welling of extremities d enies. C hest pain d enies. ? R espiratory: Productive cough d enies. C hest pain d enies. C ough d enies. S hortness of breath d enies. W heezing d enies. ? G astrointestinal: Abdominal pain d enies. C onstipation d enies. D ecreased appetite d enies. D iarrhea d enies. N ausea d enies. V omiting?denies. G enitourinary: Urinary incontinence d enies. P ainful urination d enies. M usculoskeletal: Back pain d enies. N prema pain d enies. M uscle aches d enies. S kin: Rash d enies. S kin lesion(s) d enies. ? * Active Problem List F41.9 Anxiety and depressi on Modified On:08/18/2023W/U Status:confirmed * Medical History: * Surgical History: T ubes/ Tonills * Hospitalization/Major Diagno stic Procedure: D enies Past Hospitalization * Family History: M other: alive. M oliver Grandfather: alive, prostate cancer. * Social History: T obacco Use: T obacco Use/Smoking P atient is a c urrent smoker, W hen did you start smoking??09/01/2012, H ow often do you smoke cigarettes? e very day, H ow many cigarettes a day do you smoke? 5 or less, H ow soon after you wake up do you smoke your first cigarette??after 60 minutes, A re you interested in quitting? N ot ready to quit. D rugs/Alcohol: A lcohol Screen (Audit-C) D id you have a drink containing alcohol in the past year? Y es, H ow often did you have 6 or more drinks on one occasion in the past year? N ever (0 point), H ow many drinks did you have on a typical day when you were drinking in the past year??1 or 2 drinks (0 point), H ow often did you have a drink containing alcohol in the past year? Less than monthly (1 point), P oints 1 , I nterpretation N egative. * Medications: T akingEscitalopram Oxalate 5 MG Tablet TAKE 1 TABLET BY MOUTH EVERY DAY Oral Taking Escitalopram Oxalate 5 MG Tablet TAKE 1 TABLET BY MOUTH EVERY DAY Oral Not-Taking/PRNPramipexole Dihydrochloride 0.5 MG Tablet TAKE 1 TO 3 TABLETS AT BEDTIME NEEDED Oral Not-Taking/PRN Pramipexole Dihydrochloride 0.5 MG Tablet TAKE 1 TO 3 TABLETS AT BEDTIME NEEDED Oral * Allergies: N .K.D.A.no[Allergies Verified] Objective: * Vitals: W t:131.6 lbs, Ht: 67 in, BP:120/70 mm Hg, BMI:20.61 Index, Ht-cm: 170.18 cm, Wt- k.69 kg. * Examination: G eneral Examinations: GENERAL APPEARANCE: a lert and oriented, i n no acute distress. EYES: c onjunctiva normal, sclera non-icteric. NOSE: n ormal external appearance. LUNGS: c lear to auscultation bilaterally. CARDIO: r egular rate and rhythm, S1, S2 normal, no murmurs, no edema. ABDOMEN: s oft, nontender. MUSCULOSKELETAL G ait and station normal. SKIN: w arm and dry. Assessment: * Assessment: 1. E ncounter for control - Z30.9 (Primary) 2 . A nxiety and depression - F41.9? Plan: * Treatment: 2. A nxiety and depression Refill Escitalopram Oxalate Tablet, 5 MG, TAKE 1 TABLET BY MOUTH EVERY DAY, Oral, Once a day, 30 days, 30, Refills 5; S top Pramipexole Dihydrochloride Tablet, 0.5 MG, TAKE 1 TO 3 TABLETS AT BEDTIME NEEDED, Oral. Notes: feels good on lexapro continue . * Procedure Codes: * Follow Up: 6 Months,prn * * Sign off status: Completed Visit Status: C HK (Check Out) true * Provider: Rakesh Rand, FOREST SCIENCE PROFESSOR Date: 1 10/19/2022 Generated for Yang menendez/Minnie/Jacobitting on: 0 01/30/2025 09:37 PM EDT History and Physical Notes * HPI (History of Present Illness) Category Sub-Category Detail Notes Category Not es General [facility]- wanting to re start control on period right now lexapro one year rx buspirone- only takes prn, has a lot right now over a year since using opiates, in recovery, attends meetings hx anxiety more than depression feeling good, no concerns smoking cigs Depression Screening PHQ-2 (2015 Edition) Little interest or pleasure in doing things?: Not at all Feeling down, depressed, or hopeless?: N ot at all Total Score: 0 Examination Category Sub-Category Detail Notes Category Not es General Examinations GENERAL APPEARANCE: alert a nd oriented, in no acute distress EYES: conjunctiva normal, sclera non-icteric EARS: NOSE: normal external appe arance THROAT: CARDIO: regular rate and rhy thm, S1, S2 normal, no murmurs, no edema LUNGS: clear to auscultatio n bilaterally ABDOMEN: soft, nontender SKIN: warm and dry BACK: MUSCULOSKELETAL: Gait and station nor mal LYMPH NODES:
--- OUTSIDE RECORDS SUMMARY | 2024-01-20 06:30 | XMS_ITS ---
Author Organization [facility] in [place] Address [address] [place] [address] Care Team Providers Care Rectifier Operator Name Role Phone Monica Rand Primary Care Provider [phone] MONICA RAND Unavailable [phone] Allergies No Known Allergies REASON FOR VISIT control questions, 2 periods a month Medications Medication SIG (Take, Route, Frequency, Duration) [...] in quitting? Not ready to vira t AUDIT-C (Standard) Question Answer Notes Did you have a drink contain ing alcohol in the past year? Yes How often did you have six o r more drinks on one occasion in the past year? Never (0 point) How many drinks did you have on a typical day when you were drinking in the past year? 1 or 2 drinks (0 point) How often did you have a dri nk containing alcohol in the past year? 2 to 4 times a month (2 points) Points 2 Interpretation Negative Vital Signs Weight 143 lbs 01/20/2024 Height 67 in 01/20/2024 Blood pressure systolic 110 mm Hg 01/20/20 24 Blood pressure diastolic 62 mm Hg 024 BMI 22.39 kg/m2 01/20/2024 Encounters Encounter Location Date Provider Diagnosis [facility] [address] [facility] [address] 01/20/2024 MONICA RAND control counseling Z30.9 Assessments Encounter Date Diagnosis (ICD Code) Assessment Notes Treatment Notes Treatment Clinical Notes Section Notes 01/20/2024 control counseling (ICD-10 - Z30.9) needs obgyn to establish will discuss changing BCP track periods take BCP same time every day, dont skip doses, continue monitor Plan Of Treatment Treatment Notes Assessment Notes control counseling needs obgyn to establish will discuss changing BCP track periods take BCP same time every day, dont skip doses, continue monitor Next Appt Details Follow Up: prn, Reason: Progress Notes * Abigail APPLEJustenOB:[birth year] (24 yo F)Acc No.[id number]:01/20/2024 Progress Note Patient: Elida GREGG Provider: Rakesh Rand, WALTER :2000 A ge:24 Y S ex:Female Date:01/20/2024 Address:[address] [place], [place] [id number] Check In:10:21 AM ESTCheck O ut:11:16 AM EST Subjective: * Chief Complaints: * B irth control questions, 2 periods a month * HPI: D epression Screening: PHQ-2 (2015 Edition) L ittle interest or pleasure in doing things??Not at all F eeling down, depressed, or hopeless? N ot at all T otal Score 0 G eneral: for awhile periods pretty regular, lasted a week for last 3 months or so more bleeding, every other week and some spotting took test 3 weeks ago, negative. * ROS: G eneral/Constitutional: Fever d enies. [...] enies. S kin lesion(s) d enies. ? i rregular menses last 3 months on BCP. * Active Problem List F41.9 Anxiety and depressi on Modified On:08/18/2023W/U Status:confirmed * Medical History: * Surgical History: T ubes/ Tonills * Hospitalization/Major Diagno stic Procedure: N o Hospitalization History. * Family History: M other: alive. M aternal Grandfather: alive, prostate cancer. 1 daughter(s) . . * Social History: T obacco Use: T obacco Use/Smoking P atient is a c urrent smoker W hen did you start smoking? 0 09/01/2012 H ow often do you smoke cigarettes? e very day H ow many cigarettes a day do you smoke? 5 or less H ow soon after you wake up do you smoke your first cigarette? a fter 60 minutes A re you interested in quitting? N ot ready to quit D rug/Alcohol: A ANDRÉS-C (Standard) D id you have a drink containing alcohol in the past year? Y es H ow often did you have six or more drinks on one occasion in the past year? N ever (0 point) H ow many drinks did you have on a typical day when you were drinking in the past year? 1 or 2 drinks (0 point) H ow often did you have a drink containing alcohol in the past year? 2 to 4 times a month (2 points) P oints 2 I nterpretation N egative * Medications: T akingEscitalopram Oxalate 5 MG Tablet TAKE 1 TABLET BY MOUTH EVERY DAY Oral Once a day Incassia(Norethindrone) 0.35 MG Tablet 1 tablet Orally Once a day , Notes to Pharmacist: Start on first day of menstrual periodMedication List reviewed and reconciled with the patientTaking Escitalopram Oxalate 5 MG Tablet TAKE 1 TABLET BY MOUTH EVERY DAY Oral Once a day Taking Incassia(Norethindrone) 0.35 MG Tablet 1 tablet Orally Once a day , Notes to Pharmacist: Start on first day of menstrual periodMedication List reviewed and reconciled with the patient * Allergies: N .K.D.A.no[Allergies Verified] Objective: * Vitals: W t:143lbs, Ht: 67 in, BP:110/62mm Hg, BMI:22.39Index, Ht-cm: 170.18 cm, Wt-k.86 kg. * Examination: G eneral Examinations: GENERAL APPEARANCE: a lert and oriented, i n no acute distress. EYES: c onjunctiva normal, sclera non-icteric. NOSE: n ormal external appearance. LUNGS: c lear to auscultation bilaterally. CARDIO: r egular rate and rhythm, S1, S2 normal. MUSCULOSKELETAL G ait and station normal. SKIN: w arm and dry. Assessment: * Assessment: 1. B ir control counseling - Z30.9 (Primary) Plan: * Treatment: * Procedure Codes: * Preventive Medicine: Screenings/Counseling: B [place] ACTION PLAN Above Normal BMI Follow-up D ietary management education, guidance, and counseling T OBACCO ACTION PLAN Patient counselled on the dangers of tobacco use and urged to quit. . * Follow Up: p rn * * Sign off status: Completed Visit Status: C HK (Check Out) true * Provider: Rakesh Rand CNP Date: 0 01/20/2024 Generated for Yang menendez/Faxing/eTransmitting on: 0 01/30/2025 09:36 PM EDT History and Physical Notes * HPI (History of Present Illness) Category Sub-Category Detail Notes Category Not es Depression Screening PHQ-2 (2015 Edition) Little interest [...] regular rate and rhy thm, S1, S2 normal LUNGS: clear to auscultatio n bilaterally ABDOMEN: SKIN: warm and dry BACK: MUSCULOSKELETAL: Gait and station nor mal LYMPH NODES:
--- OUTSIDE RECORDS SUMMARY | 2024-02-06 03:26 | XMS_ITS ---
Author Organization [facility] in [place] Address [address] [place] [address] Care Team Providers Care Neonatal Pediatric Nurse Name Role Phone Monica Rand Primary Care Provider REASON FOR VISIT f/u appt- Encounters Encounter Location Date Provider Diagnosis [facility] [address] [place] [address] 02/06/2024 Monica Rand Plan Of Treatment No Information Progress Notes * Abigail PRAKASHJustenOB:[birth year] (24 yo F)Acc No.[id number]:02/06/2024 Patient: Elida GREGG :2000 A ge:24 Y S ex:Female Address:[address] [place] [address] * true * Date: Generated for Yang menendez/Minnie/eTransmitting on: 0 01/30/2025 09:36 PM EDT
--- OUTSIDE RECORDS SUMMARY | 2025-01-19 13:30 | XMS_ITS | Encounter Summary ---
Author Organization [facility] Address [address] [place] [address] Care Team Providers Care Real Estate Office Manager Name Role Phone Kuldeep Mederos MD Primary Care Provider [phone] Reason for Visit * Reason Comments Routine Visit Encounter Details Date Type Department Care Team ([facility] Contact Info) Description 01/19/2025 1:30 PM EDT Routine [facility] [address] [address] Mike Mendoza, DO [address] [place] [address] 37 weeks gestation of ; Third trimester Social History Tobacco Use Types Packs/Day Years Used Date Smoking Tobacco: Every Day Cigarettes 1.5 10 Estimated Date of Delivery Comme nts Yes 02/09/2025 Based on last me nstrual period of 05/05/2024 Sex and Gender Information Value Date Recorded Sex Assigned at Not on file Legal Sex Female 7:12 PM EDT Gender Identity Not on file Sexual Orientation Not on file documented as of this encounter Last Filed Vital Signs Vital Sign Reading Time Taken Comments Blood Pressure 110/60 01/19/2025 2:10 PM EDT Pulse - - Temperature - - Respiratory Rate - - Oxygen Saturation - - Inhaled Oxygen Concentration - - Weight 81.1 kg (178 lb 12.8 oz) 01/19/2025 2:10 PM EDT Height - - Body Mass Index 27.19 02/04/2024 2:21 PM EDT documented in this encounter Progress Notes * Margaret Ho LPN - 01/19/2025 1:30 PM EDT Reason for Appointment: Patient ID: Elida Prakash is a 25 y.o. female who presents for Routine Visit Patient presents today for Return OB appointment. MEDICATIONS No current outpatient medications ALLERGIES Allergies Allergen Reactions Wound Dressing Adhesive Other Reaction(s): Unknown PROBLEMS Active Ambulatory Problems Diagnosis Date Noted No Active Ambulatory Problems Resolved Ambulatory Problems Diagnosis Date Noted No Resolved Ambulatory Problems Past Medical History: Diagnosis Date Asthma 2005 HISTORY PAST MEDICAL HISTORY SOCIAL HISTORY Past Medical History: Diagnosis Date Asthma 2004 Social History Tobacco Use Smoking status: [...] appearance. She is well-developed. Genitourinary: Vulva normal. Cardiovascular: Rate and Rhythm: Normal rate and [...] nursing note reviewed. Exam conducted with a life advisor present. Vitals: Estimated body mass index is 27.19 kg/m?? as calculated from the following: Height as of 02/04/24: 5' 8 . Weight as of this encounter: 178 lb 12.8 oz. BP: 110/60 Patient's last menstrual period was 05/05/2024. ASSESSMENT & PLAN ICD-10-CM 1. 37 weeks gestation of Z3A.37 POCT urinalysis dipstick manually resulted 2. Third trimester Z34.93 POCT urinalysis dipstick manually resulted Return OB: Patient presents today for a routine obstetrics appointment. Patient is currently 37w0d . Patient states she is doing well but has complaints of being tired due to current . Patient has verbalizes frequent movement. labor precautions was discussed/given and patient was instructed to perform kick counts three times a day. Orders Placed This Encounter Procedures POCT urinalysis dipstick manually resulted Follow Up: Patient is to return to office in 1 week for routine OB appointment. Documented by Margaret Ho LPN on behalf of: Mike Mendoza DO documented in this encounter Plan of Treatment Not on file documented as of this encounter Procedures Procedure Name Priority Date/Time Associated Diagnosis Comments POCT URINALYSIS DIPSTICK Routine 01/19/2025 2:14 PM EDT 37 weeks gestation of Third trimester documented in this encounter Results * (ABNORMAL) POCT urinalysis dipstick manually resulted (01/19/2025 2:14 PM EDT) Color, UA Yellow Clarity, UA Clear Glucose, UA Negative Negative - 2000(110) ++++ mg/dL Bilirubin, UA Negative Negative - 4(70) +++ mg/dL Ketones, UA Negative Negative - 160(16) ++++ mg/dL Spec Grav, UA 1.020 1 - 1.03 Blood, UA Negative Negative - 50 Eric/mcL pH, UA 6.5 5 - 9 Protein, UA Positive Negative - 2000(20) ++++ mg/dL Comment:30 Urobilinogen, UA 0.2 0.2 - 12 mg/dL Leukocytes, UA Positive Negative - 500+++ Miley/mcL Comment:small Nitrite, UA Negative Negative - Positive Urine 01/19/2025 2:14 PM EDT Mike Mendoza DO POINT OF CARE TEST ENTER/EDIT OR DERABLES Final Result documented in this encounter Visit Diagnoses Diagnosis 37 weeks gestation of Third trimester state, incidental documented in this encounter Care Teams Real Estate Office Manager Relationship Specialty Start Date End Date Kuldeep Mederos MD [address] [place] [address] PCP - General Family Medicine 02/04/24 documented as of this encounter
--- OUTSIDE RECORDS SUMMARY | 2025-01-26 13:50 | XMS_ITS | Encounter Summary ---
Author Organization [facility] Address [address] [place] [address] Care Team Providers Care Veneer Grader Name Role Phone Kuldeep Mederos MD Primary Care Provider [phone] Reason for Visit * Reason Comments Routine Visit Encounter Details Date Type Department Care Team ([facility] Contact Info) Description 01/26/2025 1:50 PM EDT Routine [facility] [address] [place] [phone] Mariya Sy PA [address] [place], [facility] Third trimester ; 38 weeks gestation of Social History Tobacco Use Types Packs/Day Years [...] Sign Reading Time Taken Comments Blood Pressure 112/64 01/26/2025 2:11 PM EDT Pulse - - Temperature - - Respiratory Rate - - Oxygen Saturation - - Inhaled Oxygen Concentration - - Weight 80.7 kg (178 lb) 01/26/2025 2:11 PM EDT Height - - Body Mass Index 27.06 02/04/2024 2:21 PM EDT documented in this encounter Progress Notes * Audrey Cline NP - 01/26/2025 1:50 PM EDT Reason for Appointment: Patient ID: [...] nursing note reviewed. Exam conducted with a paralegal internship present. Vitals: Estimated body mass index is 27.06 kg/m?? as calculated from the following: Height as of 02/04/24: 5' 8 . Weight as of this encounter: 178 lb. BP: 112/64 Patient's last menstrual period was 05/05/2024. ASSESSMENT & PLAN ICD-10-CM 1. Third trimester Z34.93 2. 38 weeks gestation of Z3A.38 Return OB: Patient presents today for a routine obstetrics appointment. Patient is currently 38w0d . Patient states she is doing well but has complaints of being tired due to current . Patient has verbalizes frequent movement. labor precautions was discussed/given and patient was instructed to perform kick counts three times a day. No orders of the defined types were placed in this encounter. Follow Up: Patient is to return to office in 1 week for routine OB appointment. Documented by Audrey Cline NP on behalf of: Audrey Cline NP documented in this encounter Plan of Treatment Not on file documented as of this encounter Visit Diagnoses Diagnosis Third trimester state, incidental 38 weeks gestation of documented in this encounter Care Teams Veneer Grader Relationship Specialty Start Date End Date Kuldeep Mederos MD [address] [place] [address] PCP - General Family Medicine 02/04/24 documented as of this encounter
--- OUTSIDE RECORDS SUMMARY | 2025-01-30 21:36 | XMS_ITS | Encounter Summary ---
Author Organization [facility] Address [address] [place] [facility] [place] [address] Care Team Providers Care Dish Room Worker Name Role Phone Kuldeep Mederos MD Primary Care Provider [phone] Encounter Details Date Type Department Care Team (Late st Contact Info) Description 07/09/2024 Abstract [facility] [address] [facility] [id number] Mike Mendoza DO [address] [facility] [facility] [address] [place], [place] [id number] Social History Tobacco Use Types Packs/Day Years [...] on file documented as of this encounter Plan of Treatment Not on file documented as of this encounter Visit Diagnoses Not on filedocumented in this encounter Care Teams Dish Room Worker Relationship Specialty Start Date End Date Kuldeep Mederos MD [address] [facility] [place] [address] PCP - General Family Medicine 02/04/24 documented as of this encounter
--- OUTSIDE RECORDS SUMMARY | 2025-01-30 21:36 | XMS_ITS | Encounter Summary ---
Author Organization [facility] Address [address] [place] [address] Care Team Providers Care Suction Plate Roller Hand Name Role Phone Kuldeep Mederos MD Primary Care Provider [phone] Encounter Details Date Type Department Care Team (Late st Contact Info) Description 07/09/2024 Clinisync Result Encounter [facility] External Department Unsolicited Ab Mendoza, DO [address] [facility] [place] [address] Social History Tobacco Use Types Packs/Day Years [...] Procedure Name Priority Date/Time Associated Diagnosis Comments US OB TRANSVAGINAL 07/09/2024 10 :31 AM EST documented in this encounter Results * US OB TRANSVAGINAL (07/09/2024 10:31 AM EST) Anatomical Region Laterality Modality Other 07/09/2024 10:3 1 AM EST Narrative 07/09/2024 10:34 AM EST The [address] [address] Ultrasound Report Signed Patient: ELIDA PRAKASH MR#: [id number] : 2000 Acct:[id number] Age/Sex: 24 / F ADM Date: 07/09/24 Loc: [facility] Attending Dr: Ab Mendoza D.O. Ordering Physician: Ab Mendoza D.O. Date of Service: 07/09/24 Procedure(s): US OB transvaginal Accession Number(s): [id number] cc: Ab Mendoza D.O.; Kuldeep Mederos M.D. The [place] [address] Patient Name: ELIDA PRAKASH MRN: [facility]:[id number] date: 2000 Sex: F Assigned Patient [facility]: [facility] Current Patient Location: [facility] Accession/Order Number: [id number] Exam Date: 07/09/2024 09:08 Report Date: 07/09/2024 10:31 At the request of: AB MENDOZA Procedure: US OB transvaginal EXAMINATION: US OB transvaginal HISTORY: MISSED MENSES COMPARISON: No relevant comparison available. FINDINGS: GESTATIONAL SAC: Present and normal appearing. YOLK SAC: Present and normal appearing. POLE: Present and normal appearing. CARDIAC: Present. UTERUS: Normal size and appearance. OVARIES: Right: Normal. Left: Normal. CERVIX: 4.7 cm in length and closed. CUL-DE-SAC: Normal. OTHER: None. AGE BY LMP: 9 weeks 2 days YUDELKA BY LMP: 02/09/2025 AGE BY US CRL: 9 weeks 0 days YUDEL[place] BY US CRL: 02/11/2025 US/US OB transvaginal IMPRESSION: 1. Single live intrauterine . Electronically authenticated by: SLICK LOUIE Date: 07/09/2024 10:31 Dictated By: Slick Louie M.D. Signed By: 07/09/24 1034 DD/ 1031 TD/TT: Plate Former: Procedure Note Radiology, Radiologist, - 07/09/2024 [place] [address] Ultrasound Report Signed Patient: ELIDA PRAKASH RMR#: [id number] : 2000Acct:[id number] Age/Sex: 24 / FADM Date: 07/09/24 Loc: [facility] Attending Dr: Ab Mendoza D.O. Ordering Physician: Ab Mendoza D.O. Date of Service: 07/09/24 Procedure(s): US OB transvaginal Accession Number(s): [id number] cc: Ab Mendoza D.O.; Kuldeep Mederos M.D. [place] [address] Patient Name: ELIDA PRAKASH MRN: [id number] date: 2000 Sex: F Assigned Patient Location: [facility] Current Patient Location: [facility] Accession/Order Number: [id number] Exam Date: 07/09/2024 09:08 Report Date: 07/09/2024 10:31 At the request of: AB MENDOZA Procedure: US OB transvaginal EXAMINATION: US OB transvaginal HISTORY: MISSED MENSES COMPARISON: No relevant comparison available. FINDINGS: GESTATIONAL SAC: Present and normal appearing. YOLK SAC: Present and normal appearing. POLE: Present and normal appearing. CARDIAC: Present. UTERUS: Normal size and appearance. OVARIES: Right: Normal. Left: Normal. CERVIX: 4.7 cm in length and closed. CUL-DE-SAC: Normal. OTHER: None. AGE BY LMP: 9 weeks 2 days YUDEL[place] BY LMP: 02/09/2025 AGE BY US CRL: 9 weeks 0 days YUDEL[place] BY US CRL: 02/11/2025 US/US OB transvaginal IMPRESSION: 1. Single live intrauterine . Electronically authenticated by: SLICK LOUIE Date: 07/09/2024 10:31 Dictated By: Slick Louie M.D. Signed By:07/09/24 1034 DD/ 1031 TD/TT: Plate Former: us Ab Mendoza DO [facility] Final Result documented in this encounter Visit Diagnoses Not on filedocumented in this encounter Care Teams Suction Plate Roller Hand Relationship Specialty Start Date End Date Kuldeep Mederos MD [address] [place] [address] PCP - General Family Medicine 02/04/24 documented as of this encounter
--- OUTSIDE RECORDS SUMMARY | 2025-01-30 21:36 | XMS_ITS | Encounter Summary ---
Author Organization [facility] Address [address] [place] [facility] [place] [address] Care Team Providers Care Fuel Assembler Name Role Phone Kuldeep Mederos MD Primary Care Provider [phone] Encounter Details Date Type Department Care Team (Late st Contact Info) Description 01/28/2025 Abstract [facility] [address] [facility] [address] [place] [address] Brittany Rose LPN Social History Tobacco Use Types Packs/Day Years [...] on filedocumented in this encounter Care Teams Fuel Assembler Relationship Specialty Start Date End Date Kuldeep Mederos MD [address] [facility] [place] [address] PCP - General Family Medicine 02/04/24 documented as of this encounter
--- OUTSIDE RECORDS SUMMARY | 2025-01-30 21:36 | XMS_ITS | Encounter Summary ---
Author Organization [facility] Address [address] [place] [facility] [place] [address] Care Team Providers Care Bleach Tester Name Role Phone Kuldeep Mederos MD Primary Care Provider [phone] Encounter Details Date Type Department Care Team (Late st Contact Info) Description 01/19/2025 Bamboo flowsheet [facility] [address] [facility] [facility] [place] [address] Mike Mendoza, DO [address] [facility] [address] [facility] [address] [place], [facility] Social History Tobacco Use Types Packs/Day Years [...] on filedocumented in this encounter Care Teams Bleach Tester Relationship Specialty Start Date End Date Kuldeep Mederos MD [address] [facility] [place] [address] PCP - General Family Medicine 02/04/24 documented as of this encounter
--- OUTSIDE RECORDS SUMMARY | 2025-01-30 21:36 | XMS_ITS | Encounter Summary ---
Author Organization [facility] Address [address] [facility] [place] [address] Care Team Providers Care Tool Storage Attendant Name Role Phone Kuldeep Mederos MD Primary Care Provider [phone] Encounter Details Date Type Department Care Team (Late st Contact Info) Description 01/26/2025 [facility] flow[facility] [address] [place] [address] Mariya Sy PA [address] [place], [facility] Social History Tobacco Use Types Packs/Day Years [...] on filedocumented in this encounter Care Teams Tool Storage Attendant Relationship Specialty Start Date End Date Kuldeep Mederos MD [address] [facility] [place] [address] PCP - General Family Medicine 02/04/24 documented as of this encounter
--- OUTSIDE RECORDS SUMMARY | 2025-01-30 21:36 | XMS_ITS | Encounter Summary ---
Author Organization [facility] Address [address] [facility] [place] [address] Care Team Providers Care Consumer Loan Underwriter Name Role Phone Kuldeep Mederos MD Primary Care Provider [phone] Encounter Details Date Type Department Care Team (Late st Contact Info) Description 09/16/2024 Orders Only [facility] [address] [facility] [place] [address] Perla Bundy [place] [address] [facility] [place] [address] Social History Tobacco Use Types Packs/Day Years [...] Procedure Name Priority Date/Time Associated Diagnosis Comments PAP SMEAR Routine 08/30/2024 12:00 AM EST documented in this encounter Results * Pap Smear (08/30/2024 12:00 AM EST) Swab Cervical swab / Unknown us Mariya [facility] CYTOLOGY ORDERABLES Final Re sult EXTERNAL LAB documented in this encounter Visit Diagnoses Not on filedocumented in this encounter Care Teams Consumer Loan Underwriter Relationship Specialty Start Date End Date Kuldeep Mederos MD [address] [place] [address] PCP - General Family Medicine 02/04/24 documented as of this encounter
--- OUTSIDE RECORDS SUMMARY | 2025-01-30 21:36 | XMS_ITS | Encounter Summary ---
Author Organization [facility] Address [address] [facility] [place] [address] Care Team Providers Care Water Pumping Station Engineer Name Role Phone Kuldeep Mederos MD Primary Care Provider [phone] Encounter Details Date Type Department Care Team (Late st Contact Info) Description 08/05/2024 Abstract [facility] [address] [facility] [place] [id number] Mike Mendoza DO [address] [facility] [address] [place], [place] [id number] Social History Tobacco Use Types Packs/Day Years [...] on filedocumented in this encounter Care Teams Water Pumping Station Engineer Relationship Specialty Start Date End Date Kuldeep Mederos MD [address] [facility] [place] [address] PCP - General Family Medicine 02/04/24 documented as of this encounter
--- OUTSIDE RECORDS SUMMARY | 2025-01-30 21:36 | XMS_ITS | Patient Health Record ---
Author Organization [facility] Address [address] [place] [address] Care Team Providers Care Tablet Making Machine Operator Helper Name Role Phone Kervin Sloan Primary Care Provider [phone] Reason For Referral No Information Plan Of Treatment No Information Insurance Providers Payer Name Payer Address Payer Phone Subscriber Number Group Number Insured Name Patient Relationship to Insured Coverage Start Date Coverage End Date Dental [employer] [facility] [address] [place] [address] [id number] ALFREDO APPLE Self - patient is the insured 3 Dental [employer] [facility] [employer] [address] [place] [address] [id number] [id number] APPLE Self - patient is the insured 3
--- OUTSIDE RECORDS SUMMARY | 2025-01-30 21:36 | XMS_ITS | Clinical Summary ---
Author Organization [facility] Healthcare Address [address] [place] [address] Care Team Providers Care Customer Care Coordinator Name Role Phone Kuldeep Mederos MD Primary Care Provider [phone] Allergies Active Allergy Reactions Criticality Noted Date Comments Wound Dressing Adhesive 10/25/2024 Other Reaction(s): Unknown Medications albuterol HFA 90 mcg/act inhaler Inhale 2 puffs every 6 (six) hours if needed 01/20/20 25 Discontinued escitalopram (Lexapro) 5 MG tablet Take 5 mg by mouth Daily 4 01/20/20 25 Discontinued Ferrous Sulfate (IRON PO) Take by mouth 01/20/20 25 Discontinued Encounters Date Type Department Care Team Description 01/28/2025 Abstract [facility] [address] [place] [address] Brittany Rose LPN 01/26/2025 1:50 PM EDT Routine [facility] [address] [facility] [place] [address] Mariya Sy PA Third trimester ; 38 weeks gestation of 01/26/2025 Bamboo flowsheet [facility] [address] [place] [address] Mariya Sy PA 01/19/2025 1:30 PM EDT Routine [facility] [address] [place] [address] Mike Mendoza DO 37 weeks gestation of ; Third trimester 01/19/2025 Bamboo flowsheet [facility] [address] [place] [address] Mike Mendoza, 01/12/2025 9:50 AM EDT Routine [facility] [address] [place] [address] Audrey Cline NP Third trimester ; 36 weeks gestation of 01/12/2025 Bamboo flowsheet [facility] [address] [place] [address] Audrey Cline, DENISE 01/06/2025 8:40 AM EDT Routine [facility] [address] [place] [address] Mariya Sy PA Third trimester ; 35 weeks gestation of 01/06/2025 Bamboo flowsheet [facility] [address] [place] [address] [place] [address] Mariya Sy PA 01/04/2025 Clinisync Result Encounter [facility] External Department Unsolicited Mike Mendoza, DO 01/02/2025 Clinisync Result Encounter [facility] External Department Unsolicited Mike Mendoza, DO 12/23/2024 9:50 AM EDT Routine [facility] [address] [place] [address] Mike Mendoza, Third trimester ; 33 weeks gestation of 12/23/2024 Bamboo flowsheet [facility] [address] [place] [address] Mike Mendoza, DO 12/08/2024 9:50 AM EDT Routine [facility] [address] [place] [address] Mariya Sy PA Third trimester ; 30 weeks gestation of ; Anemia during in third trimester 12/08/2024 9:00 AM EDT Ancillary Procedure [facility] [address] [place] [address] Excessive growth affecting management of , antepartum, single or unspecified fetus 11/22/2024 10:20 AM EDT Routine [facility] [address] [place] [address] Mike Mendoza DO Third trimester ; 28 weeks gestation of ; Antepartum anemia; Excessive growth affecting management of , antepartum, single or unspecified fetus 11/22/2024 Bamboo flowsheet [facility] [address] [place] [address] Mike Mendoza DO 11/18/2024 Clinisync Result Encounter [facility] External Department Unsolicited Mike Mendoza DO from Last 3 Months Social History Tobacco Use Types Packs/Day Years Used Date Smoking Tobacco: Every Day Cigarettes 1.5 10 Tobacco Cessation:Ready to Q uit: Not Asked; Counseling Given: Not Answered Estimated Date of Delivery Comme nts Yes 02/09/2025 Based on last me nstrual period of 05/05/2024 Sex and Gender Information Value Date Recorded Sex Assigned at Not on file Legal Sex Female 7:12 PM EDT Gender Identity Not on file Sexual Orientation Not on file Last Filed Vital Signs Vital Sign Reading Time Taken Comments Blood Pressure 112/64 01/26/2025 2:11 PM EDT Pulse - - Temperature - - Respiratory Rate - - Oxygen Saturation - - Inhaled Oxygen Concentration - - Weight 80.7 kg (178 lb) 01/26/2025 2:11 PM EDT Height 172.7 cm (5' 8 ) 02/04/2024 2:21 PM EDT Body Mass Index 27.06 02/04/2024 2:21 PM EDT Plan of Treatment Health Maintenance Due Date Last Done Comments Influenza Vaccine (Season Ended) 2025 07/21/20 13 Procedures Procedure Name Priority Date/Time Associated Diagnosis Comments CULTURE, GROUP B STREP WITH SUSCEPTIBLITY Routine 01/21/2025 9:20 AM EDT Third trimester POCT URINALYSIS DIPSTICK Routine 01/19/2025 2:14 PM EDT 37 weeks gestation of Third trimester POCT URINALYSIS DIPSTICK Routine 01/12/2025 10:12 AM EDT Third trimester AMNISURE Routine 01/04/2025 4:25 PM EDT TB[facility] URINE MICROSCOPIC ONLY Routine 01/02/2025 2:00 PM EDT TBH UA (CLEAN/CATCH) FINANCIAL QUANTITATIVE ANALYST/MICRO IF IND. Routine 01/02/2025 2:00 PM EDT POCT URINALYSIS DIPSTICK Routine 12/23/2024 10:23 AM EDT Third trimester POCT URINALYSIS DIPSTICK Routine 12/08/2024 9:57 AM EDT Third trimester 30 weeks gestation of US OB FOLLOW UP TRANSABDOMINAL APPROACH Routine 12/08/2024 9:38 AM EDT Excessive growth affecting management of , antepartum, single or unspecified fetus POCT URINALYSIS DIPSTICK Routine 11/22/2024 10:49 AM EDT Third trimester GLUCOSE 1 HOUR Routine 11/18/2024 10:06 AM EDT ALL CBC WITH AUTO DIFF Routine 10:06 AM EDT TBH URINE MICROSCOPIC ONLY Routine 11/18/2024 12:10 AM EDT TBH UA (CLEAN/CATCH) FINANCIAL QUANTITATIVE ANALYST/MICRO IF IND. Routine 11/18/2024 12:10 AM EDT from Last 3 Months Results * CULTURE, GROUP B STREP WITH SUSCEPTIBLITY (01/21/2025 9:20 AM EDT) us Audrey Cline NP LAB BLOOD ORDERABLES Final Re sult EXTERNAL LAB * (ABNORMAL) POCT urinalysis dipstick manually resulted (01/19/2025 2:14 PM EDT) Only the most recent of5 resultswithin the time period is included. [facility] Color, UA Yellow Clarity, UA Clear Glucose, [...] - Positive Urine 01/19/2025 2:14 PM EDT us Mike Reji DO POINT OF CARE TEST ENTER/EDIT OR DERABLES Final Result * AMNISURE (01/04/2025 4:25 PM EDT) [facility] AMNISURE NEGATIVE NEGATIVE TBH 01/04/2025 4:25 PM EDT 01/04/2025 4:32 PM EDT Narrative [facility] - 01/04/2025 4:45 PM EDT us Mike Reji DO LAB BLOOD ORDERABLES Final Resul t [facility] * (ABNORMAL) TB URINE MICROSCOPIC ONLY (01/02/2025 2:00 PM EDT) Only the most recent of2 resultswithin the time period is included. [facility] WBC 5-10(A) NONE SEEN #/HPF TBH TBH RBC 0-2 0 - 2 #/HPF TBH BACTERIA URINE SMALL(A) NONE SEEN #/HPF TBH MUCUS URINE NONE SEEN NONE SEEN TBH SQUAMOUS EPITHELIAL CELL URINE FEW(A) NONE/RARE #/LPF TBH CRYSTALS SEEN? None Seen None Seen #/HPF TBH CAST SEEN? NONE SEEN NONE SEEN #/LPF TBH URINE CULTURE INDICATED YES-LC [facility]H 01/02/2025 2:00 PM EDT 01/02/2025 2:25 PM EDT Narrative [facility] - 01/02/2025 2:48 PM EDT us Mike Reji DO CLINISYNC Final Result CLINCLEOPATRA TB[facility] * (ABNORMAL) TBH UA (CLEAN/CATCH) FINANCIAL QUANTITATIVE ANALYST/MICRO IF IND. (01/02/2025 2:00 PM EDT) Only the most recent of2 resultswithin the time period is included. COLOR URINE LT. YELLOW YELLOW TBH CLARITY URINE CLEAR CLEAR TBH SPECIFIC GRAVITY URINE 1.010 1.005 - 1.025 TBH PH URINE 7.0 5.0 - 9.0 TBH PROTEIN URINE NEGATIVE NEG/TRACE mg/dL TBH GLUCOSE URINE UA NEGATIVE NEGATIVE mg/dL TBH BILIRUBIN URINE NEGATIVE NEGATIVE TBH KETONES URINE NEGATIVE NEGATIVE mg/dL TBH BLOOD URINE NEGATIVE NEGATIVE TBH NITRITE URINE NEGATIVE NEGATIVE TBH UROBILINOGEN URINE 0.2 0.2 - 1.0 EU/dL TBH LEUKOCYTE ESTERASE URINE LARGE(A) NEGATIVE TBH URINE MICROSCOPIC INDICATED YES TBH 01/02/2025 2:00 PM EDT 01/02/2025 2:25 PM EDT Narrative CL[facility] - 01/02/2025 2:48 PM EDT us Mike Reji DO CLINISYNC Final Result KARI [facility] * US OB follow up transabdominal approach (12/08/2024 9:38 AM EDT) Anatomical Region Laterality Modality Body Ultrasound 12/10/2024 6:25 AM EDT Narrative 12/10/2024 6:25 AM EDT EXAM: US OB FOLLOW UP TRANSABDOMINAL APPROACH HISTORY: Large for gestational age. COMPARISON: OB ultrasound 09/27/2024. TECHNIQUE: Two-dimensional transabdominal grayscale ultrasound imaging of the pelvis was performed. FINDINGS: Gestation: Single Presentation: Cephalic Cardiac Activity: 135 beats per minute Placental Location: Anterior with no sonographic abnormalities identified. Cervical canal: Not visualized Amniotic Fluid Index: 14.8 cm MEASUREMENTS: BPD: 7.9 cm EGA: 31 weeks 4 days HC: 29.2 cm EGA: 32 weeks 1 days AC: 26.9 cm EGA: 31 weeks 0 days FL: 6.2 cm EGA: 32 weeks 0 days HC/AC Ratio: 1.08 The gestational age by today's ultrasound is 31 weeks 5 days (+/- 16 days gestation). Estimated Weight: 1776 grams, +/- 266 grams ( 3 lb 15 oz). Weight Percentile for gestational age: 55 % IMPRESSION: 1. Single, live intrauterine gestation 31 weeks, 0 days by LMP. Today's ultrasound measurements correlate with a gestational age of 31 weeks 5 days. Estimated weight is 1776 grams, +/- 266 grams ( 3 lb 15 oz) which correlates to 55 %. YUDELKA is 02/04/2025. Interpreted by: Electronically signed by ROBBIE DAIGLE II, MD, PHD at 10-Dec-2024 06:24:02 AM [facility] Procedure Note Robbie Daigle MD - 12/10/2024 EXAM: US OB FOLLOW UP TRANSABDOMINAL APPROACH HISTORY: Large for gestational age. COMPARISON: OB ultrasound 09/27/2024. TECHNIQUE: Two-dimensional transabdominal grayscale ultrasound imaging ofthe pelvis was performed. FINDINGS: Gestation: Single Presentation: Cephalic Cardiac Activity: 135 beats per minute Placental Location: Anterior with no sonographic abnormalitiesidentified. Cervical canal: Not visualized Amniotic Fluid Index: 14.8 cm MEASUREMENTS: BPD: 7.9 cm EGA: 31 weeks 4 days HC: 29.2 cm EGA: 32 weeks 1 days AC: 26.9 cm EGA: 31 weeks 0 days FL: 6.2 cm EGA: 32 weeks 0 days HC/AC Ratio: 1.08 The gestational age by today's ultrasound is 31 weeks 5 days (+/- 16 daysgestation). Estimated Weight: 1776 grams, +/- 266 grams ( 3 lb 15 oz). Weight Percentile for gestational age: 55 % IMPRESSION: 1. Single, live intrauterine gestation 31 weeks, 0 days by LMP. Today'sultrasound measurements correlate with a gestational age of 31 weeks 5days. Estimated weight is 1776 grams, +/- 266 grams ( 3 lb 15 oz)which correlates to 55 %. YUDELKA is 02/04/2025. Interpreted by: Electronically signed by ROBBIE DAIGLE II, MD, PHD 06:24:02 AM [facility] us Mike Reji DO IMG OB US PROCEDURES Final Resul t * GLUCOSE 1 HOUR (11/18/2024 10:06 AM EDT) Pathologist [facility] GLUCOSE 1 HOUR 73 <130 mg/dL TBH 11/18/2024 10:0 6 AM EDT 11/18/2024 10:08 AM EDT Narrative CLINISYNC - 11/18/2024 11:23 AM EDT us Mariya [facility]IP[facility] LAB BLOOD ORDERABLES Final Resul t [facility] * (ABNORMAL) ALL CBC WITH AUTO DIFF (11/18/2024 10:06 AM EDT) TB WBC 9.0 4.0 - 11.0 10 3/uL TBH TBH RBC 3.56(L) 4.20 - 5.40 10 6/uL TBH TBH HGB 10.6(L) 12.0 - 16.0 g/dL TBH TBH HCT 31.6(L) 36.0 - 48.0 % TBH TBH MCV 88.8 81.0 - 99.0 fL TBH TBH MCH 29.8 26.7 - 34.0 pg TBH TBH MCHC 33.5 29.9 - 35.2 g/dL TBH TBH RDW 13.0 11.0 - 15.0 % TBH TBH PLT 249 150 - 450 10 3/uL TBH TBH MPV 11.3 9.5 - 13.5 fL TBH NEUTROPHILS PERCENT AUTO 66.5 43.0 - 75.0 % TBH LYMPHOCYTES PERCENT AUTO 23.0 20.5 - 60.0 % TBH MONOCYTES PERCENT AUTO 8.6 1.7 - 12.0 % TBH TBH EO % 1.4 0.9 - 7.0 % TBH BASOPHILS PERCENT AUTO 0.3 0.2 - 2.0 % TBH IMMATURE GRANULOCYTES PCT AUTO 0.2 0.0 - 0.5 % TBH NEUTROPHILS ABSOLUTE AUTO 6.0 1.4 - 6.5 10 3/uL TBH LYMPHOCYTES ABSOLUTE AUTO 2.1 1.2 - 3.8 10 3/uL TBH MONOCYTES ABSOLUTE AUTO 0.8 0.3 - 0.8 10 3/uL TBH TBH EO # 0.1 0.0 - 0.7 10 3/uL TBH BASOPHILS ABSOLUTE AUTO 0.0 0.0 - 0.1 10 3/uL TBH IMMATURE GRANULOCYTES ABS AUTO 0.02 0.00 - 0.03 10 3/uL TBH 11/18/2024 10:0 6 AM EDT 11/18/2024 10:08 AM EDT Narrative CL[facility]IS[facility] - 11/18/2024 10:12 AM EDT Mariya WHIPPLE [facility] Final Result [facility] from Last 3 Months Insurance [employer] Care Teams Customer Care Coordinator Relationship Specialty Start Date End Date Kuldeep Mederos MD [address] [place] [address] PCP - General Family Medicine 02/04/24
--- OUTSIDE RECORDS SUMMARY | 2025-01-30 21:37 | XMS_ITS | CCD ---
Author Organization [facility] Care Team Providers Care Bagger Meat Name Role Phone KARLORINK ., DR AVILA [...] KARASIK ., DR AVILA Consulting Unavailabl e REQUEST, DR FERRIS LISTED Primary Care Unavaila ble KARASIK ., DR AVILA Attending Unavailabl e KARASIK ., DR AVILA Admitting Unavailabl e KARASIK ., DR AVILA Consulting Unavailabl e NADERER, DR LUCRETIA Schmitz Primary Care Unavailable KARASIK ., DR AVILA Attending Unavailabl e KARASIK ., DR AVILA Admitting Unavailabl e Sandra, Monica Unavailable Kuldeep Mederos MD Primary Care Provider [phone] Kuldeep Mederos MD Primary Care Provider [phone] Kuldeep Mederos MD Primary Care Provider [phone] REJI, AB Attending Unavailable LIBIA, MARIYA Attending Unavailable REJI, AB Attending Unavailable REJI, AB Referring Unavailable LIBIA, MARIYA Attending Unavailable REJI, AB Attending Unavailable REJI, AB Attending Unavailable REJI, AB Attending Unavailable LIBIA, MARIYA Attending Unavailable AUDREY CLINE Attending Unavailable REJI, AB Attending Unavailable LIBIA, MARIYA Attending Unavailable LIBIA, MARIYA Attending Unavailable Allergies Allergy Classification Reported Allergen(s) Allergy Type Date of Onset Reaction(s) Facility (1 source) Adhesive bandage Drug allergy (disorder) 3 [facility] Repository (1 source) Amoxicillin Drug Allergy diarrhea, vomiting [place] Other Medications Current Medications Medication Drug Class(es) Dates Sig (Normalized) Sig (Original) methylPREDNISolone 4 mg oral tablet (1 source) [...] vomiting 30 tablet 2 07/28/2024 08/27/2024 Active polysaccharide iron complex 391 mg oral capsule (2 sources) Start: 11-22-2024 End: 12-22-2024 take 1 capsule by mouth once daily iron polysaccharides (ProFe) 391.3 (180 Fe) MG capsule Indications: Antepartum anemia Take 1 capsule (391.3 mg) by mouth Daily 30 capsule 6 11/22/2024 12/22/2024 Active pramipexole dihydrochloride 0.5 mg oral tablet [...] Drug Class(es) Dates Sig (Normalized) Sig (Original) [id number] 200 actuat albuterol 0.09 mg/actuat metered dose inhaler (20 sources) beta2-Adrenergic Agonist End: 01-19-2025 take 2 puff(s) by inhalation every six hours albuterol HFA 90 mcg/act inhaler Inhale 2 puffs every 6 (six) hours if needed 01/19/2025 Discontinued escitalopram 5 mg oral tablet (20 sources) Serotonin Reuptake Inhibitor Start: 10-22-2023 End: 01-19-2025 take 1 tablet by mouth once daily escitalopram (Lexapro) 5 MG tablet Take 5 mg by mouth Daily 10/22/2023 01/19/2025 Discontinued take 1 tablet by mouth once roya y Escitalopram Oxalate 5 MG TAKE 1 TABLET BY MOUTH EVERY DAY Oral for 30 Days Active Ethinyl Estradiol / Ferrous fumarate / Norethindrone (5 sources) Estrogen Start: 02-04-2024 End: 07-28-2024 norethindrone-ethinyl estrad iol (09/20) 1-20 MG-MCG tablet Indications: General counseling and advice on contraceptive management Take 1 tablet by mouth Daily 28 tablet 11 02/04/2024 07/28/2024 Discontinued (Ineffective) Start: 02-04-2024 End: 02-03-2025 norethindrone-ethinyl estrad iol (09/20) 1-20 MG-MCG tablet Indications: General counseling and advice on contraceptive management Take 1 tablet by mouth Daily 28 tablet 02/04/2024 02/03/2025 Active ferrous sulfate (20 sources) End: 01-19-2025 Ferrous Sulfate (IRON PO) Ta ke by mouth 01/19/2025 Discontinued Ferrous Sulfate (IRON PO) Take by mouth Active norethindrone 0.35 mg oral tablet (6 [...] source) Tinea unguium Episodic Other complications of (2 sources) Anemia of ; Translations: [Anemia complicating , third trimester] 12-08-2024 Chronic Other complications of (3 sources) Vomiting of , unspecified; Translations: [Unspecified vomiting of , unspecified as to episode of care or not applicable] 07-09-2024 Episodic Other and delivery including normal (20 sources) Encounter for routine follow-up; Translations: [Single [...] [24 weeks gestation of ] 10-25-2024 Episodic Residual codes; unclassified (2 sources) Gestation period, 30 weeks; Translations: [30 weeks gestation of ] 12-08-2024 Episodic Residual codes; unclassified (2 sources) Gestation period, 33 weeks; Translations: [33 weeks gestation of ] 12-23-2024 Episodic Residual codes; unclassified (2 sources) Gestation period, 35 weeks; Translations: [35 weeks gestation of ] 01-06-2025 Episodic Residual codes; unclassified (2 sources) Gestation period, 36 weeks; Translations: [36 weeks gestation of ] 01-12-2025 Episodic Residual codes; unclassified (2 sources) Gestation period, 37 weeks; Translations: [37 weeks gestation of ] 01-19-2025 Episodic Residual codes; unclassified (2 sources) Gestation period, 38 weeks; Translations: [38 weeks gestation of ] 01-26-2025 Episodic Substance-related disorders (1 source) Nicotine dependence, [...] Range Facility Urinalysis macro (dipstick) panel (U)on 01-19-2025 Bilirubin, UA Negative Negative - 4(70) +++ mg/dL [facility] Blood, UA Negative Negative - 50 Eric/mcL [facility] Clarity, UA Clear [facility] re Color, UA Yellow [facility] e Glucose, UA Negative Negative - 1999(110) ++++ mg/dL [facility] Interpretation and review of laboratory results Abnormal [facility] Ketones, UA Negative Negative - 160(16) ++++ mg/dL [facility] Leukocytes, UA Positive Negative - 500+++ Miley/mcL [facility] Comment on above: small Nitrite, UA Negative Negative - Positive [facility] pH, UA 6.5 5 - 9 [facility] Protein, UA Positive Negative - 1999(20) ++++ mg/dL [facility] Comment on above: 30 Spec Grav, UA 1.02 1 - 1.03 [facility] Urobilinogen, UA 0.2 0.2 - 12 mg/dL [facility] e Urinalysis macro (dipstick) panel (U)on 01-12-2025 Bilirubin, UA Negative Negative - 4(70) +++ mg/dL [facility] Blood, UA Positive Negative - 50 Eric/mcL [facility] Comment on above: trace Clarity, UA Clear [facility] re Color, UA Yellow [facility] e Glucose, UA Negative Negative - 1999(110) ++++ mg/dL [facility] Interpretation and review of laboratory results Abnormal [facility] Ketones, UA Negative Negative - 160(16) ++++ mg/dL [facility] Leukocytes, UA Positive Negative - 500+++ Miley/mcL [facility] Nitrite, UA Negative Negative - Positive [facility] pH, UA 7 5 - 9 [facility] Health[facility] e Protein, UA Trace Negative - 1999(20) ++++ mg/dL [facility] Spec Grav, UA 1.02 1 - 1.03 [facility] care Urobilinogen, UA 0.2 0.2 - 12 mg/dL [facility] AMNISUREon 01-04-2025 [facility] AMNISURE Negative NEGATIVE [facility] e TB UA (CLEAN/CATCH) APPLICATIONS SYSTEM ANALYST/PAN RO IF IND.on 01-02-2025 BILIRUBIN URINE Negative NEGATIVE [facility] thcare BLOOD URINE Negative NEGATIVE [facility]ca re Clarity (U) CLEAR CLEAR [facility] re Color (U) LT. YELLOW YELLOW [facility] e GLUCOSE URINE UA Negative NEGATIVE mg/dL [facility] Interpretation and review of laboratory results Abnormal [facility] Ketones Ql (U) Negative NEGATIVE mg/dL [facility] Leukocyte esterase Test strip Ql (U) LARGE Abnormal NEGATIVE [facility] Healthcar e NITRITE URINE Negative NEGATIVE [facility] Health care pH (U) 7.0 [pH] 5.0 - 9.0 [facility] Healthcar e PROTEIN URINE Negative NEG/TRACE mg/dL [facility] SPECIFIC GRAVITY URINE 1.010 1.005 - 1.025 [facility] URINE MICROSCOPIC INDICATED YES [facility] UROBILINOGEN URINE 0.2 EU/dL 0.2 - 1.0 EU/dL [facility] Healthcar e Urinalysis macro (dipstick) panel (U)on 12-23-2024 Bilirubin, UA Negative Negative - 4(70) +++ mg/dL [facility] Blood, UA Negative Negative - 50 Eric/mcL [facility] Healthcare Clarity, UA Clear [facility] re Color, UA Yellow [facility] Health[facility] e Glucose, UA Negative Negative - 1999(110) ++++ mg/dL [facility] Interpretation and review of laboratory results Normal [facility] Ketones, UA Negative Negative - 160(16) ++++ mg/dL [facility] Leukocytes, UA Negative Negative - 500+++ Miley/mcL [facility] Nitrite, UA Negative Negative - Positive [facility] pH, UA 7 5 - 9 [facility] Protein, UA Negative Negative - 1999(20) ++++ mg/dL [facility] Spec Grav, UA 1.02 1 - 1.03 [facility] Urobilinogen, UA 0.2 0.2 - 12 mg/dL [facility] e US OB FOLLOW UP TRANSABDOMIN AL APPROACHon 12-08-2024 US OB FOLLOW UP TRANSABDOMINAL APPROACH EXAM: US OB FOLLOW UP TRANSABDOMINAL APPROACH [...] II, MD, PHD at 10-Dec-2024 06:24:02 AM [facility] Normal Not Available Comment on above: Order Comment: US OB SCAN FOR GROWTH Estimated Date of Delivery: 02/09/25 Gestational Age as of 11/22/2024: 28w5d Urinalysis macro (dipstick) panel (U)on 12-08-2024 Bilirubin, UA Negative Negative - 4(70) +++ mg/dL [facility] Blood, UA Negative Negative - 50 Eric/mcL [facility] Clarity, UA Clear [facility] re Color, UA Yellow [facility] Glucose, UA Negative Negative - 1999(110) ++++ mg/dL [facility] Interpretation and review of laboratory results Abnormal [facility] Healthcare Ketones, UA Negative Negative - 160(16) ++++ mg/dL [facility] Leukocytes, UA Trace Negative - 500+++ Miley/mcL [facility] Nitrite, UA Negative Negative - Positive [facility] pH, UA 5.5 5 - 9 [facility] Protein, UA Negative Negative - 1999(20) ++++ mg/dL [facility] Spec Grav, UA 1.03 1 - 1.03 [facility] Urobilinogen, UA 1.0 0.2 - 12 mg/dL [facility] Urinalysis macro (dipstick) panel (U)on 10-25-2024 Bilirubin, UA Negative Negative - 4(70) +++ mg/dL [facility] Healthcare Blood, UA Negative Negative - 50 Eric/mcL [facility] Clarity, UA Clear [facility] re Color, UA Yellow [facility] Glucose, UA Negative Negative - 1999(110) ++++ mg/dL [facility] Healthcare Interpretation and review of laboratory results Abnormal [facility] Healthcare Ketones, UA Negative Negative - 160(16) ++++ mg/dL [facility] Leukocytes, UA Trace Negative - 500+++ Miley/mcL [facility] Nitrite, UA Negative Negative - Positive [facility] Healthcare pH, UA 6 5 - 9 [facility] Protein, UA Negative Negative - 1999(20) ++++ mg/dL [facility] Spec Grav, UA 1.02 1 - 1.03 [facility] Urobilinogen, UA 1.0 0.2 - 12 mg/dL [facility] US OB 14+ WEEKS ANATOMY [...] report is generated using voice recognition reporting (NanoGram). On occasion [employer] erroneously drops words from the report or [...] UA Negative Negative - 4(70) +++ mg/dL [facility] Blood, UA Negative Negative - 50 Eric/mcL [facility] Clarity, UA Clear [facility] [employer] re Color, UA Yellow [facility] [employer] e Glucose, UA Negative Negative - 1999(110) ++++ mg/dL [facility] Interpretation and review of laboratory results Abnormal [facility] Ketones, UA Negative Negative - 160(16) ++++ mg/dL [facility] Leukocytes, UA Trace Negative - 500+++ Miley/mcL [facility] Nitrite, UA Negative Negative - Positive [facility] pH, UA 7 5 - 9 [facility] [employer] Protein, UA Negative Negative - 1999(20) ++++ mg/dL [facility] Spec Grav, UA 1.02 1 - 1.03 [facility] Urobilinogen, UA 0.2 0.2 - 12 mg/dL [facility] [employer] IGP,APTIMA HPV,AGE GDLNon AGE GDLN ACOG TESTING Note . [facility] Comment on above: TESTS RESULT FLAG UN ITS REF RANGE LAB Clinician Provided Cytology Information Source.............Cervix No. of containers..01 ThinPrep Vial Age Algo ACOG Jo Ann... -29 09 FLAG LEGEND: L-Low Normal,H-High Normal,LL-Alert Low,HH-Alert High <-Panic Low,>-Panic High,A-Abnormal,AA-Critical Abnormal Performed at: 01 =G [facility] [address] [place] [address] Riddhi Goodman MD, IGP, RFX APTIMA HPV ASCU Note . [facility] Comment on above: TESTS RESULT FLAG UN ITS REF RANGE LAB DIAGNOSIS: 02 NEGATIVE FOR INTRAEPITHELIAL LESION OR MALIGNANCY. Specimen adequacy: 02 Satisfactory for evaluation. Endocervical and/or squamous metaplastic cells (endocervical component) are present. Performed by: Rufina Canada, Facility Planner ([facility]) . 02 Note: Note 02 [...] <-Panic Low,>-Panic High,A-Abnormal,AA-Critical Abnormal Performed at: [address] [id number] Riddhi Goodman MD, Performed at: = - [facility] [id number] Hand Developer: Riddhi Goodman MD, Phone: [phone] Performed at: [facility] [id number] Hand Developer: Riddhi Goodman MD, Phone: [phone] SPATULA-ALONE CERVIX [facility] Healthcar e RECURRENT VAGINITIS (HTRX)on 09-01-2024 ATOPOBIUM VAGINAE 20.876 Abnormal [facility] ATOPOBIUM VAGINAE Detected Abnormal [facility] BVAB 2,3 (BACTERIAL VAGINOSIS ASSOCIATED BACTERIA 2, 3); MOBILUNCUS SPP 24.4 Abnormal [facility] Healthcare BVAB 2,3 (BACTERIAL VAGINOSIS ASSOCIATED BACTERIA 2, 3); MOBILUNCUS SPP Detected Abnormal [facility] Healthcare ANGELA ALBICANS, PARAPSILOSIS, TROPICALIS 0 [facility] ANGELA ALBICANS, PARAPSILOSIS, TROPICALIS Not detected [facility] ANGELA GLABRATA 0 [facility] Hea lthcare ANGELA GLABRATA Not detected [facility] AN[facility]ELA KRUSEI [facility] ANGELA KRUSEI Not detected [facility] CHLAMYDIA TRACHOMATIS 0 [facility] CHLAMYDIA TRACHOMATIS Not detected [facility] Healthcare ERMB, C; MEFA 16.624 Abnormal [facility] Health care ERMB, C; MEFA Detected Abnormal [facility] Health care GARDNERELLA VAGINALIS 22.69 Abnormal [facility] Healthcare GARDNERELLA VAGINALIS Detected Abnormal [facility] Healthcare Interpretation and review of laboratory results Abnormal [facility] MEGASPHAERA (TYPES 1, 2) 0 [facility] MEGASPHAERA (TYPES 1, 2) Not detected [facility] MYCOPLASMA GENITALIUM 0 [facility] MYCOPLASMA GENITALIUM Not detected [facility] NEISSERIA GONORRHOEAE 0 [facility] NEISSERIA GONORRHOEAE Not detected [facility] TET B, TET M 15.188 Abnormal [facility] are TET B, TET M Detected Abnormal [facility] Healthc are TRICHOMONAS VAGINALIS 0 [facility] TRICHOMONAS VAGINALIS Not detected [facility] Urinalysis macro (dipstick) panel (U)on 08-30-2024 Bilirubin, UA Negative Negative - 4(70) +++ mg/dL [facility] Blood, UA Negative Negative - 50 Eric/mcL [facility] Healthcare Clarity, UA Clear [facility] re Color, UA Yellow [facility] Healthcar e Glucose, UA Negative Negative - 1999(110) ++++ mg/dL [facility] Interpretation and review of laboratory results Abnormal [facility] Ketones, UA Negative Negative - 160(16) ++++ mg/dL [facility] Leukocytes, UA Moderate Negative - 500+++ Miley/mcL [facility] Nitrite, UA Negative Negative - Positive [facility] pH, UA 7 5 - 9 [facility] Healthcar e Protein, UA Negative Negative - 1999(20) ++++ mg/dL [facility] Spec Grav, UA 1.02 1 - 1.03 [facility] Urobilinogen, UA 0.2 0.2 - 12 mg/dL [facility] Urinalysis macro (dipstick) panel (U)on 07-28-2024 Bilirubin, UA Negative Negative - 4(70) +++ mg/dL [facility] Blood, UA Negative Negative - 50 Eric/mcL [facility] Healthcare Clarity, UA Cloudy [facility] re Color, UA Yellow [facility] Healthcar e Glucose, UA Negative Negative - 1999(110) ++++ mg/dL [facility] Interpretation and review of laboratory results Abnormal [facility] Ketones, UA Negative Negative - 160(16) ++++ mg/dL [facility] Leukocytes, UA Positive Negative - 500+++ Miley/mcL [facility] Healthcare Comment on above: small Nitrite, UA Negative Negative - Positive [facility] pH, UA 7 5 - 9 [facility] Health[facility] e Protein, UA Positive Negative - 1999(20) ++++ mg/dL [facility] Comment on above: 30 mg Spec Grav, UA 1.025 1 - 1.03 [facility] Urobilinogen, UA 1.0 0.2 - 12 mg/dL [facility] ALL CBC WITH AUTO DIFFon BASOPHILS ABSOLUTE AUTO 0.1 [facility] Basophils/100 WBC (Bld) 0.6 % 0.2 - 2.0 % [facility] Eosinophils/100 WBC (Bld) 2.7 % 0.9 - 7.0 % [facility] Erythrocyte distribution width (RBC) [Ratio] 12.3 % 11.0 - 15.0 % [facility] Hematocrit (Bld) [Volume fraction] 38.4 % 36.0 - 48.0 % [facility] Hemoglobin (Bld) [Mass/Vol] 13.4 g/dL 12.0 - 16.0 g/dL [facility] IMMATURE GRANULOCYTES ABS AUTO 0.04 High [facility] Immature granulocytes/100 WBC (Bld) 0.4 % 0.0 - 0.5 % [facility] Interpretation and review of laboratory results Abnormal [facility] LYMPHOCYTES ABSOLUTE AUTO 2.2 [facility] Lymphocytes/100 WBC (Bld) 19.4 % Low 20.5 - 60.0 % [facility] MCH (RBC) [Entitic mass] 30.7 pg 26.7 - 34.0 pg [facility] MCHC (RBC) [Mass/Vol] 34.9 g/dL 29.9 - 35.2 g/dL [facility] MCV (RBC) [Entitic vol] 88.1 fL 81.0 - 99.0 fL [facility] MONOCYTES ABSOLUTE AUTO 0.7 [facility] Monocytes/100 WBC (Bld) 6.3 % 1.7 - 12.0 % [facility] NEUTROPHILS ABSOLUTE AUTO 8 High [facility] Neutrophils/100 WBC (Bld) 70.6 % 43.0 - 75.0 % [facility] Platelet mean volume (Bld) [Entitic vol] 10.6 fL 9.5 - 13.5 fL [facility] Healthc are TBH EO # 0.3 [facility] TBH PLT 313 [facility] TB RBC 4.36 [facility] TBH WBC 11.3 High [facility] ALL TYPE AND SCREENon 2023 ABO and Rh group Nom (Bld) Blood group A [facility](D) [facility] BOX TESTon 07-27-2024 BOX TEST SENT OUT Y [facility] BOX1 UNITY [facility] BOX2 07/27/24 [facility] UNITY BOX [facility] MLR HEMOGLOBIN A1Con 024 Glucose [Mass/Vol] 100 mg/dL [facility] ealthcare HbA1c (Bld) [Mass fraction] 5.1 % 4.5 - 6.2 % [facility] Comment on above: ADA RECOMMENDED LIMI T 4.0 - 6.0 ADA THERAPEUTIC TARGET < 7.0 ACTION SUGGESTED > 7.0 [facility] DRUG SCREEN RAPID (URINE )on 07-27-2024 AMPHETAMINE SCREEN URINE Negative NEGATIVE [facility] BARBITURATES SCREEN URINE Negative NEGATIVE [facility] BENZODIAZEPINES SCREEN URINE Negative NEGATIVE [facility] BUPRENORPHINE SCREEN URINE Negative NEGATIVE [facility] Comment on above: DRUG CLASS TEST [...] ng/mL CANNABINOID SCREEN URINE Positive Abnormal NEGATIVE [facility] COCAINE SCREEN URINE Negative NEGATIVE [facility] Interpretation and review of laboratory results Abnormal [facility] METHADONE SCREEN URINE Negative NEGATIVE [facility] METHAMPHETAMINES SCREEN URINE Negative NEGATIVE [facility] OPIATE SCREEN URINE Negative NEGATIVE [facility] OXYCODONE SCREEN URINE Negative NEGATIVE [facility] PHENCYCLIDINE SCREEN URINE Negative NEGATIVE [facility] TRICYCLIC ANTIDEPRESSANT URINE Negative NEGATIVE [facility] HCG ( test) Ql (U)o n 07-09-2024 Interpretation and review of laboratory results Abnormal [facility] Preg Test, Ur Positive Negative [facility] Urinalysis macro (dipstick) panel (U)on 07-09-2024 Bilirubin, UA Negative Negative - 4(70) +++ mg/dL [facility] Blood, UA Negative Negative - 50 Eric/mcL [facility] Clarity, UA Clear [facility] re Color, UA Yellow [facility] e Glucose, UA Negative Negative - 2000(110) ++++ mg/dL [facility] Interpretation and review of laboratory results Normal [facility] Ketones, UA Negative Negative - 160(16) ++++ mg/dL [facility] Leukocytes, UA Negative Negative - 500+++ Miley/mcL [facility] Nitrite, UA Negative Negative - Positive [facility] pH, UA 5.5 5 - 9 [facility] e Protein, UA Negative Negative - 2000(20) ++++ mg/dL [facility] Spec Grav, UA 1.02 1 - 1.03 [facility] Urobilinogen, UA 1.0 0.2 - 12 mg/dL [facility] Quick Strepon 05-30-2023 S. pyogenes Org specific cx Ql (Throat) Negative [place] Other Quick Strep [facility] [employer] Other PAP ACOG PANEL 2: 21 to 29on 11-08-2022 . . Normal [facility] Comment on above: Result Comment: Perf ormed at: [facility] Performed By: #### [id number] #### [facility] [address] [place] [address] Dr. Meryl Damon Age Gdln ACOG Testing [facility] Comment on above: Performed By: #### [id number] #### [facility] [address] [place] [address] Dr. Meryl Damon DIAGNOSIS: Comment [facility] Comment on above: Result Comment: NEGA TIVE FOR INTRAEPITHELIAL LESION OR MALIGNANCY. Performed at: [facility] Performed By: #### [id number] #### [facility] [address] [address] [address] Meryl Damon Methodology: Comment [facility] Comment on above: Result Comment: This liquid based ThinPrep(R) pap test was screened with the use of an image guided system. Performed at: [facility] Performed By: #### [id number] #### [facility] [address] [place] [address] Dr. Meryl Damon Note: Comment [facility] Comment on above: Result Comment: The Pap smear is a screening test designed to aid in the detection of premalignant and malignant conditions of the uterine cervix. It is not a diagnostic procedure and should not be used as the sole means of detecting cervical cancer. Both false-positive and false-negative reports do occur. . Performed at: [facility] Performed By: #### [id number] #### [facility] [address] [place] [address] Dr. Meryl Damon Performed by: Comment Normal [facility] Comment on above: Result Comment: Luz Valverde Facility Planner (ASCP) Performed at: [facility] Performed By: #### [id number] #### [facility] [address] [place] [address] Dr. Meryl Damon Reflex Criteria: Comment Normal [facility] Comment on above: Result Comment: The HPV DNA reflex criteria were not met with this specimen result therefore, no HPV testing was performed. . Performed at: [facility] Performed By: #### [id number] #### [facility] [address] [place] [address] Dr. Meryl Damon Specimen adequacy: Comment Normal [facility] Comment on above: Result Comment: Sati sfactory for evaluation. Endocervical and/or squamous metaplastic cells (endocervical component) are present. Areas of partially obscuring inflammatory exudate are present. Performed at: [facility] Performed By: #### [id number] #### [facility] [address] [place] [address] Dr. Meryl Damon CBC AUTO DIFFon 02-19-2022 BASO # 0.1 103/ul Normal 0.0-0.1 [facility] Comment on above: Performed By: #### C BC #### [facility] [address] [place] [address] Dr. Meryl Damon Basophils/100 WBC (Bld) 0.3 % Normal 0.2-2.0 [facility] Comment on above: Performed By: #### C BC #### [facility] [address] [place] [address] Dr. Meryl Damon EO # 0.1 103/ul Normal 0.0-0.7 [facility] Comment on above: Performed By: #### C BC #### [facility] [address] [place] [address] Dr. Meryl Damon Eosinophils/100 WBC (Bld) 0.7 % Critically low 0.9-7.0 [facility] Comment on above: Performed By: #### C BC #### [facility] [address] [place] [address] Dr. Meryl Damon Erythrocyte distribution width (RBC) [Ratio] 14.1 % Normal 11.0-15.0 [facility] Comment on above: Performed By: #### C BC #### [facility] [address] [place] [address] Dr. Meryl Damon Hematocrit (Bld) [Volume fraction] 31.1 % Critically low 36.0-48.0 [facility] Comment on above: Performed By: #### C BC #### [facility] [address] [place] [address] Dr. Meryl Damon Hemoglobin (Bld) [Mass/Vol] 10.1 g/dL Critically low 12.0-16.0 [facility] Comment on above: Performed By: #### C BC #### [facility] [address] [place] [address] Dr. Meryl Damon IG # 0.09 10e3/ul Critically high 0.00-0.03 [facility] Comment on above: Performed By: #### C BC #### [facility] [address] [place] [address] Dr. Meryl Damon IG % 0.5 % Normal 0.0-0.5 [facility] Comment on above: Performed By: #### C BC #### [facility] [address] [place] [address] Dr. Meryl Damon LYMPH # 1.9 103/ul Normal 1.2-3.8 [facility] Comment on above: Performed By: #### C BC #### [facility] [address] [place] [address] Dr. Meryl Damon Lymphocytes/100 WBC (Bld) 11.5 % Critically low 20.5-60.0 [facility] Comment on above: Performed By: #### C BC #### [facility] [address] [address] [address] Meryl Damon MANUAL DIFF REQ NO Normal [facility] [place] [facility] Comment on above: Performed By: #### C BC #### [facility] [address] [place] [address] Dr. Meryl Damon MCH (RBC) [Entitic mass] 28.8 pg Normal 26.7-34.0 [facility] Comment on above: Performed By: #### C BC #### [facility] [address] [place] [address] Dr. Meryl Damon MCHC (RBC) [Mass/Vol] 32.5 g/dL Normal 29.9-35.2 [facility] Comment on above: Performed By: #### C BC #### [facility] [address] [place] [address] Dr. Meryl Damon MCV (RBC) [Entitic vol] 88.6 fL Normal 81.0-99.0 [facility] Comment on above: Performed By: #### C BC #### [facility] [address] [place] [address] Dr. Meryl Damon MONO # 1.8 103/ul Critically high 0.3-0.8 [facility] [place] [facility] Comment on above: Performed By: #### C BC #### [facility] [address] [place] [address] Dr. Meryl Damon Monocytes/100 WBC (Bld) 11.2 % Normal 1.7-12.0 [facility] Comment on above: Performed By: #### C BC #### [facility] [address] [place] [address] Dr. Meryl Damon NEUT # 12.4 103/ul Critically high 1.4-6.5 [facility] Comment on above: Performed By: #### C BC #### [facility] [address] [place] [address] Dr. Meryl Damon Neutrophils/100 WBC (Bld) 75.8 % Critically high 43.0-75.0 [facility] Comment on above: Performed By: #### C BC #### [facility] [address] [place] [address] Dr. Meryl Damon Platelet mean volume (Bld) [Entitic vol] 11.5 fL Normal 9.5-13.5 [facility] Comment on above: Performed By: #### C BC #### [facility] [address] [address] [address] Meryl Damon PLT 186 103/ul Normal 150-450 [facility] Comment on above: Performed By: #### C BC #### [facility] [address] [address] [address] Meryl Damon RBC 3.51 106/ul Critically low 4.20-5.40 [facility] [place] [facility] Comment on above: Performed By: #### C BC #### [facility] [address] [place] [address] Dr. Meryl Damon WBC 16.4 103/ul Critically high 4.0-11.0 [facility] Comment on above: Performed By: #### C BC #### [facility] [address] [address] [address] Meryl Damon CBC AUTO DIFFon 02-17-2022 BASO # 0.0 103/ul Normal 0.0-0.1 [facility] Comment on above: Performed By: #### C BC #### [facility] [address] [place] [address] Dr. Meryl Damon Basophils/100 WBC (Bld) 0.1 % Critically low 0.2-2.0 [facility] Comment on above: Performed By: #### C BC #### [facility] [address] [place] [address] Dr. Meryl Damon EO # 0.1 103/ul Normal 0.0-0.7 [facility] Comment on above: Performed By: #### C BC #### [facility] [address] [place] [address] Dr. Meryl Damon Eosinophils/100 WBC (Bld) 0.6 % Critically low 0.9-7.0 [facility] Comment on above: Performed By: #### C BC #### [facility] [address] [place] [address] Dr. Meryl Damon Erythrocyte distribution width (RBC) [Ratio] 13.9 % Normal 11.0-15.0 [facility] Comment on above: Performed By: #### C BC #### [facility] [address] [place] [address] Dr. Meryl Damon Hematocrit (Bld) [Volume fraction] 35.2 % Critically low 36.0-48.0 [facility] Comment on above: Performed By: #### C BC #### [facility] [address] [place] [address] Dr. Meryl Damon Hemoglobin (Bld) [Mass/Vol] 11.8 g/dL Critically low 12.0-16.0 [facility] Comment on above: Performed By: #### C BC #### [facility] [address] [place] [address] Dr. Meryl Damon IG # 0.08 10e3/ul Critically high 0.00-0.03 [facility] Comment on above: Performed By: #### C BC #### [facility] [address] [place] [address] Dr. Meryl Damon IG % 0.6 % Critically high 0.0-0.5 [facility] Comment on above: Performed By: #### C BC #### [facility] [address] [place] [address] Dr. Meryl Damon LYMPH # 1.7 103/ul Normal 1.2-3.8 [facility] Comment on above: Performed By: #### C BC #### [facility] [address] [place] [address] Dr. Meryl Damon Lymphocytes/100 WBC (Bld) 12.8 % Critically low 20.5-60.0 [facility] Comment on above: Performed By: #### C BC #### [facility] [address] [place] [address] Dr. Meryl Damon MANUAL DIFF REQ NO Normal [facility] [place] [facility] Comment on above: Performed By: #### C BC #### [facility] [address] [place] [address] Dr. Meryl Damon MCH (RBC) [Entitic mass] 29.4 pg Normal 26.7-34.0 [facility] Comment on above: Performed By: #### C BC #### [facility] [address] [place] [address] Dr. Meryl Damon MCHC (RBC) [Mass/Vol] 33.5 g/dL Normal 29.9-35.2 [facility] Comment on above: Performed By: #### C BC #### [facility] [address] [address] [address] Meryl Damon MCV (RBC) [Entitic vol] 87.6 fL Normal 81.0-99.0 [facility] Comment on above: Performed By: #### C BC #### [facility] [address] [place] [address] Dr. Meryl Damon MONO # 1.1 103/ul Critically high 0.3-0.8 [facility] [place] [facility] Comment on above: Performed By: #### C BC #### [facility] [address] [place] [address] Dr. Meryl Damon Monocytes/100 WBC (Bld) 7.8 % Normal 1.7-12.0 [facility] Comment on above: Performed By: #### C BC #### [facility] [address] [place] [address] Dr. Meryl Damon NEUT # 10.4 103/ul Critically high 1.4-6.5 [facility] Comment on above: Performed By: #### C BC #### [facility] [address] [place] [address] Dr. Meryl Damon Neutrophils/100 WBC (Bld) 78.1 % Critically high 43.0-75.0 [facility] Comment on above: Performed By: #### C BC #### [facility] [address] [place] [address] Dr. Meryl Damon Platelet mean volume (Bld) [Entitic vol] 11.5 fL Normal 9.5-13.5 [facility] Comment on above: Performed By: #### C BC #### [facility] [address] [place], [place] [id number] Dr. Meryl Damon PLT 265 103/ul Normal 150-450 [facility] Comment on above: Performed By: #### C BC #### [facility] [address] [place] [address] Dr. Meryl Damon RBC 4.02 106/ul Critically low 4.20-5.40 [facility] [place] [facility] Comment on above: Performed By: #### C BC #### [facility] [address] [place] [address] Dr. Meryl Damon WBC 13.4 103/ul Critically high 4.0-11.0 [facility] Comment on above: Performed By: #### C BC #### [facility] [address] [place] [address] Dr. Meryl Damon Covid-19 PCR ([facility])on 01-30 SARS-CoV-2 (COVID-19) RNA MADISON+probe Ql (Unsp spec) Not detected Normal NOT DETECTED [facility] Comment on above: Result Comment: When [...] for this test is supported by the House Manager of Health and Human Service's declaration that [...] used). Performed By: #### C VDTBH #### [facility] [address] [place] [address] Dr. Meryl Damon DRUG SCREEN RAPID (URINE)on 02-17-2022 AMP Negative Normal NEGATIVE [facility] Comment on above: Performed By: #### D RUGRPD #### [facility] [address] [place] [address] Dr. Meryl Damon BAR Negative Normal NEGATIVE [facility] Comment on above: Performed By: #### D RUGRPD #### [facility] [address] [place] [address] Dr. Meryl Damon BUP Negative Normal NEGATIVE [facility] Comment on above: Performed By: #### D RUGRPD #### [facility] [address] [place] [address] Dr. eMryl Damon BZO Negative Normal NEGATIVE [facility] Comment on above: Performed By: #### D RUGRPD #### [facility] [address] [place] [address] Dr. Meryl Damon EDGAR Negative Normal NEGATIVE [facility] Comment on above: Performed By: #### D RUGRPD #### [facility] [address] [place] [address] Dr. Meryl Damon CUT-OFFS SEE BELOW Normal [facility] Comment on above: Result Comment: AMP [...] ng/mL Performed By: #### D RUGRPD #### [facility] [address] [place] [address] Dr. Meryl Damon DRUG CUT HEADER DRUG CLASS TEST SYSTEM CUT-OFF CONCENTRATIONS ARE FOLLOWS: Normal [facility] Comment on above: Performed By: #### D RUGRPD #### [facility] [address] [place] [address] Dr. Meryl Damon mAMP Negative Normal NEGATIVE [facility] Comment on above: Performed By: #### D RUGRPD #### [facility] [address] [address] [address] Meryl Damon MTD Negative Normal NEGATIVE [facility] Comment on above: Performed By: #### D RUGRPD #### [facility] [address] [address] [address] Meryl Damon OPI Negative Normal NEGATIVE [facility] Comment on above: Performed By: #### D RUGRPD #### [facility] [address] [address] [address] Meryl Damon OXY Negative Normal NEGATIVE [facility] Comment on above: Performed By: #### D RUGRPD #### [facility] [address] [place] [address] Dr. Meryl Damon PCP Negative Normal NEGATIVE [facility] Comment on above: Performed By: #### D RUGRPD #### [facility] [address] [place] [address] Dr. Meryl Damon PPX Negative Normal NEGATIVE [facility] Comment on above: Performed By: #### D RUGRPD #### [facility] [address] [place] [address] Dr. Meryl Damon TCA Negative Normal NEGATIVE [facility] Comment on above: Performed By: #### D RUGRPD #### [facility] [address] [place] [address] Dr. Meryl Damon THC Positive Abnormal NEGATIVE [facility] Comment on above: Performed By: #### D RUGRPD #### [facility] [address] [place] [address] Dr. Meryl Damon TYPE AND SCREENon 02-17-2022 TYPE AND SCREEN Negative Normal [facility] Comment on above: Performed By: #### G LU1HR #### [facility] [address] [place] [address] Dr. Meryl Damon US PREG GROWTHon 02-06-2022 [...] TANYA SHEIKH Date: 2022-02-06 16:11 Normal [facility] GROUP B STREP CULTUREon 12-31 S. agalactiae Ag Ql (Unsp spec) Culture Observations: unable to isolate beta- possible Group B Normal [facility] Comment on above: Performed By: #### G LU1HR #### [facility] [address] [place] [address] Dr. Meryl Damon CULTURE URINEon 01-17-2022 CULTURE URINE Culture Observations: MODERATE GROWTH OF MIXED GENITAL SENA. NO POTENTIAL PATHOGENS SEEN. Normal [facility] Comment on above: Performed By: #### G LU1HR #### [facility] [address] [place] [address] Dr. Meryl Damon UA (CLEAN/CATCH) APPLICATIONS SYSTEM ANALYST/MICRO I F IND.on 01-17-2022 Bilirubin Ql (U) Negative Normal NEGATIVE [facility] Comment on above: Performed By: #### U MICRO, UACSIND #### [facility] [address] [place] [address] Dr. Meryl Damon Clarity (U) CLEAR Normal CLEAR [facility] Comment on above: Performed By: #### U MICRO, UACSIND #### [facility] [address] [place] [address] Dr. Meryl Damon Color (U) LT. YELLOW Normal YELLOW [facility] Comment on above: Performed By: #### U MICRO, UACSIND #### [facility] [address] [address] [address] Meryl Damon Glucose Ql (U) Negative Normal NEGATIVE [facility] Comment on above: Performed By: #### U MICRO, UACSIND #### [facility] [address] [address] [address] Meryl Damon Hemoglobin Ql (U) SMALL Abnormal NEGATIVE [facility] Comment on above: Performed By: #### U MICRO, UACSIND #### [facility] [address] [address] [address] Meryl Damon Ketones Ql (U) Negative Normal NEGATIVE [facility] Comment on above: Performed By: #### U MICRO, UACSIND #### [facility] [address] [place] [address] Dr. Meryl Damon LEUKOCYTES LARGE Abnormal NEGATIVE [facility] Comment on above: Performed By: #### U MICRO, UACSIND #### [facility] [address] [address] [address] Meryl Damon Nitrite Ql (U) Negative Normal NEGATIVE [facility] Comment on above: Performed By: #### U MICRO, UACSIND #### [facility] [address] [address] [address] Meryl Damon pH (U) 8.0 [pH] Normal 5-9 [facility] Comment on above: Performed By: #### U MICRO, UACSIND #### [facility] [address] [address] [address] Meryl Damon SPEC GRAVITY 1.010 Normal 1.005-<=1.025 [facility] Comment on above: Performed By: #### U MICRO, UACSIND #### [facility] [address] [address] [address] Meryl Damon UA PROTEIN Negative Normal NEGATIVE/ TRACE [facility] Comment on above: Performed By: #### U MICRO, UACSIND #### [facility] [address] [address] [address] Meryl Damon UR MICRO IND INDICATED Normal [facility] Comment on above: Performed By: #### U MICRO, UACSIND #### [facility] [address] [place] [address] Dr. Meryl Damon Urobilinogen Qn (U) 0.2 {Yovanny'U}/dL Normal 0.2 - 1. 0 [facility] Comment on above: Performed By: #### U MICRO, UACSIND #### [facility] [address] [place] [address] Dr. Meryl Damon URINE MICROSCOPIC ONLYon BACTERIA TRACE Abnormal NONE SEEN [facility] Comment on above: Performed By: #### U MICRO, UACSIND #### [facility] [address] [place] [address] Dr. Meryl Damon Bacteria identified Cx Nom (U) INDICATED Normal [facility] Comment on above: Performed By: #### U MICRO, UACSIND #### [facility] [address] [place] [address] Dr. Meryl Damon CAST NONE SEEN Normal NONE SEEN [facility] Comment on above: Performed By: #### U MICRO, UACSIND #### [facility] [address] [place] [address] Dr. Meryl Damon Crystals LM Nom (Urine sed) NONE SEEN Normal NONE SEEN [facility] Comment on above: Performed By: #### U MICRO, UACSIND #### [facility] [address] [place] [address] Dr. Meryl Damon Epithelial cells LM Ql (Urine sed) MANY Abnormal NONE SEEN /RARE [facility] Comment on above: Performed By: #### U MICRO, UACSIND #### [facility] [address] [place] [address] Dr. Meryl Damon MUCOUS TRACE Abnormal NONE SEEN [facility] Comment on above: Performed By: #### U MICRO, UACSIND #### [facility] [address] [place] [address] Dr. Meryl Damon RBC 5-10 Abnormal 0-2 [facility] Comment on above: Performed By: #### U MICRO, UACSIND #### [facility] [address] [place], [place] [address] Dr. Meryl Damon WBC 20-50 Abnormal NONE SEEN [facility] Comment on above: Performed By: #### U MICRO, UACSIND #### [facility] [id number] Meryl Damon US KIDNEYSon 01-17-2022 US [...] CORNELL BONDS Date: 2022-01-17 14:20 Normal [facility] US PREG REEVAL ABNon 022 US [...] CORNELL BONDS Date: 2022-01-09 09:14 Normal [facility] US PREG GROWTHon 12-17-2021 US PREG [...] BONDS Date: 2021-12-17 10:10 Normal [facility] GTT 3 HR PREGon 12-07-2021 Glucose [Mass/Vol] 85 mg/dL Normal 74-106 [facility] Comment on above: Performed By: #### G TT3P #### [facility] [address] [place] [address] Dr. Meryl Damon Glucose [Mass/Vol] 123 mg/dL Normal [facility] Comment on above: Performed By: #### G TT3P #### [facility] [address] [place] [address] Dr. Meryl Damon Glucose [Mass/Vol] 84 mg/dL Normal [facility] Comment on above: Performed By: #### G TT3P #### [facility] [address] [place] [address] Dr. Meryl Damon GLUCOSE - 1HRon 11-26-2021 Glucose [Mass/Vol] 146 mg/dL Critically high 74-106 [facility] Comment on above: Performed By: #### G LU1HR #### [facility] [address] [place] [address] Dr. Meryl Damon HEMOGRAM AND PLATELon 2021 Hematocrit (Bld) [Volume fraction] 38.3 % Normal 36.0-48.0 [facility] Comment on above: Performed By: #### G LU1HR #### [facility] [address] [address] [address] Meryl Damon Hemoglobin (Bld) [Mass/Vol] 12.6 g/dL Normal 12.0-16.0 [facility] Comment on above: Performed By: #### G LU1HR #### [facility] [address] [place] [address] Dr. Meryl Damon MCH (RBC) [Entitic mass] 30.9 pg Normal 26.7-34.0 [facility] Comment on above: Performed By: #### G LU1HR #### [facility] [address] [place] [address] Dr. Meryl Damon MCHC (RBC) [Mass/Vol] 32.9 g/dL Normal 29.9-35.2 [facility] Comment on above: Performed By: #### G LU1HR #### [facility] [address] [place] [address] Dr. Meryl Damon MCV (RBC) [Entitic vol] 93.9 fL Normal 81.0-99.0 [facility] Comment on above: Performed By: #### G LU1HR #### [facility] [address] [place] [address] Dr. Meryl Damon PLT 225 103/ul Normal 150-450 [facility] Comment on above: Performed By: #### G LU1HR #### [facility] [address] [place] [address] Dr. Meryl Damon RBC 4.08 106/ul Critically low 4.20-5.40 [facility] Comment on above: Performed By: #### G LU1HR #### [facility] [address] [place] [address] Dr. Meryl Damon WBC 8.5 103/ul Normal 4.0-11.0 [facility] Comment on above: Performed By: #### G LU1HR #### [facility] [address] [place] [address] Dr. Meryl Damon Vital Signs Date Time Vital Sign Value Performing Clinician Facility 01-26-2025 14: Body mass index (BMI) [Ratio] 27.06 kg/m2 Mariya Reza PA Work Phone: [facility] 01-26-2025 14:11-0400 Body weight 80.74 kg Mariya Mooreey PA Work Phone: [facility] 01-26-2025 14:11-0400 Diastolic blood pressure 64 mm[Hg] Mariya Mooreey PA Work Phone: [facility] 01-26-2025 14:11-0400 Systolic blood pressure 112 mm[Hg] Mariya Mooreey PA Work Phone: [facility] 01-19-2025 14:10-0400 Body mass index (BMI) [Ratio] 27.19 kg/m2 Ab Reji DO Work Phone: [facility] 01-19-2025 14:10-0400 Body weight 81.1 kg Ab Reji DO Work Phone: [facility] 01-19-2025 14:10-0400 Diastolic blood pressure 60 mm[Hg] Ab Reji DO Work Phone: [facility] 01-19-2025 14:10-0400 Systolic blood pressure 110 mm[Hg] Ab Reji DO Work Phone: [facility] 01-12-2025 10:01-0400 Body mass index (BMI) [Ratio] 26.61 kg/m2 Audrey Marlyn [address] [employer] [address] [employer] Work Phone: [facility] 01-12-2025 10:01-0400 Body weight 79.38 kg Audrey Marlyn [employer] [address] [employer] Work Phone: [facility] 01-12-2025 10:01-0400 Diastolic blood pressure 68 mm[Hg] Audrey Marlyn [employer] [address] [employer] Work Phone: [facility] 01-12-2025 10:01-0400 Systolic blood pressure 110 mm[Hg] Audrey Marlyn [employer] [address] [employer] Work Phone: [facility] 01-06-2025 08:54-0400 Body mass index (BMI) [Ratio] 26.3 kg/m2 Mariya Libia PA Work Phone: [facility] 01-06-2025 08:54-0400 Body weight 78.47 kg Mariya Libia PA Work Phone: [facility] 01-06-2025 08:54-0400 Diastolic blood pressure 68 mm[Hg] Mariya Deshler PA Work Phone: [facility] 01-06-2025 08:54-0400 Systolic blood pressure 108 mm[Hg] Mariya Libia PA Work Phone: [facility] 12-23-2024 10:22-0400 Body mass index (BMI) [Ratio] 26.15 kg/m2 Ab Reji DO Work Phone: [facility] 12-23-2024 10:22-0400 Body weight 78.02 kg Ab Reji DO Work Phone: [facility] 12-23-2024 10:22-0400 Diastolic blood pressure 70 mm[Hg] Ab Reji DO Work Phone: [facility] 12-23-2024 10:22-0400 Systolic blood pressure 110 mm[Hg] Ab Reji DO Work Phone: [facility] 12-08-2024 09:53-0400 Body mass index (BMI) [Ratio] 25.7 kg/m2 Mariya Libia PA Work Phone: [facility] 12-08-2024 09:53-0400 Body weight 76.66 kg Mariya Libia PA Work Phone: [facility] 12-08-2024 09:53-0400 Diastolic blood pressure 70 mm[Hg] Mariya Libia PA Work Phone: [facility] 12-08-2024 09:53-0400 Systolic blood pressure 108 mm[Hg] Mariya Libia PA Work Phone: [facility] 10-25-2024 11:25-0500 Body mass index (BMI) [Ratio] 24.91 kg/m2 Mariya Libia PA Work Phone: [facility] 10-25-2024 11:25-0500 Body weight 74.3 kg Mariya Libia PA Work Phone: [facility] 10-25-2024 11:25-0500 Diastolic blood pressure 68 mm[Hg] Mariya Deshler PA Work Phone: [facility] 10-25-2024 11:25-0500 Systolic blood pressure 108 mm[Hg] Mariya Libia PA Work Phone: [facility] 09-27-2024 14:07-0500 Body mass index (BMI) [Ratio] 24.18 kg/m2 Ab Reji DO Work Phone: [facility] 09-27-2024 14:07-0500 Body weight 72.12 kg Ab Reji DO Work Phone: [facility] 09-27-2024 14:07-0500 Diastolic blood pressure 60 mm[Hg] Ab Reji DO Work Phone: [facility] 09-27-2024 14:07-0500 Systolic blood pressure 116 mm[Hg] Ab Reji DO Work Phone: [facility] 08-30-2024 12:17-0500 Body mass index (BMI) [Ratio] 23.72 kg/m2 Mariya Deshler PA Work Phone: [facility] 08-30-2024 12:17-0500 Body weight 70.76 kg Mariya Libia PA Work Phone: [facility] 08-30-2024 12:17-0500 Diastolic blood pressure 62 mm[Hg] Mariya Deshler PA Work Phone: [facility] 08-30-2024 12:17-0500 Systolic blood pressure 108 mm[Hg] Mariya Deshler PA Work Phone: [facility] 07-28-2024 14:35-0500 Body mass index (BMI) [Ratio] 23.11 kg/m2 Ab Reji DO Work Phone: [facility] 07-28-2024 14:35-0500 Body weight 68.95 kg Ab Reji DO Work Phone: [facility] [employer] 07-28-2024 14:35-0500 Diastolic blood pressure 70 mm[Hg] Ab Reji DO Work Phone: [facility] [employer] 07-28-2024 14:35-0500 Systolic blood pressure 116 mm[Hg] Ab Reji DO Work Phone: [facility] [employer] 05-30-2023 15:30-0400 Body height 170.18 cm Monica Flores Other [place] Other 05-30-2023 15:30-0400 Body mass index (BMI) [Ratio] 21.3 kg/m2 Monica Sandra Other [place] Other 05-30-2023 15:30-0400 Body temperature 98.9 [degF] Monica Flores Other [place] Other 05-30-2023 15:30-0400 Body weight 61.69 kg Monica Sandra Other [place] Other 05-30-2023 15:30-0400 Diastolic blood pressure 63 mm[Hg] Monica Sandra Other [place] Other 05-30-2023 15:30-0400 Respiratory rate 18 /min Monica Sandra Other [place] Other 05-30-2023 15:30-0400 SaO2% (BldA) [Mass fraction] 97 % Monica Flores Other [place] Other 05-30-2023 15:30-0400 Systolic blood pressure 118 mm[Hg] Monica Flores Other [place] Other Encounters Encounter Date Encounter Type Care Provider Facility Start: 01-26-2025 End: 01-26-2025 Bamboo flowsheet Mariya WHIPPLE Work Phone: [facility] Start: 01-26-2025 End: 01-26-2025 Bamboo flowsheet Mariya WHIPPLE Work Phone: [facility] Start: 01-26-2025 End: 01-26-2025 ambulatory MARIYA REZA Not Available Start: 01-26-2025 End: 01-26-2025 Office outpatient visit 15 minutes Mariya WHIPPLE Work Phone: [facility] Comment on above: Third trimester preg janiya; 38 weeks gestation of Start: 01-19-2025 End: 01-19-2025 Bamboo flowsheet Ab Reji DO Work Phone: [facility] Start: 01-19-2025 End: 01-19-2025 Bamboo flowsheet Ab Reji DO Work Phone: [facility] Start: 01-19-2025 End: 01-19-2025 Office outpatient visit 15 minutes Ab Reji DO Work Phone: [facility] Comment on above: 37 weeks gestation o f ; Third trimester Start: 01-19-2025 End: 01-19-2025 ambulatory AB REJI Not Available Start: 01-12-2025 End: 01-12-2025 Bamboo flowsheet Audrey Marlyn [employer] Work Phone: [facility] Start: 01-12-2025 End: 01-12-2025 Bamboo flowsheet Audrey Marlyn [employer] Work Phone: [facility] Start: 01-12-2025 End: 01-12-2025 ambulatory AUDREY MARLYN Not Available Start: 01-12-2025 End: 01-12-2025 Office outpatient visit 15 minutes Audrey Cline [employer] Work Phone: [facility] Comment on above: Third trimester preg janiya; 36 weeks gestation of Start: 01-06-2025 End: 01-06-2025 Bamboo flowsheet Mariya WHIPPLE Work Phone: [facility] Start: 01-06-2025 End: 01-06-2025 Bamboo flowsheet Mariya WHIPPLE Work Phone: [facility] Start: 01-06-2025 End: 01-06-2025 Office outpatient visit 15 minutes Mariya WHIPPLE Work Phone: [facility] Comment on above: Third trimester preg janiya; 35 weeks gestation of Start: 01-06-2025 End: 01-06-2025 ambulatory MARIYA REZA Not Available Start: 01-04-2025 End: 01-04-2025 Clinisync Result Encounter Ab Reji DO Work Phone: [facility] Unsolicited Start: 01-04-2025 End: 01-04-2025 Clinisync Result Encounter Ab Reji DO Work Phone: [facility]solic[facility] Start: 01-02-2025 End: 01-02-2025 Clinisync Result Encounter Ab Reji DO Work Phone: [facility]solicited Start: 01-02-2025 End: 01-02-2025 Clinisync Result Encounter Ab Reji DO Work Phone: [facility] Unsolicited Start: 12-23-2024 End: 12-23-2024 Bamboo flowsheet Ab Reji DO Work Phone: [facility] Start: 12-23-2024 End: 12-23-2024 Bamboo flowsheet Ab Reji DO Work Phone: [facility] Start: 12-23-2024 End: 12-23-2024 Office outpatient visit 15 minutes Ab Reji DO Work Phone: [facility] Comment on above: Third trimester preg janiya; 33 weeks gestation of Start: 12-23-2024 End: 12-23-2024 ambulatory AB REJI Not Available Start: 12-08-2024 End: 12-08-2024 Office outpatient visit 15 minutes Mariya WHIPPLE Work Phone: [facility] Comment on above: Third trimester preg janiya; 30 weeks gestation of ; Anemia during in third trimester Start: 12-08-2024 End: 12-08-2024 ambulatory MARIYA REZA Not Available Start: 11-22-2024 End: 11-22-2024 ambulatory AB REJI Not Available Start: 10-25-2024 End: 10-25-2024 Bamboo flowsheet Mariya Reza PA Work Phone: [facility] Start: 10-25-2024 End: 10-25-2024 Bamboo flowsheet Mariya WHIPPLE Work Phone: [facility] Start: 10-25-2024 End: 10-25-2024 Office outpatient visit 15 minutes Mariya WHIPPLE Work Phone: [facility] Comment on above: Second trimester [...] Start: 08-30-2024 End: 08-30-2024 Bamboo flowsheet Mariya Reza PA Work Phone: [facility] Start: 08-30-2024 End: 09-03-2024 Bamboo flowsheet Mariya WHIPPLE Work Phone: [facility] Start: 08-30-2024 End: 09-03-2024 Clinisync Result Encounter Mariya WHIPPLE Work Phone: [facility] External Department Unsolicited Start: 08-30-2024 End: 09-01-2024 External Result Encounter Mariya WHIPPLE Work Phone: [facility] External Department Unsolicited Start: 08-30-2024 End: 08-30-2024 ambulatory MARIYA REZA Not Available Start: 08-30-2024 End: 08-30-2024 Patient encounter procedure Mariya WHIPPLE Work Phone: [facility] Start: 08-30-2024 End: 08-30-2024 Periodic preventive [...] Result Encounter Ab Reji DO Work Phone: [facility] External Department Unsolicited Start: 07-27-2024 End: 07-27-2024 [...] 05-30-2023 End: 05-30-2023 ambulatory Monica Flores Other [place] Other Start: 05-30-2023 Office outpatient ne w [...] Date Procedure Procedure Detail Performing Clinician Start: 01-19-2025 Urnls dip stick/tabl et rgnt non-auto w/o micrscp Ab Reji DO Work Phone: Start: 01-12-2025 Urnls dip stick/tabl et rgnt non-auto w/o micrscp Audrey Cline [employer] Work Phone: Start: 01-04-2025 AMNISURE Ab Fazi o DO Work Phone: Start: 01-02-2025 [facility] UA (CLEAN/CATCH) APPLICATIONS SYSTEM ANALYST/MICRO IF IND. Ab Reji DO Work Phone: Start: 12-23-2024 Urnls dip stick/tabl et rgnt non-auto w/o micrscp Ab Reji DO Work Phone: Start: 12-08-2024 Urnls dip stick/tabl et rgnt non-auto w/o micrscp Mariya WHIPPLE Work Phone: Start: 10-25-2024 Urnls dip stick/tabl et rgnt [...] DO Work Phone: Start: 07-27-2024 BOX TEST Ba Fazi o DO Work Phone: Start: 07-27-2024 MLR HEMOGLOBIN A1C Core y Reji DO Work Phone: Start: 07-27-2024 [facility] DRUG SCREEN RAPI D (URINE) Ab Reji DO Work Phone: Start: 07-09-2024 End: 07-09-2024 [...] Treatment Date Care Activity Detail Author Start: 05-02-2025 Influenza vaccination Influenz a Vaccine (Season Ended) [facility] Start: 01-26-2025 End: 01-26-2025 Patient encounter procedure 01/26/2025 1:50 PM EDT Routine [facility] [address] [place] [address] Mariya Reza PA [address] [place] [address] [facility] Start: 01-19-2025 End: 01-19-2025 Patient encounter procedure [facility] Comment on above: Arrived Start: 01-12-2025 End: 01-12-2026 CULTURE, GROUP B STREP WITH SUSCEPTIBLITY CULTURE, GROUP B STREP WITH SUSCEPTIBLITY Lab Routine Third trimester Expected: 01/12/2025, Expires: 01/12/2026 [facility] Work Phone: Comment on above: Expected: 01/12/2025 , Expires: 01/12/2026 Start: 01-12-2025 End: 01-12-2025 Patient encounter procedure 01/12/2025 9:50 AM EDT Routine [facility] [address] [place] [address] Audrey Cline NP [address] [address] [facility] Start: 01-06-2025 End: 01-06-2025 Patient encounter procedure [facility] Comment on above: Arrived Start: 12-23-2024 End: 12-23-2024 Patient encounter procedure [facility] Comment on above: Arrived Start: 12-08-2024 End: 12-08-2025 CBC panel - Blood by Automated count CBC Lab Routine Anemia during in third trimester Expected: 12/08/2024 (Approximate), Expires: 12/08/2025 [facility] Work Phone: Comment on above: Expected: 12/08/2024 (Approximate), Expires: 12/08/2025 Start: 11-22-2024 End: 11-22-2024 Patient encounter procedure 11/22/2024 10:20 AM EDT Routine [facility] [address] [place] [id number] Ab Mendoza DO [address] [place] [address] [facility] Start: 10-25-2024 End: 10-25-2025 CBC panel - Blood by Automated count CBC Lab Routine Diabetes mellitus screening Expected: 10/25/2024 (Approximate), Expires: 10/25/2025 [facility] Work Phone: Comment on above: Expected: 10/25/2024 (Approximate), Expires: 10/25/2025 Start: 10-25-2024 End: 10-25-2025 Measurement of glucose 1 hour after glucose challenge for glucose tolerance test Glucose tolerance, 1 hour Lab Routine Diabetes mellitus screening Expected: 10/25/2024 (Approximate), Expires: 10/25/2025 [facility] Comment on above: Expected: 10/25/2024 (Approximate), Expires: 10/25/2025 Start: 10-25-2024 End: 10-25-2024 Patient encounter procedure [facility] Comment on above: Arrived Start: 09-27-2024 End: 09-27-2024 Patient encounter procedure 09/27/2024 2:00 PM EST Routine [facility] [address] [place] [address] Ab Mendoza DO [address] [place] [address] [facility] Start: 09-27-2024 End: 09-27-2024 Professional / ancillary services management 09/27/2024 1:00 PM EST Ancillary Procedure [facility] [address] [place] [phone] [facility] Start: 08-30-2024 End: 09-30-2024 Alpha fetoprotein, maternal Alpha fetoprotein, maternal Lab Routine Need for maternal serum alpha-protein (MSAFP) screening Expected: 08/30/2024 (Approximate), Expires: 09/30/2024 [facility] Comment on above: Expected: 08/30/2024 (Approximate), Expires: 09/30/2024 Start: 08-30-2024 End: 08-30-2025 US for US OB ANATOMY SINGLE W US OB CERVICAL LENGTH Imaging Routine Screening, , for anatomic survey Expected: 08/30/2024 (Approximate), Expires: 08/30/2025 [facility] Comment on above: Expected: 08/30/2024 (Approximate), Expires: 08/30/2025 Start: 08-30-2024 End: 08-30-2024 Patient encounter procedure 08/30/2024 11:20 AM EST Routine [facility] [address] [place] [id number] Mariya Reza PA [address] [place] [address] [facility] Start: 07-28-2024 End: 07-28-2024 Patient encounter procedure [facility] Comment on above: Arrived Start: 07-09-2024 End: 07-09-2025 ABO/Rh ABO/Rh Lab Routine Missed menses , unspecified gestational age Expected: 07/09/2024 (Approximate), Expires: 07/09/2025 [facility] Comment on above: Expected: 07/09/2024 (Approximate), Expires: 07/09/2025 Start: 07-09-2024 End: 07-09-2025 Blood type and Indirect antibody screen panel - Blood Type and screen Lab Routine Missed menses , unspecified gestational age Expected: 07/09/2024 (Approximate), Expires: 07/09/2025 [facility] Work Phone: Comment on above: Expected: 07/09/2024 (Approximate), Expires: 07/09/2025 Start: 07-09-2024 End: 07-09-2025 Drugs of abuse panel - Urine by Screen method Rapid drug screen, urine Lab Routine , unspecified gestational age Encounter for supervision of normal first in first trimester Expected: 07/09/2024 (Approximate), Expires: 07/09/2025 [facility] Comment on above: Expected: 07/09/2024 (Approximate), Expires: 07/09/2025 Start: 07-09-2024 End: 07-09-2025 US Pelvis transvaginal US OB transvaginal Imaging Routine Missed menses Expected: 07/09/2024 (Approximate), Expires: 07/09/2025 [facility] Comment on above: Expected: 07/09/2024 (Approximate), Expires: 07/09/2025 Start: 05-02-2024 Influenza vaccination Influenza Vacc ine (#1) [facility] Bacteria identified in Urine by Culture Urine culture Microbiology Routine Missed menses Ordered: 07/09/2024 [facility] Comment on above: Ordered: 07/09/2024 CBC W Auto Different ial panel - Blood CBC and differential Lab Routine Missed menses , unspecified gestational age Ordered: 07/09/2024 [facility] Comment on above: Ordered: 07/09/2024 CHLAMYDIA TRACHOMATI S (GENITO/STI) CHLAMYDIA TRACHOMATIS (GENITO/STI) Lab Routine Exposure to STD Ordered: 08/30/2024 [facility] Comment on above: Ordered: 08/30/2024 Cytology Cervical or vaginal smear or scraping study Pap Smear Pathology and Cytology Routine Well woman exam with routine gynecological exam Ordered: 08/30/2024 [facility] Comment on above: Ordered: 08/30/2024 Hemoglobin A1c/Hemoglobin.total in Blood Hemoglobin A1c Lab Routine Missed menses , unspecified gestational age Ordered: 07/09/2024 [facility] Comment on above: Ordered: 07/09/2024 Hepatitis B virus surface Ag [Presence] in Serum or Plasma by Immunoassay Hepatitis B surface antigen Lab Routine Missed menses , unspecified gestational age Ordered: 07/09/2024 [facility] Comment on above: Ordered: 07/09/2024 Hepatitis C virus Ab [Presence] in Serum or Plasma by Immunoassay Hepatitis C antibody Lab Routine Missed menses , unspecified gestational age Ordered: 07/09/2024 [facility] Comment on above: Ordered: 07/09/2024 HIV-1/HIV-2 antigen/antibody combination immunoassay HIV-1 and HIV-2 antibodies Lab Routine Missed menses , unspecified gestational age Ordered: 07/09/2024 [facility] Comment on above: Ordered: 07/09/2024 Neisseria gonorrhoea e DNA [Presence] in Unspecified specimen by MADISON with probe detection Neisseria gonorrhea DNA probe, direct Lab Routine Exposure to STD Ordered: 08/30/2024 [facility] Comment on above: Ordered: 08/30/2024 Reagin Ab [Presence] in Serum by RPR RPR Lab Routine Missed menses , unspecified gestational age Ordered: 07/09/2024 [facility] Comment on above: Ordered: 07/09/2024 Rubella antibody, IgG Rubella an tibody, IgG Lab Routine Missed menses , unspecified gestational age Ordered: 07/09/2024 [facility] Comment on above: Ordered: 07/09/2024 SURESWAB(R) ADVANCED VAGINITIS PLUS, TMA SURESWAB(R) ADVANCED VAGINITIS PLUS, TMA Pathology and Cytology Routine Exposure to STD Ordered: 08/30/2024 [facility] Work Phone: Comment on above: Ordered: 08/30/2024 Immunizations Immunization Date Immunization Notes Care Provider Gilmar rea 07-21-2013 influenza virus vacc ine, unspecified formulation Mariya WHIPPLE Work Phone: [facility] Payers Date Payer Category Payer Private Health Insurance [facility] MEDICAID [id number] 2000 Unknown [id number] 2.16.840.1.694371.3.579.2. 593 2000 Unknown [id number] 2.16.840.1.098075.3.579.2. 593 2000 Unknown [id number] 2.16.840.1.549260.3.579.2. 593 2000 Unknown [id number] 2.16.840.1.128334.3.579.2. 593 2000 Unknown [id number] 2.16.840.1.075901.3.579.2. 593 2000 Unknown [id number] 2.16.840.1.391098.3.579.2. 593 2000 Unknown [id number] 2.16.840.1.206260.3.579.2. 593 2000 Unknown [id number] 2.16.840.1.327428.3.579.2. 593 2000 Unknown [id number] 2.16.840.1.403245.3.579.2. 593 2000 Unknown [id number] 2.16.840.1.899051.3.579.2. 593 2000 Unknown [id number] 2.16.840.1.686232.3.579.2. 1259 2000 Unknown [id number] 2.16.840.1.180047.3.579.2. 1259 2000 Unknown [id number] 2.16.840.1.650129.3.579.2. 1258 2000 Unknown [id number] 2.16.840.1.203437.3.579.2. 1258 2000 Unknown [id number] 2.16.840.1.862353.3.579.2. 1258 2000 Unknown [id number] 2.16.840.1.742286.3.579.2. 1258 2000 Unknown [id number] 2.16.840.1.391688.3.579.2. 1258 2000 Unknown [id number] 2.16.840.1.484838.3.579.2. 1258 2000 Unknown [id number] 2.16.840.1.725529.3.579.2. 1258 2000 Unknown [id number] 2.16.840.1.809184.3.579.2. 1258 2000 Unknown [id number] 2.16.840.1.251727.3.579.2. 1258 2000 Unknown [id number] 2.16.840.1.157240.3.579.2. 1258 2000 Unknown [id number] 2.16.840.1.916569.3.579.2. 1258 2000 Unknown [id number] 2.16.840.1.530495.3.579.2. 1258 2000 Unknown [id number] 2.16.840.1.046860.3.579.2. 1258 1959 Unknown [id number] 1959 Unknown [id number] Social History Date Type Detail Facility Unknown if ever smoked [facility] [employer] Other Start: 02-04-2024 Sex Assigned At N [facility] [employer] Other Start: 02-04-2024 Tobacco smoking stat [facility] Smokes tobacco daily [facility] History of tobacco use Cigarette Smoker [facility] Start: 02-04-2024 Cigarettes smoked current (pack per day) - Reported 1.5 [facility] Start: 05-19-2024 [facility] Start: 2000 Sex assigned at Not on file N [facility] Clinical Notes 05-30-2023 to 01-26-2025 Audrey Cline NP - 01/26/2025 1:50 PM EDTMargaret Ho LPN - 01/19/2025 1:30 PM EDTAudrey Cline NP - 01/12/2025 9:50 AM SARABJIT Navarrete - 01/06/2025 8:40 AM EDT Note Date & Type Note Facility 01-26-2025 History of Presen t illness Narrative Reason [...] nursing note reviewed. Exam conducted with a unemployment insurance director present. Vitals: Estimated body mass index is 27.06 kg/m as calculated from the following: Height [...] Audrey Cline NP documented in this encounter [facility] 01-19-2025 History of Presen t illness Narrative Reason [...] Problems Past Medical History: Diagnosis Date Asthma 2004 HISTORY PAST MEDICAL HISTORY SOCIAL HISTORY [...] nursing note reviewed. Exam conducted with a unemployment insurance director present. Vitals: Estimated body mass index is 27.19 kg/m as calculated from the following: Height [...] Ab Mendoza DO documented in this encounter [facility] 01-12-2025 History of Presen t illness Narrative Reason [...] Problems Past Medical History: Diagnosis Date Asthma 2004 HISTORY PAST MEDICAL HISTORY SOCIAL HISTORY [...] Appearance: Normal appearance. She is well-developed. Genitourinary: Right Adnex[employer]: not tender and no mass [...] nursing note reviewed. Exam conducted with a unemployment insurance director present. Vitals: Estimated body mass index is 26.3 kg/m as calculated from the following: Height as of 02/04/24: 5' 8 . Weight as of 01/06/25: 173 lb. BP: Patient's last menstrual period was 05/05/2024. ASSESSMENT & PLAN ICD-10-CM 1. Third trimester Z34.93 CULTURE, GROUP B STREP WITH SUSCEPTIBLITY POCT urinalysis dipstick manually resulted 2. 36 weeks gestation of Z3A.36 Patient is doing well but has complaints of being tired and having maternal discomfort due to . Patient verbalized frequent movement and was instructed to perform kick counts three times per day. labor precautions were given, LARC consent was signed/declined, and GBS was obtained. Cervical check was performed and patient is 0cm dilated. Orders Placed This Encounter Procedures CULTURE, GROUP B STREP WITH SUSCEPTIBLITY POCT urinalysis dipstick manually resulted Follow Up: Patient is to return to office in 1 week for routine OB appointment Documented by Perla Bundy MA on behalf of: Audrey Cline NP documented in this encounter [facility] 01-06-2025 History of Presen t illness Narrative Reason [...] nursing note reviewed. Exam conducted with a unemployment insurance director present. Vitals: Estimated body mass index is 26.3 kg/m as calculated from the following: Height as of 02/04/24: 5' 8 . Weight as of this encounter: 173 lb. BP: 108/68 Patient's last menstrual period was 05/05/2024. ASSESSMENT & PLAN ICD-10-CM 1. Third trimester Z34.93 2. 35 weeks gestation of Z3A.35 Patient presents today for a routine obstetrics appointment. Patient is currently 35w1d with a Estimated Date of Delivery: 02/09/25. Patient to return to clinic in 1 week for routine OB appointment. Documented by Brittany Rose LPN on behalf of: SARABJIT Toussaint documented in this encounter [facility] 12-23-2024 History of Presen t illness Narrative Reason [...] Problems Past Medical History: Diagnosis Date Asthma 2004 HISTORY PAST MEDICAL HISTORY SOCIAL HISTORY [...] SYSTEMS Review of Systems: Review of Systems OBJECTIVE Objective: OBGyn Exam Vitals: Estimated body mass index is 26.15 kg/m as calculated from the following: Height as of 02/04/24: 5' 8 . Weight as of this encounter: 172 lb. BP: 110/70 Patient's last menstrual period was 05/05/2024. ASSESSMENT & PLAN ICD-10-CM 1. Third trimester Z34.93 POCT urinalysis dipstick manually resulted 2. 33 weeks gestation of Z3A.33 Return OB: Patient presents today for a routine obstetrics appointment. Patient is currently 33w1d . Patient states she is doing well but has complaints of being tired due to current . Patient has experienced more vaginal pressure and left hip pain this week. Patient has been on her feet a lot at work patient stated. Patient has verbalizes frequent movement. labor precautions was discussed/given and patient was instructed to perform kick counts three times a day. Orders Placed This Encounter Procedures POCT urinalysis dipstick manually resulted Follow Up: Patient is to return to office in 3 week for routine OB appointment. Documented by Perla Bundy MA on behalf of: Ab Mendoza DO documented in this encounter [facility] 12-08-2024 History of Presen t illness Narrative Reason for Appointment: Patient ID: Elida Prakash is a 24 y.o. female who presents for Routine Visit Patient presents today for Return OB appointment. MEDICATIONS Current Outpatient Medications Medication Instructions albuterol HFA 90 mcg/act inhaler 2 puffs, Inhalation, Every 6 hours PRN escitalopram (LEXAPRO) 5 mg, Daily Ferrous Sulfate (IRON PO) Oral iron polysaccharides (PROFE) 391.3 mg, Oral, Daily ALLERGIES Allergies Allergen Reactions Wound Dressing Adhesive [...] reviewed. Vitals: Estimated body mass index is 25.7 kg/m as calculated from the following: Height as of 02/04/24: 5' 8 . Weight as of this encounter: 169 lb. BP: 108/70 Patient's last menstrual period was 05/05/2024. ASSESSMENT & PLAN ICD-10-CM 1. Third trimester Z34.93 POCT urinalysis dipstick manually resulted 2. 30 weeks gestation of Z3A.30 POCT urinalysis dipstick manually resulted 3. Anemia during in third trimester O99.013 CBC CBC Return OB: Patient presents today for a routine obstetrics appointment. Patient is currently 31w0d . Patient states she is doing well but has complaints of being tired due to current . Patient has verbalizes frequent movement. labor precautions was discussed/given and patient was instructed to perform kick counts three times a day. Getting repeat CBC to check hemoglobin. States she has been taking profe and feels good then run down in the afternoon. She questioning if she can increase profe Orders Placed This Encounter Procedures CBC POCT urinalysis dipstick manually resulted Follow Up: Patient is to return to office in 2 week for routine OB appointment. Documented by SARABJIT Toussaint on behalf of: SARABJIT Toussaint documented in this encounter [facility] 10-25-2024 History of Presen t illness Narrative [...] Problems Past Medical History: Diagnosis Date Asthma ([facility]) 2004 HISTORY PAST MEDICAL HISTORY SOCIAL HISTORY Past Medical History: Diagnosis Date Asthma ([facility]) 2004 Social History Tobacco Use Smoking status: [...] of: SARABJIT Toussaint documented in this encounter [facility] 09-27-2024 History of Presen t illness Narrative [...] Problems Past Medical History: Diagnosis Date Asthma ([facility]) 2004 HISTORY PAST MEDICAL HISTORY SOCIAL HISTORY Past Medical History: Diagnosis Date Asthma ([facility]) 2004 Social History Tobacco Use Smoking status: [...] nursing note reviewed. Exam conducted with a unemployment insurance director present. Vitals: Estimated body mass index is [...] Mariya Reza PA-C documented in this encounter [facility] 08-30-2024 History of Presen t illness Narrative [...] Problems Past Medical History: Diagnosis Date Asthma ([facility]) 2004 HISTORY PAST MEDICAL HISTORY SOCIAL HISTORY Past Medical History: Diagnosis Date Asthma ([facility]) 2004 Social History Tobacco Use Smoking status: [...] nursing note reviewed. Exam conducted with a unemployment insurance director present. Vitals: Estimated body mass index is [...] of: SARABJIT Toussaint documented in this encounter [facility] 07-28-2024 History of Presen t illness Narrative [...] Problems Past Medical History: Diagnosis Date Asthma ([facility]) 2004 HISTORY PAST MEDICAL HISTORY SOCIAL HISTORY Past Medical History: Diagnosis Date Asthma ([facility]) 2004 Social History Tobacco Use Smoking status: [...] nursing note reviewed. Exam conducted with a unemployment insurance director present. Vitals: Estimated body mass index is [...] meat, and stay away from [facility]. Patient has been consulted regarding any [...] Ab Mendoza DO documented in this encounter [facility] 07-09-2024 History of Presen t illness Narrative [...] Problems Past Medical History: Diagnosis Date Asthma ([facility]) 2004 No family history on file. Social [...] meat, and stay away from [facility]. Patient has also been advised to [...] Radha Hernandez LPN documented in this encounter [facility] 05-30-2023 Evaluation note Encounter Date Diagnosis Assessment [...] B35.1) Onychomycosis home care material was printed [place] Other Evaluation note* Diagnosis Missed menses , unspecified gestational age Encounter for supervision of normal first in first trimester Nausea and vomiting in Unspecified vomiting of , unspecified as to episode of care [facility] First trimester state, incidental 12 weeks gestation of Nausea and vomiting in Unspecified vomiting of , unspecified as to episode of care [facility] Diagnosis Well woman exam with routine gynecological exam Routine gynecological examination Second trimester state, incidental 16 weeks gestation of Exposure to STD Need for maternal serum alpha-protein (MSAFP) screening Screening, , for anatomic survey Encounter for anatomic survey [facility] Diagnosis Second trimester state, incidental 20 weeks gestation of [facility] Diagnosis Second trimester state, incidental 24 weeks gestation of Diabetes mellitus screening Screening for diabetes mellitus [facility] Diagnosis Third trimester state, incidental 30 weeks gestation of Anemia during in third trimester [facility] Diagnosis Third trimester state, incidental 33 weeks gestation of [facility] Diagnosis Third trimester state, incidental 35 weeks gestation of [facility] Diagnosis Third trimester state, incidental 36 weeks gestation of [facility] Diagnosis 37 weeks gestation of Third trimester state, incidental [facility] Diagnosis Third trimester state, incidental 38 weeks gestation of [facility] N[facility] - Reported* Type Description Date Medical History Drug abuse Medical History Depression Medical History Anxiety Surgical History tonsillectomy Surgical History PE tubes [place] Other Summary Purpose Family History No Family History Records FoundNo Family History Records Found Advance Directives No Advanced Directives Records FoundNo Advanced Directives Records Found Additional Source Comments INFORMATION SOURCE (unrecogn ized section and content) DATE CREATED AUTHOR 11/11/2022 [facility] DATE CREATED AUTHOR AUTHOR'S ORGANIZ ATION 01/29/2025 [facility] EPIC REASON FOR VISIT (unrecogniz ed section and content) Reason Comments Routine Visit Care Teams (unrecognized sec tion and content) [employer] Relationship Specialty Start Date End Date Kuldeep Mederos MD [address] [place] [address] PCP - General Family Medicine 02/04/24 [employer] Relationship Specialty Start Date End Date Kuldeep Mederos MD [address] [facility] [place] [address] PCP - General Family Medicine 02/04/24 [employer] Relationship Specialty Start Date End Date Kuldeep Mederos MD [address] [facility] [place] [address] PCP - General Family Medicine 02/04/24 [employer] Relationship Specialty Start Date End Date Kuldeep Mederos MD [address] [facility] [place] [address] PCP - General Family Medicine 02/04/24 [employer] Relationship Specialty Start Date End Date Kuldeep Mederos MD [address] [facility] [place] [address] PCP - General Family Medicine 02/04/24 [employer] Relationship Specialty Start Date End Date Kuldeep Mederos MD [address] [facility] [place] [address] PCP - General Family Medicine 02/04/24 [employer] Relationship Specialty Start Date End Date Kuldeep Mederos MD [address] [facility], [phone] PCP - General Family Medicine 02/04/24 [employer] Relationship Specialty Start Date End Date Kuldeep Mederos MD [address] [facility], [phone] PCP - General Family Medicine 02/04/24 [employer] Relationship Specialty Start Date End Date Kuldeep Mederos MD [address] [facility], [phone] PCP - General Family Medicine 02/04/24 [employer] Relationship Specialty Start Date End Date Kuldeep Mederos MD [address] [facility], [phone] PCP - General Family Medicine 02/04/24 [employer] Relationship Specialty Start Date End Date Kuldeep Mederos MD PCP - General Family Medicine 02/04/24 [employer] Relationship Specialty Start Date End Date Kuldeep Mederos MD [address] [facility] [place] [address] PCP - General Family Medicine 02/04/24 [employer] Relationship Specialty Start Date End Date Kuldeep Mederos MD [address] [facility] [place] [address] PCP - General Family Medicine 02/04/24 [employer] Relationship Specialty Start Date End Date Kuldeep Mederos MD [address] [facility] [place] [address] PCP - General Family Medicine 02/04/24 [employer] Relationship Specialty Start Date End Date Kuldeep Mederos MD [address] [facility] [place] [phone] PCP - General Family Medicine 02/04/24 FOR [...] BE BASED ON THE PRIMARY CLINICAL RECORDS. [facility]. provides no warranty or guarantee of the accuracy or completeness of information in this document.
--- OUTSIDE RECORDS SUMMARY | 2025-01-30 21:37 | XMS_ITS | Patient Health Record ---
Author Organization [facility] in [place] Address [address] [place] [address] Care Team Providers Care Senior Linux Systems Engineer Name Role Phone Monica Rand Primary Care Provider Allergies No Known Allergies Results Component Value Reference Range Notes CBC AUTO DIFF Reviewed date:02/08/2024 10:16:59 PM Interpretation: Performing Lab: Notes/Report: [facility] , White Blood Count 8.3 4.0-11.0 10 3/uL Red Blood Count 5.01 4.20-5.40 10 6/uL Hemoglobin 15.1 12.0-16.0 g/dL Hematocrit 44.6 36.0-48.0 % Mean Corpuscular Volume 89.0 81.0-99.0 fL Mean Corpuscular Hemoglobin 30.1 26.7-34.0 pg Mean Corpuscular HGB Conc 33.9 29.9-35.2 g/dL Red Cell Distribution Width 13.1 11.0-15.0 % Platelet Count 318 150-450 10 3/uL Mean Platelet Volume 11.2 9.5-13.5 fL Neutrophils Percent Auto 65.7 43.0-75.0 % Lymphocytes Percent Auto 27.2 20.5-60.0 % Monocytes Percent Auto 5.1 1.7-12.0 % Eosinophils Percent Auto 1.2 0.9-7.0 % Basophils Percent Auto 0.6 0.2-2.0 % Immature Granulocytes Pct Auto 0.2 0.0-0.5 % Neutrophils Absolute Auto 5.4 1.4-6.5 10 3/uL Lymphocytes Absolute Auto 2.3 1.2-3.8 10 3/uL Monocytes Absolute Auto 0.4 0.3-0.8 10 3/uL Eosinophils Absolute Auto 0.1 0.0-0.7 10 3/uL Basophils Absolute Auto 0.1 0.0-0.1 10 3/uL Immature Granulocytes Abs Auto 0.02 0.00-0.03 10 3/uL Performing Lab: see note ML - [facility] PREG HCG QUAL Reviewed date:02/08/2024 10:16:59 PM Interpretation: Performing Lab: Notes/Report: [facility] , HCG Qualitative NEGATIVE NEGATIVE Performing Lab: see note - [facility] PROF CHEM 8 (BAS METB) Reviewed date:02/08/2024 10:16:59 PM Interpretation: Performing Lab: Notes/Report: [facility] , Sodium 139 136-145 mmol/L Potassium 4.2 3.5-5.1 mmol/L Chloride 103 98-107 mmol/L Carbon Dioxide 26.2 21.0-32.0 mmol/L Anion Gap 14.0 Glucose 100 74-106 mg/dL Blood Urea Nitrogen 21.0 7.0-18.0 mg/dL Creatinine 0.91 0.55-1.02 mg/dL Estimated GFR ( Mar >60 >=60 Estimated GFR (Non- Diamond >60 >=60 BUN Creatinine Ratio 23.1 Calcium 9.8 8.5-10.1 mg/dL Performing Lab: see note - [facility] LB UA (CLEAN or CATCH) INTERNET MANAGER or M ICRO IF IND. Reviewed date:02/08/2024 10:16:59 PM Interpretation: Performing Lab: Notes/Report: [facility] , Color Urine LT. YELLOW YELLOW Clarity Urine CLEAR CLEAR Specific [place] Urine <=1.005 1.005-1.025 pH Urine 6.0 5.0-9.0 Protein Urine NEGATIVE NEG/TRACE mg/dL Glucose Urine UA NEGATIVE NEGATIVE mg/dL Bilirubin Urine NEGATIVE NEGATIVE Ketones Urine NEGATIVE NEGATIVE mg/dL Blood Urine LARGE NEGATIVE Nitrite Urine NEGATIVE NEGATIVE Urobilinogen Urine 0.2 0.2-1.0 EU/dL Leukocyte Esterase Urine TRACE NEGATIVE Urine Microscopic Indicated YES Performing Lab: see note - [facility] LB URINE MICROSCOPIC ONLY Reviewed date:02/08/2024 10:16:59 PM Interpretation: Performing Lab: Notes/Report: [facility] , WBC Urine 2-5 NONE SEEN #/HPF RBC Urine 2-5 0-2 #/HPF Bacteria Urine TRACE NONE SEEN #/HPF Mucus Urine TRACE NONE SEEN Squamous Epithelial Cell Urine MODERATE NONE/RARE #/LPF Crystals Seen? None Seen None Seen #/HPF Cast Seen? NONE SEEN NONE SEEN #/LPF Urine Culture Indicated NO Performing Lab: see note - [facility] LB Prothrombin Time INR Reviewed date:02/08/2024 10:16:59 PM Interpretation: Performing Lab: Notes/Report: [facility] , Prothrombin Time 10.3 9.0-11.6 sec INR 0.97 DESIRED INR: 2.0-3.0 CONDITIONS NOT LISTED BELOW 2.5-3.5 FOR PROSTHETIC HEART VALVE REPLACEMENT 2.5-3.5 RECURRENT THROMBOSIS Performing Lab: see note [facility] HCG Qualitative Urine Reviewed date:02/08/2024 10:16:59 PM Interpretation: Performing Lab: Notes/Report: [facility] , HCG Qualitative Urine* NEGATIVE NEGATIVE Performing Lab: see note [facility] GLYCOHEMOGLOBIN A1C Reviewed date:07/27/2024 02:28:10 PM Interpretation: Performing Lab: Notes/Report: [facility] , Glycohemoglobin A1C 5.1 4.5-6.2 % ADA RECOMMENDED LIMIT 4.0 - 6.0 ADA THERAPEUTIC TARGET < 7.0 ACTION SUGGESTED > 7.0 Estimated Average Glucose 100 Performing Lab: see note [facility] LB RUBELLA AB IGG Reviewed date:07/28/2024 05:26:52 PM Interpretation: Performing Lab: Notes/Report: [facility] , Rubella Antibodies, IgG 3.54 Immune > 0.99 index Non-immune <0.90 Equivocal 0.90 - 0.99 Immune >0.99 Performing Lab: see note LC - [facility] LB Type and Screen Reviewed date:07/27/2024 05:34:28 PM Interpretation: Performing Lab: Notes/Report: [facility] , Blood Type A Positive Antibody Screen NEGATIVE HIV Ab/p24 Ag with Reflex Reviewed date:07/28/2024 05:26:52 PM Interpretation: Performing Lab: Notes/Report: [facility] , HIV Ab/p24 Ag Screen Non Reactive Non Reactive HIV-1/HIV-2 antibodies and HIV-1 p24 antigen were NOT detected. There is no laboratory evidence of HIV infection. HIV Negative Performed at: [address] [id number] Blast Furnace Operator: Martin Sparks PhD, Phone: [phone] Performing Lab: see note - [facility] LB Rapid Plasma Reagin, Quant Reviewed date:07/28/2024 05:26:52 PM Interpretation: Performing Lab: Notes/Report: [facility] , Rapid Plasma Reagin, Quant Non Reactive NonRea<1:1 titer Please Note: This test does not meet current guidelines for screening and diagnosis of syphilis. This test is intended for following treatment response in patients being treated for syphilis infection. To screen for syphilis infection, a reflex cascade that includes both RPR and a treponema-specific assay should be utilized, such as Treponema pallidum (Syphilis) Screening [place] (371915) or Rapid Plasma Reagin (RPR) Test With Reflex to Quantitative RPR and Confirmatory Treponema pallidum Antibodies (313667). Performed at: [address] [id number] Blast Furnace Operator: Martin Sparks PhD, Phone: [phone] Performing Lab: see note [facility] HCV Antibody RFX to Quant PC R Reviewed date:07/28/2024 05:26:52 PM Interpretation: Performing Lab: Notes/Report: [facility] , HCV Ab Non Reactive Non Reactive Interpretation: Comment . Not infected with HCV unless early or acute infection is suspected (which may be delayed in an immunocompromised individual), or other evidence exists to indicate HCV infection. Performing Lab: see note [facility] HBsAg Screen Reviewed date:07/28/2024 05:26:52 PM Interpretation: Performing Lab: Notes/Report: [facility] , HBsAg Screen Negative Negative Performed at: [address] [id number] Blast Furnace Operator: Martin Sparks PhD, Phone: [phone] Performing Lab: see note - [facility] LB Box Test Reviewed date:07/27/2024 02:28:10 PM Interpretation: Performing Lab: Notes/Report: MAURISIO BECKWITH [facility] , BOX Test Sent Out Y BOX Test Reference Lab UNITY BOX Test Date Sent 07/27/24 Performing Lab: see note ML - [facility] LB Cannabinoid Conf, MS, UR Reviewed date:08/01/2024 12:16:16 PM Interpretation: Performing Lab: Notes/Report: [facility] , Cannabinoid Positive . Carboxy THC Conf, MS, UR >750 Cutoff=10 ng/mL [facility] [address] [facility], [place], [place] [id number] Blast Furnace Operator: Sunny Lozoya PhD, Phone: [phone] Performing Lab: see note - [facility] LB Urine Culture, Routine Reviewed date:10/12/2024 12:46:05 PM Interpretation: Performing Lab: Notes/Report: [facility] , Urine Culture, Routine See Below For Report Urine Culture, Routine Urine Culture, Routine Mixed urogenital skye Urine Culture, Routine Urine Culture, Routine 10,000-25,000 col prerna forming units per mL Urine Culture, Routine Urine Culture, Routine Performed at: [facility] Urine Culture, Routine Urine Culture, Routine [address] [place] [id number] Urine Culture, Routine Urine Culture, Routine Blast Furnace Operator: Adal Sparks PhD, Phone: [phone] Urine Culture, Routine Performing Lab: see note - [facility] LB SEE REPORT - Automotive Generator Repairer Id information not found for OBX-specific writer producer legend CBC AUTO DIFF Reviewed date:11/18/2024 06:36:03 PM Interpretation: Performing Lab: Notes/Report: [facility] , White Blood Count 9.0 4.0-11.0 10 3/uL Red Blood Count 3.56 4.20-5.40 10 6/uL Hemoglobin 10.6 12.0-16.0 g/dL Hematocrit 31.6 36.0-48.0 % Mean Corpuscular Volume 88.8 81.0-99.0 fL Mean Corpuscular Hemoglobin 29.8 26.7-34.0 pg Mean Corpuscular HGB Conc 33.5 29.9-35.2 g/dL Red Cell Distribution Width 13.0 11.0-15.0 % Platelet Count 249 150-450 10 3/uL Mean Platelet Volume 11.3 9.5-13.5 fL Neutrophils Percent Auto 66.5 43.0-75.0 % Lymphocytes Percent Auto 23.0 20.5-60.0 % Monocytes Percent Auto 8.6 1.7-12.0 % Eosinophils Percent Auto 1.4 0.9-7.0 % Basophils Percent Auto 0.3 0.2-2.0 % Immature Granulocytes Pct Auto 0.2 0.0-0.5 % Neutrophils Absolute Auto 6.0 1.4-6.5 10 3/uL Lymphocytes Absolute Auto 2.1 1.2-3.8 10 3/uL Monocytes Absolute Auto 0.8 0.3-0.8 10 3/uL Eosinophils Absolute Auto 0.1 0.0-0.7 10 3/uL Basophils Absolute Auto 0.0 0.0-0.1 10 3/uL Immature Granulocytes Abs Auto 0.02 0.00-0.03 10 3/uL Performing Lab: see note - [facility] LB Glucose 1 Hour Reviewed date:11/18/2024 06:36:03 PM Interpretation: Performing Lab: Notes/Report: [facility] , Glucose 1 Hour 73 <130 mg/dL Performing Lab: see note - [facility] LB Urine Culture, Routine Reviewed date:11/22/2024 08:49:46 PM Interpretation: Performing Lab: Notes/Report: [facility] , Urine Culture, Routine See Below For Report Urine Culture, Routine Urine Culture, Routine Specimen has been received and testing has been initiated. Urine Culture, Routine Urine Culture, Routine Urine Culture, Routine Urine Culture, Routine Mixed urogenital skye Urine Culture, Routine Urine Culture, Routine 10,000-25,000 col prerna forming units per mL Urine Culture, Routine Urine Culture, Routine [facility]formed at: [facility] Urine Culture, Routine Urine Culture, Routine [address] [place], [place] [id number] Urine Culture, Routine Urine Culture, Routine Blast Furnace Operator: Adal Sparks PhD, Phone: [phone] Urine Culture, Routine Performing Lab: see note - [facility] LB SEE REPORT - Automotive Generator Repairer Id information not found for OBX-specific writer producer legend UA (CLEAN or CATCH) INTERNET MANAGER or M ICRO IF IND. Reviewed date:01/02/2025 05:00:54 PM Interpretation: Performing Lab: Notes/Report: [facility] , Color Urine LT. YELLOW YELLOW Clarity Urine CLEAR CLEAR Specific [place] Urine 1.010 1.005-1.025 pH Urine 7.0 5.0-9.0 Protein Urine NEGATIVE NEG/TRACE mg/dL Glucose Urine UA NEGATIVE NEGATIVE mg/dL Bilirubin Urine NEGATIVE NEGATIVE Ketones Urine NEGATIVE NEGATIVE mg/dL Blood Urine NEGATIVE NEGATIVE Nitrite Urine NEGATIVE NEGATIVE Urobilinogen Urine 0.2 0.2-1.0 EU/dL Leukocyte Esterase Urine LARGE NEGATIVE Urine Microscopic Indicated YES Performing Lab: see note ML - [facility] LB URINE MICROSCOPIC ONLY Reviewed date:01/02/2025 05:00:54 PM Interpretation: Performing Lab: Notes/Report: [facility] , WBC Urine 5-10 NONE SEEN #/HPF RBC Urine 0-2 0-2 #/HPF Bacteria Urine SMALL NONE SEEN #/HPF Mucus Urine NONE SEEN NONE SEEN Squamous Epithelial Cell Urine FEW NONE/RARE #/LPF Crystals Seen? None Seen None Seen #/HPF Cast Seen? NONE SEEN NONE SEEN #/LPF Urine Culture Indicated YES- Performing Lab: see note - [facility] LB URINE MICROSCOPIC ONLY Reviewed date:11/18/2024 08:55:38 AM Interpretation: Performing Lab: Notes/Report: [facility] , WBC Urine 5-10 NONE SEEN #/HPF RBC Urine 0-2 0-2 #/HPF Bacteria Urine MODERATE NONE SEEN #/HPF Mucus Urine NONE SEEN NONE SEEN Squamous Epithelial Cell Urine MODERATE NONE/RARE #/LPF Crystals Seen? None Seen None Seen #/HPF Cast Seen? NONE SEEN NONE SEEN #/LPF Urine Culture Indicated YES- Performing Lab: see note - [facility] LB UA (CLEAN or CATCH) INTERNET MANAGER or M ICRO IF IND. Reviewed date:11/18/2024 08:55:38 AM Interpretation: Performing Lab: Notes/Report: [facility] , Color Urine LT. YELLOW YELLOW Clarity Urine CLEAR CLEAR Specific [place] Urine 1.025 1.005-1.025 pH Urine 6.5 5.0-9.0 Protein Urine TRACE NEG/TRACE mg/dL Glucose Urine UA NEGATIVE NEGATIVE mg/dL Bilirubin Urine NEGATIVE NEGATIVE Ketones Urine TRACE NEGATIVE mg/dL Blood Urine NEGATIVE NEGATIVE Nitrite Urine NEGATIVE NEGATIVE Urobilinogen Urine 0.2 0.2-1.0 EU/dL Leukocyte Esterase Urine SMALL NEGATIVE Urine Microscopic Indicated YES Performing Lab: see note ML - [facility] LB URINE MICROSCOPIC ONLY Reviewed date:10/10/2024 12:20:40 PM Interpretation: Performing Lab: Notes/Report: [facility] , WBC Urine 0-2 NONE SEEN #/HPF RBC Urine 10-20 0-2 #/HPF Bacteria Urine SMALL NONE SEEN #/HPF Mucus Urine TRACE NONE SEEN Squamous Epithelial Cell Urine MODERATE NONE/RARE #/LPF Crystals Seen? None Seen None Seen #/HPF Cast Seen? NONE SEEN NONE SEEN #/LPF Urine Culture Indicated YES Performing Lab: see note ML - [facility] LB UA (CLEAN or CATCH) INTERNET MANAGER or M ICRO IF IND. Reviewed date:10/10/2024 12:20:40 PM Interpretation: Performing Lab: Notes/Report: [facility] , Color Urine LT. YELLOW YELLOW Clarity Urine CLEAR CLEAR Specific [place] Urine 1.020 1.005-1.025 pH Urine 7.0 5.0-9.0 Protein Urine NEGATIVE NEG/TRACE mg/dL Glucose Urine UA NEGATIVE NEGATIVE mg/dL Bilirubin Urine NEGATIVE NEGATIVE Ketones Urine NEGATIVE NEGATIVE mg/dL Blood Urine MODERATE NEGATIVE Nitrite Urine NEGATIVE NEGATIVE Urobilinogen Urine 0.2 0.2-1.0 EU/dL Leukocyte Esterase Urine TRACE NEGATIVE Urine Microscopic Indicated YES Performing Lab: see note - [facility] LB IGP,Aptima HPV,Age Gdln Reviewed date:09/05/2024 05:14:04 PM Interpretation: Performing Lab: Notes/Report: SPATULA-ALONE [facility] , Age Gdln ACOG Testing Note . TESTS RESULT FLAG UNITS REF RANGE LAB Clinician Provided Cytology Information Source.............Cerv ix No. of containers..01 ThinPrep Vial Age Algo ACOG Jo Ann... FLAG LEGEND: L-Low Normal,H-High Normal,LL-Alert Low,HH-Alert High <-Panic Low,>-Panic High,A-Abnormal,AA-Crit ical Abnormal Performed at: 01 =G [address] [place] [address] Riddhi Goodman MD, IGP, rfx Aptima HPV ASCU Note . TESTS RESULT FLAG UNITS REF RANGE LAB DIAGNOSIS: 02 NEGATIVE FOR INTRAEPITHELIAL LESION OR MALIGNANCY. Specimen adequacy: 02 Satisfactory for evaluation. Endocervical and/or squamous metaplastic cells (endocervical component) are present. Performed by: Rufina Canada, Research Microbiologist ([facility]) . 02 Note: Note 02 The Pap [...] L-Low Normal,H-High Normal,LL-Alert Low,HH-Alert High <-Panic Low,>-Panic High,A-Abnormal,AA-Crit ical Abnormal Performed at: [address] [address] Riddhi Goodman MD, Performed at: =[facility] [address] [id number] Blast Furnace Operator: Riddhi Goodman MD, Phone: [phone] Performed at: [facility] [address] [id number] Blast Furnace Operator: Riddhi Goodman MD, Phone: [phone] Performing Lab: see note [facility] LB Urine Culture, Routine Reviewed date:07/29/2024 06:17:09 PM Interpretation: Performing Lab: Notes/Report: [facility] , Urine Culture, Routine See Below For Report Urine Culture, Routine Urine Culture, Routine Mixed urogenital skye Urine Culture, Routine Urine Culture, Routine 10,000-25,000 col prerna forming units per mL Urine Culture, Routine Urine Culture, Routine Performed at: [facility] Urine Culture, Routine Urine Culture, Routine [address] [place] [phone] Urine Culture, Routine Urine Culture, Routine Blast Furnace Operator: Adal Sparks PhD, Phone: [phone] Urine Culture, Routine Performing Lab: see note - [facility] LB SEE REPORT - Automotive Generator Repairer Id information not found for OBX-specific writer producer legend DRUG SCREEN RAPID (URINE) Reviewed date:07/27/2024 02:28:10 PM Interpretation: Performing Lab: Notes/Report: [facility] , Cannabinoid Screen Urine POSITIVE NEGATIVE Phencyclidine Screen Urine NEGATIVE NEGATIVE Cocaine Screen Urine NEGATIVE NEGATIVE Methamphetamines Screen Urine NEGATIVE NEGATIVE Opiate Screen Urine NEGATIVE NEGATIVE Amphetamine Screen Urine NEGATIVE NEGATIVE Benzodiazepines Screen Urine NEGATIVE NEGATIVE Tricyclic Antidepressant Urine NEGATIVE NEGATIVE Methadone Screen Urine NEGATIVE NEGATIVE Barbiturates Screen Urine NEGATIVE NEGATIVE Oxycodone Screen Urine NEGATIVE NEGATIVE Buprenorphine Screen Urine NEGATIVE NEGATIVE DRUG CLASS TEST SYSTEM CUT-OFF CONCENTRATIONS ARE FOLLOWS: AMP (Amphetamine): 500 ng/mL BAR (Barbiturates): 200 ng/mL BZO (Benzodiazepines): 150 ng/mL BUP (Buprenorphine): 10 ng/mL EDGAR (Cocaine): 150 ng/mL mAMP (Methamphetamine): 500 ng/mL MTD (Methadone): 200 ng/mL OPI (Opiates): 100 ng/mL OXY (Oxycodone): 100 ng/mL PCP (Phencyclidine): 25 ng/mL THC (Cannabinoids): 50 ng/mL TCA (Trycyclic Antidepressants): 300 ng/mL Performing Lab: see note ML - [facility] LB CBC AUTO DIFF Reviewed date:07/27/2024 02:28:10 PM Interpretation: Performing Lab: Notes/Report: [facility] , White Blood Count 11.3 4.0-11.0 10 3/uL Red Blood Count 4.36 4.20-5.40 10 6/uL Hemoglobin 13.4 12.0-16.0 g/dL Hematocrit 38.4 36.0-48.0 % Mean Corpuscular Volume 88.1 81.0-99.0 fL Mean Corpuscular Hemoglobin 30.7 26.7-34.0 pg Mean Corpuscular HGB Conc 34.9 29.9-35.2 g/dL Red Cell Distribution Width 12.3 11.0-15.0 % Platelet Count 313 150-450 10 3/uL Mean Platelet Volume 10.6 9.5-13.5 fL Neutrophils Percent Auto 70.6 43.0-75.0 % Lymphocytes Percent Auto 19.4 20.5-60.0 % Monocytes Percent Auto 6.3 1.7-12.0 % Eosinophils Percent Auto 2.7 0.9-7.0 % Basophils Percent Auto 0.6 0.2-2.0 % Immature Granulocytes Pct Auto 0.4 0.0-0.5 % Neutrophils Absolute Auto 8.0 1.4-6.5 10 3/uL Lymphocytes Absolute Auto 2.2 1.2-3.8 10 3/uL Monocytes Absolute Auto 0.7 0.3-0.8 10 3/uL Eosinophils Absolute Auto 0.3 0.0-0.7 10 3/uL Basophils Absolute Auto 0.1 0.0-0.1 10 3/uL Immature Granulocytes Abs Auto 0.04 0.00-0.03 10 3/uL Performing Lab: see note ML - [facility] LB US OB transvaginal Reviewed date:07/10/2024 03:45:41 PM Interpretation: Performing Lab: Notes/Report: Source Facility: [place] [address] Ultrasound Report Signed Patient: ELIDA PRAKASH MR#: [id number] : 2000 Acct:[id number] Age/Sex: 24 / F ADM Date: 07/09/24 Loc: [facility] Attending Dr: Ab Mendoza D.O. Ordering Physician: Ab Mendoza D.O. Date of Service: 07/09/24 Procedure(s): US OB transvaginal Accession Number(s): [id number] cc: Ab Mendoza D.O.; Kuldeep Mederos M.D. [place] [address] Patient Name: ELIDA PRAKASH MRN: [facility]:[id number] date: 2000 Sex: F Assigned Patient Location: [facility] Current Patient Location: [facility] Accession/Order Number: [id number] Exam Date: 07/09/2024 09:08 Report Date: 07/09/2024 [...] Signed By: 07/09/24 1034 DD/ 1031 TD/TT: Creative Recruiter: [place] [address] Ultrasound Report Signed Patient: ELIDA PRAKASH MR#: [id number] : 2000 Acct:[id number] Age/Sex: 24 / F ADM Date: 07/09/24 Loc: [facility] Attending Dr: Ab Mendoza D.O. Ordering Physician: Ab Mendoza D.O. Date of Service: 07/09/24 Procedure(s): US OB transvaginal Accession Number(s): [id number] cc: Ab Mendoza D.O. ; Kuldeep Mederos M.D. [place] [address] Patient Name: ELIDA PRAKASH MRN: [id number] date: 2000 Sex: F Assigned Patient Location: [facility] Current Patient Location: [facility] Accession/Order Number: [id number] Exam Date: 09:08 Report Date: 07/09/2024 10:31 At the request of: AB MENDOZA Procedure: US OB transvaginal EXAMINATION: US OB transvaginal HISTORY: MISSED MENSES COMPARISON: No relevant comparison available. FINDINGS: GESTATIONAL SAC: Present and normal appearing. YOLK SAC: Present an d normal appearing. POLE: Present and normal appearing. CARDIAC: Present. UTERUS: Normal size and appearance. OVARIES: Right: Normal. Left: Normal. CERVIX: 4.7 cm in length and closed. CUL-DE-SAC: Normal. OTHER: None. AGE BY LMP: 9 weeks 2 days YUDELKA BY LMP: 02/09/2025 AGE BY US CRL: 9 wee ks 0 days YUDELKA BY US CRL: 02/11/2025 US/US OB transvaginal IMPRESSION: 1. Single live intrauterine . Electronically authenticated by: SLCIK LOUIE Date: 07/09/2024 10:31 Dictated By: Slick Louie M.D. Signed By: 07/09/24 1034 DD/ 1031 TD/TT: Creative Recruiter: Urine Culture, Routine Reviewed date:01/05/2025 01:19:17 PM Interpretation: Performing Lab: Notes/Report: [facility] , Urine Culture, Routine See Below For Report Urine Culture, Routine Urine Culture, Routine Mixed urogenital skye Urine Culture, Routine Urine Culture, Routine 25,000-50,000 col prerna forming units per mL Urine Culture, Routine Urine Culture, Routine Performed at: [facility] Urine Culture, Routine Urine Culture, Routine [address] [place], [place] [id number] Urine Culture, Routine Urine Culture, Routine Blast Furnace Operator: Adal Sparks PhD, Phone: [phone] Urine Culture, Routine Performing Lab: see note - [facility] LB SEE REPORT - Automotive Generator Repairer Id information not found for OBX-specific writer producer legend Strep Gp B Culture+Rflx Reviewed date:01/16/2025 09:48:59 PM Interpretation: Performing Lab: Notes/Report: [facility] , Strep Gp B Culture+Rflx See Below For Report Strep Gp B Culture+Rflx Strep Gp B Culture+Rflx Negative Strep Gp B Culture+Rflx Strep Gp B Culture+Rflx Centers for Dise ase Control and Prevention (CDC) and Strep Gp B Culture+Rflx Strep Gp B Culture+Rflx [employer] [employer] Gynec[employer] Strep Gp B Culture+Rflx Strep Gp B Culture+Rflx (ACOG) guideline s for prevention of group B Strep Gp B Culture+Rflx Strep Gp B Culture+Rflx streptococcal (G BS) disease specify co-collection of Strep Gp B Culture+Rflx Strep Gp B Culture+Rflx a vaginal and re ctal swab specimen to maximize Strep Gp B Culture+Rflx Strep Gp B Culture+Rflx sensitivity of G BS detection. Per the CDC and ACOG, Strep Gp B Culture+Rflx Strep Gp B Culture+Rflx swabbing both th e lower vagina and rectum Strep Gp B Culture+Rflx Strep Gp B Culture+Rflx substantially increases the yield of detection Strep Gp B Culture+Rflx Strep Gp B Culture+Rflx compared with sa mpling the vagina alone. Strep Gp B Culture+Rflx Strep Gp B Culture+Rflx Penicillin G, ampicillin, or cefazolin are indicated Strep Gp B Culture+Rflx Strep Gp B Culture+Rflx for intrapartum prophylaxis of GBS Strep Gp B Culture+Rflx Strep Gp B Culture+Rflx colonization. Re flex susceptibility testing should be Strep Gp B Culture+Rflx Strep Gp B Culture+Rflx performed prior to use of clindamycin only on GBS Strep Gp B Culture+Rflx Strep Gp B Culture+Rflx isolates from penicillin-allergic women who are Strep Gp B Culture+Rflx Strep Gp B Culture+Rflx considered a hig h risk for anaphylaxis. Treatment with Strep Gp B Culture+Rflx Strep Gp B Culture+Rflx vancomycin witho ut additional testing is warranted if Strep Gp B Culture+Rflx Strep Gp B Culture+Rflx resistance to clindamycin is noted. Strep Gp B Culture+Rflx Strep Gp B Culture+Rflx Performed at: - [facility] [place] Strep Gp B Culture+Rflx Strep Gp B Culture+Rflx [address] [place], [place] [id number] Strep Gp B Culture+Rflx Strep Gp B Culture+Rflx Blast Furnace Operator: Irlanda Sparks PhD, Phone: [phone] Strep Gp B Culture+Rflx Performing Lab: see note LC - [facility] LB SEE REPORT - Automotive Generator Repairer Id information not found for OBX-specific writer producer legend Am[employer]* Reviewed date:01/04/2025 09:07:24 PM Interpretation: Performing Lab: Notes/Report: [facility] , [employer] NEGATIVE NEGATIVE Performing Lab: see note ML - [facility] US OB amniotic fluid vol Reviewed date:10/20/2024 06:57:28 PM Interpretation: Performing Lab: Notes/Report: Source Facility: [facility] [place] [address] [place] [address] Ultrasound Report Signed Patient: ELIDA PRAKASH MR#: [id number] : 2000 Acct:[id number] Age/Sex: 24 / F ADM Date: 09/21/24 Loc: [facility] 253-[address]: Ab Mendoza D.O. Ordering Physician: Ab Mendoza D.O. Date of Service: 09/21/24 Procedure(s): US OB amniotic fluid vol Accession Number(s): [id number] cc: Ab Mendoza D.O.; Kuldeep Mederos M.D. [address] [address] Patient Name: ELIDA PRAKASH MRN: [id number] date: 2000 Sex: F Assigned Patient Location: [facility] Current Patient Location: [facility] Accession/Order Number: [id number] Exam Date: 09/21/2024 15:08 Report Date: 09/21/2024 15:42 At the request of: AB MENDOZA Procedure: US OB amniotic fluid vol EXAMINATION: US OB placenta, US OB amniotic fluid vol HISTORY: fall and decreased movement COMPARISON: Ultrasound OB transvaginal 07/09/2024 FINDINGS: PLACENTA: Anterior, grade 0. No subchorionic hematoma or abruption. HEART RATE: 153 bpm AMNIOTIC FLUID:: 12.4 cm; normal range. GA: 20 weeks 0 days YUDELKA: 02/08/2025 US/US OB amniotic fluid vol IMPRESSION: 1. Single live intrauterine . 2. No placental abruption or subchorionic hematoma. 3. Normal amniotic fluid volume. Electronically authenticated by: SLICK LOUIE Date: 09/21/2024 15:42 Dictated By: Slick Loiue M.D. Signed By: 09/21/24 1544 DD/ 1542 TD/TT: Creative Recruiter: [place] [address] Ultrasound Report Signed Patient: ELIDA PRAKASH MR#: [id number] : 2000 Acct:[id number] Age/Sex: 24 / F ADM Date: 09/21/24 Loc: [facility] 253-[address]: Ab Mendoza D.O. Ordering Physician: Ab Mendoza D.O. Date of Service: 09/21/24 Procedure(s): US OB amniotic fluid vol Accession Number(s): [id number] cc: Ab Mendoza D.O. ; Kuldeep Mederos M.D. [address] [address] Patient Name: ELIDA PRAKASH MRN: [id number] date: 2000 Sex: F Assigned Patient Location: [facility] Current Patient Location: [facility] Accession/Order Number: [id number] Exam Date: 09/21/2024 15:08 Report Date: 09/21/2024 15:42 At the request of: AB MENDOZA Procedure: US OB amniotic fluid vol EXAMINATION: US OB placenta, US OB amniotic fluid vol HISTORY: fall and decreased movement COMPARISON: Ultrasou nd OB transvaginal 07/09/2024 FINDINGS: PLACENTA: Anterior, grade 0. No subchorionic hematoma or abruption. HEART RATE: 153 bpm AMNIOTIC FLUID:: 12. 4 cm; normal range. GA: 20 weeks 0 days YUDELKA: 02/08/2025 US/US OB amniotic fluid vol IMPRESSION: 1. Single live intrauterine . 2. No placental abruption or subchorionic hematoma. 3. Normal amniotic fluid volume. Electronically authenticated by: SLICK LOUIE Date: 09/21/2024 15:42 Dictated By: Slick Louie M.D. Signed By: 09/21/24 1544 DD/ 1542 TD/TT: Creative Recruiter: US OB placenta Reviewed date:10/20/2024 06:57:28 PM Interpretation: Performing Lab: Notes/Report: Source Facility: [place] [address] Ultrasound Report Signed Patient: ELIDA PRAKASH MR#: [id number] : 2000 Acct:[id number] Age/Sex: 24 / F ADM Date: 09/21/24 Loc: [facility] 253-[address]: Ab Mendoza D.O. Ordering Physician: Ab Mendoza D.O. Date of Service: 09/21/24 Procedure(s): US OB placenta Accession Number(s): [id number] cc: Ab Mendoza D.O.; Kuldeep Mdeeros M.D. [place] [address] Patient Name: ELIDA PRAKASH MRN: [id number] date: 2000 Sex: F Assigned Patient Location: [facility] Current Patient Location: [facility] Accession/Order Number: [id number] Exam Date: 09/21/2024 15:08 Report Date: 09/21/2024 15:42 At the request of: AB MENDOZA Procedure: US OB placenta EXAMINATION: US OB placenta, US OB amniotic fluid vol HISTORY: fall and decreased movement COMPARISON: Ultrasound OB transvaginal 07/09/2024 FINDINGS: PLACENTA: Anterior, grade 0. No subchorionic hematoma or abruption. HEART RATE: 153 bpm AMNIOTIC FLUID:: 12.4 cm; normal range. GA: 20 weeks 0 days YUDELKA: 02/08/2025 US/US OB placenta IMPRESSION: 1. Single live intrauterine . 2. No placental abruption or subchorionic hematoma. 3. Normal amniotic fluid volume. Electronically authenticated by: SLICK LOUIE Date: 09/21/2024 15:42 Dictated By: Slick Louie M.D. Signed By: 09/21/24 1544 DD/ 1542 TD/TT: Creative Recruiter: [place] [address] Ultrasound Report Signed Patient: ELIDA PRAKASH MR#: [id number] : 2000 Acct:[id number] Age/Sex: 24 / F ADM Date: 09/21/24 Loc: [facility] 253-[address]: Ab Mendoza D.O. Ordering Physician: Ab Mendoza D.O. Date of Service: 09/21/24 Procedure(s): US OB placenta Accession Number(s): [id number] cc: Ab Mendoza D.O. ; Kuldeep Mederos M.D. [address] [address] Patient Name: ELIDA PRAKASH MRN: [id number] date: 2000 Sex: F Assigned Patient Location: [facility] Current Patient Location: [facility] Accession/Order Number: [id number] Exam Date: 09/21/2024 15:08 Report Date: 09/21/2024 15:42 At the request of: AB MENDOZA Procedure: US OB placenta EXAMINATION: US OB placenta, US OB amniotic fluid vol HISTORY: fall and decreased movement COMPARISON: Ultrasou nd OB transvaginal 07/09/2024 FINDINGS: PLACENTA: Anterior, grade 0. No subchorionic hematoma or abruption. HEART RATE: 153 bpm AMNIOTIC FLUID:: 12. 4 cm; normal range. GA: 20 weeks 0 days YUDELKA: 02/08/2025 US/US OB placenta IMPRESSION: 1. Single live intrauterine . 2. No placental abruption or subchorionic hematoma. 3. Normal amniotic fluid volume. Electronically authenticated by: SLICK LOUIE Date: 09/21/2024 15:42 Dictated By: Slick Louie M.D. Signed By: 09/21/24 1544 DD/ 1542 TD/TT: Creative Recruiter: Reason For Referral No Information Medications Medication SIG (Take, Route, Frequency, Duration) [...] monthly (1 point) Points 1 Interpretation Negative AUDIT-C (Standard) Question Answer Notes Did you [...] month (2 points) Points 2 Interpretation Negative Problems Problem Type SNOMED Code ICD Code Onset Dates Problem Status W/U Status Risk Notes Problem Mixed anxiety and depressive disorder (080144097) Anxiety and depression (F41.9) Active confirmed Encounters Encounter Location Date Provider Diagnosis [facility] [address] [place] [address] 02/06/2024 Monica Rand Plan Of Treatment No Information Insurance Providers Payer Name Payer Address Payer Phone Subscriber Number Group Number Insured Name Patient Relationship to Insured Coverage Start Date Coverage End Date [employer] [place] [employer] [address] [place] [address] [id number] Elida Prakash Self - patient is the insured Medical (General) History Medical History History ICD Code asthma Surgical History Surgery Date(Month/Year) Tubes/ [place]ills
--- OUTSIDE RECORDS SUMMARY | 2025-01-30 21:37 | XMS_ITS | Encounter Summary ---
Author Organization [facility] Address [address] [facility] [place] [address] Care Team Providers Care Labor Relations Teacher Name Role Phone Kuldeep Mederos MD Primary Care Provider [phone] Encounter Details Date Type Department Care Team (Late st Contact Info) Description 09/21/2024 Clinisync Result Encounter [facility] External Department Unsolicited Ab Mendoza, DO [address] [facility] [place] [address] Social History Tobacco Use Types [...] Priority Date/Time Associated Diagnosis Comments US OB PLACENTA 09/21/2024 3:42 PM EST documented in this encounter Results * US OB PLACENTA (09/21/2024 3:42 PM EST) Anatomical Region Laterality Modality Other 09/21/2024 3:42 PM EST Narrative 09/21/2024 3:44 PM EST The [address] [address] Ultrasound Report Signed Patient: ELIDA PRAKASH MR#: [id number] : 2000 Acct:[id number] Age/Sex: 24 / F ADM Date: 09/21/24 Loc: [facility] 253-[address]: Ab Mendoza D.O. Ordering Physician: Ab Mendoza D.O. Date of Service: 09/21/24 Procedure(s): US OB placenta Accession Number(s): [id number] cc: Ab Mendoza D.O.; Kuldeep Mederos M.D. The [place] [id number] Patient Name: ELIDA PRAKASH MRN: [id number] date: 2000 Sex: F Assigned Patient Location: [facility] Current Patient Location: [facility] Accession/Order Number: [id number] Exam Date: 09/21/2024 15:08 Report Date: 09/21/2024 [...] Signed By: 09/21/24 1544 DD/ 1542 TD/TT: Head Banquet Waiter/Waitress: Procedure Note Radiology, Radiologist, - 09/21/2024 [place] [address] Ultrasound Report Signed Patient: ELIDA PRAKASH RMR#: [id number] : 2000Acct:[id number] Age/Sex: 24 / FADM Date: 09/21/24 Loc: [facility] 253-[address]: Ab Mendoza D.O. Ordering Physician: Ab Mendoza D.O. Date of Service: 09/21/24 Procedure(s): US OB placenta Accession Number(s): [id number] cc: Ab Mendoza D.O.; Kuldeep Mederos M.D. [address] [id number] Patient Name: ELIDA PRAKASH MRN: [id number] date: 2000 Sex: F Assigned Patient Location: [facility] Current Patient Location: [facility] Accession/Order Number: [id number] Exam Date: 09/21/2024 15:08 Report Date: 09/21/2024 [...] 15:42 Dictated By: Slick Louie M.D. Signed By:09/21/24 1544 DD/ 1542 TD/TT: Head Banquet Waiter/Waitress: us Ab Mendoza DO [facility] Final Result documented in this encounter Visit Diagnoses Not on filedocumented in this encounter Care Teams Labor Relations Teacher Relationship Specialty Start Date End Date Kuldeep Mederos MD [address] [place] [address] PCP - General Family Medicine 02/04/24 documented as of this encounter
--- OUTSIDE RECORDS SUMMARY | 2025-01-30 21:37 | XMS_ITS | Encounter Summary ---
Author Organization [facility] Address [address] [place] [address] Care Team Providers Care Charcoal Unloader Name Role Phone Kuldeep Mederos MD Primary Care Provider [phone] Encounter Details Date Type Department Care Team (Late st Contact Info) Description 09/21/2024 Clinisync Result Encounter [facility] External [facility] Unsolicited Ab Mendoza, DO [address] [facility] [place] [address] Social History Tobacco Use Types [...] Name Priority Date/Time Associated Diagnosis Comments US AMNIOTIC FLUID VOLUME 09/21/2024 3:42 PM EST documented in this encounter Results * US AMNIOTIC FLUID VOLUME (09/21/2024 3:42 PM EST) Anatomical Region Laterality Modality Radiographic Chelsey ging 09/21/2024 3:42 PM EST Narrative 09/21/2024 3:44 PM EST The [facility] [address] [place] [address] Ultrasound Report Signed Patient: ELIDA PRAKASH MR#: [id number] : 2000 Acct:[id number] Age/Sex: 24 / F ADM Date: 09/21/24 Loc: [facility] 253-[address]: Ab Mendoza D.O. Ordering Physician: Ab Mendoza D.O. Date of Service: 09/21/24 Procedure(s): US OB amniotic fluid vol Accession Number(s): [id number] cc: Ab Mendoza D.O.; Kuldeep Mederos M.D. The [place] [address] Patient Name: ELIDA PRAKASH MRN: [id number] date: 2000 Sex: F Assigned Patient Location: [facility] Current Patient Location: [facility] Accession/Order Number: [id number] Exam Date: 09/21/2024 15:08 Report Date: 09/21/2024 [...] Signed By: 09/21/24 1544 DD/ 1542 TD/TT: Senior Animator: Procedure Note Radiology, Radiologist, - 09/21/2024 [place] [address] Ultrasound Report Signed Patient: ELIDA PRAKASH RMR#: [id number] : 2000Acct:[id number] Age/Sex: 24 / FADM Date: 09/21/24 Loc: [facility] 253-[address]: Ab Mendoza D.O. Ordering Physician: Ab Mendoza D.O. Date of Service: 09/21/24 Procedure(s): US OB amniotic fluid vol Accession Number(s): [id number] cc: Ab Mendoza D.O.; Kuldeep Mederos M.D. [address] [address] Patient Name: ELIDA PRAKASH MRN: [id number] date: 2000 Sex: F Assigned Patient Location: [facility] Current Patient Location: [facility] Accession/Order Number: [id number] Exam Date: 09/21/2024 15:08 Report Date: 09/21/2024 [...] M.D. Signed By:09/21/24 1544 DD/ 1542 TD/TT: Senior Animator: us Ab Mendoza DO IMG XR PROCEDURES Final Result documented in this encounter Visit Diagnoses Not on filedocumented in this encounter Care Teams Charcoal Unloader Relationship Specialty Start Date End Date Kuldeep Mederos MD [address] [place] [phone] PCP - General Family Medicine 02/04/24 documented as of this encounter
--- OUTSIDE RECORDS SUMMARY | 2025-01-30 21:37 | XMS_ITS | Clinical Summary ---
Author Organization [employer] Address [facility] [id number] [address] [place] [address] Care Team Providers Care Snack Bar Attendant Name Role Phone Ziggy Santizo MD Primary Care Provider [phone] Allergies No known active allergies Medications albuterol (PROVENTIL HFA;VENTOLIN HFA) 90 mcg/actuation inhaler Inhale 2 puffs every 6 (six) hours as needed for wheezing. Active PNV no.175-iron fum-folic acid 29-1 mg tablet Take by mouth. Active albuterol (PROVENTIL HFA;VENTOLIN HFA) 90 mcg/actuation inhaler Inhale 1 puff every 4 (four) hours as needed for wheezing. Active Active Problems No known active problems Family History Medical History Relation Name Comments Depression Mother Relation Name Status Comments Mother Social History Tobacco Use Types Packs/Day Years Used Date Smoking Tobacco: Every Day Smokeless Tobacco: Never Alcohol Use Standard Drinks/Week Comments Not Currently 0 (1 standard drink = 0.6 oz pur e alcohol) Childcare Answer Date Recorded Childcare Unknown 02/10/2019 Employment Answer Date Recorded Employment Unknown 02/10/2019 Comments No Sex and Gender Information Value Date Recorded Sex Assigned at Not on file Legal Sex Female 12:12 PM EDT Gender Identity Not on file Sexual Orientation Not on file Last Filed Vital Signs Vital Sign Reading Time Taken Comments Blood Pressure 125/60 10/18/2021 11:46 AM EST Pulse 88 10/18/2021 11:46 AM EST Temperature - - Respiratory Rate - - Oxygen Saturation - - Inhaled Oxygen Concentration - - Weight 72.5 kg (159 lb 13.3 oz) 022 11:46 AM EST Height 172.7 cm (5' 8 ) 10/18/2021 11:4 6 AM EST Body Mass Index 24.3 10/18/2021 11:46 AM EST Plan of Treatment Health Maintenance Due Date Last Done Comments Depression Screening 2012 Tobacco Screening 2012 Adult BMI Screening 01/10/2018 DTaP,Tdap and Td Vaccines (7 - Td or Tdap) 04/24/2022 04/24/2012, 03/01/2005, 07/08/2001, Additional history exists Influenza Vaccine 05/02/2025 07/21/2013 Pap Smear 11/05/2025 11/05/2022 Medical Devices Not on file Insurance [employer] Care Teams Snack Bar Attendant Relationship Specialty Start Date End Date Ziggy Santizo MD PCP - General Family Medicine 10/18/21
[2025-01-30 21:49] VITALS: TEMP 37.1
[2025-01-30 21:50] VITALS: BP 121/69; PULSE 112
[2025-01-30 22:03] LABS: Amnisure POSITIVE (NEGATIVE); Internal Control Within Normal Limits
[2025-01-30 22:04] LABS: Bilirubin Urine NEGATIVE (NEGATIVE); Blood Urine NEGATIVE (NEGATIVE); Clarity Urine CLEAR (CLEAR); Color Urine LT. YELLOW (YELLOW); Glucose Urine UA NEGATIVE (NEGATIVE); Ketones Urine NEGATIVE (NEGATIVE); Leukocyte Esterase Urine TRACE (NEGATIVE); Nitrite Urine NEGATIVE (NEGATIVE); Protein Urine NEGATIVE (NEG/TRACE); Specific Gravity Urine 1.015 (1.005-1.025); Urobilinogen Urine 0.2 EU/dL (0.2-1.0); pH Urine 6.5 (5.0-9.0)
[2025-01-30 22:07] LABS: Urine Microscopic Indicated YES
[2025-01-30 22:13] LABS: Amorphous Sediment Urine RARE; Bacteria Urine TRACE #/HPF (NONE SEEN); Cast Seen? NONE SEEN #/LPF (NONE SEEN); Crystals Seen? Seen #/HPF (None Seen); Mucus Urine NONE SEEN (NONE SEEN); RBC Urine 0-2 #/HPF (0-2); Squamous Epithelial Cell Urine RARE #/LPF (NONE/RARE); Urine Culture Indicated NO
[2025-01-30 23:03] LABS: Hematocrit 30.8 % (36.0-48.0); Hemoglobin 10.3 g/dL (12.0-16.0); Mean Corpuscular HGB Conc 33.4 g/dL (29.9-35.2); Mean Corpuscular Hemoglobin 27.2 pg (26.7-34.0); Mean Corpuscular Volume 81.3 fL (81.0-99.0); Mean Platelet Volume 11.7 fL (9.5-13.5); Platelet Count 279 10^3/uL (150-450); Red Blood Count 3.79 10^6/uL (4.20-5.40); Red Cell Distribution Width 13.8 % (11.0-15.0); White Blood Count 12.7 10^3/uL (4.0-11.0)
[2025-01-30 23:10] VITALS: TEMP 37.1
[2025-01-30 23:14] LABS: Amphetamine Screen Urine NEGATIVE (NEGATIVE); Barbiturates Screen Urine NEGATIVE (NEGATIVE); Benzodiazepines Screen Urine NEGATIVE (NEGATIVE); Buprenorphine Screen Urine NEGATIVE (NEGATIVE); Cannabinoid Screen Urine POSITIVE (NEGATIVE); Cocaine Screen Urine NEGATIVE (NEGATIVE); Methadone Screen Urine NEGATIVE (NEGATIVE); Methamphetamines Screen Urine NEGATIVE (NEGATIVE); Opiate Screen Urine NEGATIVE (NEGATIVE); Oxycodone Screen Urine NEGATIVE (NEGATIVE); Phencyclidine Screen Urine NEGATIVE (NEGATIVE); Tricyclic Antidepressant Urine NEGATIVE (NEGATIVE)
[2025-01-31] VITALS (44 sets, daily range): BP systolic 81–129; BP diastolic 42–71; PULSE 58–164; TEMP 35.7–36.9
[2025-01-31] MEDS: 0.9 % SODIUM CHLORIDE 1,000 ML 1000 ML IV (02:25)
[2025-01-31] MEDS: ROPIVACAINE HCL/PF 400 MG/200 ML PREMIX 10 MG EPIDURAL (03:25)
[2025-01-31] MEDS: 0.9 % SODIUM CHLORIDE 1,000 ML 999 ML IV (03:29)
[2025-01-31] MEDS: OXYTOCIN/0.9 % SODIUM CHLORIDE 20 UNITS/1,000 ML PLAST..BAG 125 UNIT IV (07:42)
--- NOTE | 2025-01-31 07:43 | PM.OBPRCVD ---
Procedure Intrapartal events: None Induction method: none Delivery monitor: none Route of delivery: Episiotomy Description: none L&D Laceration Description: none Estimated blood loss (mL): 200 Anesthesia type: Epidural Disposition: floor Delivery date: 01/31/25 Gender: female presentation: vertex Placental delivery description: Spontaneous cord description: 3 Vessels
[2025-01-31] MEDS: IBUPROFEN 600 MG TABLET PO ×2 (18:03→23:54)
[2025-02-01 06:44] LABS: Basophils Absolute Auto 0.1 10^3/uL (0.0-0.1); Basophils Percent Auto 0.5 % (0.2-2.0); Eosinophils Absolute Auto 0.2 10^3/uL (0.0-0.7); Eosinophils Percent Auto 1.2 % (0.9-7.0); Hematocrit 30.1 % (36.0-48.0); Hemoglobin 9.8 g/dL (12.0-16.0); Immature Granulocytes Abs Auto 0.05 10^3/uL (0.00-0.03); Immature Granulocytes Pct Auto 0.4 % (0.0-0.5); Lymphocytes Percent Auto 22.9 % (20.5-60.0); Mean Corpuscular HGB Conc 32.6 g/dL (29.9-35.2); Mean Corpuscular Hemoglobin 26.6 pg (26.7-34.0); Mean Corpuscular Volume 81.8 fL (81.0-99.0); Mean Platelet Volume 11.6 fL (9.5-13.5); Monocytes Absolute Auto 1.1 10^3/uL (0.3-0.8); Monocytes Percent Auto 8.4 % (1.7-12.0); Neutrophils Absolute Auto 8.6 10^3/uL (1.4-6.5); Neutrophils Percent Auto 66.6 % (43.0-75.0); Platelet Count 229 10^3/uL (150-450); Red Blood Count 3.68 10^6/uL (4.20-5.40); White Blood Count 12.9 10^3/uL (4.0-11.0)
--- NOTE | 2025-02-01 08:35 | PM.OBPN ---
OB - PN: Subj Subjective Patient comments: no complaints [place] status: doing well feeding status: breast and bottle feeding Exam Constitutional Vital Signs, click to edit/add: Last Vital Signs Temp 97.8 F 01/31/25 23:50 Pulse 69 01/31/25 23:50 Resp 16 01/31/25 23:50 BP 124/69 01/31/25 23:50 O2 Del Method Room Air 01/31/25 23:50 Documenting provider has reviewed patient's vital signs: yes Common normals: no apparent distress General appearance: cooperative Orientation/consciousness: Yes awake, Yes oriented to person and Yes oriented to place HENMT Common normals: normocephalic Face and sinus: normal facial exam Eye Common normals: EOMs intact bilaterally General eye: normal appearance of both eyes Neck & C-Spine Common normals: full ROM Lymph Lymphatic: no lymphadenopathy noted Chest Common normals: inspection of chest normal Respiratory Common normals: normal respiratory effort, no retractions, no use of accessory muscles, clear to auscultation bilaterally and percussion normal Effort & inspection: able to speak in complete sentences Auscultation: clear to auscultation bilaterally Cardio Common normals: no JVD, regular rate and regular rhythm Rate: regular rate Rhythm: regular rhythm GI Common normals: Normal to inspection, nondistended, normoactive bowel sounds present Inspection: normal to inspection Auscultation: normoactive bowel sounds Palpation: soft Common normals: no CVA tenderness Back & Pelvis Common normals: no CVA tenderness Thoracic spine/upper back: normal to inspection Lumbar spine/lower back: normal to inspection Extremity Common normals: normal to inspection Neuro Common normals: oriented x3 Sensorium/orientation: awake, alert, oriented to person, oriented to place and oriented to time Speech: speech normal Psych Common normals: mental status grossly normal, thought process normal, cooperative, affect normal, speech normal, activity/motor behavior normal, denies hallucinations, denies homicidal ideation and denies suicidal ideation Appearance: grossly normal Attitude: calm Activity/motor behavior: appropriate eye contact Thought process: normal thought process Thought content: normal thought content Attention/concentration: attention grossly intact Judgement: judgment good Results Labs Labs: Short CBC 02/01/25 Range/Units 06:36 WBC 12.9 H (4.0-11.0) 10^3/uL Hgb 9.8 L (12.0-16.0) g/dL Hct 30.1 L (36.0-48.0) % Plt Count 229 (150-450) 10^3/uL Urinary Catheter Management Urinary Catheter Management Urethral: Cath placed during this visit: yes Urethral indwelling: No Insertion date: 01/31/25 Insertion time: 04:20 OB - PN: A/P Plan - Vaginal Delivery day: 1 Plan: discharge home Time Spent with Patient Time: Total time spent is greater than 50% in coordination of care (as documented) at patient's floor/unit and/or counseling patient: Total time spent with greater than 50% in coordination of care (as documented) at patient's floor/unit and/or counseling patient: less than 15 minutes
[2025-02-01 09:02] VITALS: BP 123/61; PULSE 72
[2025-02-01 09:05] VITALS: TEMP 36.3
[2025-02-01] MEDS: IBUPROFEN 600 MG TABLET PO (11:10)
[2025-02-01] MEDS: DOCUSATE SODIUM 100 MG CAPSULE PO (11:10)
--- NOTE | 2025-02-01 11:23 | SWNOTE1 ---
SW consulted for positive marijuana drug screen. SW spoke to nurse prior to seeing pt. Nurse mentioned possibility of past drug use but no other concerns. SW met with pt and father of baby. Pt voiced having everything she needs for baby and good support. She is and is going well. Pt and father of baby live at home together with pt's other 3 year old child. SW asked pt about marijuana use. Pt says she smoked throughout to help her eat, sleep, and for anxiety. She does not have medical marijuana card. Unsure if pt plans to continue using. SW did ask pt about prior drug use and she denied. SW advised pt and father of baby that referral will be made to [facility]. They voiced no further questions at this time. Referral made to [facility]. DENY filled out HIPAA form and sent to
[2025-02-01 17:58] VITALS: BP 124/79; PULSE 111
[2025-02-03 14:10] LABS: Cannabinoid Positive (.); Carboxy THC Conf, MS, UR 182 ng/mL (Cutoff=10)
== END 2025-02-01 15:00 | disposition home or self-care (01) | DRG 560 ==
PROVIDERS: Obstetrics & Gynecology; Admitting Provider Obstetrics & Gynecology Gynecology; PCP Family Medicine; Visit Provider Obstetrics & Gynecology Gynecology
DX: O99.324 Drug use complicating childbirth (principal); F12.90 Cannabis use, unspecified, uncomplicated; O99.334 Smoking (tobacco) complicating childbirth; F17.210 Nicotine dependence, cigarettes, uncomplicated; Z3A.38 38 weeks gestation of pregnancy; Z37.0 Single live birth; O99.52 Diseases of the respiratory system complicating childbirth; J45.909 Unspecified asthma, uncomplicated
CPT/HCPCS: 36415; 51702; 59050; 59410; 80307; 80349; 81001; 84112; 85025; 85027; 86850; 86900; 86901; J0665; J2795; J3010